=== PATIENT | female | born 1935 | race Caucasian/White ===

== ENCOUNTER 2017-08-28 19:31 | Emergency (ER) | payer OTHER ==
[2017-08-28 21:15] LABS: Absolute Lymphocytes (CBC) 1.1 K/uL (0.7-4.9); Absolute Monocytes 0.2 K/uL (0.1-1.3); Absolute Neutrophil 2.2 K/uL (1.8-8.0); Eosinophils % 2.8 % (0-4.4); Hematocrit 30.9 % (36.0-45.0); Lymphocytes % 29.3 % (15.3-44.8); MCH 28.3 pg (27.0-35.0); MCV 84.8 fL (80-100); MPV 7.6 fL (7.6-11.3); Monocytes % 6.7 % (3.3-12.3); RBC Red Blood Cell Count 3.65 M/uL (3.86-4.86)
[2017-08-28 21:15] LABS: Urine Appearance CLEAR; Urine Bilirubin NEGATIVE (NEG); Urine Blood NEGATIVE (NEG); Urine Color YELLOW; Urine Glucose NEGATIVE (NEG); Urine Protein NEGATIVE (NEG); Urine Specific Gravity 1.015 (1.005-1.030); Urine Urobilinogen 0.2 mg/dL (0.2-1.0)
[2017-08-28 21:19] LABS: Urine Blood NEGATIVE (NEG); Urine Glucose NEGATIVE (NEG); Urine Protein NEGATIVE (NEG); Urine pH 5.5 (5.0-7.0)
[2017-08-28 21:26] LABS: Urine Microscopic Reflex ORDER UMIC
[2017-08-28 21:27] LABS: Potassium 4.7 mEq/L (3.6-5.0)
[2017-08-28 21:28] LABS: Urine Bacteria <20 /HPF (<20); Urine Culture Reflex Order REFLEXED; Urine RBC <5 /HPF (NONE SEEN)
[2017-08-28 21:31] LABS: Albumin 3.4 g/dL (3.2-5.5); Bilirubin Total 0.9 mg/dL (0.3-1.2); Protein, Total 7.1 g/dL (6.0-8.3)
[2017-08-28] MEDS ORDERED: NA CHLORIDE 0.9% 500 ML ONE (22:06)
--- NOTE | 2017-08-28 22:46 | EDPHYS ---
Physician Documentation [facility] Name: Loni Cross Age: 82 yrs Sex: Female : 1935 Arrival Date: 08/28/2017 Time: 19:32 Bed 7 Private MD: Keith Weber F ED Physician Kadeem Meehan HPI: 08/28 21:52 This 82 yrs old Female presents to ER via Ambulatory with complaints of High tw4 Blood Sugar. 21:52 The patient or guardian reports hyperglycemia, that was potentially precipitated by no tw4 particular event. Onset: The symptoms/episode began/occurred today. Associated signs and symptoms: Pertinent positives: None. Pertinent negatives: None. Current symptoms: In the emergency department the patient's symptoms have improved, blood sugar lower. The patient has not experienced similar symptoms in the past. Historical: - Allergies: 19:38 blood thinners except ASA; aj 19:38 Rnisbst-Tci-Lth Reductase Inhibitors; aj - Home Meds: 19:38 aspirin 81 mg Oral TbEC 1 tab once daily [Active]; carvedilol 12.5 mg Oral tab 1 tab 2 aj times per day [Active]; Claritin-D 24 Hour 10-240 mg Oral Tb24 1 tab once daily [Active]; ezetimibe Oral once daily [Active]; Flonase 50 mcg/actuation Nasal spsn 1 spray 2 times per day [Active]; furosemide 40 mg Oral tab 1 tab once daily [Active]; glimepiride 4 mg Oral tab 1 tab twice a day [Active]; omeprazole 40 mg Oral cpDR 1 cap once daily [Active]; pravastatin 10 mg Oral tab 1 tab once daily [Active]; Spectravite Ultra Women's Sr 8 mg iron-400 mcg-300 mcg Oral tab [Active]; - PMHx: 19:38 CVA; Diabetes - NIDDM; Hyperlipidemia; Hypertension; aj - PSHx: 19:38 Hysterectomy; aj - Immunization history:: Adult Immunizations up to date. - Social history:: Smoking status: Patient/guardian denies using tobacco. ROS: 21:52 Constitutional: Negative for fever, chills, and weight loss, Cardiovascular: Negative tw4 for chest pain, palpitations, and edema, Respiratory: Negative for shortness of breath, cough, wheezing, and pleuritic chest pain, Back: Negative for injury and pain, : Negative for injury, bleeding, discharge, and swelling, MS/Extremity: Negative for injury and deformity. 21:52 Endocrine: Negative for goiter, cold intolerance, heat intolerance, polydipsia, polyphagia, polyuria, weight gain, weight loss. Exam: 21:52 Constitutional: This is a well developed, well nourished patient who is awake, alert, tw4 and in no acute distress. Head/Face: Normocephalic, atraumatic. Chest/axilla: Normal chest wall appearance and motion. Nontender with no deformity. No lesions are appreciated. Cardiovascular: Regular rate and rhythm with a normal S1 and S2. No gallops, murmurs, or rubs. Normal PMI, no JVD. No pulse deficits. Respiratory: Lungs have equal breath sounds bilaterally, clear to auscultation and percussion. No rales, rhonchi or wheezes noted. No increased work of breathing, no retractions or nasal flaring. Abdomen/GI: Soft, non-tender, with normal bowel sounds. No distension or tympany. No guarding or rebound. No evidence of tenderness throughout. MS/ Extremity: Pulses equal, no cyanosis. Neurovascular intact. Full, normal range of motion. Neuro: Awake and alert, GCS 15, oriented to person, place, time, and situation. Cranial nerves II-XII grossly intact. Motor strength 5/5 in all extremities. Sensory grossly intact. Cerebellar exam normal. Normal gait. Vital Signs: 19:38 BP 140 / 56; Pulse 66; Resp 16; Temp 98.5; Pulse Ox 100% on R/A; Weight 69.4 kg; Height aj 5 ft. 2 in. (157.48 cm); Pain 0/10; 20:30 BP 100 / 42; Pulse 60; Resp 16 S; Pulse Ox 99% on R/A; Pain 0/10; jd3 21:37 BP 112 / 49; Pulse 61; Resp 17; Pulse Ox 100% on R/A; Pain 0/10; jd3 22:37 BP 115 / 37; Pulse 63; Resp 15; Pulse Ox 100% on R/A; mw2 19:38 Body Mass Index 27.98 (69.40 kg, 157.48 cm) aj MDM: 19:47 Patient medically screened. tw4 21:52 Data reviewed: vital signs, nurses notes. Counseling: I had a detailed discussion with tw4 the patient and/or guardian regarding: the historical points, exam findings, and any diagnostic results supporting the discharge/admit diagnosis. 08/28 20:39 Order name: CBC with Diff; Complete Time: 21:47 tw4 08/28 20:39 Order name: CMP; Complete Time: 21:47 tw4 08/28 20:39 Order name: Urinalysis; Complete Time: 21:47 rust 08/28 21:14 Order name: Urine Dipstick--Ancillary (enter results); Complete Time: 21:47 eb 08/28 21:27 Order name: Urine Microscopic Only; Complete Time: 21:47 EDMS 08/28 21:30 Order name: Urine Culture EDPA Administered Medications: 22:14 Drug: NS 0.9% 500 ml Route: IV; Rate: bolus; Site: left forearm; bp 22:57 Follow up: Response: No adverse reaction; IV Status: Completed infusion; IV Intake: jd3 500ml Point of Care Testing: Blood Glucose: 19:53 Blood Glucose: 260 mg/dL; jd3 Ranges: Critical Glucose Levels:Adult <50 mg/dl or >400 mg/dl <40 mg/dl or >180 mg/dl Disposition: 08/28/17 22:45 Discharged to Home. Impression: Hyperglycemia, unspecified, Urinary tract infection, site not specified. - Condition is Stable. - Discharge Instructions: Hyperglycemia, Urinary Tract Infection, Urinary Tract Infection, Akun-ky-Wlda, Hyperglycemia, Pnuf-hu-Geje. - Prescriptions for Macrobid 100 mg Oral Capsule - take 1 capsule by ORAL route every 12 hours for 10 days; 20 capsule. - Medication Reconciliation Form, Thank You Letter, Antibiotic Education, Prescription Opioid Use form. - Follow up: Keith Weber MD; When: As needed; Reason: Recheck today's complaints, Continuance of care, Re-evaluation by your physician. - Problem is new. - Symptoms have improved. Signatures: Dispatcher [employer] EDSarah Higgins RN RN aj Davies, Jonathon, RN RN jd3 Peltier, Brian, RN RN bp Wadley, Terrence, MD MD 4 Corrections: (The following items were deleted from the chart) 22:57 22:45 08/28/2017 22:45 Discharged to Home. Impression: Hyperglycemia, unspecified; jd3 Urinary tract infection, site not specified. Condition is Stable. Forms are Medication Reconciliation Form, Thank You Letter, Antibiotic Education, Prescription Opioid Use. Follow up: Keith Weber; When: As needed; Reason: Recheck today's complaints, Continuance of care, Re-evaluation by your physician. Problem is new. Symptoms have improved. tw4
--- NOTE | 2017-08-28 22:46 | ER ---
Nurse's Notes [facility] Name: Loni Cross Age: 82 yrs Sex: Female : 1935 Arrival Date: 08/28/2017 Time: 19:32 Bed 7 Private MD: Keith Weber F Diagnosis: Hyperglycemia, unspecified;Urinary tract infection, site not specified Presentation: 08/28 19:37 Presenting complaint: Patient states: Sent by home health for blood sugar of 403 at home. Transition of care: patient was not received from another setting of care. Onset of symptoms was August 28, 2017. Care prior to arrival: None. 19:37 Method Of Arrival: Ambulatory 19:37 Acuity: TRINI 3 21:39 Initial Sepsis Screen: Does the patient meet any 2 criteria? No. Patient's initial jd3 sepsis screen is negative. Does the patient have a suspected source of infection? No. Patient's initial sepsis screen is negative. Triage Assessment: 19:38 General: Appears in no apparent distress. comfortable, Behavior is calm, cooperative, aj appropriate for age. Pain: Denies pain. Neuro: Level of Consciousness is awake, alert, obeys commands, Oriented to person, place, time, situation, Appropriate for age. Respiratory: Airway is patent Respiratory effort is even, unlabored, Respiratory pattern is regular, symmetrical. GI: No signs and/or symptoms were reported involving the gastrointestinal system. Derm: Skin is intact, is healthy with good turgor, Skin is pink, warm \T\ dry. normal. Historical: - Allergies: 19:38 blood thinners except ASA; aj 19:38 Yvfuies-Iia-Lhg Reductase Inhibitors; - Home Meds: 19:38 aspirin 81 mg Oral TbEC 1 tab once daily [Active]; carvedilol 12.5 mg Oral tab 1 tab 2 aj times per day [Active]; Claritin-D 24 Hour 10-240 mg Oral Tb24 1 tab once daily [Active]; ezetimibe Oral once daily [Active]; Flonase 50 mcg/actuation Nasal spsn 1 spray 2 times per day [Active]; furosemide 40 mg Oral tab 1 tab once daily [Active]; glimepiride 4 mg Oral tab 1 tab twice a day [Active]; omeprazole 40 mg Oral cpDR 1 cap once daily [Active]; pravastatin 10 mg Oral tab 1 tab once daily [Active]; Spectravite Ultra Women's Sr 8 mg iron-400 mcg-300 mcg Oral tab [Active]; - PMHx: 19:38 CVA; Diabetes - NIDDM; Hyperlipidemia; Hypertension; aj - PSHx: 19:38 Hysterectomy; aj - Immunization history:: Adult Immunizations up to date. - Social history:: Smoking status: Patient/guardian denies using tobacco. Screenin:39 Abuse screen: Denies threats or abuse. Nutritional screening: No deficits noted. jd3 Tuberculosis screening: No symptoms or risk factors identified. Fall Risk Ambulatory Aid- Crutches/Cane/Walker (15 pts). Gait- Weak (10 pts.). Mental Status- Oriented to own ability (0 pts). Total Jovel Fall Scale indicates Low Risk Score (25-44 pts). Fall prevention measures have been instituted. Side Rails Up X 2 Placed close to Nursing Station Frequent Obs/Assesments occuring Family Present and informed to notify staff if they need to leave bedside. Assessment: 19:55 General: Appears in no apparent distress. Behavior is calm, cooperative, appropriate jd3 for age, Reports high blood sugar. Pain: Denies pain. Neuro: Level of Consciousness is awake, alert, obeys commands, Oriented to person, place, time, situation. Cardiovascular: Heart tones S1 S2 present Capillary refill < 3 seconds Patient's skin is warm and dry. Respiratory: Airway is patent Respiratory effort is even, unlabored, Respiratory pattern is regular, symmetrical, Breath sounds are clear bilaterally. GI: Abdomen is round Bowel sounds present X 4 quads. Abd is soft and non tender X 4 quads. Reports nausea. : No signs and/or symptoms were reported regarding the genitourinary system. EENT: No signs and/or symptoms were reported regarding the EENT system. Derm: Skin is intact, Skin is dry, Skin is normal, Skin temperature is warm. Musculoskeletal: Circulation, motion, and sensation intact. Range of motion: intact in all extremities. 20:30 Reassessment: Patient appears in no apparent distress at this time. Patient and/or jd3 family updated on plan of care and expected duration. Pain level reassessed. Patient is alert, oriented x 3, equal unlabored respirations, skin warm/dry/pink. 21:30 Reassessment: Patient appears in no apparent distress at this time. Patient and/or jd3 family updated on plan of care and expected duration. Pain level reassessed. Patient is alert, oriented x 3, equal unlabored respirations, skin warm/dry/pink. Patient denies pain at this time. Patient states feeling better. 22:30 Reassessment: Patient appears in no apparent distress at this time. Patient and/or jd3 family updated on plan of care and expected duration. Pain level reassessed. Patient is alert, oriented x 3, equal unlabored respirations, skin warm/dry/pink. 22:55 Reassessment: Patient appears in no apparent distress at this time. Patient and/or jd3 family updated on plan of care and expected duration. Pain level reassessed. Patient is alert, oriented x 3, equal unlabored respirations, skin warm/dry/pink. pt reported understanding of discharge instructions, even and steady gait upon discharge. Patient denies pain at this time. Patient states feeling better. Vital Signs: 19:38 BP 140 / 56; Pulse 66; Resp 16; Temp 98.5; Pulse Ox 100% on R/A; Weight 69.4 kg; Height aj 5 ft. 2 in. (157.48 cm); Pain 0/10; 20:30 BP 100 / 42; Pulse 60; Resp 16 S; Pulse Ox 99% on R/A; Pain 0/10; jd3 21:37 BP 112 / 49; Pulse 61; Resp 17; Pulse Ox 100% on R/A; Pain 0/10; jd3 22:37 BP 115 / 37; Pulse 63; Resp 15; Pulse Ox 100% on R/A; mw2 19:38 Body Mass Index 27.98 (69.40 kg, 157.48 cm) ED Course: 19:32 Patient arrived in ED. am2 19:32 Keith Weber MD is Private Physician. am2 19:38 Triage completed. aj 19:38 Arm band placed on right wrist. Patient placed. aj 19:47 Kadeem Meehan MD is Attending Physician. tw4 19:53 Parveen Canas, ROBINSON is Primary Nurse. jd3 21:39 Patient has correct armband on for positive identification. Bed in low position. Call jd3 light in reach. Side rails up X2. Adult w/ patient. 22:13 No provider procedures requiring assistance completed. Inserted saline lock: 22 gauge bp in left forearm, using aseptic technique. Blood collected. 22:45 Keith Weber MD is Referral Physician. tw4 22:56 IV discontinued, intact, bleeding controlled, No redness/swelling at site. Pressure jd3 dressing applied. Administered Medications: 22:14 Drug: NS 0.9% 500 ml Route: IV; Rate: bolus; Site: left forearm; bp 22:57 Follow up: Response: No adverse reaction; IV Status: Completed infusion; IV Intake: jd3 500ml Point of Care Testing: Blood Glucose: 19:53 Blood Glucose: 260 mg/dL; jd3 Ranges: Intake: 22:57 IV: 500ml; Total: 500ml. jd3 Outcome: 22:45 Discharge ordered by . tw4 22:56 Discharged to home ambulatory, with family. jd3 22:56 Condition: stable 22:56 Discharge instructions given to patient, family, Instructed on discharge instructions, follow up and referral plans. medication usage, Demonstrated understanding of instructions, follow-up care, medications, Prescriptions given X 1. 22:57 Patient left the ED. jd3 Addendum: 09/02/2017 07:42 Addendum: Culture Results: Positive urine culture. No further action required. Bacteria i w sensitive to prescribed antibiotic. Signatures: Sarah Rosales, RN Yanet England RN RN iw Moreno, Amanda amParveen Tuttle RN RN jd3 Peltier, Brian, RN RN bp Wadley, Terrence, MD MD tw4 Elver Mckeon 2
[2017-08-28 23:11] VITALS: TEMP 98.5
[2017-08-28 23:21] VITALS: O2SAT 100
[2017-08-28 23:22] VITALS: BP 115/37
== END 2017-08-28 22:57 | disposition home or self-care (01) ==
LOC: ER 19:31
DX: N39.0 Urinary tract infection, site not specified (principal); I10 Essential (primary) hypertension; E78.5 Hyperlipidemia, unspecified; Z79.82 Long term (current) use of aspirin; Z86.73 Personal history of transient ischemic attack (TIA), and cerebral infarction without residual deficits; Z88.8 Allergy status to other drugs, medicaments and biological substances
CPT/HCPCS: 36415; 80048; 80053; 81003; 81015; 82040; 82043; 82570; 82962; 83970; 84100; 84550; 85025; 87077; 87086; 87088; 87186; 96360; 99284

== ENCOUNTER 2018-01-09 12:56 | Emergency (ER) | payer OTHER ==
[2018-01-09 14:21] LABS: Absolute Lymphocytes (CBC) 0.6 K/uL (0.7-4.9); Absolute Monocytes 0.2 K/uL (0.1-1.3); Absolute Neutrophil 1.2 K/uL (1.8-8.0); Basophils % 0.9 % (0-1.3); Eosinophils % 3.7 % (0-4.4); Hematocrit 28.4 % (36.0-45.0); Lymphocytes % 30.4 % (15.3-44.8); MCH 30.4 pg (27.0-35.0); MCV 90.4 fL (80-100); MPV 8.3 fL (7.6-11.3); Monocytes % 7.8 % (3.3-12.3); RBC Red Blood Cell Count 3.14 M/uL (3.86-4.86)
[2018-01-09 14:28] LABS: Protime INR 1.21
[2018-01-09 14:40] LABS: ALT/SGPT 55 U/L (12-78); AST/SGOT 62 U/L (15-37); Albumin 2.6 g/dL (3.4-5.0); Alkaline Phosphatase 101 U/L (45-117); BUN Blood Urea Nitrogen 43 mg/dL (7-18); Bicarbonate 26 mmol/L (21-32); Bilirubin Direct 0.2 mg/dL (0-0.2); Bilirubin Total 0.7 mg/dL (0.2-1.0); Glucose Level 228 mg/dL (74-106); Magnesium 2.1 mg/dL (1.8-2.4); NT PRO-BNP 220 pg/mL (<450); Potassium 4.8 mmol/L (3.5-5.1); Protein, Total 6.1 g/dL (6.4-8.2); Sodium Level 144 mmol/L (136-145); Troponin (Emerg Dept Use Only) < 0.02 ng/mL (0.0-0.045)
--- NOTE | 2018-01-09 16:55 | ER ---
Nurse's Notes [facility] Name: Loni Cross Age: 82 yrs Sex: Female : 1935 Arrival Date: 01/09/2018 Time: 12:57 Bed 19 Private MD: Keith Weber F Diagnosis: Dyspnea, unspecified Presentation: 01/09 12:59 Presenting complaint: Patient states: My kidney doctor took me off my lasix because my la1 kidney function was not good but I have gained about 14 pounds in the last 10 days. Pt states she gets SOB when she walks. Transition of care: patient was not received from another setting of care. Onset of symptoms was January 09, 2018. Risk Assessment: Do you want to hurt yourself or someone else? Patient reports no desire to harm self or others. Initial Sepsis Screen: Does the patient meet any 2 criteria? No. Patient's initial sepsis screen is negative. Does the patient have a suspected source of infection? No. Patient's initial sepsis screen is negative. Care prior to arrival: None. 12:59 Method Of Arrival: Ambulatory la1 12:59 Acuity: TRINI 3 la1 Historical: - Allergies: 12:59 blood thinners except ASA; la1 12:59 Ucupkda-Wkv-Aje Reductase Inhibitors; la1 - PMHx: 12:59 CVA; Diabetes - NIDDM; Hyperlipidemia; Hypertension; la1 - Immunization history:: Adult Immunizations up to date. - Social history:: Smoking status: Patient/guardian denies using tobacco. - Ebola Screening: : No symptoms or risks identified at this time. Screenin:12 Abuse screen: Denies threats or abuse. Denies injuries from another. Nutritional aj1 screening: No deficits noted. Tuberculosis screening: No symptoms or risk factors identified. 15:12 Fall Risk None identified. aj1 Assessment: 14:09 General: Appears in no apparent distress. comfortable, Behavior is calm, cooperative, aj1 appropriate for age. Pain: Denies pain. Neuro: Level of Consciousness is awake, alert, obeys commands. Cardiovascular: Patient's skin is warm and dry. Edema in bilateral lower legs. Respiratory: Airway is patent Respiratory effort is even, unlabored, Respiratory pattern is regular, symmetrical. GI: No signs and/or symptoms were reported involving the gastrointestinal system. : No signs and/or symptoms were reported regarding the genitourinary system. EENT: No signs and/or symptoms were reported regarding the EENT system. Derm: No signs and/or symptoms reported regarding the dermatologic system. Skin is pink, warm \T\ dry. normal. Musculoskeletal: No signs and/or symptoms reported regarding the musculoskeletal system. Circulation, motion, and sensation intact. 15:01 Reassessment: Patient appears in no apparent distress at this time. No changes from aj1 previously documented assessment. Patient and/or family updated on plan of care and expected duration. Pain level reassessed. Patient is alert, oriented x 3, equal unlabored respirations, skin warm/dry/pink. 15:06 Reassessment: Patient ambulated around unit with respiratory therapist. aj1 16:15 Reassessment: No changes from previously documented assessment. General: Appears in no aj1 apparent distress. comfortable, Behavior is calm, cooperative, appropriate for age. Pain: Denies pain. Neuro: Level of Consciousness is awake, alert, obeys commands. Cardiovascular: Patient's skin is warm and dry. Respiratory: Airway is patent Respiratory effort is even, unlabored, Respiratory pattern is regular, symmetrical. GI: No signs and/or symptoms were reported involving the gastrointestinal system. EENT: No signs and/or symptoms were reported regarding the EENT system. Derm: Skin is pink, warm \T\ dry. normal. Musculoskeletal: Circulation, motion, and sensation intact. 17:31 Reassessment: Patient appears in no apparent distress at this time. No changes from aj1 previously documented assessment. Patient and/or family updated on plan of care and expected duration. Pain level reassessed. Patient is alert, oriented x 3, equal unlabored respirations, skin warm/dry/pink. Vital Signs: 13:03 BP 141 / 50; Pulse 68; Resp 16; Temp 97.7(O); Pulse Ox 100% on R/A; Weight 83.46 kg; la1 14:09 BP 139 / 62; Pulse 68; Resp 20; Pulse Ox 97% on R/A; aj1 15:01 BP 126 / 61; Pulse 63; Resp 16; Pulse Ox 99% on R/A; aj1 16:15 BP 130 / 65; Pulse 64; Resp 18; Pulse Ox 97% ; aj1 17:31 BP 146 / 55; Pulse 62; Resp 18; Pulse Ox 99% ; aj1 ED Course: 12:57 Patient arrived in ED. sb2 12:58 Keith Weber MD is Private Physician. sb2 13:00 Triage completed. la1 13:00 Arm band placed on left wrist. la1 13:41 Mike Griffiths PA is PHCP. jmm 13:41 Bharathi Mcadams MD is Attending Physician. jmm 14:00 Julieta Lambert RN is Primary Nurse. aj1 14:12 Patient has correct armband on for positive identification. Placed in gown. Bed in low aj1 position. Call light in reach. surveillance system monitor on. Pulse ox on. NIBP on. 14:12 No provider procedures requiring assistance completed. aj1 14:17 Initial lab(s) drawn, by me, sent to lab. Inserted saline lock: 20 gauge in right dh3 antecubital area, using aseptic technique. Blood collected. 14:20 XRAY Chest (1 view) In Process Unspecified. EDMS 16:55 Marlin Ibrahim MD is Referral Physician. jmm 17:31 IV discontinued, intact, bleeding controlled, No redness/swelling at site. Pressure aj1 dressing applied. Administered Medications: No medications were administered Outcome: 16:55 Discharge ordered by MD. [facility] 17:33 Discharged to home ambulatory. aj1 17:33 Condition: good 17:33 Discharge instructions given to patient, Instructed on discharge instructions, follow up and referral plans. Demonstrated understanding of instructions, follow-up care. 17:33 Patient left the ED. aj1 Signatures: Dispatcher [employer] EDMS Julieta Lambert, RN RN taylor1 Mike Griffiths PA PA [facility] Mert Garcia RN RN la1 Jessika Philip [facility] Bianca Betancourt sb2 Corrections: (The following items were deleted from the chart) 17:32 15:11 Patient did not have IV access during this emergency room visit. aj1 aj1 17:33 15:12 Discharged to home via wheelchair, aj1 aj1 : 15:12 Condition: good aj1 aj1 17:33 15:12 Discharge instructions given to patient, Instructed on discharge instructions, aj1 follow up and referral plans. medication usage, Demonstrated understanding of instructions, follow-up care, medications, Prescriptions given X 3, aj1
--- NOTE | 2018-01-09 16:55 | EDPHYS ---
Physician Documentation [facility] Name: Loni Cross Age: 82 yrs Sex: Female : 1935 Arrival Date: 01/09/2018 Time: 12:57 Bed 19 Private MD: Keith Weber F ED Physician Bharathi Mcadams HPI: 01/09 13:48 This 82 yrs old Female presents to ER via Ambulatory with complaints of jmm Weight Gain. 13:48 The patient has shortness of breath with light activity. Onset: The symptoms/episode jmm began/occurred gradually, 3 day(s) ago. Duration: The symptoms are continuous. The patient's shortness of breath is aggravated by walking, is alleviated by rest. Associated signs and symptoms: Pertinent positives: weight gain, abdominal distension. The patient has experienced a previous episode, but today's symptoms are not as bad as this previous episode. This is an 82 year old female that presents to the ED with complaints of abdominal distension, weight gain beginning approx 10 days ago. Patient was advised to discontinue lasix due to decrease in GFR. Patient also complains of dyspnea on walking. Patient denies fever, denies chest pain. Patient states symptoms were much worse during a previous visit. . Historical: - Allergies: 12:59 blood thinners except ASA; la1 12:59 Tkltjdn-Hjn-Cvu Reductase Inhibitors; la1 - PMHx: 12:59 CVA; Diabetes - NIDDM; Hyperlipidemia; Hypertension; la1 - Immunization history:: Adult Immunizations up to date. - Social history:: Smoking status: Patient/guardian denies using tobacco. - Ebola Screening: : No symptoms or risks identified at this time. ROS: 13:48 Constitutional: Negative for fever, chills, and weight loss, Cardiovascular: Negative jmm for chest pain, palpitations, and edema. 13:48 Back: Negative for injury and pain, MS/Extremity: Negative for injury and deformity, Skin: Negative for injury, rash, and discoloration, Neuro: Negative for headache, weakness, numbness, tingling, and seizure. 13:48 Respiratory: Positive for shortness of breath. 13:48 Abdomen/GI: Positive for distension. 13:48 All other systems are negative. Exam: 13:48 Head/Face: atraumatic. Neck: Trachea midline, Supple Chest/axilla: Normal chest wall [facility] appearance and motion. 13:48 Constitutional: The patient appears in no acute distress, alert, awake. 13:48 Cardiovascular: Rate: normal, Rhythm: regular, Pulses: no pulse deficits are appreciated. 13:48 Respiratory: the patient does not display signs of respiratory distress, Respirations: normal, Breath sounds: are clear throughout. 13:48 Abdomen/GI: Inspection: obese Bowel sounds: normal, Palpation: abdomen is soft and non-tender, in all quadrants. 13:48 Back: ROM is normal. 13:48 Musculoskeletal/extremity: ROM: intact in all extremities. 13:48 Skin: Appearance: Color: normal in color. 13:48 Neuro: Orientation: is normal, Mentation: is normal, Memory: is normal, Gait: is steady. 13:48 Psych: Behavior/mood is pleasant, cooperative. Vital Signs: 13:03 BP 141 / 50; Pulse 68; Resp 16; Temp 97.7(O); Pulse Ox 100% on R/A; Weight 83.46 kg; la1 14:09 BP 139 / 62; Pulse 68; Resp 20; Pulse Ox 97% on R/A; aj1 15:01 BP 126 / 61; Pulse 63; Resp 16; Pulse Ox 99% on R/A; aj1 16:15 BP 130 / 65; Pulse 64; Resp 18; Pulse Ox 97% ; aj1 17:31 BP 146 / 55; Pulse 62; Resp 18; Pulse Ox 99% ; aj1 MDM: 13:48 Patient medically screened. [facility] 16:51 Data reviewed: vital signs, nurses notes. Counseling: I had a detailed discussion with herman the patient and/or guardian regarding: the historical points, exam findings, and any diagnostic results supporting the discharge/admit diagnosis, lab results, radiology results, the need for outpatient follow up, to return to the emergency department if symptoms worsen or persist or if there are any questions or concerns that arise at home. ED course: RT ambulated the patient with pulse oximetry monitoring. O2 was 98% on RA. BNP WNL, CXR did not show a volume overload pattern. Patient advised to follow up with nephrology for reevaluation on Thursday. patient is otherwise given strict return precautions. patient understood and agrees with the plan of care. . 01/09 13:42 Order name: Basic Metabolic Panel; Complete Time: 14:47 [facility] 01/09 13:42 Order name: CBC with Diff [facility] 01/09 13:42 Order name: LFT's; Complete Time: 14:47 [facility] 01/09 13:42 Order name: Magnesium; Complete Time: 14:47 [facility] 01/09 13:42 Order name: NT PRO-BNP; Complete Time: 14:47 [facility] 01/09 13:42 Order name: PT-INR; Complete Time: 14:47 [facility] 01/09 13:42 Order name: Troponin (emerg Dept Use Only); Complete Time: 14:47 [facility] 01/09 13:42 Order name: XRAY Chest (1 view) [facility] 01/09 13:42 Order name: EKG; Complete Time: 13:42 [facility] 01/09 13:42 Order name: Cardiac monitoring; Complete Time: 14:17 [facility] 01/09 13:42 Order name: EKG - Nurse/Tech; Complete Time: 14:32 [facility] 01/09 13:42 Order name: IV Saline Lock; Complete Time: 14:17 [facility] 01/09 13:42 Order name: Labs collected and sent; Complete Time: 14:17 [facility] 01/09 14:25 Order name: CBC Smear Scan [facility] 01/09 13:42 Order name: O2 Per Protocol; Complete Time: 14:17 [facility] 01/09 13:42 Order name: O2 Sat Monitoring; Complete Time: 14:17 [facility] Administered Medications: No medications were administered Disposition: 01/10 12:20 Co-signature as Attending Physician, Bharathi Mcadams MD I agree with the assessment and thor plan of care. Disposition: 01/09/18 16:55 Discharged to Home. Impression: Dyspnea, unspecified. - Condition is Stable. - Discharge Instructions: Heart Failure, Shortness of Breath. - Medication Reconciliation Form, Thank You Letter, Antibiotic Education, Prescription Opioid Use form. - Follow up: Marlin Ibrahim MD; When: 1 - 2 days; Reason: Recheck today's complaints, Continuance of care, Re-evaluation by your physician. Signatures: Dispatcher [employer] EDJulieta Sewell, RN RN aj1 Bharathi Mcadams MD MD cha Mickail, Joel, PA PA [facility] Mert Garcia RN RN la1 Corrections: (The following items were deleted from the chart) 01/09 17:33 16:55 01/09/2018 16:55 Discharged to Home. Impression: Dyspnea, unspecified. Condition aj1 is Stable. Forms are Medication Reconciliation Form, Thank You Letter, Antibiotic Education, Prescription Opioid Use. Follow up: Marlin Ibrahim; When: 1 - 2 days; Reason: Recheck today's complaints, Continuance of care, Re-evaluation by your physician. herman
[2018-01-09 17:59] VITALS: TEMP 97.7
[2018-01-09 18:04] VITALS: BP 146/55; O2SAT 99
[2018-01-09 19:29] LABS: Blood Morphology Comment NOT SEEN (NOT SEEN); Platelet Estimate DECR; Urine White Blood Cell Casts OK
--- NOTE | 2018-01-10 17:12 | RAD REPORT ---
EXAM DESCRIPTION: RAD - Chest Single View - 01/09/2018 11:29 pm CLINICAL HISTORY: Chest pain, shortness of breath The final report was delayed due to PACs and/or Fluency technical problems that existed at the time of the study or during expected/usual dictation time period. COMPARISON: June 18, 2017 TECHNIQUE: AP portable chest image was obtained 1414 hours . FINDINGS: No peripheral mass or consolidation. Interstitial markings are prominent. Pattern is sligh tly less than the June comparison. Left pleural effusion is present but diminished compared to the p rior study. Heart size and vasculature are mildly prominent. Heart size is slightly less than the com parison. No pneumothorax. No acute aortic findings suspected. IMPRESSION: Heart, vasculature and lung markings are all prominent but less pronounced than seen in June. And minimal failure/ volume overload is suspected. Small left pleural effusion much smaller than seen in June.
--- NOTE | 2018-01-11 08:16 | EKG ---
Test Date: 2018-01-09 Test Time: 14:27:44 Bus Driver/Monitor: MAXINE MEASUREMENT RESULTS: Intervals: Rate: 62 HI: 230 QRSD: 80 QT: 432 QTc: 438 [place]: P: 33 HI: 230 QRS: -8 T: 16 INTERPRETIVE STATEMENTS: Sinus rhythm with sinus arrhythmia with 1st degree AV block Low voltage QRS Cannot rule out Anterior infarct, age undetermined Abnormal ECG Compared to ECG 06/18/2017 15:08:05 First degree AV block now present Low QRS voltage now present Myocardial infarct finding still present Electronically Signed On 01-11-18 08:16:08 CDT by Jamal Hopkins
== END 2018-01-09 17:33 | disposition home or self-care (01) ==
LOC: ER 12:56
DX: R06.00 Dyspnea, unspecified (principal); Z88.8 Allergy status to other drugs, medicaments and biological substances
CPT/HCPCS: 36415; 71045; 80048; 80076; 83735; 83880; 84484; 85025; 85610; 93005; 99284

== ENCOUNTER 2018-03-16 16:52 | Emergency (ER) | payer OTHER ==
[2018-03-16 19:48] LABS: Absolute Lymphocytes (CBC) 0.3 K/uL (0.7-4.9); Absolute Monocytes 0.2 K/uL (0.1-1.3); Absolute Neutrophil 3.9 K/uL (1.8-8.0); Basophils % 0.4 % (0-1.3); Eosinophils % 0.9 % (0-4.4); Lymphocytes % 7.6 % (15.3-44.8); MCH 29.2 pg (27.0-35.0); MCV 87.3 fL (80-100); MPV 8.1 fL (7.6-11.3); RBC Red Blood Cell Count 3.89 M/uL (3.86-4.86)
[2018-03-16 20:16] LABS: Bilirubin Direct 0.3 mg/dL (0-0.2); Bilirubin Total 0.8 mg/dL (0.2-1.0); Potassium 4.1 mmol/L (3.5-5.1); Protein, Total 7.6 g/dL (6.4-8.2)
--- NOTE | 2018-03-16 21:55 | EDPHYS ---
Physician Documentation [facility] Name: Loni Cross Age: 83 yrs Sex: Female : 1935 Arrival Date: 03/16/2018 Time: 16:55 Bed 28 Private MD: Keith Weber F ED Physician Bharathi Mcadams HPI: 03/16 20:00 This 83 yrs old Female presents to ER via Wheelchair with complaints of pm1 Fever, Cough, Sinus Pain. 20:00 The patient reports fever, that was measured at 101 degrees Fahrenheit. Onset: The pm1 symptoms/episode began/occurred 2 week(s) ago. Associated signs and symptoms: Pertinent positives: cough, sinus congestion, sinus drainage, Pertinent negatives: chest pain, shortness of breath. Severity of symptoms: in the emergency department the symptoms are worse. The patient has been recently seen by a physician: the patient's primary care provider, instructed to take allergy medications for sinus congestion. 20:00 Sinus congestion for two weeks with post nasal drainage and cough. pm1 Historical: - Allergies: 17:46 Ycqwhbt-Iuf-Eja Reductase Inhibitors; aj1 17:46 blood thinners except ASA; aj1 17:46 Streptomycin; aj1 - PMHx: 17:46 CVA; Diabetes - NIDDM; Hyperlipidemia; Hypertension; aj1 - Immunization history:: Adult Immunizations up to date. - Social history:: Smoking status: Patient/guardian denies using tobacco. ROS: 20:00 Constitutional: Negative for fever, chills, and weight loss. pm1 20:00 Eyes: Negative for injury, pain, redness, and discharge, Neck: Negative for injury, pain, and swelling, Cardiovascular: Negative for chest pain, palpitations, and edema. 20:00 Abdomen/GI: Negative for abdominal pain, nausea, vomiting, diarrhea, and constipation, Back: Negative for injury and pain, : Negative for injury, bleeding, discharge, and swelling, MS/Extremity: Negative for injury and deformity, Skin: Negative for injury, rash, and discoloration, Neuro: Negative for headache, weakness, numbness, tingling, and seizure. 20:00 ENT: Positive for sinus congestion, sinus pain, Negative for ear pain, difficulty swallowing, difficulty handling secretions, hoarseness. 20:00 Respiratory: Positive for cough, Negative for shortness of breath, sputum production, wheezing. Exam: 20:00 Constitutional: This is a well developed, well nourished patient who is awake, alert, pm1 and in no acute distress. Eyes: Pupils equal round and reactive to light, extra-ocular motions intact. Lids and lashes normal. Conjunctiva and sclera are non-icteric and not injected. Cornea within normal limits. Periorbital areas with no swelling, redness, or edema. 20:00 ENT: Nares patent. No nasal discharge, no septal abnormalities noted. Tympanic membranes are normal and external auditory canals are clear. Oropharynx with no redness, swelling, or masses, exudates, or evidence of obstruction, uvula midline. Mucous membranes moist. Neck: Trachea midline, no thyromegaly or masses palpated, and no cervical lymphadenopathy. Supple, full range of motion without nuchal rigidity, or vertebral point tenderness. No Meningismus. Chest/axilla: Normal chest wall appearance and motion. Nontender with no deformity. No lesions are appreciated. Cardiovascular: Regular rate and rhythm with a normal S1 and S2. No gallops, murmurs, or rubs. No pulse deficits. Respiratory: Lungs have equal breath sounds bilaterally, clear to auscultation and percussion. No rales, rhonchi or wheezes noted. No increased work of breathing, no retractions or nasal flaring. Abdomen/GI: Soft, non-tender, with normal bowel sounds. No distension or tympany. No guarding or rebound. No evidence of tenderness throughout. Back: No spinal tenderness. No costovertebral tenderness. Full range of motion. Skin: Warm, dry with normal turgor. Normal color with no rashes, no lesions, and no evidence of cellulitis. MS/ Extremity: Pulses equal, no cyanosis. Neurovascular intact. Full, normal range of motion. 20:00 Head/face: Sinus tenderness, that is moderate, is located over the right frontal sinus and left frontal sinus. 20:00 Neuro: Orientation: is normal, Motor: is normal, moves all fours. Vital Signs: 17:46 BP 126 / 41; Pulse 81; Resp 18; Temp 98.9; Pulse Ox 95% on R/A; Weight 77.11 kg (R); aj1 Height 5 ft. 2 in. (157.48 cm) (R); Pain 0/10; 19:42 BP 145 / 50; Pulse 83; Resp 18; Pulse Ox 94% on R/A; Pain 0/10; aa1 20:34 BP 139 / 58; Pulse 80; Resp 18; Pulse Ox 97% on R/A; Pain 0/10; aa1 21:22 BP 123 / 82; Pulse 82; Resp 18; Pulse Ox 97% on R/A; Pain 0/10; aa1 22:30 BP 119 / 71; Pulse 83; Resp 18; Temp 99.0; Pulse Ox 97% on R/A; Pain 0/10; aa1 17:46 Body Mass Index 31.09 (77.11 kg, 157.48 cm) aj1 MDM: 19:00 Patient medically screened. pm1 21:53 Data reviewed: vital signs. Data interpreted: Pulse oximetry: on room air is 97 %. pm1 Interpretation: normal. Counseling: I had a detailed discussion with the patient and/or guardian regarding: the historical points, exam findings, and any diagnostic results supporting the discharge/admit diagnosis, lab results, radiology results, the need for outpatient follow up, to return to the emergency department if symptoms worsen or persist or if there are any questions or concerns that arise at home. 03/16 19:09 Order name: Basic Metabolic Panel; Complete Time: 20:20 pm1 03/16 19:09 Order name: CBC with Diff; Complete Time: 20:20 pm1 03/16 19:09 Order name: LFT's; Complete Time: 20:20 pm1 03/16 19:09 Order name: Blood Culture Adult (2) pm1 03/16 19:09 Order name: Flu; Complete Time: 20:20 pm1 03/16 19:09 Order name: Chest Pa And Lat (2 Views) XRAY pm1 03/16 19:09 Order name: IV Saline Lock; Complete Time: 19:59 pm1 03/16 19:09 Order name: Labs collected and sent; Complete Time: 20:00 pm1 03/16 19:09 Order name: O2 Per Protocol; Complete Time: 19:19 pm1 03/16 19:09 Order name: O2 Sat Monitoring; Complete Time: 19:19 pm1 Administered Medications: 22:15 Drug: Rocephin 1 grams Route: IV; Rate: calculated rate; Site: left antecubital; aa1 22:30 Follow up: IV Status: Completed infusion aa1 Disposition: 03/17 05:46 Co-signature as Attending Physician, Bharathi Mcadams MD I agree with the assessment and thor plan of care. Disposition: 03/16/18 21:55 Discharged to Home. Impression: Acute sinusitis, Cough. - Condition is Stable. - Discharge Instructions: Sinusitis, Adult, Cough, Adult. - Prescriptions for Zithromax Z- Tray 250 mg Oral Tablet - take 1 tablet by ORAL route as directed for 5 days Day 1 - take two (2) tablets one time. Day 2, 3, 4 , 5 take one (1) tablet once daily.; 6 tablet. Zyrtec- D 5-120 mg Oral Tablet Sustained Release 12 hr - take 1 tablet by ORAL route every 12 hours As needed; 20 tablet. - Medication Reconciliation Form, Thank You Letter, Antibiotic Education form. - Follow up: Emergency Department; When: As needed; Reason: Worsening of condition. Follow up: Keith Weber MD; When: 2 - 3 days; Reason: Recheck today's complaints, Continuance of care, Re-evaluation by your physician. - Problem is new. - Symptoms have improved. Signatures: Dispatcher [employer] EDMS Julieta Lambert RN RN aj1 Tesha Thakur RN RN aa1 Bharathi Mcadams MD MD cha Marinas, Patrick, [place] [employer]ACHINE STITCHER pm1 Corrections: (The following items were deleted from the chart) 03/16 22:32 21:55 03/16/2018 21:55 Discharged to Home. Impression: Acute sinusitis; Cough. aa1 Condition is Stable. Forms are Medication Reconciliation Form, Thank You Letter, Antibiotic Education, Prescription Opioid Use. Follow up: Emergency Department; When: As needed; Reason: Worsening of condition. Follow up: Keith Weber; When: 2 - 3 days; Reason: Recheck today's complaints, Continuance of care, Re-evaluation by your physician. Problem is new. Symptoms have improved. pm1
--- NOTE | 2018-03-16 21:55 | ER ---
Nurse's Notes [facility] Name: Loni Cross Age: 83 yrs Sex: Female : 1935 Arrival Date: 03/16/2018 Time: 16:55 Bed 28 Private MD: Keith Weber F Diagnosis: Acute sinusitis;Cough Presentation: 03/16 17:43 Presenting complaint: Patient states: "I've had a sinus infection for the past 2 weeks. aj1 It was getting better but now its getting worse" Reports sinus pressure, cough, nasal congestion. Reports fever up to 101 at home. Denies SOB. Transition of care: patient was not received from another setting of care. Onset of symptoms was February 2018. Risk Assessment: Do you want to hurt yourself or someone else? Patient reports no desire to harm self or others. Initial Sepsis Screen: Does the patient meet any 2 criteria? No. Patient's initial sepsis screen is negative. Does the patient have a suspected source of infection? Yes: Productive cough/pneumonia. Care prior to arrival: None. 17:43 Method Of Arrival: Wheelchair aj1 17:43 Acuity: TRINI 3 aj1 Triage Assessment: 17:46 Headache History: Other Denies headache. General: Appears in no apparent distress. aj1 comfortable, Behavior is calm, cooperative, appropriate for age. Pain: Denies pain. Neuro: Level of Consciousness is awake, alert, obeys commands. Cardiovascular: Patient's skin is warm and dry. Respiratory: Airway is patent Respiratory effort is even, unlabored, Respiratory pattern is regular, symmetrical. Historical: - Allergies: 17:46 Xchvjnv-Qfi-Onq Reductase Inhibitors; aj1 17:46 blood thinners except ASA; aj1 17:46 Streptomycin; aj1 - PMHx: 17:46 CVA; Diabetes - NIDDM; Hyperlipidemia; Hypertension; aj1 - Immunization history:: Adult Immunizations up to date. - Social history:: Smoking status: Patient/guardian denies using tobacco. Screenin:10 Abuse screen: Denies threats or abuse. Denies injuries from another. Nutritional aa1 screening: No deficits noted. Tuberculosis screening: No symptoms or risk factors identified. Fall Risk None identified. Assessment: 19:10 General: Appears in no apparent distress. comfortable, Behavior is calm, cooperative, aa1 appropriate for age. Pain: Denies pain. Neuro: Level of Consciousness is awake, alert, obeys commands, Oriented to person, place, time, situation, Moves all extremities. Speech is normal. Cardiovascular: Denies chest pain, Heart tones S1 S2 present Rhythm is regular. Respiratory: Reports cough that is productive, Airway is patent Respiratory effort is even, unlabored, Respiratory pattern is regular, symmetrical, Breath sounds are clear bilaterally. the patient has moderate shortness of breath. GI: No signs and/or symptoms were reported involving the gastrointestinal system. : No signs and/or symptoms were reported regarding the genitourinary system. EENT: Throat is clear Reports nasal congestion. Derm: Skin is intact, is healthy with good turgor, Skin is pink, warm \\T\\ dry. Musculoskeletal: Circulation, motion, and sensation intact. Capillary refill < 3 seconds. 19:43 Reassessment: Patient appears in no apparent distress at this time. Patient is alert, aa1 oriented x 3, equal unlabored respirations, skin warm/dry/pink. Pt taken to x-ray at this time. 20:00 Reassessment: Patient appears in no apparent distress at this time. Patient and/or aa1 family updated on plan of care and expected duration. Pain level reassessed. Patient is alert, oriented x 3, equal unlabored respirations, skin warm/dry/pink. Pt back from x-ray. Awaiting lab results. 20:34 Reassessment: Patient appears in no apparent distress at this time. Patient and/or aa1 family updated on plan of care and expected duration. Pain level reassessed. Patient is alert, oriented x 3, equal unlabored respirations, skin warm/dry/pink. Awaiting x-ray results. 21:35 Reassessment: Patient appears in no apparent distress at this time. Patient and/or aa1 family updated on plan of care and expected duration. Pain level reassessed. Patient is alert, oriented x 3, equal unlabored respirations, skin warm/dry/pink. Awaiting provider reassessment. 22:30 Reassessment: Patient appears in no apparent distress at this time. Patient is alert, aa1 oriented x 3, equal unlabored respirations, skin warm/dry/pink. Discussed d/c \\T\\ f/u instructions with pt \\T\\ family; denies questions or concerns at this time Patient denies pain at this time. Vital Signs: 17:46 BP 126 / 41; Pulse 81; Resp 18; Temp 98.9; Pulse Ox 95% on R/A; Weight 77.11 kg (R); aj1 Height 5 ft. 2 in. (157.48 cm) (R); Pain 0/10; 19:42 BP 145 / 50; Pulse 83; Resp 18; Pulse Ox 94% on R/A; Pain 0/10; aa1 20:34 BP 139 / 58; Pulse 80; Resp 18; Pulse Ox 97% on R/A; Pain 0/10; aa1 21:22 BP 123 / 82; Pulse 82; Resp 18; Pulse Ox 97% on R/A; Pain 0/10; aa1 22:30 BP 119 / 71; Pulse 83; Resp 18; Temp 99.0; Pulse Ox 97% on R/A; Pain 0/10; aa1 17:46 Body Mass Index 31.09 (77.11 kg, 157.48 cm) aj1 ED Course: 16:55 Patient arrived in ED. rg4 16:56 Keith Weber MD is Private Physician. rg4 17:45 Triage completed. aj1 17:46 Arm band placed on Patient placed in waiting room, Patient notified of wait time. aj1 19:00 Justen Gomez NP is PHCP. pm1 19:00 Bharatih Mcadams MD is Attending Physician. pm1 19:10 Patient has correct armband on for positive identification. Bed in low position. Call aa1 light in reach. Side rails up X2. Pulse ox on. NIBP on. Warm blanket given. 19:15 Initial lab(s) drawn, by la, sent to lab. First set of blood cultures drawn by me. aa1 Inserted saline lock: 20 gauge in left antecubital area, using aseptic technique. Blood collected. 19:17 Tesha Thakur, ROBINSON is Primary Nurse. aa1 19:33 Second set of blood cultures drawn by me. aa1 19:35 Flu and/or RSV swab sent to lab. aa1 19:52 Chest Pa And Lat (2 Views) XRAY In Process Unspecified. EDMS 20:00 Diet: Patient given ice chips. aa1 21:54 Keith Weber MD is Referral Physician. pm1 22:30 No provider procedures requiring assistance completed. IV discontinued, intact, aa1 bleeding controlled, No redness/swelling at site. Pressure dressing applied. Administered Medications: 22:15 Drug: Rocephin 1 grams Route: IV; Rate: calculated rate; Site: left antecubital; aa1 22:30 Follow up: IV Status: Completed infusion aa1 Outcome: 21:55 Discharge ordered by MD. pm1 22:30 Discharged to home via wheelchair, with family. aa1 22:30 Condition: good 22:30 Discharge instructions given to patient, family, Instructed on discharge instructions, follow up and referral plans. medication usage, Demonstrated understanding of instructions, follow-up care, medications, Prescriptions given X 2. 22:32 Patient left the ED. aa1 Signatures: Dispatcher [employer] EDJulieta Sewell RN RN taylor1 Tesha Thakur RN RN aa1 Justen Gomez NP AUTO DEALER pm1 Becky Thomason rg4
[2018-03-16] MEDS ORDERED: CEFTRIAXONE 1000 MG/VIAL ONE (22:27)
--- NOTE | 2018-03-17 08:02 | RAD REPORT ---
EXAM DESCRIPTION: RAD - Chest Pa And Lat (2 Views) - 03/16/2018 9:42 pm CLINICAL HISTORY: Cough, fever COMPARISON: December TECHNIQUE: PA and lateral views of the chest were obtained. FINDINGS: The lungs are normal volume. Patient has diffusely prominent interstitial markings not cl early different from comparison. Early interstitial edema or infiltrate could be masked in this setti ng. Heart size is normal and central vasculature is within normal limits. No pleural effusion or pne umothorax seen. No acute bony finding noted. No aortic abnormality. Final reporting was delayed due to technical malfunction. IMPRESSION: No focal consolidation or focal acute chest finding. Chronic interstitial lung disease is present. This is not clearly different from prior imaging and co uld potentially mask early interstitial edema or infiltrate.
[2018-03-17 09:53] VITALS: TEMP 98.9
[2018-03-17 09:57] VITALS: O2SAT 97
[2018-03-17 09:58] VITALS: BP 123/82
== END 2018-03-16 22:32 | disposition home or self-care (01) ==
LOC: ER 16:52
DX: J01.90 Acute sinusitis, unspecified (principal); I10 Essential (primary) hypertension; Z88.3 Allergy status to other anti-infective agents; Z88.8 Allergy status to other drugs, medicaments and biological substances
CPT/HCPCS: 36415; 71046; 80048; 80076; 85025; 87040; 87804; 96374; 99284

== ENCOUNTER 2019-06-16 17:48 | Inpatient (IN) | payer OTHER ==
[2019-06-16 18:39] LABS: Absolute Lymphocytes (CBC) 0.5 K/uL (0.7-4.9); Basophils % 0.3 % (0-1.3); Hematocrit 32.9 % (36.0-45.0); Lymphocytes % 10.7 % (15.3-44.8); MPV 9.1 fL (7.6-11.3); RBC Red Blood Cell Count 3.69 M/uL (3.86-4.86)
[2019-06-16] MEDS ORDERED: NA CHLORIDE 0.9% 1,000 ML ONE (18:45)
--- NOTE | 2019-06-16 18:45 | RAD REPORT ---
EXAM DESCRIPTION: RAD - Chest Single View - 06/16/2019 6:37 pm CLINICAL HISTORY: Dyspnea;Fever Chest pain. COMPARISON: Chest Pa And Lat (2 Views) dated 03/16/2018; Chest Single View dated 01/09/2018; Chest Si ngle View dated 06/18/2017; Chest Single View dated 04/10/2017 FINDINGS: Portable technique limits examination quality. Mild interstitial pulmonary edema is seen. The heart is mildly enlarged with a small left pleural eff usion. No displaced fractures. IMPRESSION: Mild CHF suspected.
[2019-06-16 18:47] LABS: Protime INR 1.3
[2019-06-16 19:02] LABS: ALT/SGPT 15 U/L (12-78); AST/SGOT 21 U/L (15-37); Albumin 2.7 g/dL (3.4-5.0); Alkaline Phosphatase 72 U/L (45-117); BUN Blood Urea Nitrogen 50 mg/dL (7-18); Bicarbonate 31 mmol/L (21-32); Bilirubin Direct 0.3 mg/dL (0-0.2); Bilirubin Total 1.1 mg/dL (0.2-1.0); Glucose Level 152 mg/dL (74-106); NT PRO-BNP 433 pg/mL (<450); Potassium 3.6 mmol/L (3.5-5.1); Protein, Total 7.1 g/dL (6.4-8.2); Sodium Level 141 mmol/L (136-145); Troponin (Emerg Dept Use Only) < 0.02 ng/mL (0.0-0.045)
[2019-06-16] MEDS ORDERED: FUROSEMIDE 20 MG/ 2ML VIAL ONE (19:20)
--- NOTE | 2019-06-16 19:32 | EDPHYS ---
Physician Documentation [facility] Name: Loni Cross Age: 84 yrs Sex: Female : 1935 Arrival Date: 06/16/2019 Time: 17:53 Bed 25 Private MD: ED Physician Andrei Leiva HPI: 06/16 18:30 This 84 yrs old Female presents to ER via EMS with complaints of Shortness Of jr8 Breath. 18:30 The patient has shortness of breath at rest. Onset: The symptoms/episode began/occurred jr8 gradually, 1 week(s) ago. Duration: The symptoms are continuous. The patient's shortness of breath is aggravated by talking, walking, is alleviated by nothing. Associated signs and symptoms: Pertinent positives: productive cough, fever. Severity of symptoms: At their worst the symptoms were mild in the emergency department the symptoms are unchanged. The patient has not experienced similar symptoms in the past. The patient has not recently seen a physician. Historical: - Allergies: 18:10 Kfstsvg-Yus-Zmw Reductase Inhibitors; vc 18:10 blood thinners except ASA; vc 18:10 Streptomycin; vc - Home Meds: 18:10 aspirin 81 mg Oral TbEC 1 tab once daily [Active]; pravastatin 10 mg Oral tab 1 tab vc once daily [Active]; omeprazole 40 mg Oral cpDR 1 cap once daily [Active]; glimepiride 4 mg Oral tab 1 tab twice a day [Active]; furosemide 40 mg Oral tab 1 tab once daily [Active]; Albuterol Inhl [Active]; Allopurinol Oral [Active]; Coreg Oral [Active]; Tradjenta [Active]; - PMHx: 18:10 CVA; Diabetes - NIDDM; Hypertension; Hyperlipidemia; vc - PSHx: 18:10 Hysterectomy; vc - Immunization history:: Adult Immunizations up to date. - Social history:: Smoking status: Patient denies any tobacco usage or history of. ROS: 18:30 Eyes: Negative for injury, pain, redness, and discharge, Neck: Negative for injury, jr8 pain, and swelling, Cardiovascular: Negative for chest pain, palpitations, and edema, Abdomen/GI: Negative for abdominal pain, nausea, vomiting, diarrhea, and constipation, Back: Negative for injury and pain, MS/Extremity: Negative for injury and deformity, Skin: Negative for injury, rash, and discoloration, Neuro: Negative for headache, weakness, numbness, tingling, and seizure. 18:30 Constitutional: Positive for fever. 18:30 ENT: Positive for rhinorrhea. 18:30 Respiratory: Positive for cough, shortness of breath. Exam: 18:30 Eyes: Pupils equal round and reactive to light, extra-ocular motions intact. Lids and jr8 lashes normal. Conjunctiva and sclera are non-icteric and not injected. Cornea within normal limits. Periorbital areas with no swelling, redness, or edema. ENT: Nares patent. No nasal discharge, no septal abnormalities noted. Tympanic membranes are normal and external auditory canals are clear. Oropharynx with no redness, swelling, or masses, exudates, or evidence of obstruction, uvula midline. Mucous membranes moist. Neck: Trachea midline, no thyromegaly or masses palpated, and no cervical lymphadenopathy. Supple, full range of motion without nuchal rigidity, or vertebral point tenderness. No Meningismus. Cardiovascular: Regular rate and rhythm with a normal S1 and S2. No gallops, murmurs, or rubs. Normal PMI, no JVD. No pulse deficits. Abdomen/GI: Soft, non-tender, with normal bowel sounds. No distension or tympany. No guarding or rebound. No evidence of tenderness throughout. Back: No spinal tenderness. No costovertebral tenderness. Full range of motion. Skin: Warm, dry with normal turgor. Normal color with no rashes, no lesions, and no evidence of cellulitis. MS/ Extremity: Pulses equal, no cyanosis. Neurovascular intact. Full, normal range of motion. Neuro: Awake and alert, GCS 15, oriented to person, place, time, and situation. Cranial nerves II-XII grossly intact. Motor strength 5/5 in all extremities. Sensory grossly intact. Cerebellar exam normal. Normal gait. 18:30 Respiratory: the patient does not display signs of respiratory distress, Respirations: normal, symetrical, no use of accessory muscles, no grunting, no evidence of nasal flaring, no prolonged exhalations, no pursed lip breathing, no retractions, no shallow respirations, no splinting, no tachypnea, Breath sounds: rhonchi, that are moderate, are heard diffusely. Vital Signs: 17:54 BP 134 / 49; Pulse 82; Resp 14; Temp 99.5(O); Pulse Ox 92% on R/A; Weight 83.01 kg; vc Height 5 ft. 2 in. (157.48 cm); 18:10 BP 134 / 49; Pulse 82; Resp 14; Temp 99.5(O); Pulse Ox 92% on R/A; Weight 83.01 kg (R); vc Height 5 ft. 2 in. (157.48 cm) (R); 18:10 Body Mass Index 33.47 (83.01 kg, 157.48 cm) vc MDM: 17:59 Patient medically screened. jr8 19:30 Data reviewed: vital signs, nurses notes, lab test result(s), EKG, radiologic studies, jr8 plain films. Data interpreted: Pulse oximetry: on room air is 91 %. Interpretation: hypoxia. Counseling: I had a detailed discussion with the patient and/or guardian regarding: the historical points, exam findings, and any diagnostic results supporting the discharge/admit diagnosis, lab results, radiology results, the need for further work-up and treatment in the hospital. Physician consultation: Romelia Smith MD was called at 19:31, was contacted at 19:31, regarding admission, to the telemetry unit. consult, patient's condition, and will see patient. 06/16 17:59 Order name: Basic Metabolic Panel; Complete Time: 19:10 06/16 17:59 Order name: Blood Culture Adult (2) 06/16 17:59 Order name: CBC with Diff; Complete Time: 18:48 06/16 17:59 Order name: Lactate; Complete Time: 19:02 06/16 17:59 Order name: LFT's; Complete Time: 19:10 06/16 17:59 Order name: Procalcitonin; Complete Time: 19:34 06/16 17:59 Order name: Protime (+inr); Complete Time: 19:02 06/16 17:59 Order name: Ptt, Activated; Complete Time: 19:02 06/16 17:59 Order name: Troponin (emerg Dept Use Only); Complete Time: 19:10 06/16 17:59 Order name: Urine Microscopic Only; Complete Time: 20:51 27 17:59 Order name: BNP; Complete Time: 19:10 [facility] 06/16 17:59 Order name: Influenza Screen (a \T\ B); Complete Time: 19:29 06/16 18:28 Order name: Glucose, Ancillary Testing; Complete Time: 18:32 [facility] 06/16 20:13 Order name: CBC with Automated Diff [facility] 06/16 17:59 Order name: Chest Single View XRAY; Complete Time: 18:48 [facility] 06/16 20:13 Order name: Echo with Doppler EDMS 06/16 20:13 Order name: Echo with Doppler EDMS 06/16 20:13 Order name: CBC with Automated Diff [facility] 06/16 20:13 Order name: Comprehensive Metabolic Panel EDMS 06/16 20:13 Order name: Comprehensive Metabolic Panel [facility] 06/16 20:13 Order name: Magnesium EDMS 06/16 20:13 Order name: Magnesium EDMS 06/16 20:13 Order name: Phosphorus EDMS 06/16 20:13 Order name: Phosphorus ED[facility] 06/16 20:13 Order name: NT PRO-BNP MS 06/16 20:13 Order name: NT PRO-BNP MS 06/16 20:13 Order name: Troponin I [facility] 06/16 20:13 Order name: Troponin I [facility] 06/16 20:13 Order name: Troponin I [facility] 06/16 20:23 Order name: Urine Dipstick--Ancillary (enter results); Complete Time: 20:27 [facility] 06/16 17:59 Order name: Accucheck; Complete Time: 18:26 06/16 17:59 Order name: Cardiac monitoring; Complete Time: 18:26 06/16 17:59 Order name: EKG - Nurse/Tech; Complete Time: 18:36 06/16 17:59 Order name: IV Saline Lock - Large Bore; Complete Time: 18:41 06/16 17:59 Order name: Labs collected and sent; Complete Time: 18:26 06/16 17:59 Order name: O2 Per Protocol; Complete Time: 18:26 06/16 17:59 Order name: O2 Sat Monitoring; Complete Time: 18:26 06/16 17:59 Order name: Urine Dipstick-Ancillary (obtain specimen); Complete Time: 21:02 jr 06/16 20:13 Order name: CONS Physician Consult [facility] 06/16 20:13 Order name: Heart Healthy [facility] Administered Medications: 18:49 CANCELLED (Physician Discretion): NS 0.9% (30 ml/kg) 30 ml/kg IV at bolus once; Sepsis 8 Protocol 19:23 Drug: Lasix 40 mg Route: IVP; Site: left antecubital; vc 20:00 Follow up: Response: No adverse reaction vc 21:00 Drug: LevaQUIN 500 mg Volume: 100 ml; Route: IVPB; Infused Over: 60 mins; Site: right vc forearm; 21:00 Follow up: IV Status: Infusion continued upon admission vc Disposition: 06/16/19 19:31 Hospitalization ordered by Rmoelia Smith for Observation. Preliminary diagnosis are Acute combined systolic (congestive) and diastolic (congestive) heart failure, Prerenal azotemia, Urinary tract infection, site not specified. - Bed requested for Telemetry/MedSurg (observation). - Status is Observation. mw2 - Condition is Stable. - Problem is new. - Symptoms have improved. Signatures: Dispatcher [employer] [facility] Nazario Gloria PA PA jr8 Elver Mckeon mw2 Qing Arizmendi RN RN vc Corrections: (The following items were deleted from the chart) 18:49 17:59 NS 0.9% (30 ml/kg) 30 ml/kg IV at bolus once; Sepsis Protocol ordered. 8 8 20:17 19:31 Hospitalization Ordered by Romelia Smith MD for Observation. Preliminary mw2 diagnosis is Acute combined systolic (congestive) and diastolic (congestive) heart failure; Prerenal azotemia. Bed requested for Telemetry/MedSurg (observation). Status is Observation. Condition is Stable. Problem is new. Symptoms have improved. jr8 20:51 20:17 06/16/2019 19:31 Hospitalization Ordered by Romelia Smith MD for Observation. jr8 Preliminary diagnosis is Acute combined systolic (congestive) and diastolic (congestive) heart failure; Prerenal azotemia. Bed requested for Telemetry/MedSurg (observation). Status is Observation. Condition is Stable. Problem is new. Symptoms have improved. mw2 21:11 20:51 06/16/2019 19:31 Hospitalization Ordered by Romelia Smith MD for Observation. mw2 Preliminary diagnosis is Acute combined systolic (congestive) and diastolic (congestive) heart failure; Prerenal azotemia; Urinary tract infection, site not specified. Bed requested for Telemetry/MedSurg (observation). Status is Observation. Condition is Stable. Problem is new. Symptoms have improved. jr8
--- NOTE | 2019-06-16 19:32 | ER ---
Nurse's Notes [facility] Name: Loni Cross Age: 84 yrs Sex: Female : 1935 Arrival Date: 06/16/2019 Time: 17:53 Bed 25 Private MD: Diagnosis: Acute combined systolic (congestive) and diastolic (congestive) heart failure;Prerenal azotemia;Urinary tract infection, site not specified Presentation: 06/16 17:54 Chief complaint: Patient states: "I feel short of breath and I feel like my breathing vc is labored." EMS states: "The patients home health nurse called stating she was severely hypertensive, on arrival blood pressure was 145/68. Patient was also running a temperature of 101 and took some Tylenol at 1530, patient was complaining she has been coughing up mucus and has some post nasal dripping.". Coronavirus screen: The patient has NOT traveled to [place] in the past 14 days. Coronavirus screen: The patient has NOT traveled to [place] in the past 14 days. Proceed with normal triage procedures. Ebola Screen: No symptoms or risks identified at this time. Initial Sepsis Screen: Does the patient meet any 2 criteria? No. Patient's initial sepsis screen is negative. Does the patient have a suspected source of infection? Yes: Productive cough/pneumonia. Risk Assessment: Do you want to hurt yourself or someone else? Patient reports no desire to harm self or others. 17:54 Method Of Arrival: EMS: [facility] vc 17:54 Acuity: TRINI 3 vc Historical: - Allergies: 18:10 Kfnlyxs-Fef-Gwy Reductase Inhibitors; vc 18:10 blood thinners except ASA; vc 18:10 Streptomycin; vc - Home Meds: 18:10 aspirin 81 mg Oral TbEC 1 tab once daily [Active]; pravastatin 10 mg Oral tab 1 tab vc once daily [Active]; omeprazole 40 mg Oral cpDR 1 cap once daily [Active]; glimepiride 4 mg Oral tab 1 tab twice a day [Active]; furosemide 40 mg Oral tab 1 tab once daily [Active]; Albuterol Inhl [Active]; Allopurinol Oral [Active]; Coreg Oral [Active]; Tradjenta [Active]; - PMHx: 18:10 CVA; Diabetes - NIDDM; Hypertension; Hyperlipidemia; vc - PSHx: 18:10 Hysterectomy; vc - Immunization history:: Adult Immunizations up to date. - Social history:: Smoking status: Patient denies any tobacco usage or history of. Screenin:00 Abuse screen: Denies threats or abuse. Nutritional screening: No deficits noted. vc Tuberculosis screening: No symptoms or risk factors identified. Fall Risk None identified. Vital Signs: 17:54 BP 134 / 49; Pulse 82; Resp 14; Temp 99.5(O); Pulse Ox 92% on R/A; Weight 83.01 kg; vc Height 5 ft. 2 in. (157.48 cm); 18:10 BP 134 / 49; Pulse 82; Resp 14; Temp 99.5(O); Pulse Ox 92% on R/A; Weight 83.01 kg (R); vc Height 5 ft. 2 in. (157.48 cm) (R); 18:10 Body Mass Index 33.47 (83.01 kg, 157.48 cm) vc ED Course: 17:53 Patient arrived in ED. vc 17:59 Nazario Gloria PA is PHCP. jr8 17:59 Andrei Leiva MD is Attending Physician. jr8 18:00 Triage completed. vc 18:21 Initial lab(s) drawn, by me, sent to lab. First set of blood cultures drawn by me, lt1 Second set of blood cultures drawn by me, Flu and/or RSV swab sent to lab. 18:25 Inserted saline lock: 22 gauge in left antecubital area, using aseptic technique. lt1 18:26 Influenza Screen (a \\T\\ B) Sent. lt1 18:37 Chest Single View XRAY In Process Unspecified. EDMS 18:41 Qing Arizmendi, ROBINSON is Primary Nurse. vc 19:31 Romelia Smith MD is Hospitalizing Provider. jr8 Administered Medications: 18:49 CANCELLED (Physician Discretion): NS 0.9% (30 ml/kg) 30 ml/kg IV at bolus once; Sepsis jr8 Protocol 19:23 Drug: Lasix 40 mg Route: IVP; Site: left antecubital; vc 20:00 Follow up: Response: No adverse reaction vc 21:00 Drug: LevaQUIN 500 mg Volume: 100 ml; Route: IVPB; Infused Over: 60 mins; Site: right vc forearm; 21:00 Follow up: IV Status: Infusion continued upon admission vc Outcome: 19:31 Decision to Hospitalize by Provider. jr8 21:11 Patient left the ED. mw2 Signatures: Dispatcher [employer] [facility] Nazario Gloria PA PA jr8 Elver Mckeon mw2 Miranda Quiroz lt1 Qing Arizmendi RN RN vc
[2019-06-16] MEDS ORDERED: ACETAMINOPHEN 500 MG TAB PO PRN (20:07)
[2019-06-16] MEDS ORDERED: ONDANSETRON 4 MG/2 ML VIAL IV PRN (20:07)
[2019-06-16 20:26] LABS: Urine Blood NEGATIVE (NEG); Urine Glucose NEGATIVE (NEG); Urine Protein NEGATIVE (NEG); Urine Specific Gravity 1.015 (1.005-1.030)
[2019-06-16 20:48] LABS: Urine Bacteria 20-50 /HPF (<20); Urine Culture Reflex Order REFLEXED; Urine RBC <5 /HPF (NONE SEEN)
[2019-06-16] MEDS ORDERED: Levofloxacin500mg IV 500 MG/100 ML BAG IV ONE (20:53)
[2019-06-16] MEDS ORDERED: METOPROLOL TAR 50 MG TAB PO SCH (21:00)
[2019-06-16 21:22] VITALS: BMI 33.4
[2019-06-16] MEDS: POTASSIUM 25 MEQ EFFERV TAB PO SCH (21:48)
[2019-06-17] MEDS ORDERED: FUROSEMIDE 40 MG/4 ML VIAL IV SCH (01:00)
[2019-06-17 05:58] LABS: Absolute Lymphocytes (CBC) 0.6 K/uL (0.7-4.9); Basophils % 0.8 % (0-1.3); Hematocrit 31.9 % (36.0-45.0); RBC Red Blood Cell Count 3.55 M/uL (3.86-4.86)
[2019-06-17 06:08] LABS: ALT/SGPT 16 U/L (12-78); AST/SGOT 23 U/L (15-37); Albumin 2.5 g/dL (3.4-5.0); Alkaline Phosphatase 72 U/L (45-117); BUN Blood Urea Nitrogen 43 mg/dL (7-18); Bicarbonate 31 mmol/L (21-32); Glucose Level 129 mg/dL (74-106); Magnesium 1.8 mg/dL (1.8-2.4); NT PRO-BNP 493 pg/mL (<450); Phosphorus 2.1 mg/dL (2.5-4.9); Potassium 3.7 mmol/L (3.5-5.1); Protein, Total 6.7 g/dL (6.4-8.2); Sodium Level 141 mmol/L (136-145); Troponin I < 0.02 ng/mL (0.0-0.045)
--- NOTE | 2019-06-17 07:42 | P.HP ---
Certification for Inpatient Patient admitted to: Inpatient With expected LOS: >2 Midnights Patient will require the following post-hospital care: None Practitioner: I am a practitioner with admitting privileges, knowledge of patient current condition, hospital course, and medical plan of care. Services: Services provided to patient in accordance with Admission requirements found in Title 42 Section 412.3 of the Code of Federal Regulations Patient History Date of Service: 06/16/19 Reason for admission: Shortness of breath History of Present Illness: Patient is an 84-year-old female came to the hospital with shortness of breath. Patient states she has been sick for the last couple of days and has been getting progressively worse. She came into the emergency room for further evaluation. In the ER she was found have congestive heart failure with bilateral pulmonary edema. However, she did also have an elevated procalcitonin level. She does state that she has been coughing up some purulent sputum which has been greenish in color. She has had some shakes and chills as well. Will cover her with some antibiotics and get an echocardiogram. She also has some renal dysfunction and will get her pediatrics hospitalist to evaluate her so we can monitor her renal function closely while we diurese her. Echocardiogram is pending at this time. Patient will be admitted for further evaluation. Allergies blood thinner Allergy (Mild, Uncoded 06/16/19 21:12) swelling blood thinners Allergy (Uncoded 06/16/19 21:12) Unknown Kbbyrvc-Xql-Hea Redu Allergy (Uncoded 06/16/19 21:12) Unknown Home Medications: Aspirin [Aspirin EC 81 MG] 81 mg PO DAILY 06/19/17 Furosemide [Lasix*] 1.5 mg PO DAILY 06/19/17 Glimepiride [Amaryl] 4 mg PO BID 06/19/17 Pravastatin Sodium 10 mg PO BEDTIME 06/19/17 carvediloL [Coreg*] 6.25 mg PO BEDTIME 06/19/17 Allopurinol 100 mg PO DAILY 06/16/19 Cetirizine HCl 10 mg PO DAILY 06/16/19 Linagliptin [Tradjenta] 1 tab PO DAILY 06/16/19 - Past Medical/Surgical History Has patient received pneumonia vaccine in the past: Yes Diabetic: Yes -: DM -: HTN -: Hyperlipidemia -: CVA 2014 -: Gastric Ulcer -: Full Hysterectomy - Family History Mother Medical History: Diabetes - Social History Smoking Status: Never smoker Alcohol use: No CD- Drugs: No Caffeine use: No Place of Residence: Home Review of Systems 10-point ROS is otherwise unremarkable Physical Examination - Vital Signs Temperature: 99.2 F Blood Pressure: 141/65 Pulse: 70 Respirations: 18 Pulse Ox (%): 93 - Physical Exam General: Alert, In no apparent distress, Oriented x3 HEENT: Atraumatic, PERRLA, Mucous membr. moist/pink, EOMI, Sclerae nonicteric Neck: Supple, 2+ carotid pulse no bruit, No LAD, Without JVD or thyroid abnormality Respiratory: Diminished, Crackles/rales Cardiovascular: Regular rate/rhythm, Normal S1 S2, No murmurs Gastrointestinal: Normal bowel sounds, Soft and benign, Non-distended, No tenderness Musculoskeletal: No clubbing, No swelling, No tenderness Integumentary: No rashes Neurological: Normal gait, Normal speech, Normal strength at 5/5 x4 extr, Normal tone, Sensation intact, Cranial nerves 3-12 intact, Normal affect Lymphatics: No axilla or inguinal lymphadenopathy - Studies Laboratory Data (last 24 hrs) 06/16/19 18:14: PT 15.2 H, INR 1.30, APTT 27.9 06/16/19 18:14: WBC 4.5, Hgb 10.7 L, Hct 32.9 L, Plt Count 62 L 06/16/19 18:14: Sodium 141, Potassium 3.6, BUN 50 H, Creatinine 2.03 H, Glucose 152 H, Total Bilirubin 1.1 H, AST 21, ALT 15, Alkaline Phosphatase 72 Microbiology Data (last 24 hrs): 06/16/19 18:43 Nasopharnyx Influenza Type A Antigen Screen - Final 06/16/19 18:43 Nasopharnyx Influenza Type B Antigen Screen - Final Assessment & Plan - Problems (Diagnosis) (1) Acute exacerbation of CHF (congestive heart failure) Current Visit: Yes Status: Acute (2) Pneumonia Current Visit: Yes Status: Acute (3) Elevated procalcitonin Current Visit: Yes Status: Acute (4) Acute on chronic renal insufficiency Current Visit: Yes Status: Acute - Plan 1. Echocardiogram 2. Continue with IV antibiotic therapy 3. Renal consultation 4. Cardiology consultation 5. Aggressive diuresis 6. Strict I's and O's 7. Repeat CXR 8. Daily weights 9. Education regarding diet and treatment of congestive heart failure Discharge Plan: Home Plan to discharge in: Greater than 2 days - Advance Directives Does patient have a Living Will: Yes Does patient have a Durable POA for Healthcare: Yes - Code Status/Comfort Care Code Status Assessed: Yes Code Status: Full Code Critical Care: No Time Spent Managing PTS Care (In Minutes): 45
--- NOTE | 2019-06-17 08:12 | RAD REPORT ---
EXAM DESCRIPTION: RAD - Chest Pa And Lat (2 Views) - 06/17/2019 7:16 am CLINICAL HISTORY: follow up CHF COMPARISON: Chest Single View dated 06/16/2019; Chest Pa And Lat (2 Views) dated 03/16/2018 TECHNIQUE: Frontal and lateral views of the chest were obtained. FINDINGS: The lungs are better aerated. Interstitial opacification is similar to the 2018 study. The re is minimal remnant medial left base opacification that is probably atelectasis and a small amount of pleural fluid. Heart size is normal range. Vasculature within normal limits. IMPRESSION: Mild CHF pattern has improved. Minimal remnant lung base pleural and parenchymal opacifi cation.
--- NOTE | 2019-06-17 08:25 | P.PN ---
Subjective Date of Service: 06/17/19 Primary Care Provider: Dr. Bravo; Nephrology-Dr. Ibrahim Chief Complaint: Shortness of breath Subjective: Improving, Doing well Physical Examination - Vital Signs Temperature: 99.2 F Blood Pressure: 141/65 Pulse: 70 Respirations: 18 Pulse Ox (%): 93 - Physical Exam General: Alert, In no apparent distress, Oriented x3, Cooperative HEENT: Atraumatic Neck: Supple Respiratory: Crackles/rales (Minimal crackles to the bases) Cardiovascular: Normal pulses, Regular rate/rhythm Gastrointestinal: Normal bowel sounds, Soft and benign, Non-distended, No masses , No rebound, No guarding Musculoskeletal: No erythema, No tenderness, No warmth Integumentary: No tenderness/swelling, No erythema, No warmth, No cyanosis Neurological: Normal speech, Normal strength at 5/5 x4 extr, Normal tone, Normal affect - Studies Laboratory Data (last 24 hrs) 06/16/19 18:14: PT 15.2 H, INR 1.30, APTT 27.9 06/16/19 18:14: WBC 4.5, Hgb 10.7 L, Hct 32.9 L, Plt Count 62 L 06/16/19 18:14: Sodium 141, Potassium 3.6, BUN 50 H, Creatinine 2.03 H, Glucose 152 H, Total Bilirubin 1.1 H, AST 21, ALT 15, Alkaline Phosphatase 72 Microbiology Data (last 24 hrs): 06/16/19 18:43 Nasopharnyx Influenza Type A Antigen Screen - Final 06/16/19 18:43 Nasopharnyx Influenza Type B Antigen Screen - Final Medications List Reviewed: Yes Assessment & Plan Discharge Plan: Home Plan to discharge in: 24 Hours Physician Review Additional Text: Impression: Shortness of breath secondary to acute on chronic diastolic CHF Fatigue with elevated pro calcitonin suspect related to left base pneumonia with possible UTI Chronic renal disease stage II Hypertension Hyperlipidemia Chronic thrombocytopenia Plan: Shortness of breath secondary to acute on chronic diastolic CHF: Repeat x-ray shows improvement. Patient on room air. Continue diuresis. Will teach on 1500 cc per day fluid restriction and low-salt diet. Patient not on a fluid restriction at home. Patient takes Lasix at home. Will ambulate. Patient also receiving antibiotic therapy for possible pneumonia/UTI. Pulmonology consulted. Echocardiogram ordered. Possible discharge as early as today with significant improvement. Will discuss with pulmonology and nephrology. Fatigue with elevated pro calcitonin suspect related to left base pneumonia with possible UTI: Urine culture obtained. Patient on Levaquin. Continue antibiotic therapy. Chronic renal disease stage II: Overall stable. Nephrology consulted. Continue diuresis. Will discuss further with nephrology. Hypertension: Restart home medication. Hyperlipidemia: Restart home medication. Thrombocytopenia, chronic: This appears chronic. Will send for peripheral smear. Time Spent Managing Pts Care (In Minutes): 55
[2019-06-17] MEDS: POTASSIUM 25 MEQ EFFERV TAB PO SCH ×2 (08:44→20:36)
[2019-06-17] MEDS: POTASS/SODIUM PHOSPHATE 1 PKT POWD.PACK PO SCH ×3 (08:44→10:47)
[2019-06-17] MEDS: allopurinoL 100 MG TAB PO SCH (08:44)
[2019-06-17] MEDS: ASPIRIN EC 81 MG TAB PO SCH (08:44)
[2019-06-17] MEDS: FUROSEMIDE 20 MG/ 2ML VIAL IV SCH ×2 (08:50→20:35)
[2019-06-17 08:55] LABS: Blood Morphology Comment NOT SEEN (NOT SEEN); Platelet Estimate DECR; Urine White Blood Cell Casts OK
[2019-06-17] MEDS ORDERED: ENOXAPARIN 30 MG/0.3 ML SQ SCH (09:00)
--- NOTE | 2019-06-17 13:14 | ECHO ---
HEIGHT: 5 ft 2 in WEIGHT: 182 lb 14.4 oz DATE OF STUDY: 06/17/[address]: Romelia Smith MD 2-DIMENSIONAL: YES M.MODE: YES DOPPLER: YES COLOR FLOW: YES TDS: YES PORTABLE: DEFINITY: BUBBLE STUDY: DIAGNOSIS: ACUTE CONGESTIVE HEART FAILURE CARDIAC HISTORY: CATHERIZATION: NO SURGERY: NO PROSTHETIC VALVE: NO PACEMAKER: NO MEASUREMENTS (cm) DIASTOLIC (NORMALS) SYSTOLIC (NORMALS) IVSd 1.0 (0.6-1.2) LA Diam 2.9 (1.9-4.0) LVEF 64% LVIDd 3.9 (3.5-5.7) LVIDs 2.5 (2.0-3.5) %FS 35% LVPWd 1.0 (0.6-1.2) Ao Diam 3.3 (2.0-3.7) 2 DIMENSIONAL ASSESSMENT: RIGHT ATRIUM: NORMAL LEFT ATRIUM: NORMAL RIGHT VENTRICLE: NORMAL LEFT VENTRICLE: NORMAL TRICUSPID VALVE: NORMAL MITRAL VALVE: MITRAL ANNULAR CALCIFICATION PULMONIC VALVE: NORMAL AORTIC VALVE: NORMAL PERICARDIAL EFFUSION: NONE AORTIC ROOT: NORMAL LEFT VENTRICULAR WALL MOTION: NORMAL DOPPLER/COLOR FLOW: NORMAL COMMENTS: NORMAL LEFT VENTRICULAR SIZE AND FUNCTION. MITRAL ANNULAR CALCIFICATION. NO WALL MOTION ABNORMALITY. NO EFFUSION. TECHNOLOGIST: NASRIN ERICKSON
[2019-06-17] MEDS ORDERED: carvediloL 6.25 MG TAB PO SCH (21:00)
[2019-06-17] MEDS ORDERED: ATORVASTATIN 10 MG TAB PO SCH (21:00)
--- NOTE | 2019-06-17 21:35 | CON ---
Date of Consultation: 06/17/2019 Admitted on 06/16/[address] Villarreal. I saw the patient on 06/17/2019. Reason For Consultation: Congestive heart failure. History Of Present Illness: Ms. Cross is an 84-year-old woman. She is known to me from previous off ice visits and admission. She has a history of diabetes, hypertension, congestive heart failure, dys lipidemia, and CVA, came in with dyspnea on exertion. Chest x-ray showed mild congestive heart failu re. EKG shows sinus rhythm with low voltage. Denied chest pain, nausea, vomiting, diaphoresis. Den ied any orthopnea. She had pedal edema. She had no palpitation. She had no syncope. She has alrea dy ruled out for an OR. She is improving on IV Lasix. Allergies: SHE IS ALLERGIC TO STATIN AND BLOOD THINNERS. Past Medical History: Diabetes, hypertension, diastolic congestive heart failure, history of CVA, an d dyslipidemia. Medications: Allopurinol, Coreg, Pravachol, Tradjenta, Amaryl, Lasix, and aspirin. Review of Systems: Negative. Social History: Negative. Family History: Negative. Physical Examination: General: She was very pleasant. Vital Signs: Stable, afebrile. HEENT: Negative. Neck: Supple. No bruit. Chest: Actually was clear to me to auscultation and percussion. Cardiac: Revealed a regular rhythm and rate with S4 gallops. Abdomen: Benign. Extremities: Revealed no clubbing or cyanosis. She had trace edema. Diagnostic Data: As stated earlier, but also she had a creatinine of 2.01. Hemoglobin of 10.5. Glu cose was 207. Her BNP was 493. Echocardiogram that was done was normal without any wall motion abnormalities. No effusions. Impression: 1.Acute on chronic diastolic congestive heart failure. 2.Renal insufficiency. 3.Diabetes. 4.Hypertension, well controlled. 5.Dyslipidemia. 6.History of cerebrovascular accident. 7.Anemia. Plan: I would continue her present regimen. Consider renal consultation. Patient is not on any nep hrotoxic drugs except for her Lasix. I am comfortable with her going home whenever it is okay with Jenn Villarreal. I will see her in the office in the next week or 2. NB/MODL Voice ID: [id number] Report ID: [id number]
--- NOTE | 2019-06-18 03:33 | CON ---
Date of Consultation: 06/17/2019 Chief Complaint: Flhed-ej-xqihbex kidney injury. History Of Present Illness: Patient is an 84-year-old woman, who came to the hospital because of diego rtness of breath. She was not doing well over last couple days and she developed progressively worse fatigue, malaise, chest discomfort, shortness of breath. She came to the hospital for further evalu ation. ER workup showed congestive heart failure with bilateral pulmonary edema. Patient although w as found to have elevated calcitonin level and was initiated on antibiotic and workup was started for pneumonia and respiratory failure as well as possible sepsis. Patient had productive cough with yel lowish sputum. She also was complaining of chill and rigors. Patient has nonoliguric urine output. Patient has history of chronic kidney disease stage 3 due to d iabetes mellitus and hypertension. Review of Systems: General: Denies syncope. Had some fever and chills. Eyes: Denies vision changes. Ears, Nose, Mouth and Throat: Denies sore throat, earache. Respiratory: Denies wheezing, shortness of breath. GI: Denies nausea, vomiting. : Denies dysuria, hematuria. Musculoskeletal: Denies muscle aches or joint swelling. All other systems reviewed and all are negative. Past Medical History: Diabetes mellitus, hypertension, hyperlipidemia, gastric ulcer, hysterectomy. Social History: Denies tobacco, alcohol, or illicit drugs. Family History: No kidney disease in the family. Physical Examination: Vital Signs: Blood pressure 141/65, heart rate 70, respiratory rate 18, SpO2 of 93%. Eyes: Anicteric sclerae. EOMI. Ears, Nose, Mouth and Throat: Oral mucosa moist. No pallor. Neck: Supple. No bruits. Lungs: Diminished breath sounds in bases. Crackles and rales present bilaterally. No wheezing. Gastrointestinal: Abdomen is soft, benign, nontender. Normal bowel sounds present. Extremities: Edema present in both legs. Neurological: Moving extremities. Cranial nerves intact. Psychiatric: Alert, oriented x3. Normal affect. Laboratory Data: Sodium 141, potassium 3.6, BUN , creatinine 2.03, glucose 152. Hemoglobin 10.7, WBC 4.5. Assessment: 1.Acute on chronic congestive heart failure exacerbation, pneumonia, elevated procalcitonin, acute-o n-chronic kidney injury. Patient will continue diuretics for cardiorenal syndrome. Monitor electrol ytes. Adjust replacement as needed. 2.Chronic kidney disease, stage 3. Monitor fluid balance and then check renal ultrasound to rule ou t an evidence of obstructive uropathy. 3.Patient has congestive heart failure exacerbation. Patient will require diuretics. Monitor magne sium and adjust replacement. 4.Patient has history of chronic kidney disease. Plan is to monitor albumin level and urine protein to creatinine ratio level. 5.Possible sepsis. Continue antibiotics. Awaiting cultures. Plan: 1. BUN is 31, creatinine is 2.01, sodium 141, potassium 3.7, chloride 105, CO2 of 43, magn esium 1.8, calcium 6.2. 2.Patient has chronic kidney disease, stage 3. Baseline creatinine level is ranging from 1.8 to 2.2 . On arrival to the hospital, patient was found to have creatinine of 2.03 and 2.01. There is some BUN creatinine ratio elevation due to prerenal azotemia. Patient will continue diuretic and treatment will be adjusted with adequate diuretic dose as needed. JASMINE/MODL Voice ID: [id number] Report ID: [id number]
[2019-06-18 05:31] LABS: Absolute Lymphocytes (CBC) 0.7 K/uL (0.7-4.9); Basophils % 0.6 % (0-1.3); Hematocrit 29.3 % (36.0-45.0); Lymphocytes % 22.7 % (15.3-44.8); MPV 9.4 fL (7.6-11.3); RBC Red Blood Cell Count 3.31 M/uL (3.86-4.86)
[2019-06-18 05:45] LABS: Magnesium 1.8 mg/dL (1.8-2.4); Phosphorus 2.1 mg/dL (2.5-4.9); Potassium 3.8 mmol/L (3.5-5.1)
[2019-06-18 07:51] VITALS: BP 110/53; TEMP 98.2
[2019-06-18] MEDS ORDERED: GLIMEPIRIDE 2 MG TABLET PO SCH (08:00)
[2019-06-18] MEDS ORDERED: MAGNESIUM OXIDE 400 MG TAB PO ONE (08:00)
[2019-06-18] MEDS: POTASS/SODIUM PHOSPHATE 1 PKT POWD.PACK PO SCH ×3 (08:12→09:58)
[2019-06-18] MEDS: allopurinoL 100 MG TAB PO SCH (08:13)
[2019-06-18] MEDS: ASPIRIN EC 81 MG TAB PO SCH (08:13)
[2019-06-18] MEDS: POTASSIUM 25 MEQ EFFERV TAB PO SCH (08:13)
[2019-06-18] MEDS: FUROSEMIDE 20 MG/ 2ML VIAL IV SCH (08:14)
--- NOTE | 2019-06-18 08:40 | P.DS ---
Admission Date: 06/16/19 Discharge Date: 06/18/19 Primary Care Provider: Dr. Bravo; Nephrology-Dr. Ibrahim Disposition: ROUTINE DISCHARGE Discharge Condition: GOOD Reason for Admission: Shortness of breath Consultations: Cardiology-Dr. Bravo Nephrology-Dr. Aguero Procedures: CXR: FINDINGS: The lungs are better aerated. Interstitial opacification is similar to the 2018 study. There is minimal remnant medial left base opacification that is probably atelectasis and a small amount of pleural fluid. Heart size is normal range. Vasculature within normal limits. IMPRESSION: Mild CHF pattern has improved. Minimal remnant lung base pleural and parenchymal opacification. ECHO: EF 64% LEFT VENTRICULAR WALL MOTION: NORMAL DOPPLER/COLOR FLOW: NORMAL COMMENTS: NORMAL LEFT VENTRICULAR SIZE AND FUNCTION. MITRAL ANNULAR CALCIFICATION. NO WALL MOTION ABNORMALITY. NO EFFUSION. Medical Problem List: Shortness of breath secondary to acute on chronic diastolic CHF Fatigue with elevated pro calcitonin likely related to UTI Chronic renal disease stage II Hypertension Hyperlipidemia Chronic thrombocytopenia Brief History of Present Illness: 84-year-old female presented to the emergency room with increasing shortness of breath and edema to the lower extremity. Patient found to have acute CHF. Patient admitted for further evaluation. Pro calcitonin elevated. UTI was suspected. Hospital Course: Patient presented with shortness of breath secondary to acute on chronic diastolic CHF. Patient previously on Lasix. Patient was admitted for treatment. Patient continue with IV diuretic therapy. Patient was placed on a fluid restriction. Echocardiogram shows normal ejection fraction. Cardiology was consulted. No further intervention was required. Patient has responded well to therapy. At discharge she will continue with a 1500 cc per day fluid restriction and low-salt diet. She is to monitor her weight daily. If her weight increases by more than 5 lb she is to contact cardiology or her PCP to further address. At discharge will increase Lasix to 40 mg 1 pill twice daily. Recommend to recheck lab-BMP in 1-2 weeks to monitor progress. Recommend follow up with cardiology in 2-4 weeks to monitor progress. Recommend follow up with PCP in 1 week to follow up this hospitalization. If patient also reported some fatigue. Patient with elevated pro calcitonin. There was some suspicion of pneumonia but repeat x-ray showed no pneumonia. Patient found to have UTI. Patient has responded well. Pro calcitonin improved. White count within normal range. At discharge patient will continue with Levaquin 250 mg 1 pill every 48 hr up to 3 doses. UTI prevention provided. Urine culture pending at discharge. This can be followed up by her PCP. Recommend recheck urinalysis in 1-2 week to monitor resolution. Patient with chronic renal disease stage II. This has remained stable. Nephrology was consulted. No intervention was required. Patient may continue with her current medication. Future medications will need to be renally dosed. Recommend no further use of nonsteroidal anti-inflammatories. Patient may continue with allopurinol 100 mg daily. Patient may follow up with nephrology in 1-2 weeks. Patient with hypertension. This has remained stable. At discharge she will continue with carvedilol 6.25 mg 1 pill twice daily. Recommend to maintain blood pressures less 150/80. Further adjustment can be done by her PCP. Patient with hyperlipidemia. At discharge she may continue with pravastatin 10 mg daily. Patient with diabetes mellitus type 2 non-insulin dependent. This has remained stable. At discharge she will continue with Amaryl 4 mg twice daily and Tradjenta 5 mg daily. Recommend to maintain blood sugars less 140 fasting and less than 200 meals. Further adjustment can be done by her PCP. Hypoglycemia education will be provided. May need to hold Amaryl if blood sugar remains less than 100. Recommend follow up with her PCP to further address. Patient with chronic thrombocytopenia. This appears stable. Some improvement noted. Peripheral smear sent for pathology. This can be followed up with her PCP. Will recommend evaluation by Hematology as an outpatient to further address. Information on hematology will be provided. Vital Signs/Physical Exam: Temp Pulse Resp BP Pulse Ox 98.2 F 75 20 110/53 L 92 06/18/19 07:49 06/18/19 08:14 06/18/19 07:49 06/18/19 08:14 06/18/19 07:49 General: Alert, In no apparent distress, Oriented x3, Cooperative HEENT: Atraumatic Neck: Supple Respiratory: Clear to auscultation bilaterally, Normal air movement Cardiovascular: Normal pulses, Regular rate/rhythm Gastrointestinal: Normal bowel sounds, Soft and benign, Non-distended, No tenderness, No masses, No rebound, No guarding Musculoskeletal: No erythema, No tenderness, No warmth Integumentary: No tenderness/swelling, No erythema, No warmth, No cyanosis Neurological: Normal speech, Normal strength at 5/5 x4 extr, Normal tone, Normal affect Laboratory Data at Discharge: WBC 3.2 K/uL (4.3-10.9) L D 06/18/19 05:13 Hgb 9.7 g/dL (12.0-15.0) L 06/18/19 05:13 Hct 29.3 % (36.0-45.0) L 06/18/19 05:13 Plt Count 66 K/uL (152-406) L 06/18/19 05:13 PT 15.2 SECONDS (9.5-12.5) H 06/16/19 18:14 INR 1.30 06/16/19 18:14 APTT 27.9 SECONDS (24.3-36.9) 06/16/19 18:14 Sodium 141 mmol/L (136-145) 06/18/19 05:13 Potassium 3.8 mmol/L (3.5-5.1) 06/18/19 05:13 BUN 50 mg/dL (7-18) H 06/18/19 05:13 Creatinine 2.21 mg/dL (0.55-1.3) H 06/18/19 05:13 Glucose 140 mg/dL (74-106) H 06/18/19 05:13 Phosphorus 2.1 mg/dL (2.5-4.9) L 06/18/19 05:13 Magnesium 1.8 mg/dL (1.8-2.4) 06/18/19 05:13 Total Bilirubin 1.0 mg/dL (0.2-1.0) 06/17/19 05:27 AST 23 U/L (15-37) 06/17/19 05:27 ALT 16 U/L (12-78) 06/17/19 05:27 Alkaline Phosphatase 72 U/L (45-117) 06/17/19 05:27 Troponin I < 0.02 ng/mL (0.0-0.045) 06/17/19 05:27 Home Medications: Aspirin [Aspirin EC 81 MG] 81 mg PO DAILY 06/19/17 Glimepiride [Amaryl] 4 mg PO BID 06/19/17 Pravastatin Sodium 10 mg PO BEDTIME 06/19/17 carvediloL [Coreg*] 6.25 mg PO BEDTIME 06/19/17 Allopurinol 100 mg PO DAILY 06/16/19 Cetirizine HCl 10 mg PO DAILY 06/16/19 Linagliptin [Tradjenta] 1 tab PO DAILY 06/16/19 Furosemide [Lasix*] 40 mg PO BID #60 tab 06/18/19 Multivit with Calcium,Iron,Min [Multiple Vitamins For Women] 1 each PO DAILY # 90 tablet 06/18/19 levoFLOXacin [Levaquin] 250 mg PO SEECOM #3 tab 06/18/19 New Medications: Furosemide [Lasix*] 40 mg PO BID #60 tab levoFLOXacin [Levaquin] 250 mg PO SEECOM #3 tab Multivit with Calcium,Iron,Min [Multiple Vitamins For Women] 1 each PO DAILY # 90 tablet Patient Discharge Instructions: 1. Recommend follow up with her PCP in 1 week to follow up this hospitalization. 2. Patient presented with shortness of breath secondary to acute on chronic diastolic CHF. Patient previously on Lasix. Patient was admitted for treatment. Patient continue with IV diuretic therapy. Patient was placed on a fluid restriction. Echocardiogram shows normal ejection fraction. Cardiology was consulted. No further intervention was required. Patient has responded well to therapy. At discharge she will continue with a 1500 cc per day fluid restriction and low-salt diet. She is to monitor her weight daily. If her weight increases by more than 5 lb she is to contact cardiology or her PCP to further address. At discharge will increase Lasix to 40 mg 1 pill twice daily. Recommend to recheck lab-BMP in 1-2 weeks to monitor progress. Recommend follow up with cardiology in 2-4 weeks to monitor progress. Recommend follow up with PCP in 1 week to follow up this hospitalization. 3. If patient also reported some fatigue. Patient with elevated pro calcitonin. There was some suspicion of pneumonia but repeat x- ray showed no pneumonia. Patient found to have UTI. Patient has responded well. Pro calcitonin improved. White count within normal range. At discharge patient will continue with Levaquin 250 mg 1 pill every 48 hr up to 3 doses. UTI prevention provided. Urine culture pending at discharge. This can be followed up by her PCP. Recommend recheck urinalysis in 1-2 week to monitor resolution. 4. Patient with chronic renal disease stage II. This has remained stable. Nephrology was consulted. No intervention was required. Patient may continue with her current medication. Future medications will need to be renally dosed. Recommend no further use of nonsteroidal anti- inflammatories. Patient may continue with allopurinol 100 mg daily. Patient may follow up with nephrology in 1-2 weeks. 5. Patient with hypertension. This has remained stable. At discharge she will continue with carvedilol 6.25 mg 1 pill twice daily. Recommend to maintain blood pressures less 150/80. Further adjustment can be done by her PCP. 6. Patient with hyperlipidemia. At discharge she may continue with pravastatin 10 mg daily. 7. Patient with diabetes mellitus type 2 non-insulin dependent. This has remained stable. At discharge she will continue with Amaryl 4 mg twice daily and Tradjenta 5 mg daily. Recommend to maintain blood sugars less 140 fasting and less than 200 meals. Further adjustment can be done by her PCP. Hypoglycemia education will be provided. May need to hold Amaryl if blood sugar remains less than 100. Recommend follow up with her PCP to further address. 8. Patient with chronic thrombocytopenia. This appears stable. Some improvement noted. Peripheral smear sent for pathology. This can be followed up with her PCP. Will recommend evaluation by Hematology as an outpatient to further address. Information on hematology will be provided. Diet: AHA Activity: Fall precautions Time spent managing pt's care (in minutes): 55
[2019-06-18] MEDS ORDERED: GLIMEPIRIDE 2 MG PO SCH (09:00)
[2019-06-18] MEDS ORDERED: HOME MED 1 EA UNK (Glimepiride [Amaryl] 4 MG) PO SCH (09:00)
[2019-06-18] MEDS ORDERED: MAGNESIUM SULFATE 1 gm IVPB 1 GM/100 ML BAG IV ONE (09:00)
[2019-06-18] MEDS ORDERED: levoFLOXacin 250 MG TAB PO SCH (09:00)
[2019-06-18] MEDS ORDERED: HOME MED 1 EA UNK (Linagliptin [Tradjenta] 1 TAB) PO SCH (09:00)
[2019-06-18 09:21] VITALS: O2SAT 93
[2019-06-18] MEDS ORDERED: Levofloxacin500mg IV 500 MG/100 ML BAG IV SCH (17:00)
--- NOTE | 2019-06-20 15:41 | EKG ---
Test Date: 2019-06-16 Test Time: 18:34:20 Weight Control Lecturer: ROSHNIT MEASUREMENT RESULTS: Intervals: Rate: 76 [place]: 210 QRSD: 90 QT: 402 QTc: 452 [place]: P: 55 [place]: 210 QRS: -2 T: 13 INTERPRETIVE STATEMENTS: Sinus rhythm with 1st degree AV block Cannot rule out Anterior infarct, age undetermined Abnormal ECG Compared to ECG 01/09/2018 14:27:44 Sinus arrhythmia no longer present Myocardial infarct finding still present Electronically Signed On 06-20-19 15:40:44 MEMS PROCESS ENGINEER by Jamal Hopkins
== END 2019-06-18 11:37 | disposition home or self-care (01) | DRG 291 ==
LOC: ER 17:48 → ERHOLD 20:48 → 2ND 20:58
PROVIDERS: ADMIT Hospitalist; ATTEND Family Medicine
DX: I13.0 Hypertensive heart and chronic kidney disease with heart failure and stage 1 through stage 4 chronic kidney disease, or unspecified chronic kidney disease (principal); J18.9 Pneumonia, unspecified organism; I50.33 Acute on chronic diastolic (congestive) heart failure; N39.0 Urinary tract infection, site not specified; E11.9 Type 2 diabetes mellitus without complications; I10 Essential (primary) hypertension; E78.5 Hyperlipidemia, unspecified; I11.0 Hypertensive heart disease with heart failure; I50.9 Heart failure, unspecified; D69.6 Thrombocytopenia, unspecified; Z86.73 Personal history of transient ischemic attack (TIA), and cerebral infarction without residual deficits; E11.22 Type 2 diabetes mellitus with diabetic chronic kidney disease; D64.9 Anemia, unspecified; N18.3 Chronic kidney disease, stage 3 (moderate)
CPT/HCPCS: 36415; 71045; 71046; 80048; 80053; 80076; 81003; 81015; 82947; 83605; 83735; 83880; 84100; 84145; 84484; 85025; 85610; 85730; 87040; 87086; 87088; 87804; 93005; 93306; 96374; 96375; 99284; J1940; J7030

== ENCOUNTER 2020-06-23 12:37 | Emergency (ER) | payer OTHER ==
[2020-06-23 14:59] LABS: Basophils % 0.3 % (0-1.3); Lymphocytes % 48.7 % (15.3-44.8)
[2020-06-23 15:03] LABS: Hematocrit 32.9 % (36.0-45.0); RBC Red Blood Cell Count 3.66 M/uL (3.86-4.86)
[2020-06-23 15:06] LABS: MPV 9.7 fL (7.6-11.3)
[2020-06-23 16:26] LABS: SARS-COV-2 RT PCR POSITIVE (NEGATIVE)
--- NOTE | 2020-06-23 16:39 | EDPHYS ---
Physician Documentation [facility] Name: Loni Cross Age: 85 yrs Sex: Female : 1935 Arrival Date: 06/23/2020 Time: 12:44 Bed 30 Private MD: ED Physician Bharathi Mcadams HPI: 06/23 13:39 This 85 yrs old Female presents to ER via Wheelchair with complaints of kb Fever, Weakness, Leg Pain, Diarrhea. 13:39 The patient or guardian reports flu symptoms, low-grade fever, myalgias, no appetite. kb Onset: The symptoms/episode began/occurred 1 week(s) ago. Severity of symptoms: At their worst the symptoms were mild, moderate, in the emergency department the symptoms are unchanged. Modifying factors: The symptoms are alleviated by nothing, the symptoms are aggravated by nothing. Associated signs and symptoms: Pertinent positives: diarrhea, fever, nausea, rhinorrhea. The patient has not experienced similar symptoms in the past. The patient has not recently seen a physician. Pt reports malaise, bodyaches, low grade fever and no appetite for a week. Reports runny nose and congestion for a few days. Has had nausea and diarrhea today. Grandson has covid. . Historical: - Allergies: 13:11 blood thinners except ASA; iw 13:11 Wbtjqio-Blp-Gbk Reductase Inhibitors; iw 13:11 Streptomycin; iw - Home Meds: 13:11 Albuterol Inhl [Active]; Allopurinol Oral [Active]; aspirin 81 mg Oral TbEC 1 tab once iw daily [Active]; carvedilol 12.5 mg Oral tab 1 tab 2 times per day [Active]; Claritin-D 24 Hour 10-240 mg Oral Tb24 1 tab once daily [Active]; Flonase 50 mcg/actuation Nasal spsn 1 spray 2 times per day [Active]; furosemide 40 mg Oral tab 1 tab once daily [Active]; glimepiride 4 mg Oral tab 1 tab twice a day [Active]; omeprazole 40 mg Oral cpDR 1 cap once daily [Active]; pravastatin 10 mg Oral tab 1 tab once daily [Active]; Spectravite Ultra Women's Sr 8 mg iron-400 mcg-300 mcg Oral tab [Active]; Tradjenta [Active]; ezetimibe Oral once daily [Active]; - PMHx: 13:11 CVA; Diabetes - NIDDM; Hyperlipidemia; Hypertension; iw - PSHx: 13:11 Hysterectomy; iw - Immunization history:: Pneumococcal vaccine is up to date, Flu vaccine is up to date. - Social history:: Smoking status: . ROS: 13:41 Cardiovascular: Negative for chest pain, palpitations, and edema, Respiratory: Negative kb for shortness of breath, cough, wheezing, and pleuritic chest pain, MS/Extremity: Negative for injury and deformity, Skin: Negative for injury, rash, and discoloration, Neuro: Negative for headache, weakness, numbness, tingling, and seizure. 13:41 Constitutional: Positive for body aches, fatigue, fever, malaise, poor PO intake. 13:41 ENT: Positive for rhinorrhea, sinus congestion. 13:41 Abdomen/GI: Positive for nausea, diarrhea. Exam: 13:41 Constitutional: This is a well developed, well nourished patient who is awake, alert, kb and in no acute distress. Head/Face: Normocephalic, atraumatic. Chest/axilla: Normal chest wall appearance and motion. Cardiovascular: Regular rate and rhythm with a normal S1 and S2. No gallops, murmurs, or rubs. No pulse deficits. Respiratory: Lungs have equal breath sounds bilaterally, clear to auscultation. No rales, rhonchi or wheezes noted. No increased work of breathing, no retractions or nasal flaring. Abdomen/GI: Soft, non-tender, with normal bowel sounds. No distension. No guarding or rebound. No evidence of tenderness throughout. Skin: Warm, dry with normal turgor. Normal color with no rashes, no lesions, and no evidence of cellulitis. MS/ Extremity: Pulses equal, no cyanosis. Neurovascular intact. Full, normal range of motion. Neuro: Awake and alert, GCS 15, oriented to person, place, time, and situation. Cranial nerves II-XII grossly intact. Moves all extremities. Sensory grossly intact. Cerebellar exam normal. Normal gait. Vital Signs: 13:07 BP 126 / 58; Pulse 65; Resp 16; Temp 99.1; Pulse Ox 96% on R/A; Weight 82.1 kg; Height iw 5 ft. 2 in. (157.48 cm); 14:30 BP 145 / 51; Pulse 67; Resp 16; Pulse Ox 98% ; bp 15:30 BP 122 / 56; Pulse 65; Resp 17; Pulse Ox 96% ; bp 16:30 BP 115 / 63; Pulse 66; Resp 19; Temp 98.9; Pulse Ox 96% ; bp 13:07 Body Mass Index 33.10 (82.10 kg, 157.48 cm) iw MDM: 13:29 Patient medically screened. kb 13:41 Data reviewed: vital signs, nurses notes. Data interpreted: Pulse oximetry: on room air kb is 98 %. Interpretation: normal. 16:37 Counseling: I had a detailed discussion with the patient and/or guardian regarding: the kb historical points, exam findings, and any diagnostic results supporting the discharge/admit diagnosis, lab results, the need for outpatient follow up, a family practitioner, to return to the emergency department if symptoms worsen or persist or if there are any questions or concerns that arise at home. 06/23 13:38 Order name: CBC with Diff; Complete Time: 17:47 kb 06/23 13:38 Order name: Basic Metabolic Panel; Complete Time: 14:57 kb 06/23 16:26 Order name: COVID-19/FLU A+B; Complete Time: 16:27 EDMS 06/23 16:58 Order name: Manual Differential; Complete Time: 17:47 EDMS 06/23 13:38 Order name: IV Start; Complete Time: 14:26 kb Administered Medications: No medications were administered Disposition: 06/24 09:05 Co-signature as Attending Physician, Bharathi Mcadams MD I agree with the assessment and thor plan of care. Disposition: 06/23/20 16:38 Discharged to Home. Impression: Coronavirus infection, unspecified. - Condition is Stable. - Discharge Instructions: Viral Respiratory Infection, [id number], COVID-19. - Prescriptions for Zofran 4 mg Oral Tablet - take 1 tablet by ORAL route every 6 hours As needed; 20 tablet. - Medication Reconciliation Form, Thank You Letter, Antibiotic Education, Prescription Opioid Use form. - Follow up: Emergency Department; When: As needed; Reason: Worsening of condition. Follow up: Private Physician; When: 2 - 3 days; Reason: Recheck today's complaints, Continuance of care, Re-evaluation by your physician. Signatures: Dispatcher [employer] EDMS Mandy Baez, NUCLEAR PHYSICS TEACHER-C NUCLEAR PHYSICS TEACHER-Bharathi Combs MD MD cha Williams, Irene, RN RN iw Corrections: (The following items were deleted from the chart) 03 15:23 13:31 CORONAVIRUS+MR.LAB.BRZ ordered. EDMS EDMS 15:23 13:31 Influenza Screen (A \T\ B)+BA.LAB.BRZ ordered. EDAK EDAK 18:04 16:38 06/23/2020 16:38 Discharged to Home. Impression: Coronavirus infection, iw unspecified. Condition is Stable. Forms are Medication Reconciliation Form, Thank You Letter, Antibiotic Education, Prescription Opioid Use. Follow up: Emergency Department; When: As needed; Reason: Worsening of condition. Follow up: Private Physician; When: 2 - 3 days; Reason: Recheck today's complaints, Continuance of care, Re-evaluation by your physician. kb
--- NOTE | 2020-06-23 16:39 | ER ---
Nurse's Notes [facility] Name: Loni Cross Age: 85 yrs Sex: Female : 1935 Arrival Date: 06/23/2020 Time: 12:44 Bed 30 Private MD: Diagnosis: Coronavirus infection, unspecified Presentation: 06/23 13:07 Chief complaint: Patient's son or daughter states: pt has had diarrhea and feeling iw nauseous and no appetite since the beginning of the week, her grandson tested positive for COVID today and he lives in the household , had a temp of 99 today. Coronavirus screen: Client presents with at least one sign or symptom that may indicate coronavirus-19. Standard/surgical mask placed on the client. Provider contacted for isolation considerations. Ebola Screen: Patient negative for fever greater than or equal to 101.5 degrees Fahrenheit, and additional compatible Ebola Virus Disease symptoms Patient denies exposure to infectious person. Patient denies travel to an Ebola-affected area in the 21 days before illness onset. No symptoms or risks identified at this time. Initial Sepsis Screen: Does the patient meet any 2 criteria? No. Patient's initial sepsis screen is negative. Does the patient have a suspected source of infection? No. Patient's initial sepsis screen is negative. Risk Assessment: Do you want to hurt yourself or someone else? Patient reports no desire to harm self or others. Onset of symptoms was June 18, 2020. 13:07 Method Of Arrival: Wheelchair iw 13:07 Acuity: TRINI 3 iw Triage Assessment: 13:15 General: Appears distressed, uncomfortable, Behavior is cooperative, appropriate for bp age, anxious. Pain: Complains of pain in right leg and left leg. EENT: No deficits noted. Neuro: Level of Consciousness is awake, alert, obeys commands, Oriented to Appropriate for age Reports weakness. Cardiovascular: Rhythm is sinus rhythm. Respiratory: No deficits noted. GI: Reports diarrhea. : No signs and/or symptoms were reported regarding the genitourinary system. Derm: No deficits noted. Musculoskeletal: No deficits noted. Historical: - Allergies: 13:11 blood thinners except ASA; iw 13:11 Qorlbnt-Ndk-Qch Reductase Inhibitors; iw 13:11 Streptomycin; iw - Home Meds: 13:11 Albuterol Inhl [Active]; Allopurinol Oral [Active]; aspirin 81 mg Oral TbEC 1 tab once iw daily [Active]; carvedilol 12.5 mg Oral tab 1 tab 2 times per day [Active]; Claritin-D 24 Hour 10-240 mg Oral Tb24 1 tab once daily [Active]; Flonase 50 mcg/actuation Nasal spsn 1 spray 2 times per day [Active]; furosemide 40 mg Oral tab 1 tab once daily [Active]; glimepiride 4 mg Oral tab 1 tab twice a day [Active]; omeprazole 40 mg Oral cpDR 1 cap once daily [Active]; pravastatin 10 mg Oral tab 1 tab once daily [Active]; Spectravite Ultra Women's Sr 8 mg iron-400 mcg-300 mcg Oral tab [Active]; Tradjenta [Active]; ezetimibe Oral once daily [Active]; - PMHx: 13:11 CVA; Diabetes - NIDDM; Hyperlipidemia; Hypertension; iw - PSHx: 13:11 Hysterectomy; iw - Immunization history:: Pneumococcal vaccine is up to date, Flu vaccine is up to date. - Social history:: Smoking status: . Screenin:15 Abuse screen: Denies threats or abuse. Denies injuries from another. Nutritional bp screening: No deficits noted. Tuberculosis screening: No symptoms or risk factors identified. Fall Risk None identified. Assessment: 13:15 General: SEE TRIAGE NOTE. bp 14:57 Reassessment: Patient appears in no apparent distress at this time. No changes from bp previously documented assessment. Patient and/or family updated on plan of care and expected duration. Pain level reassessed. ALL CURRENT ORDERS COMPLETED. Vital Signs: 13:07 BP 126 / 58; Pulse 65; Resp 16; Temp 99.1; Pulse Ox 96% on R/A; Weight 82.1 kg; Height iw 5 ft. 2 in. (157.48 cm); 14:30 BP 145 / 51; Pulse 67; Resp 16; Pulse Ox 98% ; bp 15:30 BP 122 / 56; Pulse 65; Resp 17; Pulse Ox 96% ; bp 16:30 BP 115 / 63; Pulse 66; Resp 19; Temp 98.9; Pulse Ox 96% ; bp 13:07 Body Mass Index 33.10 (82.10 kg, 157.48 cm) iw ED Course: 12:44 Patient arrived in ED. as 13:09 Triage completed. iw 13:11 Arm band placed on. iw 13:15 Patient has correct armband on for positive identification. Bed in low position. Call bp light in reach. Side rails up X2. 13:16 Osvaldo Sykes, RN is Primary Nurse. bp 13:29 Mandy Baez FNP-C is PHCP. kb 13:29 Bharathi Mcadams MD is Attending Physician. kb 14:25 Inserted saline lock: 22 gauge in left forearm, using aseptic technique. Blood bp collected. Administered Medications: No medications were administered Outcome: 16:38 Discharge ordered by . kb 18:04 Patient left the ED. iw Signatures: Mandy Baez FNP-C FNP-Peace Turner as Yanet Orlando, RN RN iw Osvaldo Sykes, RN RN bp
[2020-06-23 17:46] LABS: Blood Morphology Comment NOT SEEN (NOT SEEN); Platelet Estimate DECR
[2020-06-23 18:24] VITALS: O2SAT 96
[2020-06-23 18:25] VITALS: BP 115/63; TEMP 98.9
== END 2020-06-23 18:04 | disposition home or self-care (01) ==
LOC: ER 12:37
DX: U07.1 COVID-19 (principal); I10 Essential (primary) hypertension; E11.9 Type 2 diabetes mellitus without complications; E78.5 Hyperlipidemia, unspecified; Z86.73 Personal history of transient ischemic attack (TIA), and cerebral infarction without residual deficits; Z79.82 Long term (current) use of aspirin; Z88.1 Allergy status to other antibiotic agents; Z88.8 Allergy status to other drugs, medicaments and biological substances
CPT/HCPCS: 85025; 80048; 36415; 0240U; 99284

== ENCOUNTER 2020-10-19 14:24 | Inpatient (IN) | payer OTHER ==
[2020-10-19 16:32] LABS: Protime INR 1.28
[2020-10-19 16:38] LABS: Absolute Lymphocytes (CBC) 0.8 K/uL (0.7-4.9); Basophils % 0.8 % (0-1.3); Hematocrit 31.9 % (36.0-45.0); Lymphocytes % 31.5 % (15.3-44.8); MPV 8.5 fL (7.6-11.3); RBC Red Blood Cell Count 3.48 M/uL (3.86-4.86)
[2020-10-19 16:42] LABS: Albumin 2.7 g/dL (3.4-5.0); Bilirubin Direct 0.3 mg/dL (0-0.2); Bilirubin Total 0.7 mg/dL (0.2-1.0); Protein, Total 6.6 g/dL (6.4-8.2); Troponin (Emerg Dept Use Only) 0.13 ng/mL (0.0-0.045)
[2020-10-19 16:54] LABS: Blood Morphology Comment NOT SEEN (NOT SEEN); Platelet Estimate DECR; White Blood Cell Scan OK (OK)
[2020-10-19] MEDS ORDERED: IPRATROPIUM BROM 0.5MG/2.5ML ONE (17:00)
[2020-10-19] MEDS ORDERED: ALBUTEROL 2.5 MG/3 ML NEB SOL ONE (17:00)
[2020-10-19] MEDS ORDERED: Levofloxacin500mg IV 500 MG/100 ML BAG IV ONE (17:01)
--- NOTE | 2020-10-19 17:07 | RAD REPORT ---
EXAM DESCRIPTION: Anabel Single View10/19/2020 4:27 pm CLINICAL HISTORY: Shortness breath COMPARISON: 2019 FINDINGS: Mild bilateral pulmonary opacities. Small to moderate left pleural effusion may be present. Heart is enlarged IMPRESSION: These findings likely represent CHF
--- NOTE | 2020-10-19 17:16 | EDPHYS ---
Physician Documentation [facility] Name: Loni Cross Age: 85 yrs Sex: Female : 1935 Arrival Date: 10/19/2020 Time: 14:28 Bed 16 Private MD: KWAKU AMARAL ED Physician Jayme Stein HPI: 10/19 16:49 This 85 yrs old Female presents to ER via Wheelchair with complaints of jr8 Fever, Cough. 16:49 The patient reports fever, with an emergency department temperature of 99.5 degrees jr8 Fahrenheit. Onset: The symptoms/episode began/occurred gradually, 2 day(s) ago, and became worse and became persistent. Modifying factors: there are no obvious modifying factors. Associated signs and symptoms: Pertinent positives: cough. Severity of symptoms: At their worst the symptoms were moderate in the emergency department the symptoms are unchanged. It is unknown whether or not the patient has had similar symptoms in the past. The patient has not recently seen a physician. Historical: - Allergies: 14:59 Streptomycin; ll1 14:59 blood thinners except ASA; ll1 14:59 Hbbunke-Qzn-Zhz Reductase Inhibitors; ll1 - Home Meds: 17:15 carvedilol 6.25 mg oral tab 2 times per day [Active]; allopurinol 100 mg oral tab once iw daily [Active]; ferrous sulfate 325 mg (65 mg iron) Oral cpER daily [Active]; furosemide 40 mg Oral tab 1 tab once daily [Active]; pravastatin 10 mg Oral tab 1 tab once daily [Active]; Tradjenta 5 mg oral tab 1 tab once daily [Active]; montelukast 10 mg oral tab 1 tab once daily [Active]; glimepiride 4 mg Oral tab twice a day [Active]; aspirin 81 mg Oral TbEC 1 tab once daily [Active]; cetirizine 10 mg oral tab 1 tab once daily [Active]; Vitamin C Oral daily [Active]; Vitamin D Oral daily [Active]; Vitamin B-12 Oral daily [Active]; - PMHx: 14:59 CVA; Diabetes - NIDDM; Hyperlipidemia; Hypertension; ll1 - PSHx: 14:59 hysterectomy; ll1 - Immunization history:: Flu vaccine is up to date. - Social history:: Smoking status: Patient denies any tobacco usage or history of. ROS: 16:49 Eyes: Negative for injury, pain, redness, and discharge, ENT: Negative for injury, jr8 pain, and discharge, Neck: Negative for injury, pain, and swelling, Cardiovascular: Negative for chest pain, palpitations, and edema, Abdomen/GI: Negative for abdominal pain, nausea, vomiting, diarrhea, and constipation, Back: Negative for injury and pain, MS/Extremity: Negative for injury and deformity, Skin: Negative for injury, rash, and discoloration, Neuro: Negative for headache, weakness, numbness, tingling, and seizure. 16:49 Constitutional: Positive for fever. 16:49 Respiratory: Positive for cough, shortness of breath, wheezing. Exam: 16:49 Constitutional: This is a well developed, well nourished patient who is awake, alert, jr8 and in no acute distress. ENT: Nares patent. No nasal discharge, no septal abnormalities noted. Tympanic membranes are normal and external auditory canals are clear. Oropharynx with no redness, swelling, or masses, exudates, or evidence of obstruction, uvula midline. Mucous membranes moist. Neck: Trachea midline, no thyromegaly or masses palpated, and no cervical lymphadenopathy. Supple, full range of motion without nuchal rigidity, or vertebral point tenderness. No Meningismus. Cardiovascular: Regular rate and rhythm with a normal S1 and S2. No gallops, murmurs, or rubs. Normal PMI, no JVD. No pulse deficits. Abdomen/GI: Soft, non-tender, with normal bowel sounds. No distension or tympany. No guarding or rebound. No evidence of tenderness throughout. Back: No spinal tenderness. No costovertebral tenderness. Full range of motion. Skin: Warm, dry with normal turgor. Normal color with no rashes, no lesions, and no evidence of cellulitis. MS/ Extremity: Pulses equal, no cyanosis. Neurovascular intact. Full, normal range of motion. Neuro: Awake and alert, GCS 15, oriented to person, place, time, and situation. Cranial nerves II-XII grossly intact. Motor strength 5/5 in all extremities. Sensory grossly intact. 16:49 Respiratory: the patient does not display signs of respiratory distress, Respirations: normal, Breath sounds: wheezing: expiratory that is mild, is heard diffusely. Vital Signs: 15:00 BP 112 / 34; Pulse 63; Resp 18; Temp 99.5; Pulse Ox 92% on R/A; Weight 81.19 kg; Height ll1 5 ft. 2 in. (157.48 cm); Pain 3/10; 16:32 BP 100 / 55; Pulse 64; Resp 17 S; Pulse Ox 100% on 2 lpm NC; ca1 17:30 BP 104 / 41; Pulse 67; Resp 23 S; Pulse Ox 100% on R/A; ca1 18:30 BP 99 / 71; Pulse 79; Resp 25 S; Pulse Ox 100% on R/A; ca1 19:27 BP 112 / 51; Pulse 65; Resp 18 S; Pulse Ox 100% on 2 lpm NC; ca1 15:00 Body Mass Index 32.74 (81.19 kg, 157.48 cm) ll1 MDM: 16:12 Patient medically screened. jr8 17:14 Data reviewed: vital signs, nurses notes, lab test result(s), EKG, radiologic studies, jr8 plain films. Data interpreted: Pulse oximetry: on room air is 100 %. Interpretation: normal. Counseling: I had a detailed discussion with the patient and/or guardian regarding: the historical points, exam findings, and any diagnostic results supporting the discharge/admit diagnosis, lab results, radiology results, the need for further work-up and treatment in the hospital. ED course: Dr. ellison called and will admit . 10/19 15:48 Order name: Basic Metabolic Panel; Complete Time: 16:52 [facility] 10/19 15:48 Order name: CBC with Diff; Complete Time: 17:06 [facility] 10/19 15:48 Order name: LFT's; Complete Time: 16:52 10/19 15:48 Order name: Magnesium; Complete Time: 16:52 [facility] 10/19 15:48 Order name: NT PRO-BNP; Complete Time: 16:52 10/19 15:48 Order name: PT-INR; Complete Time: 16:52 10/19 15:48 Order name: Troponin (emerg Dept Use Only); Complete Time: 16:52 [facility] 10/19 15:48 Order name: XRAY Chest (1 view); Complete Time: 17:11 [facility] 10/19 15:48 Order name: Procalcitonin; Complete Time: 17:31 8 10/19 15:48 Order name: Blood Culture Adult (2) 8 10/19 16:54 Order name: CBC Smear Scan; Complete Time: 17:06 EDMS 10/19 17:54 Order name: SARS-COV-2 RT PCR; Complete Time: 17:54 EDMS 10/19 15:48 Order name: EKG; Complete Time: 15:49 10/19 15:48 Order name: Cardiac monitoring; Complete Time: 16:35 8 10/19 15:48 Order name: EKG - Nurse/Tech; Complete Time: 16:35 10/19 15:48 Order name: IV Saline Lock; Complete Time: 16:18 10/19 15:48 Order name: Labs collected and sent; Complete Time: 16:18 10/19 15:48 Order name: O2 Per Protocol; Complete Time: 16:18 10/19 15:48 Order name: O2 Sat Monitoring; Complete Time: 16:18 Administered Medications: 16:40 Drug: LevaQUIN (levofloxacin) 500 mg Volume: 100 ml; Route: IVPB; Infused Over: 60 ca1 mins; Site: left antecubital; 17:40 Follow up: Response: No adverse reaction; IV Status: Completed infusion; IV Intake: ca1 100ml 16:40 Drug: Albuterol - atroVENT (ipratropium) (3:1) (2.5 mg - 0.5 mg) 3 ml Route: Nebulizer; ca1 18:00 Follow up: Response: No adverse reaction; Marked relief of symptoms ca1 17:12 Drug: Lasix (furosemide) 40 mg Route: IVP; Site: left antecubital; ca1 18:00 Follow up: Response: No adverse reaction ca1 Disposition Summary: 10/19/20 17:15 Hospitalization Ordered Hospitalization Status: Inpatient Admission jr8 Provider: Rufus Ellison Condition: Fair jr8 Problem: new jr8 Symptoms: have improved jr8 Bed/Room Type: Standard [facility] Location: Intensive Care Unit(10/19/20 18:33) iw Room Assignment: 7-(10/19/20 18:33) iw Diagnosis - 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 Signatures: Dispatcher [employer] EDOR Jayme Steni MD MD [facility] Yanet Orlando RN RN Nazario Gloria PA PA jr8 Negrita Graves RN RN [facility] Nicki Rivera RN RN ll1 Corrections: (The following items were deleted from the chart) 10/19 16:56 15:49 CORONAVIRUS+MR.LAB.BRZ ordered. [facility] 17:18 17:15 Home Meds: Tradjenta; iw iw 18:33 17:15 Telemetry/MedSurg (Inpatient) [facility] iw 18:33 17:15 jr8 iw
--- NOTE | 2020-10-19 17:16 | ER ---
Nurse's Notes [facility] Name: Loni Cross Age: 85 yrs Sex: Female : 1935 Arrival Date: 10/19/2020 Time: 14:28 Bed 16 Private MD: KWAKU AMARAL Diagnosis: Acute on chronic combined systolic (congestive) and diastolic (congestive) heart failure;Chronic kidney disease, stage 4 (severe);Other pancytopenia Presentation: 10/19 15:00 Chief complaint: Patient states: Started with allergies Thursday. Now has cough, ll1 congestion, weakness, fatigue, low grade fever. Coronavirus screen: Client denies travel out of the [place] in the last 14 days. chills, cough unrelated to allergies, fatigue, fever, headache, nausea, Client presents with at least one sign or symptom that may indicate coronavirus-19. Standard/surgical mask placed on the client. Ebola Screen: Patient denies travel to an Ebola-affected area in the 21 days before illness onset. Initial Sepsis Screen: Does the patient meet any 2 criteria? No. Patient's initial sepsis screen is negative. Does the patient have a suspected source of infection? Yes: Productive cough/pneumonia. Risk Assessment: Do you want to hurt yourself or someone else? Patient reports no desire to harm self or others. Onset of symptoms was October 15, 2020. 15:00 Method Of Arrival: Wheelchair ll1 15:00 Acuity: TRINI 3 ll1 Historical: - Allergies: 14:59 Streptomycin; ll1 14:59 blood thinners except ASA; ll1 14:59 Kmgfumk-Xhv-Dmo Reductase Inhibitors; ll1 - Home Meds: 17:15 carvedilol 6.25 mg oral tab 2 times per day [Active]; allopurinol 100 mg oral tab once iw daily [Active]; ferrous sulfate 325 mg (65 mg iron) Oral cpER daily [Active]; furosemide 40 mg Oral tab 1 tab once daily [Active]; pravastatin 10 mg Oral tab 1 tab once daily [Active]; Tradjenta 5 mg oral tab 1 tab once daily [Active]; montelukast 10 mg oral tab 1 tab once daily [Active]; glimepiride 4 mg Oral tab twice a day [Active]; aspirin 81 mg Oral TbEC 1 tab once daily [Active]; cetirizine 10 mg oral tab 1 tab once daily [Active]; Vitamin C Oral daily [Active]; Vitamin D Oral daily [Active]; Vitamin B-12 Oral daily [Active]; - PMHx: 14:59 CVA; Diabetes - NIDDM; Hyperlipidemia; Hypertension; ll1 - PSHx: 14:59 hysterectomy; ll1 - Immunization history:: Flu vaccine is up to date. - Social history:: Smoking status: Patient denies any tobacco usage or history of. Screenin:40 Abuse screen: Denies threats or abuse. Denies injuries from another. Nutritional ca1 screening: No deficits noted. Tuberculosis screening: No symptoms or risk factors identified. Fall Risk IV access (20 points). Ambulatory Aid- Crutches/Cane/Walker (15 pts). Total Jovel Fall Scale indicates Low Risk Score (25-44 pts). Fall prevention measures have been instituted. Side Rails Up X 2 Frequent Obs/Assesments occuring As available Patient and Family Educated on Fall Prevention Program and strategies. Assessment: 15:40 General: Appears in no apparent distress. comfortable, Behavior is calm, cooperative, ca1 appropriate for age, Reports fever for > 3 days, feeling ill for > 3 days. Pain: Denies pain. Neuro: Level of Consciousness is awake, alert, obeys commands, Oriented to person, place, time, situation. Cardiovascular: Heart tones S1 S2 present Capillary refill < 3 seconds Patient's skin is warm and dry. Rhythm is sinus rhythm. Respiratory: Reports shortness of breath cough that is productive, since 5 days COMPLEX MANAGER Airway is patent Respiratory effort is even, unlabored, Respiratory pattern is regular, symmetrical, Breath sounds with wheezes bilaterally. GI: Abdomen is round non-distended, Bowel sounds present X 4 quads. Abd is soft and non tender X 4 quads. : No signs and/or symptoms were reported regarding the genitourinary system. EENT: Reports nasal congestion nasal discharge since 5 days COMPLEX MANAGER. Derm: Skin is intact, is healthy with good turgor, Skin is pink, warm \T\ dry. Musculoskeletal: Circulation, motion, and sensation intact. Capillary refill < 3 seconds. 16:32 Reassessment: Patient appears in no apparent distress at this time. Patient and/or ca1 family updated on plan of care and expected duration. Pain level reassessed. Patient is alert, oriented x 3, equal unlabored respirations, skin warm/dry/pink. 17:30 Reassessment: Patient appears in no apparent distress at this time. Patient and/or ca1 family updated on plan of care and expected duration. Pain level reassessed. Patient is alert, oriented x 3, equal unlabored respirations, skin warm/dry/pink. 18:32 Reassessment: Patient appears in no apparent distress at this time. Patient and/or ca1 family updated on plan of care and expected duration. Pain level reassessed. Patient is alert, oriented x 3, equal unlabored respirations, skin warm/dry/pink. 18:46 Reassessment: Attempted to call report. Nurses on shift change at this time. ca1 19:27 Reassessment: Patient appears in no apparent distress at this time. Patient is alert, ca1 oriented x 3, equal unlabored respirations, skin warm/dry/pink. Vital Signs: 15:00 BP 112 / 34; Pulse 63; Resp 18; Temp 99.5; Pulse Ox 92% on R/A; Weight 81.19 kg; Height ll1 5 ft. 2 in. (157.48 cm); Pain 3/10; 16:32 BP 100 / 55; Pulse 64; Resp 17 S; Pulse Ox 100% on 2 lpm NC; ca1 17:30 BP 104 / 41; Pulse 67; Resp 23 S; Pulse Ox 100% on R/A; ca1 18:30 BP 99 / 71; Pulse 79; Resp 25 S; Pulse Ox 100% on R/A; ca1 19:27 BP 112 / 51; Pulse 65; Resp 18 S; Pulse Ox 100% on 2 lpm NC; ca1 15:00 Body Mass Index 32.74 (81.19 kg, 157.48 cm) ll1 ED Course: 14:28 Patient arrived in ED. ds1 14:28 KWAKU AMARAL is Private Physician. ds1 15:02 Triage completed. ll1 15:02 Arm band placed on. ll1 15:24 Patient placed in an exam room, on a stretcher. ca1 15:26 Negrita Graves, ROBINSON is Primary Nurse. ca1 15:40 Patient has correct armband on for positive identification. Bed in low position. Call ca1 light in reach. Side rails up X2. Pulse ox on. NIBP on. Warm blanket given. 15:47 Roszak, Nazario, PA is PHCP. 8 15:47 Jayme Stein MD is Attending Physician. jr8 16:05 First set of blood cultures drawn by me. Inserted saline lock: 20 gauge in left [facility] antecubital area, using aseptic technique. Blood collected. 16:09 Initial lab(s) drawn, by nh, sent to lab. Second set of blood cultures drawn by me. [facility] 16:27 XRAY Chest (1 view) In Process Unspecified. EDMS 16:38 EKG done, by ED staff, reviewed by Nazario MENG. [facility] 17:14 Rufus Ellison is Hospitalizing Provider. jr8 19:27 No provider procedures requiring assistance completed. Patient admitted, IV remains in ca1 place. Administered Medications: 16:40 Drug: LevaQUIN (levofloxacin) 500 mg Volume: 100 ml; Route: IVPB; Infused Over: 60 ca1 mins; Site: left antecubital; 17:40 Follow up: Response: No adverse reaction; IV Status: Completed infusion; IV Intake: ca1 100ml 16:40 Drug: Albuterol - atroVENT (ipratropium) (3:1) (2.5 mg - 0.5 mg) 3 ml Route: Nebulizer; ca1 18:00 Follow up: Response: No adverse reaction; Marked relief of symptoms ca1 17:12 Drug: Lasix (furosemide) 40 mg Route: IVP; Site: left antecubital; ca1 18:00 Follow up: Response: No adverse reaction ca1 Intake: 17:40 IV: 100ml; Total: 100ml. ca1 Outcome: 17:15 Decision to Hospitalize by Provider. jr8 19:28 Admitted to ICU accompanied by tech, via wheelchair, room 7, with oxygen, with chart, ca1 Report called to ROBINSON Parsons 19:28 Condition: stable 19:28 Instructed on the need for admit. 19:41 Patient left the ED. ca1 Signatures: Dispatcher [employer] EDIA Rosie Traore ds1 Yanet Orlando RN RN iw Nazario Gloria PA PA jr8 Jessika Philip 3 Negrita Graves RN RN ca1 Nicki Rivera RN RN ll1 Corrections: (The following items were deleted from the chart) 16:50 15:40 General: Appears in no apparent distress. comfortable, Behavior is calm, ca1 cooperative, appropriate for age, ca1 16:51 15:40 Respiratory: Reports shortness of breath cough that is productive, since 5 days ca1 COMPLEX MANAGER Airway is patent Respiratory effort is even, unlabored, Respiratory pattern is regular, symmetrical, tachypnea Breath sounds with wheezes bilaterally. ca1 17:18 17:15 Home Meds: Tradjenta; iw iw
[2020-10-19] MEDS ORDERED: FUROSEMIDE 40 MG/4 ML VIAL ONE (17:23)
--- NOTE | 2020-10-19 18:41 | P.HP ---
Certification for Inpatient Patient admitted to: Observation With expected LOS: <2 Midnights Practitioner: I am a practitioner with admitting privileges, knowledge of patient current condition, hospital course, and medical plan of care. Services: Services provided to patient in accordance with Admission requirements found in Title 42 Section 412.3 of the Code of Federal Regulations Patient History Date of Service: 10/19/20 Reason for admission: Shortness of breath History of Present Illness: 85-year-old woman with a history of hypertension, diabetes mellitus, and gastric ulcer presented to the emergency department with a complaint of shortness of breath of 3 days duration, preceded by upper respiratory symptom including nasal congestion, sneezing, sore throat. Patient also reports fever and night sweats. CBC shows leukopenia and anemia. Blood chemistry unremarkable. Troponin mildly elevated to 0.13. Chest x-ray demonstrates mild CHF pattern, bilateral opacities and cardiomegaly. Patient tested positive for COVID 19. She has received 2 doses for Pfizer vaccine. She also report getting COVID infection in June 2020. Patient is admitted for further management. Allergies blood thinner Allergy (Mild, Uncoded 06/16/19 21:12) swelling blood thinners Allergy (Uncoded 06/16/19 21:12) Unknown Mprlmxz-[id number]-Mgp Redu Allergy (Uncoded 06/16/19 21:12) Unknown Home Medications: Aspirin [Aspirin EC 81 MG] 81 mg PO DAILY 06/19/17 Glimepiride [Amaryl] 4 mg PO BID 06/19/17 Pravastatin Sodium 10 mg PO BEDTIME 06/19/17 carvediloL [Coreg*] 6.25 mg PO BEDTIME 06/19/17 Allopurinol 100 mg PO DAILY 06/16/19 Cetirizine HCl 10 mg PO DAILY 06/16/19 Linagliptin [Tradjenta] 1 tab PO DAILY 06/16/19 Furosemide [Lasix*] 40 mg PO BID #60 tab 06/18/19 Multivit with Calcium,Iron,Min [Multiple Vitamins For Women] 1 each PO DAILY #90 tablet 06/18/19 levoFLOXacin [Levaquin] 250 mg PO SEECOM #3 tab 06/18/19 - Past Medical/Surgical History Diabetic: Yes -: DM -: HTN -: Hyperlipidemia -: CVA 2014 -: Gastric Ulcer -: Full Hysterectomy - Family History Mother -: Diabetes - Social History Alcohol use: No CD- Drugs: No Caffeine use: No Review of Systems Other: Except as documented, all other systems reviewed and negative. Physical Examination - Physical Exam General: Alert, In no apparent distress, Oriented x3 HEENT: Atraumatic, PERRLA, Mucous membr. moist/pink, Sclerae nonicteric Neck: Supple, No Thyromegaly Respiratory: Normal air movement, Other (Nonlabored breathing) Cardiovascular: No edema, Regular rate/rhythm, Normal S1 S2 Gastrointestinal: Normal bowel sounds, Soft and benign, Non-distended, No tenderness Musculoskeletal: No swelling, No erythema Integumentary: No rashes, No erythema Neurological: Normal speech, Normal strength at 5/5 x4 extr, Cranial nerves 3-12 intact Lymphatics: No axilla or inguinal lymphadenopathy - Studies Laboratory Data (last 24 hrs) 10/19/20 16:09: PT 14.8 H, INR 1.28 10/19/20 16:09: WBC 2.70 L, Hgb 10.3 L, Hct 31.9 L, Plt Count 51 L 10/19/20 16:09: Sodium 140, Potassium 4.0, BUN 45 H, Creatinine 1.98 H, Glucose 104, Magnesium 2.0, Total Bilirubin 0.7, AST 36, ALT 22, Alkaline Phosphatase 71 Assessment and Plan - Problems (Diagnosis) (1) Pneumonia due to COVID-19 virus Current Visit: Yes Status: Acute (2) DM type 2 (diabetes mellitus, type 2) Current Visit: Yes Status: Acute (3) Acute exacerbation of CHF (congestive heart failure) Current Visit: No Status: Acute (4) Chronic kidney disease, stage 3 Current Visit: Yes Status: Acute - Plan Admit to the medical floor. Start IV steroid, vitamin-C, vitamin-D, zinc supplementation. Supplemental oxygen as needed Consult to pulmonary. Will treat for CHF exacerbation with IV Lasix. I suspect Elevated troponin is secondary to demand ischemia. Trend troponin. Monitor renal function on IV Lasix. Blood thinner listed as allergy for patient, she also has thrombocytopenia I will avoid anticoagulation for now. - Advance Directives Does patient have a Living Will: Yes Does patient have a Durable POA for Healthcare: Yes
[2020-10-19] MEDS ORDERED: ONDANSETRON 4 MG/2 ML VIAL IV PRN (19:37)
[2020-10-19] MEDS: METHYLPREDNISOLONE 40 MG INJ IV SCH (20:30)
[2020-10-19] MEDS: FAMOTIDINE 20 MG/2 ML VIAL IV SCH (20:30)
[2020-10-19 22:08] VITALS: BMI 26.4
[2020-10-20 05:38] LABS: Absolute Lymphocytes (CBC) 0.3 K/uL (0.7-4.9); Basophils % 0.4 % (0-1.3); Hematocrit 31.4 % (36.0-45.0); Lymphocytes % 25.7 % (15.3-44.8); MPV 9.4 fL (7.6-11.3); RBC Red Blood Cell Count 3.42 M/uL (3.86-4.86)
[2020-10-20 06:03] LABS: C-Reactive Protein 14.5 mg/L (<3.00); Ferritin 89.5 ng/mL (8-388); Magnesium 1.9 mg/dL (1.8-2.4); Potassium 4.3 mmol/L (3.5-5.1)
[2020-10-20] MEDS: METHYLPREDNISOLONE 40 MG INJ IV SCH ×2 (08:12→20:23)
[2020-10-20] MEDS ORDERED: FUROSEMIDE 40 MG/4 ML VIAL IV SCH (09:00)
[2020-10-20 09:08] LABS: Platelet Estimate DECR
[2020-10-20 09:10] LABS: Anisocytosis 1+; Blood Morphology Comment NOTED (NOT SEEN)
--- NOTE | 2020-10-20 10:27 | EKG ---
Test Date: 2020-10-19 Test Time: 16:31:55 Marine Rigger: GENE MEASUREMENT RESULTS: Intervals: Rate: 65 IA: 234 QRSD: 84 QT: 438 QTc: 455 [place]: P: 59 IA: 234 QRS: 35 T: 41 INTERPRETIVE STATEMENTS: Sinus rhythm with 1st degree AV block Cannot rule out Anterior infarct, age undetermined Abnormal ECG Compared to ECG 06/16/2019 18:34:20 No significant changes Electronically Signed On 10-20-20 10:25:36 CDT by Benjamin Bravo
--- NOTE | 2020-10-20 10:49 | P.CNS ---
Date of Consult: 10/20/20 Reason for Consult: Hoffman virus infection Chief Complaint: Shortness of breath History of Present Illness: Patient is 85 years of age multiple medical problems diabetes hypertension gastric ulcer presented with shortness of breath nasal congestion reporting some fever she has pancytopenia which appears to be chronic mild interstitial changes on the x-ray patient has received 2 doses of the Pfizer vaccine also was tested positive for hoffman virus in June showed Allergies blood thinner Allergy (Mild, Uncoded 06/16/19 21:12) swelling blood thinners Allergy (Uncoded 06/16/19 21:12) Unknown Ozgewcp-Pni-Tnq Redu Allergy (Uncoded 06/16/19 21:12) Unknown Home Medications: Aspirin [Aspirin EC 81 MG] 81 mg PO DAILY 06/19/17 Glimepiride [Amaryl] 4 mg PO BID 06/19/17 Pravastatin Sodium 10 mg PO BEDTIME 06/19/17 carvediloL [Coreg*] 6.25 mg PO BEDTIME 06/19/17 Allopurinol 100 mg PO DAILY 06/16/19 Cetirizine HCl 10 mg PO DAILY 06/16/19 Linagliptin [Tradjenta] 1 tab PO DAILY 06/16/19 Furosemide [Lasix*] 40 mg PO BID #60 tab 06/18/19 Multivit with Calcium,Iron,Min [Multiple Vitamins For Women] 1 each PO DAILY #90 tablet 06/18/19 levoFLOXacin [Levaquin] 250 mg PO SEECOM #3 tab 06/18/19 - Past Medical/Surgical History Diabetic: Yes -: DM -: HTN -: Hyperlipidemia -: CVA 2014 -: Gastric Ulcer -: Chronic renal failure -: Diastolic heart failure -: Full Hysterectomy - Family History Mother Medical History: Diabetes - Social History Alcohol use: No CD- Drugs: No Caffeine use: No Review of Systems 10-point ROS is otherwise unremarkable General: Weakness Respiratory: Shortness of Breath Physical Examination Temp Pulse Resp BP Pulse Ox 97.4 F 77 16 114/82 100 10/20/20 08:00 10/20/20 08:12 10/20/20 08:00 10/20/20 08:12 10/20/20 08:00 Laboratory Data (last 24 hrs) 10/19/20 16:09: PT 14.8 H, INR 1.28 10/19/20 16:09: WBC 2.70 L, Hgb 10.3 L, Hct 31.9 L, Plt Count 51 L 10/19/20 16:09: Sodium 140, Potassium 4.0, BUN 45 H, Creatinine 1.98 H, Glucose 104, Magnesium 2.0, Total Bilirubin 0.7, AST 36, ALT 22, Alkaline Phosphatase 71 - Problems (1) Pneumonia due to COVID-19 virus Current Visit: Yes Status: Acute Plan: Patient is 85 years of age admitted with dyspnea mildly hypoxic she has received 2 doses of the [employer] vaccine and was tested positive for hoffman virus in June patient has pancytopenia appears that she has had thrombocytopenia before chronic renal failure vital signs stable oxygenation appears to be satisfactory I think she is chronic pancytopenia the niece to be evaluated by Hematology I doubt to this is related to hoffman virus infection change attendant to walk oral prednisone hematology Consul to
[2020-10-20] MEDS ORDERED: GLUCAGON 1 MG/VIAL IM PRN ×2 (12:12→12:13)
[2020-10-20] MEDS ORDERED: D50W 25 GM/50 ML SYRINGE IV PRN ×2 (12:12→12:13)
[2020-10-20] MEDS: INSULIN -REGULAR HUMAN 50 UNIT/0.5 ML ML SQ SCH ×2 (16:29→20:22)
--- NOTE | 2020-10-20 17:44 | P.PN ---
Subjective Date of Service: 10/20/20 Chief Complaint: Shortness of breath Patient complaining of nonproductive cough. She is tolerating 1 L of oxygen with 100% SaO2. She is needing some assistance with transfer. Physical Examination - Vital Signs Temperature: 98.8 F Blood Pressure: 128/41 Pulse: 74 Respirations: 19 Pulse Ox (%): 97 - Physical Exam General: Alert, In no apparent distress, Oriented x3 HEENT: Mucous membr. moist/pink Neck: JVD not distended Respiratory: Other (Nonlabored breathing) Cardiovascular: No edema, Regular rate/rhythm, Normal S1 S2 Gastrointestinal: Normal bowel sounds, Soft and benign, No tenderness Musculoskeletal: No swelling Integumentary: No rashes Neurological: Normal strength at 5/5 x4 extr, Cranial nerves 3-12 intact Assessment And Plan - Current Problems (Diagnosis) (1) Pneumonia due to COVID-19 virus Current Visit: Yes Status: Acute (2) DM type 2 (diabetes mellitus, type 2) Current Visit: Yes Status: Acute (3) Acute exacerbation of CHF (congestive heart failure) Current Visit: No Status: Acute (4) Chronic kidney disease, stage 3 Current Visit: Yes Status: Acute (5) Pancytopenia Current Visit: Yes Status: Acute (6) Elevated troponin Current Visit: Yes Status: Acute - Plan Continue steroid, vitamin-C, vitamin-D, zinc supplementation. Supplemental oxygen as needed Pulmonary input appreciated. Patient with pancytopenia. Review of past medical records shows intermittent leukopenia and thrombocytopenia. Avoid anticoagulation. Status post IV Lasix for CHF exacerbation. Patient appeared compensated for CHF. Troponin trended down. Elevated troponin likely secondary to demand ischemia. Trend troponin. Monitor renal function.
[2020-10-20] MEDS: FAMOTIDINE 20 MG/2 ML VIAL IV SCH (20:23)
[2020-10-21 05:25] LABS: Absolute Lymphocytes (CBC) 0.4 K/uL (0.7-4.9); Basophils % 0.2 % (0-1.3); Hematocrit 30.8 % (36.0-45.0); Lymphocytes % 12.8 % (15.3-44.8); MPV 8.8 fL (7.6-11.3); RBC Red Blood Cell Count 3.38 M/uL (3.86-4.86)
[2020-10-21 06:37] LABS: Albumin 2.5 g/dL (3.4-5.0); Potassium 4.2 mmol/L (3.5-5.1)
[2020-10-21] MEDS: METHYLPREDNISOLONE 40 MG INJ IV SCH (08:18)
[2020-10-21] MEDS: INSULIN -REGULAR HUMAN 50 UNIT/0.5 ML ML SQ SCH ×2 (08:19→12:36)
--- NOTE | 2020-10-21 10:23 | P.PN ---
Subjective Date of Service: 10/21/20 Chief Complaint: Shortness of breath Subjective: Improving (No new complaints feeling better) Review of Systems General: Weakness Respiratory: Shortness of Breath Physical Examination - Vital Signs Temperature: 97.3 F Blood Pressure: 135/50 Pulse: 70 Respirations: 21 Pulse Ox (%): 97 - Physical Exam General: Alert, In no apparent distress, Oriented x3 Respiratory: Clear to auscultation bilaterally, Diminished Cardiovascular: No edema, Regular rate/rhythm Assessment & Plan - Problems (Diagnosis) (1) Pneumonia due to COVID-19 virus Current Visit: Yes Status: Acute Plan: Patient is improving plan to discharge minimal elevation of the creatinine I suspect is due to diuretics patient has chronic renal failure was not require home O2 discharged on 10 b.i.d. of prednisone to follow-up with hematology is on outpatient labs reviewed
[2020-10-21] MEDS ORDERED: INSULIN GLARGINE 100 UNITS/ML SQ SCH (12:14)
[2020-10-21 12:37] VITALS: O2SAT 99
--- NOTE | 2020-10-21 13:08 | P.DS ---
Admission Date: 10/19/20 Discharge Date: 10/21/20 Disposition: ROUTINE DISCHARGE Discharge Condition: FAIR Reason for Admission: Shortness of breath - Problems (1) Pneumonia due to COVID-19 virus Current Visit: Yes Status: Acute (2) DM type 2 (diabetes mellitus, type 2) Current Visit: Yes Status: Acute (3) Acute exacerbation of CHF (congestive heart failure) Current Visit: No Status: Acute (4) Chronic kidney disease, stage 3 Current Visit: Yes Status: Acute (5) Pancytopenia Current Visit: Yes Status: Acute (6) Elevated troponin Current Visit: Yes Status: Acute Brief History of Present Illness: 85-year-old woman with a history of hypertension, diabetes mellitus, and gastric ulcer presented to the emergency department with a complaint of shortness of breath of 3 days duration, preceded by upper respiratory symptom including nasal congestion, sneezing, sore throat. Patient also reports fever and night sweats. CBC shows leukopenia and anemia. Blood chemistry unremarkable. Troponin mildly elevated to 0.13. Chest x-ray demonstrates mild CHF pattern, bilateral opacities and cardiomegaly. Patient tested positive for COVID 19. She has received 2 doses for Pfizer vaccine. She also report getting COVID infection in June 2020. Patient is admitted for further management. Hospital Course: Patient admitted and started on IV steroid, vitamin supplementation for COVID p neumonia. Patient respiratory condition remained stable during the hospital stay. Her oxygen saturation was 99% on 1 L of oxygen by nasal cannula. Patient has thrombocytopenia and leukopenia. Her D-dimer more elevated, CRP also elevated. Patient not a candidate for anticoagulation given her thrombocytopenia and history of bleeding from blood thinners. Patient seen and evaluated by pulmonary. She has been stable throughout the hospital stay. She is discharged with oral prednisone. She has also been referred to see hematology to further evaluate her pancytopenia. All her other medications are resumed on discharge. Vital Signs/Physical Exam: Temp Pulse Resp BP Pulse Ox 97.3 F 70 21 H 135/50 L 97 10/21/20 10:23 10/21/20 10:23 10/21/20 10:23 10/21/20 10:23 10/21/20 10:23 General: Alert, In no apparent distress, Oriented x3 HEENT: Mucous membr. moist/pink Neck: JVD not distended Respiratory: Other (Nonlabored breathing.) Cardiovascular: Regular rate/rhythm, Normal S1 S2, No murmurs Gastrointestinal: Normal bowel sounds, Soft and benign, Non-distended, No tenderness Musculoskeletal: No swelling, No tenderness Integumentary: No rashes Neurological: Normal strength at 5/5 x4 extr, Cranial nerves 3-12 intact Laboratory Data at Discharge: WBC 3.30 K/uL (4.3-10.9) L D 10/21/20 05:01 Hgb 10.1 g/dL (12.0-15.0) L 10/21/20 05:01 Hct 30.8 % (36.0-45.0) L 10/21/20 05:01 Plt Count 49 K/uL (152-406) L* 10/21/20 05:01 PT 14.8 SECONDS (9.5-12.5) H 10/19/20 16:09 INR 1.28 10/19/20 16:09 Sodium 139 mmol/L (136-145) 10/21/20 05:01 Potassium 4.2 mmol/L (3.5-5.1) 10/21/20 05:01 BUN 69 mg/dL (7-18) H D 10/21/20 05:01 Creatinine 2.11 mg/dL (0.55-1.3) H 10/21/20 05:01 Glucose 236 mg/dL (74-106) H 10/21/20 05:01 Phosphorus 3.0 mg/dL (2.5-4.9) 10/21/20 05:01 Magnesium 1.9 mg/dL (1.8-2.4) 10/20/20 04:51 Total Bilirubin 0.7 mg/dL (0.2-1.0) 10/19/20 16:09 AST 36 U/L (15-37) 10/19/20 16:09 ALT 22 U/L (12-78) 10/19/20 16:09 Alkaline Phosphatase 71 U/L (45-117) 10/19/20 16:09 Troponin I 0.08 ng/mL (0.0-0.045) H 10/20/20 00:11 Triglycerides 91 mg/dL (<150) 10/20/20 04:51 Cholesterol 119 mg/dL (<200) 10/20/20 04:51 HDL Cholesterol 28 mg/dL (40-60) L 10/20/20 04:51 Cholesterol/HDL Ratio 4.25 10/20/20 04:51 Home Medications: Glimepiride [Amaryl] 4 mg PO BID 06/19/17 Pravastatin Sodium 10 mg PO BEDTIME 06/19/17 carvediloL [Coreg*] 6.25 mg PO BID 06/19/17 Allopurinol 100 mg PO DAILY 06/16/19 Cetirizine HCl 10 mg PO DAILY 06/16/19 Linagliptin [Tradjenta] 1 tab PO DAILY 06/16/19 Ferrous Sulfate [Ferrous Sulfate*] 325 mg PO DAILY 10/20/20 Montelukast Sodium 10 mg PO DAILY 10/20/20 Ubidecarenone [Co Q-10] 200 mg PO DAILY 10/20/20 Vit C/[place] AC/Lut/Copper/Znox [Preservision Lutein Softgel] 2 each PO BID 10/20/20 Cholecalciferol (Vitamin D3) [Vitamin D3] 5,000 unit PO DAILY #30 10/21/20 Cyanocobalamin (Vitamin B-12) [Vitamin B12] 2,500 mcg PO DAILY #30 10/21/20 Furosemide [Lasix*] 40 mg PO DAILY 10/21/20 predniSONE [Deltasone*] 10 mg PO BID #14 tab 10/21/20 New Medications: predniSONE [Deltasone*] 10 mg PO BID #14 tab Cyanocobalamin (Vitamin B-12) [Vitamin B12] 2,500 mcg PO DAILY #30 Cholecalciferol (Vitamin D3) [Vitamin D3] 5,000 unit PO DAILY #30 Diet: ADA Activity: Fall precautions Followup: Kim Knox [facility] [Primary Care Provider] - 1-2 Weeks Nick Roberts MD [ACTIVE - CAN ADMIT] - Rody Lynne MD [ACTIVE - CAN ADMIT] - 1-2 Weeks Time spent managing pt's care (in minutes): 32
[2020-10-21 13:11] VITALS: BP 150/45; TEMP 98.4
[2020-10-21] MEDS ORDERED: predniSONE 20 MG TAB PO SCH (21:00)
== END 2020-10-21 14:17 | disposition home or self-care (01) | DRG 177 ==
LOC: ER 14:24 → ERHOLD 18:24 → OBSVTOIN 18:24 → 3RD-ICU 19:33
PROVIDERS: ADMIT Internal Medicine; ATTEND Internal Medicine
DX: U07.1 COVID-19 (principal); J12.82 Pneumonia due to coronavirus disease 2019; I50.43 Acute on chronic combined systolic (congestive) and diastolic (congestive) heart failure; D61.818 Other pancytopenia; I13.0 Hypertensive heart and chronic kidney disease with heart failure and stage 1 through stage 4 chronic kidney disease, or unspecified chronic kidney disease; I10 Essential (primary) hypertension; E11.9 Type 2 diabetes mellitus without complications; K25.9 Gastric ulcer, unspecified as acute or chronic, without hemorrhage or perforation; E11.22 Type 2 diabetes mellitus with diabetic chronic kidney disease; N18.30 Chronic kidney disease, stage 3 unspecified; E78.5 Hyperlipidemia, unspecified; Z86.73 Personal history of transient ischemic attack (TIA), and cerebral infarction without residual deficits
CPT/HCPCS: 36415; 71045; 80048; 80061; 80069; 80076; 82728; 82947; 83735; 83880; 84100; 84145; 84484; 85025; 85379; 85610; 86140; 87040; 93005; 96365; 96375; 99285; J1815; J1940; J2920; U0003

== ENCOUNTER 2020-10-23 22:50 | Emergency (ER) | payer OTHER ==
[2020-10-24] MEDS ORDERED: NA CHLORIDE 0.9% 500 ML ONE (04:18)
[2020-10-24 05:34] LABS: Hematocrit 32.7 % (36.0-45.0); RBC Red Blood Cell Count 3.58 M/uL (3.86-4.86)
[2020-10-24 05:35] LABS: Absolute Lymphocytes (CBC) 0.3 K/uL (0.7-4.9); Basophils % 0.4 % (0-1.3); Lymphocytes % 14.4 % (15.3-44.8)
[2020-10-24 05:54] LABS: ALT/SGPT 47 U/L (12-78); AST/SGOT 46 U/L (15-37); Albumin 2.8 g/dL (3.4-5.0); Alkaline Phosphatase 107 U/L (45-117); BUN Blood Urea Nitrogen 74 mg/dL (7-18); Bicarbonate 30 mmol/L (21-32); Bilirubin Direct 0.2 mg/dL (0-0.2); Bilirubin Total 0.6 mg/dL (0.2-1.0); Glucose Level 337 mg/dL (74-106); Potassium 4.1 mmol/L (3.5-5.1); Protein, Total 6.2 g/dL (6.4-8.2); Sodium Level 141 mmol/L (136-145); Troponin (Emerg Dept Use Only) < 0.02 ng/mL (0.0-0.045)
[2020-10-24] MEDS ORDERED: INSULIN -REGULAR HUMAN 50 UNIT/0.5 ML ML ONE (07:37)
[2020-10-24 08:13] LABS: Urine Blood Negative (Negative); Urine Glucose 1+ (Negative); Urine Protein Trace (Negative)
[2020-10-24 09:10] LABS: Blood Morphology Comment NOT SEEN (NOT SEEN); Platelet Estimate DECR
--- NOTE | 2020-10-24 09:17 | EDPHYS ---
Physician Documentation [facility] Name: Loni Cross Age: 85 yrs Sex: Female : 1935 Arrival Date: 10/23/2020 Time: 22:57 Bed 15 Private MD: ED Physician Prasanna Wolfe HPI: 10/24 03:28 This 85 yrs old Female presents to ER via Wheelchair with complaints of High mh7 Blood Sugar. 03:28 The patient or guardian reports hyperglycemia, that was potentially precipitated by mh7 Steroids, with the patient's symptoms witnessed by no one, Treatment prior to arrival includes:. Onset: The symptoms/episode began/occurred last night. Associated signs and symptoms: Pertinent negatives: anorexia, constipation, decreased urine output, diaphoresis, diarrhea, dry skin, hair loss, ketones in urine, nausea, polydipsia, polyphagia, polyuria, seizure activity, skin flushing, urinary incontinence, vomiting. Current symptoms: In the emergency department the patient's symptoms are unchanged from the initial presentation. Historical: - Allergies: 10/23 23:10 blood thinners except ASA; bb 23:10 Yuhwfbr-Yof-Wdu Reductase Inhibitors; bb 23:10 Streptomycin; bb 23:10 caffeine; bb - Home Meds: 23:10 Albuterol Inhl [Active]; allopurinol 100 mg Oral tab once daily [Active]; aspirin 81 mg bb Oral TbEC 1 tab once daily [Active]; carvedilol 6.25 mg Oral tab 2 times per day [Active]; cetirizine 10 mg Oral tab 1 tab once daily [Active]; Claritin-D 24 Hour 10-240 mg Oral Tb24 1 tab once daily [Active]; Coreg Oral [Active]; ezetimibe Oral once daily [Active]; ferrous sulfate 325 mg (65 mg iron) Oral cpER daily [Active]; Flonase 50 mcg/actuation Nasal spsn 1 spray 2 times per day [Active]; furosemide 40 mg Oral tab 1 tab once daily [Active]; glimepiride 4 mg Oral tab twice a day [Active]; montelukast 10 mg Oral tab 1 tab once daily [Active]; omeprazole 40 mg Oral cpDR 1 cap once daily [Active]; pravastatin 10 mg Oral tab 1 tab once daily [Active]; Spectravite Ultra Women's Sr 8 mg iron-400 mcg-300 mcg Oral tab [Active]; Tradjenta 5 mg Oral tab 1 tab once daily [Active]; Tradjenta [Active]; Vitamin B-12 Oral daily [Active]; Vitamin C Oral daily [Active]; Vitamin D Oral daily [Active]; - PMHx: 23:10 CVA; Diabetes - NIDDM; Hyperlipidemia; Hypertension; bb - PSHx: 23:10 hysterectomy; bb - Immunization history:: Adult Immunizations up to date. - Social history:: Smoking status: Patient denies any tobacco usage or history of. ROS: 10/24 03:28 Constitutional: Negative for fever, chills, and weight loss, Eyes: Negative for injury, mh7 pain, redness, and discharge, ENT: Negative for injury, pain, and discharge, Neck: Negative for injury, pain, and swelling, Cardiovascular: Negative for chest pain, palpitations, and edema, Respiratory: Negative for shortness of breath, cough, wheezing, and pleuritic chest pain, Abdomen/GI: Negative for abdominal pain, nausea, vomiting, diarrhea, and constipation, Back: Negative for injury and pain, : Negative for injury, bleeding, discharge, and swelling, MS/Extremity: Negative for injury and deformity, Skin: Negative for injury, rash, and discoloration, Neuro: Negative for headache, weakness, numbness, tingling, and seizure, Psych: Negative for depression, anxiety, suicide ideation, homicidal ideation, and hallucinations, Allergy/Immunology: Negative for hives, rash, and allergies, Hematologic/Lymphatic: Negative for swollen nodes, abnormal bleeding, and unusual bruising. Exam: 03:28 Constitutional: This is a well developed, well nourished patient who is awake, alert, mh7 and in no acute distress. Head/Face: Normocephalic, atraumatic. Eyes: Pupils equal round and reactive to light, extra-ocular motions intact. Lids and lashes normal. Conjunctiva and sclera are non-icteric and not injected. Cornea within normal limits. Periorbital areas with no swelling, redness, or edema. Neck: Trachea midline, no thyromegaly or masses palpated, and no cervical lymphadenopathy. Supple, full range of motion without nuchal rigidity, or vertebral point tenderness. No Meningismus. Chest/axilla: Normal chest wall appearance and motion. Nontender with no deformity. No lesions are appreciated. Cardiovascular: Regular rate and rhythm with a normal S1 and S2. No gallops, murmurs, or rubs. Normal PMI, no JVD. No pulse deficits. Respiratory: Lungs have equal breath sounds bilaterally, clear to auscultation and percussion. No rales, rhonchi or wheezes noted. No increased work of breathing, no retractions or nasal flaring. Abdomen/GI: Soft, non-tender, with normal bowel sounds. No distension or tympany. No guarding or rebound. No evidence of tenderness throughout. Back: No spinal tenderness. No costovertebral tenderness. Full range of motion. Skin: Warm, dry with normal turgor. Normal color with no rashes, no lesions, and no evidence of cellulitis. MS/ Extremity: Pulses equal, no cyanosis. Neurovascular intact. Full, normal range of motion. Neuro: Awake and alert, GCS 15, oriented to person, place, time, and situation. Cranial nerves II-XII grossly intact. Motor strength 5/5 in all extremities. Sensory grossly intact. Cerebellar exam normal. Normal gait. Psych: Awake, alert, with orientation to person, place and time. Behavior, mood, and affect are within normal limits. Vital Signs: 10/23 23:05 BP 154 / 86; Pulse 76; Resp 16 S; Temp 98.5(O); Pulse Ox 98% on R/A; Weight 80.29 kg bb (R); Height 5 ft. 2 in. (157.48 cm) (R); Pain 5/10; 10/24 07:20 BP 143 / 61; Pulse 67; Resp 17; Pulse Ox 97% on R/A; tw2 08:34 Pulse 66; Resp 17; Pulse Ox 100% on R/A; tw2 08:54 BP 150 / 50; Pulse 58; Resp 17; Pulse Ox 98% on R/A; tw2 09:35 BP 143 / 61; Pulse 67; Resp 17; Pulse Ox 98% on R/A; tw2 10/23 23:05 Body Mass Index 32.37 (80.29 kg, 157.48 cm) MDM: 07:50 Patient medically screened. herman 08:49 Data reviewed: vital signs, nurses notes. [facility] 09:14 Counseling: I had a detailed discussion with the patient and/or guardian regarding: the [facility] historical points, exam findings, and any diagnostic results supporting the discharge/admit diagnosis, the need for outpatient follow up, to return to the emergency department if symptoms worsen or persist or if there are any questions or concerns that arise at home. ED course: Advised to discontinue steroids until she is able to follow up with pcp. Patient is otherwise given strict return precautions. patient understood and agrees with the plan of care. . 10/23 23:27 Order name: Glucose, Ancillary Testing; Complete Time: 02:18 EDMS 10/24 02:43 Order name: CBC with Diff [facility] 10/24 02:43 Order name: Basic Metabolic Panel [facility] 10/24 02:43 Order name: LFT's [facility] 10/24 02:43 Order name: CBC with Automated Diff; Complete Time: 09:17 EDMS 10/24 02:43 Order name: Basic Metabolic Panel; Complete Time: 06:00 [facility] 10/24 02:43 Order name: Liver (Hepatic) Function; Complete Time: 06:00 [facility] 10/24 03:35 Order name: Troponin (emerg Dept Use Only) [facility] 10/24 04:22 Order name: Troponin (Emerg Dept Use Only); Complete Time: 06:00 [facility] 10/24 05:49 Order name: Manual Differential; Complete Time: 09:17 [facility] 10/24 08:13 Order name: Urine Dipstick-Ancillary; Complete Time: 08:19 [facility] 10/24 02:43 Order name: Urine Dipstick-Ancillary (obtain specimen); Complete Time: 08:30 [facility] 10/24 02:43 Order name: EKG - Nurse/Tech; Complete Time: 05:25 [facility] 10/24 08:48 Order name: EKG Electrocardiogram EDMS Administered Medications: 04:02 Drug: NS 0.9% 500 ml Route: IV; Rate: bolus; Site: left antecubital; bs2 07:06 Follow up: Response: No adverse reaction; IV Status: Completed infusion; IV Intake: tw2 500ml 07:18 Drug: Insulin Regular Human 6 units {Co-Signature: tr6 (Chrissy Escalera RN).} Route: tw2 Sub-Q; Site: left upper arm; 09:36 Follow up: Response: No adverse reaction tw2 Point of Care Testing: Blood Glucose: 10/23 23:16 Blood Glucose: 361 mg/dL; bb Ranges: Critical Glucose Levels:Adult <50 mg/dl or >400 mg/dl <40 mg/dl or >180 mg/dl Disposition Summary: 10/24/20 09:16 Discharge Ordered Location: Home [facility] Condition: Stable jm Diagnosis - Hyperglycemia, unspecified jm Followup: [facility] - With: Private Physician - When: 2 - 3 days - Reason: Recheck today's complaints, Continuance of care, Re-evaluation by your physician Discharge Instructions: - Discharge Summary Sheet jm - Hyperglycemia [facility] Forms: - Medication Reconciliation Form [facility] - Thank You Letter [facility] - Antibiotic Education [facility] - Prescription Opioid Use [facility] Signatures: Dispatcher [employer] EDMS Mike Griffiths PA PA jmm Ballard, Brenda RN RN bb Milly Rodriguez RN RN tw2 Prasanna Wolfe MD MD [facility] Staci Vu 2 Chrissy Escalera RN tr6 Corrections: (The following items were deleted from the chart) 10/24 04:22 03:36 Troponin (Emerg Dept Use Only) ordered. EDMS EDMS
--- NOTE | 2020-10-24 09:17 | ER ---
Nurse's Notes [facility] Name: Loni Cross Age: 85 yrs Sex: Female : 1935 Arrival Date: 10/23/2020 Time: 22:57 Bed 15 Private MD: Diagnosis: Hyperglycemia, unspecified Presentation: 10/23 23:05 Chief complaint: Patient states: pt recently discharged for COVID pneumonia and was bb sent home on steroids she was told to follow-up with her physician but has not been able to make an appointment. She was told to go to the ED if her BGL was over 400. Tonight it was 420. Coronavirus screen: pt recently discharged Thursday after stay for COVID pneumonia. Ebola Screen: No symptoms or risks identified at this time. Initial Sepsis Screen: Does the patient meet any 2 criteria? No. Patient's initial sepsis screen is negative. Does the patient have a suspected source of infection? No. Patient's initial sepsis screen is negative. Risk Assessment: Do you want to hurt yourself or someone else? Patient reports no desire to harm self or others. Onset of symptoms was October 23, 2020. 23:05 Method Of Arrival: Wheelchair bb 23:05 Acuity: TRINI 3 bb Triage Assessment: 23:10 General: Appears in no apparent distress. Behavior is calm, cooperative. Pain: bb Complains of pain in back. Neuro: Level of Consciousness is awake, alert, obeys commands, Oriented to person, place, time, situation. Cardiovascular: Capillary refill < 3 seconds Patient's skin is warm and dry. Respiratory: Respiratory effort is even, unlabored, Respiratory pattern is regular. GI: No signs and/or symptoms were reported involving the gastrointestinal system. Derm: Skin is dry, Skin is pale, Skin temperature is warm. Musculoskeletal: Capillary refill < 3 seconds. Historical: - Allergies: 23:10 blood thinners except ASA; bb 23:10 Hfjcmvr-Kqn-Vzi Reductase Inhibitors; bb 23:10 Streptomycin; bb 23:10 caffeine; bb - Home Meds: 23:10 Albuterol Inhl [Active]; allopurinol 100 mg Oral tab once daily [Active]; aspirin 81 mg bb Oral TbEC 1 tab once daily [Active]; carvedilol 6.25 mg Oral tab 2 times per day [Active]; cetirizine 10 mg Oral tab 1 tab once daily [Active]; Claritin-D 24 Hour 10-240 mg Oral Tb24 1 tab once daily [Active]; Coreg Oral [Active]; ezetimibe Oral once daily [Active]; ferrous sulfate 325 mg (65 mg iron) Oral cpER daily [Active]; Flonase 50 mcg/actuation Nasal spsn 1 spray 2 times per day [Active]; furosemide 40 mg Oral tab 1 tab once daily [Active]; glimepiride 4 mg Oral tab twice a day [Active]; montelukast 10 mg Oral tab 1 tab once daily [Active]; omeprazole 40 mg Oral cpDR 1 cap once daily [Active]; pravastatin 10 mg Oral tab 1 tab once daily [Active]; Spectravite Ultra Women's Sr 8 mg iron-400 mcg-300 mcg Oral tab [Active]; Tradjenta 5 mg Oral tab 1 tab once daily [Active]; Tradjenta [Active]; Vitamin B-12 Oral daily [Active]; Vitamin C Oral daily [Active]; Vitamin D Oral daily [Active]; - PMHx: 23:10 CVA; Diabetes - NIDDM; Hyperlipidemia; Hypertension; bb - PSHx: 23:10 hysterectomy; bb - Immunization history:: Adult Immunizations up to date. - Social history:: Smoking status: Patient denies any tobacco usage or history of. Screenin/07 04:02 Abuse screen: Denies threats or abuse. Denies injuries from another. Nutritional bs2 screening: No deficits noted. Tuberculosis screening: No symptoms or risk factors identified. Fall Risk None identified. Assessment: 02:15 General: Appears in no apparent distress. comfortable, obese, well groomed, well bs2 developed, well nourished, Behavior is calm, cooperative, appropriate for age. General: pt state she was just released from hospital on Thursday and was told to follow up with PCP on Thursday, but Dr office was closed on Thursday. pt was instructed to come to ER if Blood sugar went over 400, pt states blood sugar at home was 420, she has no other S/S, just had checked her sugar before bed. Pt knows blood sugars may be off d/t her illness and being on steroids for illness.. Pain: Denies pain. Neuro: No deficits noted. Cardiovascular: No deficits noted. GI: No deficits noted. No signs and/or symptoms were reported involving the gastrointestinal system. : No deficits noted. No signs and/or symptoms were reported regarding the genitourinary system. 07:10 Reassessment: Patient appears in no apparent distress at this time. No changes from tw2 previously documented assessment. Patient and/or family updated on plan of care and expected duration. Pain level reassessed. Patient is alert, oriented x 3, equal unlabored respirations, skin warm/dry/pink. 08:10 Reassessment: Patient appears in no apparent distress at this time. No changes from tw2 previously documented assessment. Patient and/or family updated on plan of care and expected duration. Pain level reassessed. Patient is alert, oriented x 3, equal unlabored respirations, skin warm/dry/pink. 08:54 Reassessment: provider at bedside at this time. tw2 09:35 Reassessment: Patient appears in no apparent distress at this time. No changes from tw2 previously documented assessment. Patient and/or family updated on plan of care and expected duration. Pain level reassessed. Patient is alert, oriented x 3, equal unlabored respirations, skin warm/dry/pink. Vital Signs: 10/23 23:05 BP 154 / 86; Pulse 76; Resp 16 S; Temp 98.5(O); Pulse Ox 98% on R/A; Weight 80.29 kg bb (R); Height 5 ft. 2 in. (157.48 cm) (R); Pain 5/; 10/24 07:20 BP 143 / 61; Pulse 67; Resp 17; Pulse Ox 97% on R/A; tw2 08:34 Pulse 66; Resp 17; Pulse Ox 100% on R/A; tw2 08:54 BP 150 / 50; Pulse 58; Resp 17; Pulse Ox 98% on R/A; tw2 09:35 BP 143 / 61; Pulse 67; Resp 17; Pulse Ox 98% on R/A; tw2 10/23 23:05 Body Mass Index 32.37 (80.29 kg, 157.48 cm) ED Course: 10/23 22:57 Patient arrived in ED. bp1 23:10 Triage completed. bb 23:10 Arm band placed on Patient placed in waiting room, Patient notified of wait time. bb 10/24 02:11 Prasanna Wolfe MD is Attending Physician. [facility] 02:15 Inserted saline lock: 20 gauge in left antecubital area, using aseptic technique. Blood bs2 collected. 04:02 Patient has correct armband on for positive identification. Bed in low position. Call bs2 light in reach. Side rails up X2. Pulse ox on. NIBP on. Door closed. Warm blanket given. 05:25 Troponin (emerg Dept Use Only) Sent. bs2 05:25 Liver (Hepatic) Function Sent. bs2 05:25 Basic Metabolic Panel Sent. bs2 05:25 CBC with Automated Diff Sent. bs2 05:25 LFT's Sent. bs2 05:25 Basic Metabolic Panel Sent. bs2 05:25 CBC with Diff Sent. bs2 05:48 Notified ED physician of a critical lab result(s). WBCs of 1.9 Dr Wolfe notified. bb 07:04 Milly Rodriguez RN is Primary Nurse. tw2 07:06 Report received from ROBINSON Small, noted 500 ml NS hanging in room and completed at this tw2 time, pt nad. 07:47 Mike Griffiths PA is PHCP. jmm 09:35 No provider procedures requiring assistance completed. IV discontinued, intact, tw2 bleeding controlled, No redness/swelling at site. Pressure dressing applied. Administered Medications: 04:02 Drug: NS 0.9% 500 ml Route: IV; Rate: bolus; Site: left antecubital; bs2 07:06 Follow up: Response: No adverse reaction; IV Status: Completed infusion; IV Intake: tw2 500ml 07:18 Drug: Insulin Regular Human 6 units {Co-Signature: tr6 (Chrissy Escalera RN).} Route: tw2 Sub-Q; Site: left upper arm; 09:36 Follow up: Response: No adverse reaction tw2 Point of Care Testing: Blood Glucose: 10/23 23:16 Blood Glucose: 361 mg/dL; bb Ranges: Intake: 10/24 07:06 IV: 500ml; Total: 500ml. tw2 Outcome: 09:16 Discharge ordered by . jmm 09:35 Discharged to home via wheelchair. tw2 09:35 Condition: stable 09:35 Discharge instructions given to patient, Instructed on discharge instructions, follow up and referral plans. Demonstrated understanding of instructions, follow-up care. 09:36 Patient left the ED. tw2 Signatures: Mike Griffiths PA PA jmm Ballard, Brenda, RN RN bb Milly Rodriguez RN RN tw2 Shannon Yoder Maurice, MD MD 7 Staci Vu 2 Chrissy Escalera RN tr6
[2020-10-24 09:41] VITALS: TEMP 98.5
[2020-10-24 09:46] VITALS: O2SAT 98
[2020-10-24 09:48] VITALS: BP 143/61
--- NOTE | 2020-10-24 12:59 | EKG ---
Test Date: 2020-10-24 Test Time: 03:27:09 Communications Department Head: PRIYA MEASUREMENT RESULTS: Intervals: Rate: 67 AR: 160 QRSD: 82 QT: 430 QTc: 454 [place]: P: 28 AR: 160 QRS: 7 T: 16 INTERPRETIVE STATEMENTS: Normal sinus rhythm Cannot rule out Anterior infarct, age undetermined Abnormal ECG Compared to ECG 10/19/2020 16:31:55 First degree AV block no longer present Myocardial infarct finding still present Electronically Signed On 10-24-20 12:58:51 CDT by Benjamin Bravo
== END 2020-10-24 09:36 | disposition home or self-care (01) ==
LOC: ER 22:50
DX: E11.65 Type 2 diabetes mellitus with hyperglycemia (principal); I10 Essential (primary) hypertension; Z79.82 Long term (current) use of aspirin; Z88.8 Allergy status to other drugs, medicaments and biological substances; Z91.018 Allergy to other foods
CPT/HCPCS: 93005; 85025; 80048; 36415; 82947; 80076; 81003; 84484; J7040

== ENCOUNTER 2021-08-13 22:13 | Inpatient (IN) | payer OTHER ==
[2021-08-13] MEDS ORDERED: AZITHROMYCIN 500 MG INJ IVPB ONE (23:21)
[2021-08-13] MEDS ORDERED: CEFTRIAXONE 1000 MG/VIAL ONE ×2 (23:21→23:32)
[2021-08-13] MEDS ORDERED: LEVALBUTEROL 1.25 MG/3 ML NEB ONE (23:21)
[2021-08-13] MEDS ORDERED: NA CHLORIDE 0.9% 50 ML ONE (23:22)
[2021-08-13] MEDS ORDERED: NA CHLORIDE 0.9% 250 ML ONE (23:22)
[2021-08-13] MEDS ORDERED: IPRATROPIUM BROM 0.5MG/2.5ML ONE (23:22)
[2021-08-13 23:28] LABS: Protime INR 1.22
[2021-08-13 23:30] LABS: Absolute Lymphocytes (CBC) 0.4 K/uL (0.7-4.9); Hematocrit 32.7 % (36.0-45.0); Lymphocytes % 9.2 % (15.3-44.8); MPV 8.2 fL (7.6-11.3); RBC Red Blood Cell Count 3.78 M/uL (3.86-4.86)
[2021-08-13 23:51] LABS: Albumin 2.8 g/dL (3.4-5.0); Bilirubin Direct 0.3 mg/dL (0-0.2); Bilirubin Total 0.9 mg/dL (0.2-1.0); Potassium 3.8 mmol/L (3.5-5.1); Troponin High Sensitivity 6.1 pg/mL (<58.9)
--- NOTE | 2021-08-13 23:51 | ER ---
Nurse's Notes [facility] Name: Loni Cross Age: 86 yrs Sex: Female : 1935 Arrival Date: 08/13/2021 Time: 22:16 Bed 6 Private MD: Paolo Montgomery V Diagnosis: Dyspnea;Pneumonia, unspecified organism;Pleural effusion in other conditions classified elsewhere;Unspecified kidney failure-chronic Presentation: 08/13 22:28 Chief complaint: Patient states: My family has been sick lately and I think I jb4 contracted whatever they had. I started having cough and congestion around 0300 this morning. M sputum at the time was clear, now it is yellow. Coronavirus screen: Client presents with at least one sign or symptom that may indicate coronavirus-19. Provider contacted for isolation considerations. Ebola Screen: No symptoms or risks identified at this time. Initial Sepsis Screen: Does the patient meet any 2 criteria?. Risk Assessment: Do you want to hurt yourself or someone else? Patient reports no desire to harm self or others. Onset of symptoms was August 13, 2021. Transition of care: patient was not received from another setting of care. 22:28 Method Of Arrival: Wheelchair jb4 22:28 Acuity: TRINI 3 jb4 22:33 Initial Sepsis Screen: Does the patient meet any 2 criteria? RR > 20 per min. HR > 90 jb4 bpm. Yes Does the patient have a suspected source of infection? Yes: Productive cough/pneumonia If YES to both, name of provider notified: Bharathi Mcadams MD Historical: - Allergies: 22:30 blood thinners except ASA; jb4 22:30 caffeine; jb4 22:30 Vwfzyrx-Bxq-Kwd Reductase Inhibitors; jb4 22:30 Streptomycin; jb4 - PMHx: 22:30 CVA; Hyperlipidemia; Diabetes - NIDDM; Hypertension; CHF; Kidney problems; jb4 - PSHx: 22:30 hysterectomy; jb4 - Immunization history:: Adult Immunizations up to date. - Social history:: Smoking status: Patient denies any tobacco usage or history of. Screenin:37 Abuse screen: Denies threats or abuse. Denies injuries from another. Nutritional as6 screening: No deficits noted. On. Tuberculosis screening: No symptoms or risk factors identified. Fall Risk None identified. Assessment: 23:25 General: Appears uncomfortable, Behavior is calm, cooperative, patient states she feels al4 "cruddy" . Pain: Denies pain. Neuro: Level of Consciousness is awake, alert, obeys commands, Oriented to person, place, time. Cardiovascular: Capillary refill < 3 seconds Patient's skin is warm and dry. Respiratory: Airway is patent Respiratory effort is mild labored Respiratory pattern is regular, Sputum is thick, green yellow Breath sounds with rhonchi bilaterally. Breath sounds with wheezes bilaterally. 08/14 00:38 Reassessment: Patient appears in no apparent distress at this time. Patient states al4 symptoms have improved. 01:03 Reassessment: Patient appears in no apparent distress at this time. Patient denies pain al4 at this time. 01:23 Reassessment: Report called to ROBINSON Hennessy. al4 Vital Signs: 08/13 22:33 BP 156 / 67; Pulse 92; Resp 29; Temp 98.8(O); Pulse Ox 93% on R/A; Weight 75.3 kg (R); jb4 Height 5 ft. 2 in. (157.48 cm); 23:30 BP 139 / 52; Pulse 92; Resp 21; Pulse Ox 100% on 15% Nebulizer Mask; al4 23:45 BP 121 / 51; Pulse 87; Resp 19 S; Pulse Ox 100% on R/A; al4 08/14 00:15 BP 120 / 50; Pulse 85; Resp 16; Pulse Ox 100% ; Pain 0/10; al4 00:30 BP 113 / 41; Pulse 87; Resp 17; Pulse Ox 99% on R/A; Pain 0/10; al4 01:00 BP 107 / 92; Pulse 89; Resp 20 S; Pulse Ox 90% on R/A; Pain 0/10; al4 01:30 BP 134 / 54; Pulse 90; Resp 24; Pulse Ox 98% on 2 lpm NC; Pain 0/10; al4 08/13 22:33 Body Mass Index 30.36 (75.30 kg, 157.48 cm) jb4 08/13 23:30 patient getting breathing treatment at this time al4 ED Course: 22:16 Patient arrived in ED. mr 22:16 Paolo Montgomery MD is Private Physician. mr 22:19 Han Gutiérrez RN is Primary Nurse. as6 22:30 Triage completed. jb4 22:30 Arm band placed on right wrist. jb4 22:36 Placed in gown. Bed in low position. Call light in reach. Side rails up X2. Adult w/ as6 patient. electronic device monitor on. Pulse ox on. NIBP on. Warm blanket given. 22:41 Bharathi Mcadams MD is Attending Physician. thor 22:45 Inserted saline lock: 18 gauge in right antecubital area, using aseptic technique. jb4 Blood collected. 22:45 Initial lab(s) drawn, by me, sent to lab. First set of blood cultures drawn by me. jb4 23:10 Inserted saline lock: 20 gauge in left antecubital area, using aseptic technique. Blood al4 collected. 23:31 XRAY Chest (1 view) In Process Unspecified. EDMS 23:50 Paolo Montgomery MD is Hospitalizing Provider. [facility] 08/14 00:55 Straight cath inserted, using sterile technique, Specimen obtained. by ut, with Lurdes Alicea RN Returned clear yellow urine. Patient tolerated well. 01:01 Urine Culture Sent. al4 01:06 No provider procedures requiring assistance completed. Patient admitted, IV remains in al4 place. Administered Medications: 08/13 23:25 Drug: Zithromax (azithromycin) 500 mg Route: IVPB; Infused Over: 1 hrs; Site: left al4 antecubital; 08/14 00:30 Follow up: Response: No adverse reaction; IV Status: Completed infusion; IV Intake: al4 250ml 08/13 23:30 Drug: Xopenex (levalbuterol) 1.25 mg Route: Inhalation; ri4 08/14 00:00 Follow up: Response: No adverse reaction [facility] 08/13 23:30 Drug: AtroVENT (ipratropium) Aerosol 0.5 mg Route: Inhalation; ri4 08/14 00:00 Follow up: Response: No adverse reaction [facility] 08/13 23:32 Drug: Rocephin (cefTRIAXone) 1 grams Route: IV; Rate: per protocol; Site: right al4 antecubital; 08/14 00:00 Follow up: Response: No adverse reaction; IV Status: Completed infusion; IV Intake: [id number] 00:02 CANCELLED (Duplicate Order): SOLU-Medrol (methylPrednisoLONE) 125 mg IVP once thor 00:10 Drug: Xopenex (levalbuterol) 1.25 mg Route: Inhalation; al4 00:43 Follow up: Response: No adverse reaction al4 00:10 Drug: Pepcid (famotidine) 20 mg Route: IVP; Site: right antecubital; al4 00:43 Follow up: Response: No adverse reaction al4 00:13 Drug: Zofran (Ondansetron) 4 mg Route: IVP; Site: right antecubital; al4 00:43 Follow up: Response: No adverse reaction; Marked relief of symptoms al4 00:32 Not Given (Patient Refused): SOLU-Medrol (methylPrednisoLONE) 60 mg IVP once al4 Intake: 00:00 IV: 10ml; Total: 10ml. al4 00:30 IV: 250ml; Total: 260ml. al4 Outcome: 08/13 23:50 Decision to Hospitalize by Provider. [facility] 08/14 01:06 Admitted to Med/surg room 202. al4 Condition: stable Discharge instructions given to patient, family, Instructed on the need for admit, Demonstrated understanding of instructions. 01:54 Patient left the ED. al4 Signatures: Dispatcher [employer] EDMS Bharathi Mcadams MD MD cha Rivera, [facility] mr Kenan Rojas RN RN jb4 Han Gutiérrez RN RN as6 Eduardo Guo al4 Corrections: (The following items were deleted from the chart) 08/13 22:38 22:33 BP 156 / 67; Pulse 92bpm; Resp 29bpm; Pulse Ox 93% RA; Temp 97.6F Oral; 75.3 kg jb4 Reported; Height 5 ft. 2 in.; BMI: 30.3; jb4 08/14 00:15 00:10 SOLU-Medrol (methylPrednisoLONE) 60 mg IVP in right antecubital al4 al4 00:38 08/13 23:25 Respiratory: Airway is patent Respiratory effort is unlabored, Respiratory al4 pattern is regular, Breath sounds with wheezes bilaterally. al4 08/14 01:19 01:06 Admitted to Med/surg al4 al4 01:19 01:06 Discharge instructions given to patient, family, Instructed on the need for al4 admit, Demonstrated understanding of instructions, al4 02:02 08/13 23:25 General: Appears uncomfortable, Behavior is calm, cooperative, al4 al4 08/14 02:08/13 23:25 Respiratory: Airway is patent Respiratory effort is mild labored al4 Respiratory pattern is regular, Breath sounds with rhonchi bilaterally. Breath sounds with wheezes bilaterally. al4
--- NOTE | 2021-08-13 23:51 | EDPHYS ---
Physician Documentation [facility] Name: Loni Cross Age: 86 yrs Sex: Female : 1935 Arrival Date: 08/13/2021 Time: 22:16 Bed 6 Private MD: Paolo Montgomery V ED Physician Bharathi Mcadams HPI: 08/13 23:43 This 86 yrs old Female presents to ER via Wheelchair with complaints of thor Cough, Congestion. 23:43 The patient or guardian reports cough, difficulty breathing. thor Historical: - Allergies: 22:30 blood thinners except ASA; jb4 22:30 caffeine; jb4 22:30 Wiytdvr-Bcu-Hft Reductase Inhibitors; jb4 22:30 Streptomycin; jb4 - PMHx: 22:30 CVA; Hyperlipidemia; Diabetes - NIDDM; Hypertension; CHF; Kidney problems; jb4 - PSHx: 22:30 hysterectomy; jb4 - Immunization history:: Adult Immunizations up to date. - Social history:: Smoking status: Patient denies any tobacco usage or history of. ROS: 23:45 Constitutional: Negative for fever, chills, and weight loss, Eyes: Negative for injury, thor pain, redness, and discharge, ENT: Negative for injury, pain, and discharge, Neck: Negative for injury, pain, and swelling, Cardiovascular: Negative for chest pain, palpitations, and edema, Abdomen/GI: Negative for abdominal pain, nausea, vomiting, diarrhea, and constipation, Back: Negative for injury and pain, : Negative for injury, bleeding, discharge, and swelling, MS/Extremity: Negative for injury and deformity, Skin: Negative for injury, rash, and discoloration, Neuro: Negative for headache, weakness, numbness, tingling, and seizure, Psych: Negative for depression, anxiety, suicide ideation, homicidal ideation, and hallucinations, Allergy/Immunology: Negative for hives, rash, and allergies, Endocrine: Negative for neck swelling, polydipsia, polyuria, polyphagia, and marked weight changes, Hematologic/Lymphatic: Negative for swollen nodes, abnormal bleeding, and unusual bruising. 23:45 Respiratory: Positive for cough, shortness of breath, at rest. Exam: 23:45 Constitutional: This is a well developed, well nourished patient who is awake, alert, thor and in no acute distress. Head/Face: Normocephalic, atraumatic. Eyes: Pupils equal round and reactive to light, extra-ocular motions intact. Lids and lashes normal. Conjunctiva and sclera are non-icteric and not injected. Cornea within normal limits. Periorbital areas with no swelling, redness, or edema. ENT: Nares patent. No nasal discharge, no septal abnormalities noted. Tympanic membranes are normal and external auditory canals are clear. Oropharynx with no redness, swelling, or masses, exudates, or evidence of obstruction, uvula midline. Mucous membranes moist. Neck: Trachea midline, no thyromegaly or masses palpated, and no cervical lymphadenopathy. Supple, full range of motion without nuchal rigidity, or vertebral point tenderness. No Meningismus. Chest/axilla: Normal chest wall appearance and motion. Nontender with no deformity. No lesions are appreciated. Cardiovascular: Regular rate and rhythm with a normal S1 and S2. No gallops, murmurs, or rubs. Normal PMI, no JVD. No pulse deficits. Abdomen/GI: Soft, non-tender, with normal bowel sounds. No distension or tympany. No guarding or rebound. No evidence of tenderness throughout. Back: No spinal tenderness. No costovertebral tenderness. Full range of motion. Female : Normal external genitalia. Skin: Warm, dry with normal turgor. Normal color with no rashes, no lesions, and no evidence of cellulitis. MS/ Extremity: Pulses equal, no cyanosis. Neurovascular intact. Full, normal range of motion. Neuro: Awake and alert, GCS 15, oriented to person, place, time, and situation. Cranial nerves II-XII grossly intact. Motor strength 5/5 in all extremities. Sensory grossly intact. Cerebellar exam normal. Normal gait. Psych: Awake, alert, with orientation to person, place and time. Behavior, mood, and affect are within normal limits. 23:45 ECG was reviewed by the Attending Physician. 23:45 Respiratory: mild respiratory distress is noted, Respirations: tachypnea, Breath sounds: bronchial sounds, that are moderate, decreased breath sounds, that are mild, rhonchi, that are mild, are scattered, stridor, is not appreciated, + upper airway congestion. wheezing: expiratory is scattered. Vital Signs: 22:33 BP 156 / 67; Pulse 92; Resp 29; Temp 98.8(O); Pulse Ox 93% on R/A; Weight 75.3 kg (R); jb4 Height 5 ft. 2 in. (157.48 cm); 23:30 BP 139 / 52; Pulse 92; Resp 21; Pulse Ox 100% on 15% Nebulizer Mask; al4 23:45 BP 121 / 51; Pulse 87; Resp 19 S; Pulse Ox 100% on R/A; al4 08/14 00:15 BP 120 / 50; Pulse 85; Resp 16; Pulse Ox 100% ; Pain 0/10; al4 00:30 BP 113 / 41; Pulse 87; Resp 17; Pulse Ox 99% on R/A; Pain 0/10; al4 01:00 BP 107 / 92; Pulse 89; Resp 20 S; Pulse Ox 90% on R/A; Pain 0/10; al4 01:30 BP 134 / 54; Pulse 90; Resp 24; Pulse Ox 98% on 2 lpm NC; Pain 0/10; ne4 08/13 22:33 Body Mass Index 30.36 (75.30 kg, 157.48 cm) [facility] 08/13 23:30 patient getting breathing treatment at this time al4 MDM: 22:41 Patient medically screened. [facility] 23:48 Differential Diagnosis: Bronchitis Influenza Upper Respiratory Infection Sinusitis htor Pharyngitis Viral Syndrome Pneumonia. Data reviewed: vital signs, nurses notes, lab test result(s), EKG, radiologic studies, CT scan, plain films. Data interpreted: cardiac monitor technician: rate is 93 beats/min, rhythm is regular, Pulse oximetry: on room air is 94 %. Test interpretation: by ED physician or midlevel provider: ECG, plain radiologic studies. Counseling: I had a detailed discussion with the patient and/or guardian regarding: the historical points, exam findings, and any diagnostic results supporting the discharge/admit diagnosis, lab results, radiology results, the need for further work-up and treatment in the hospital. 08/13 22:47 Order name: Basic Metabolic Panel; Complete Time: 23:53 [facility] 08/13 22:47 Order name: CBC with Diff [facility] 08/13 22:47 Order name: LFT's; Complete Time: 23:53 [facility] 08/13 22:47 Order name: Magnesium; Complete Time: 23:53 [facility] 08/13 22:47 Order name: NT PRO-BNP; Complete Time: 23:53 [facility] 08/13 22:47 Order name: PT-INR; Complete Time: 23:41 [facility] 08/13 22:47 Order name: Troponin HS; Complete Time: 23:53 [facility] 08/13 22:47 Order name: Blood Culture Adult (2) [facility] 08/13 22:47 Order name: Lactate; Complete Time: 23:41 [facility] 08/13 22:47 Order name: Procalcitonin [facility] 08/13 22:47 Order name: Urine Culture [facility] 08/13 22:47 Order name: COVID-19/FLU A+B (Document "Date of Onset" if Symptomatic) [facility] 08/13 23:36 Order name: CBC Smear Scan [facility] 08/14 01:02 Order name: Urine Dipstick-Ancillary [facility] 08/13 22:47 Order name: XRAY Chest (1 view) [facility] 08/13 22:47 Order name: EKG; Complete Time: 22:47 [facility] 08/13 22:47 Order name: Cardiac monitoring; Complete Time: 22:50 [facility] 08/13 22:47 Order name: EKG - Nurse/Tech; Complete Time: 22:56 [facility] 08/13 22:47 Order name: IV Saline Lock; Complete Time: 23:00 [facility] 08/13 23:57 Order name: CONS Physician Consult [facility] 08/13 22:47 Order name: Labs collected and sent; Complete Time: 23:00 [facility] 08/13 22:47 Order name: O2 Per Protocol; Complete Time: 22:50 [facility] 08/13 22:47 Order name: O2 Sat Monitoring; Complete Time: 22:50 [facility] 08/13 22:47 Order name: Urine Dipstick-Ancillary (obtain specimen); Complete Time: 01:00 [facility] EC:45 Rate is 93 beats/min. Rhythm is regular. QRS Thicket is Normal. MS interval is normal. QRS thor interval is normal. QT interval is normal. No Q waves. T waves are Normal. No ST changes noted. Clinical impression: NSR w/ Non-specific ST/T Changes and No evidence of ischemia. Interpreted by me. Reviewed by me. Administered Medications: 23:25 Drug: Zithromax (azithromycin) 500 mg Route: IVPB; Infused Over: 1 hrs; Site: left al4 antecubital; 08/14 00:30 Follow up: Response: No adverse reaction; IV Status: Completed infusion; IV Intake: al4 250ml 08/13 23:30 Drug: Xopenex (levalbuterol) 1.25 mg Route: Inhalation; al4 08/14 00:00 Follow up: Response: No adverse reaction al4 08/13 23:30 Drug: AtroVENT (ipratropium) Aerosol 0.5 mg Route: Inhalation; al4 08/14 00:00 Follow up: Response: No adverse reaction al4 08/13 23:32 Drug: Rocephin (cefTRIAXone) 1 grams Route: IV; Rate: per protocol; Site: right al4 antecubital; 08/14 00:00 Follow up: Response: No adverse reaction; IV Status: Completed infusion; IV Intake: [id number] 00:02 CANCELLED (Duplicate Order): SOLU-Medrol (methylPrednisoLONE) 125 mg IVP once thor 00:10 Drug: Xopenex (levalbuterol) 1.25 mg Route: Inhalation; al4 00:43 Follow up: Response: No adverse reaction al4 00:10 Drug: Pepcid (famotidine) 20 mg Route: IVP; Site: right antecubital; al4 00:43 Follow up: Response: No adverse reaction al4 00:13 Drug: Zofran (Ondansetron) 4 mg Route: IVP; Site: right antecubital; al4 00:43 Follow up: Response: No adverse reaction; Marked relief of symptoms al4 00:32 Not Given (Patient Refused): SOLU-Medrol (methylPrednisoLONE) 60 mg IVP once al4 Disposition Summary: 08/13/21 23:50 Hospitalization Ordered Hospitalization Status: Inpatient Admission thor Provider: Paolo Montgomery cha Location: Telemetry/MedSurg (Inpatient) thor Condition: Fair thor Problem: new thor Symptoms: have improved thor Bed/Room Type: Standard thor Room Assignment: 202(08/14/21 00:54) Diagnosis - Dyspnea thor - Pneumonia, unspecified organism thor - Pleural effusion in other conditions classified elsewhere thor - Unspecified kidney failure - chronic thor Forms: - Medication Reconciliation Form thor - SBAR form thor Signatures: Dispatcher [employer] EDMS Bekah Judd RN RN mw Anderson, Corey, MD MD cha Attema, Lee, WAREHOUSE SHIPPER-C WAREHOUSE SHIPPER-Cla1 Kenan Rojas, RN RN jb4 Eduardo Guo4 Corrections: (The following items were deleted from the chart) 00:02 08/13 23:45 SOLU-Medrol (methylPrednisoLONE) 125 mg IVP once ordered. thor mcrae 08/14 00:54 08/13 23:50 thor hassan
[2021-08-14] MEDS ORDERED: METHYLPREDNISOLONE 125 MG INJ ONE (00:02)
[2021-08-14] MEDS ORDERED: LEVALBUTEROL 1.25 MG/3 ML NEB ONE (00:02)
[2021-08-14] MEDS ORDERED: FAMOTIDINE 20 MG/2 ML VIAL IV ONE ×2 (00:03→09:00)
[2021-08-14] MEDS ORDERED: ONDANSETRON 4 MG/2 ML VIAL ONE (00:06)
[2021-08-14] MEDS ORDERED: METHYLPREDNISOLONE 40 MG INJ ONE (00:08)
[2021-08-14 00:30] LABS: Blood Morphology Comment NOT SEEN (NOT SEEN); Platelet Estimate DECR; White Blood Cell Scan OK (OK)
[2021-08-14 00:43] LABS: SARS-COV-2 RT PCR NEGATIVE (NEGATIVE)
[2021-08-14 01:01] LABS: Urine Blood Trace-intact (Negative); Urine Glucose Negative (Negative); Urine Protein Negative (Negative); Urine Specific Gravity 1.015 (1.005-1.030); Urine pH 5.5 (5.0-7.0)
[2021-08-14] MEDS ORDERED: ACETAMINOPHEN 500 MG TAB PO PRN (02:00)
[2021-08-14] MEDS ORDERED: ALBUTEROL 2.5 MG/3 ML NEB SOL NEB PRN (02:00)
[2021-08-14] MEDS ORDERED: METHYLPREDNISOLONE 40 MG INJ IV SCH (02:00)
[2021-08-14] MEDS ORDERED: ONDANSETRON 4 MG/2 ML VIAL IV PRN (02:00)
[2021-08-14] MEDS ORDERED: IPRATROPIUM BROM 0.5MG/2.5ML NEB PRN (02:00)
[2021-08-14 02:20] VITALS: BMI 30.3
[2021-08-14 06:23] LABS: Absolute Lymphocytes (CBC) 0.3 K/uL (0.7-4.9); Hematocrit 30.4 % (36.0-45.0); Lymphocytes % 7.9 % (15.3-44.8); MPV 8.5 fL (7.6-11.3); RBC Red Blood Cell Count 3.48 M/uL (3.86-4.86)
[2021-08-14] MEDS ORDERED: PNEUMOCOCCAL VACCINE 0.5 ML IMVAC ONE (08:00)
[2021-08-14] MEDS ORDERED: NACHLORIDE 0.45% 1,000 ML IV SCH (08:00)
[2021-08-14] MEDS: CEFTRIAXONE 1,000 MG in NA CHLORIDE 0.9% 50 ML IVPB SCH ×2 (08:59→20:28)
[2021-08-14] MEDS ORDERED: FAMOTIDINE 20 MG/2 ML VIAL IV SCH (09:00)
[2021-08-14] MEDS ORDERED: POTASSIUM 25 MEQ EFFERV TAB PO ONE (09:00)
[2021-08-14] MEDS: APIXABAN 2.5 MG TABLET PO SCH ×2 (09:00→20:28)
[2021-08-14] MEDS ORDERED: APIXABAN 5 MG TABLET PO SCH (09:00)
[2021-08-14] MEDS: allopurinoL 100 MG TAB PO SCH (09:07)
[2021-08-14] MEDS: MONTELUKAST 10 MG TAB PO SCH (09:07)
[2021-08-14] MEDS: VITAMIN D 5,000 UNIT CAP PO SCH (09:07)
[2021-08-14] MEDS: GLIMEPIRIDE 2 MG TABLET PO SCH ×2 (09:07→17:30)
[2021-08-14] MEDS: carvediloL 6.25 MG TAB PO SCH ×2 (09:11→20:25)
--- NOTE | 2021-08-14 12:48 | P.CNS ---
Date of Consult: 08/14/21 Reason for Consult: Shortness of breath Chief Complaint: Shortness of breath History of Present Illness: Patient is 86 years of age admitted with acute dyspnea she is having some shortness of breath since her COVID infection since October last year not smoke pro ductive cough lower extremity edema Allergies blood thinner Allergy (Mild, Uncoded 06/16/19 21:12) swelling blood thinners Allergy (Uncoded 06/16/19 21:12) Unknown Rzxewoy-Kau-Xcm Redu Allergy (Uncoded 06/16/19 21:12) Unknown Home Medications: Glimepiride [Amaryl] 4 mg PO BID 06/19/17 Pravastatin Sodium 10 mg PO BEDTIME 06/19/17 carvediloL [Coreg*] 6.25 mg PO BID 06/19/17 Allopurinol 100 mg PO DAILY 06/16/19 Linagliptin [Tradjenta] 1 tab PO DAILY 06/16/19 Montelukast Sodium 10 mg PO DAILY 10/20/20 Ubidecarenone [Co Q-10] 200 mg PO DAILY 10/20/20 Vit C/Petrona AC/Lut/Copper/Znox [Preservision Lutein Softgel] 2 each PO BID 10/20/20 Cholecalciferol (Vitamin D3) [Vitamin D3] 5,000 unit PO DAILY #30 10/21/20 Furosemide [Lasix*] 40 mg PO DAILY 10/21/20 Aspirin [Vazalore] 81 mg PO ONCE 08/14/21 Cyanocobalamin (Vitamin B-12) [Vitamin B12] 1,000 mcg PO DAILY 08/14/21 Linagliptin [Tradjenta] 5 mg PO ONCE 08/14/21 - Past Medical/Surgical History Diabetic: Yes -: DM -: HTN -: Hyperlipidemia -: CVA 2014 -: Gastric Ulcer -: Chronic renal failure -: Diastolic heart failure -: COVID infection October 2020 -: Full Hysterectomy - Family History Mother Medical History: Diabetes - Social History Alcohol use: No CD- Drugs: No Caffeine use: No Place of Residence: Home Review of Systems General: Weakness Respiratory: Cough, Shortness of Breath Cardiovascular: Edema Physical Examination Temp Pulse Resp BP Pulse Ox 98.2 F 94 H 16 124/59 L 97 08/14/21 12:00 08/14/21 12:00 08/14/21 12:00 08/14/21 12:00 08/14/21 12:00 General: Alert, In no apparent distress, Oriented x3 Respiratory: Clear to auscultation bilaterally, Diminished (On the left side predominantly) Cardiovascular: Regular rate/rhythm, Normal S1 S2, Edema Gastrointestinal: Normal bowel sounds, Soft and benign Musculoskeletal: No clubbing, Swelling Laboratory Data (last 24 hrs) 08/13/21 22:45: PT 13.5 H, INR 1.22 08/13/21 22:45: WBC 4.1 L, Hgb 10.5 L, Hct 32.7 L, Plt Count 61 L 08/13/21 22:45: Sodium 140, Potassium 3.8, BUN 51 H, Creatinine 1.77 H, Glucose 171 H, Magnesium 2.0, Total Bilirubin 0.9, AST 29, ALT 18, Alkaline Phosphatase 103 - Problems (1) Pleural effusion Current Visit: Yes Status: Acute Plan: Patient is 86 years of age admitted with shortness of breath and has a new left- sided moderate pleural effusion chronic thrombocytopenia mild anemia chronic renal failure blood pressure oxygenation satisfactory patient is on diuretics at home patient is on Eliquis antibiotics no clinical evidence of sepsis have ordered bilateral decubitus of the chest in addition to a CT scan doubt sepsis high risk for thromboembolism Daily labs
[2021-08-14] MEDS ORDERED: FUROSEMIDE 40 MG/4 ML VIAL IV SCH (12:49)
[2021-08-14 13:03] LABS: Blood Morphology Comment NOT SEEN (NOT SEEN); Platelet Estimate DECR; White Blood Cell Scan OK (OK)
--- NOTE | 2021-08-14 15:27 | RAD REPORT ---
EXAM DESCRIPTION: RAD - Chest Single View - 08/13/2021 11:30 pm CLINICAL HISTORY: 86 years, Female, Cough COMPARISON: None. FINDINGS: Single view of the chest was obtained portable. No prior films are available for compariso n. There is a moderate-sized left pleural effusion with compressive atelectatic changes/or infiltra te. The heart is nonenlarged. The thoracic aorta is unremarkable. Right lung is clear. External EKG l carlota within the [id number] limits diagnosis.. The rest of the soft tissue and bony structures de monstrate to be unremarkable. IMPRESSION: Moderate-sized left pleural effusion with compressive atelectatic changes/or infiltrate. Electronically signed by: Jorge A Villegas MD 08/14/2021 12:55 AM CDT Due to temporary technical issues with the PACS/Fluency reporting system, reports are being signed by the in house radiologists without review as a courtesy to insure prompt reporting. The interpreting radiologist is fully responsible for the content of the report.
--- NOTE | 2021-08-14 15:29 | RAD REPORT ---
EXAM DESCRIPTION: USExtrem Venous W Compress Bil08/14/2021 3:14 pm CLINICAL HISTORY: Leg pain COMPARISON: 2017 FINDINGS: The common femoral, superficial femoral, popliteal and posterior tibial veins bilaterally are compressible and demonstrate augmentation. Doppler demonstrates good flow. Grayscale, color and spectral analysis performed on all vessels IMPRESSION: No evidence of deep venous thrombosis involving either lower extremity.
[2021-08-14] MEDS ORDERED: D50W 25 GM/50 ML SYRINGE IV PRN (17:03)
[2021-08-14] MEDS ORDERED: GLUCAGON 1 MG/VIAL IM PRN (17:03)
--- NOTE | 2021-08-14 17:03 | RAD REPORT ---
EXAM DESCRIPTION: RAD - Chest Lateral Decubitus - 08/14/2021 3:54 pm CLINICAL HISTORY: Bilateral decubitus COMPARISON: Chest Single View dated 08/13/2021 FINDINGS: Lines: None. Lungs: Presumably underlying atelectasis as a result of the effusion. Pleural: Layering left pleural effusion in decubitus position. Cardiac: The heart size is within normal limits. Bones: No acute fractures. Other: IMPRESSION: Moderate free-flowing left pleural effusion.
[2021-08-14] MEDS ORDERED: D10W 125 ML IV PRN (17:12)
[2021-08-14] MEDS: INSULIN -REGULAR HUMAN 50 UNIT/0.5 ML ML SQ SCH ×2 (17:30→20:24)
--- NOTE | 2021-08-14 17:30 | P.HP ---
Certification for Inpatient Patient admitted to: Inpatient With expected LOS: >2 Midnights Practitioner: I am a practitioner with admitting privileges, knowledge of patient current condition, hospital course, and medical plan of care. Services: Services provided to patient in accordance with Admission requirements found in Title 42 Section 412.3 of the Code of Federal Regulations Patient History Date of Service: 08/14/21 Reason for admission: Shortness of breath History of Present Illness: KAYLAN IS A DIABETIC WHO SINCE COVID HAS SHORTNESS OF BREATH. SHE HAS NO COUGH AND CHEST PAIN. NO FEVER. Allergies blood thinner Allergy (Mild, Uncoded 06/16/19 21:12) swelling blood thinners Allergy (Uncoded 06/16/19 21:12) Unknown Aceeudk-Lix-Liu Redu Allergy (Uncoded 06/16/19 21:12) Unknown Home Medications: Glimepiride [Amaryl] 4 mg PO BID 06/19/17 Pravastatin Sodium 10 mg PO BEDTIME 06/19/17 carvediloL [Coreg*] 6.25 mg PO BID 06/19/17 Allopurinol 100 mg PO DAILY 06/16/19 Linagliptin [Tradjenta] 1 tab PO DAILY 06/16/19 Montelukast Sodium 10 mg PO DAILY 10/20/20 Ubidecarenone [Co Q-10] 200 mg PO DAILY 10/20/20 Vit C/Petrona AC/Lut/Copper/Znox [Preservision Lutein Softgel] 2 each PO BID 10/20/20 Cholecalciferol (Vitamin D3) [Vitamin D3] 5,000 unit PO DAILY #30 10/21/20 Furosemide [Lasix*] 40 mg PO DAILY 10/21/20 Aspirin [Vazalore] 81 mg PO ONCE 08/14/21 Cyanocobalamin (Vitamin B-12) [Vitamin B12] 1,000 mcg PO DAILY 08/14/21 Linagliptin [Tradjenta] 5 mg PO ONCE 08/14/21 - Past Medical/Surgical History Diabetic: Yes -: DM -: HTN -: Hyperlipidemia -: CVA 2014 -: Gastric Ulcer -: Chronic renal failure -: Diastolic heart failure -: COVID infection October 2020 -: Full Hysterectomy - Family History Mother -: Diabetes - Social History Smoking Status: Never smoker Alcohol use: No CD- Drugs: No Caffeine use: No Place of Residence: Home Review of Systems 10-point ROS is otherwise unremarkable General: Weakness Respiratory: SOB with Excertion, As per HPI Physical Examination - Vital Signs Temperature: 97.5 F Blood Pressure: 132/60 Pulse: 82 Respirations: 18 Pulse Ox (%): 96 - Physical Exam General: Oriented x3, Cachectic, Mild distress HEENT: Atraumatic, PERRLA, Mucous membr. moist/pink, EOMI, Sclerae nonicteric Neck: Supple, 2+ carotid pulse no bruit, No LAD, Without JVD or thyroid abnormality Respiratory: Clear to auscultation bilaterally, Normal air movement Cardiovascular: Regular rate/rhythm, Normal S1 S2 Gastrointestinal: Normal bowel sounds, No tenderness Musculoskeletal: No tenderness Integumentary: No rashes Neurological: Normal gait, Normal speech, Normal strength at 5/5 x4 extr, Normal tone, Normal affect Lymphatics: No axilla or inguinal lymphadenopathy - Studies Laboratory Data (last 24 hrs) 08/13/21 22:45: PT 13.5 H, INR 1.22 08/13/21 22:45: WBC 4.1 L, Hgb 10.5 L, Hct 32.7 L, Plt Count 61 L 08/13/21 22:45: Sodium 140, Potassium 3.8, BUN 51 H, Creatinine 1.77 H, Glucose 171 H, Magnesium 2.0, Total Bilirubin 0.9, AST 29, ALT 18, Alkaline Phosphatase 103 Assessment and Plan - Problems (Diagnosis) (1) Dyspnea Current Visit: Yes Status: Chronic Plan: WORSE LATELY. SHE HAS L SIDE PLEURAL EFFUSION. WILL DO CT SCAN WHEN CREATNINE IS DOWN FROM 1.7 I STOPPED LASIX AND GAVE GENTLE HYDRATION. (2) Pleural effusion Current Visit: Yes Status: Chronic Plan: ABOVE. (3) Chronic kidney disease, stage 3 Current Visit: No Status: Acute Plan: CREAT COMING DOWN WILL DO CT WHEN LESS THAN 1.5 (4) DM type 2 (diabetes mellitus, type 2) Current Visit: No Status: Chronic Qualifiers: Diabetes mellitus complication status: without complication (5) Bicytopenia Current Visit: Yes Status: Chronic Plan: ANEMIA IS ABOUT 9-10 GM CHRONIC. PLATELETS ABOUT 90K AND NOW IT IS DOWN TO 47K. WILL WATCH DAILY. MAY BE FROM SEPSIS OR HEME DISORDER. 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 - Advance Directives Does patient have a Living Will: No Does patient have a Durable POA for Healthcare: No
[2021-08-14 19:27] LABS: RBC Red Blood Cell Count 3.09 M/uL (3.86-4.86)
[2021-08-14 21:09] LABS: Ferritin 58.6 ng/mL (8-388); Transferrin 168 mg/dL (200-360)
[2021-08-15] MEDS ORDERED: AZITHROMYCIN IV 250 MG in NA CHLORIDE 0.9% 250 ML IVPB SCH ×2
[2021-08-15 06:16] LABS: Hematocrit 28.7 % (36.0-45.0); RBC Red Blood Cell Count 3.26 M/uL (3.86-4.86)
[2021-08-15 06:27] LABS: Potassium 4.1 mmol/L (3.5-5.1)
[2021-08-15] MEDS: INSULIN -REGULAR HUMAN 50 UNIT/0.5 ML ML SQ SCH ×4 (07:30→22:13)
[2021-08-15] MEDS: GLIMEPIRIDE 2 MG TABLET PO SCH ×2 (08:23→16:24)
[2021-08-15] MEDS: allopurinoL 100 MG TAB PO SCH (08:24)
[2021-08-15] MEDS: carvediloL 6.25 MG TAB PO SCH ×2 (08:24→22:13)
[2021-08-15] MEDS: MONTELUKAST 10 MG TAB PO SCH (08:24)
[2021-08-15] MEDS: VITAMIN D 5,000 UNIT CAP PO SCH (08:24)
[2021-08-15] MEDS: NACHLORIDE 0.45% 1,000 ML IV SCH (08:25)
[2021-08-15] MEDS: CEFTRIAXONE 1,000 MG in NA CHLORIDE 0.9% 50 ML IVPB SCH (08:25)
--- NOTE | 2021-08-15 10:41 | RAD REPORT ---
EXAM DESCRIPTION: US - Renal Ultrasound-Complete - 08/15/2021 10:17 am CLINICAL HISTORY: Acute renal failure COMPARISON: 2018 FINDINGS: The right kidney measures 9 cm with an increased echotexture. The left kidney measures 9 cm with an increased echotexture. A 3 millimeter echogenic structure equiv ocal for a nonobstructing calculus Bilateral renal cortical thinning. Hydronephrosis is not seen. Bladder poorly visualized as it probably is decompressed. Small amount of ascites seen IMPRESSION: Increased renal echotexture consistent with parenchymal disease
--- NOTE | 2021-08-15 21:04 | P.PN ---
Subjective Date of Service: 08/15/21 Chief Complaint: Shortness of breath Subjective: No C/O voiced SHE HAS NO NEW COMPLAINTS. I ASKED HER IF SHE WANTS ME TO TALK TO HER FAMILY AND SHE SAID NOW. I EXPLAINED TO HER THAT WITH IV FLUIDS HER KIDNEYS WILL IMPROVE AND WE MAY BE ABLE TO DO CT SCAN WITH CONTRAST WE NEED. DR. BAKER WANTS TO DO THORACENTASIS ALSO. Review of Systems 10-point ROS is otherwise unremarkable General: Weakness Physical Examination - Vital Signs Temperature: 97.8 F Blood Pressure: 126/41 Pulse: 70 Respirations: 19 Pulse Ox (%): 100 - Physical Exam General: Oriented x3, Mild distress HEENT: Atraumatic, PERRLA, EOMI Neck: Supple, JVD not distended Respiratory: Clear to auscultation bilaterally, Normal air movement, Inspiratory wheezes (L ANT CHEST.) Cardiovascular: Regular rate/rhythm, Normal S1 S2 Gastrointestinal: Normal bowel sounds, No tenderness Musculoskeletal: No tenderness Integumentary: No rashes Neurological: Normal speech, Normal tone, Normal affect Lymphatics: No axilla or inguinal lymphadenopathy - Studies Medications List Reviewed: Yes Assessment And Plan - Current Problems (Diagnosis) (1) Dyspnea Current Visit: Yes Status: Chronic Plan: WORSE LATELY. SHE HAS L SIDE PLEURAL EFFUSION. WILL DO CT SCAN WHEN CREATNINE IS DOWN FROM 1.7 I STOPPED LASIX AND GAVE GENTLE HYDRATION. (2) Pleural effusion Current Visit: Yes Status: Chronic Plan: ABOVE. THORACENTASIS SOON. (3) Chronic kidney disease, stage 3 Current Visit: No Status: Acute Plan: CREAT COMING DOWN WILL DO CT WHEN LESS THAN 1.5 RESTART IV. WITH LASIX HER BP DROPPED AND CREAT RAISED. STOP LASIX. (4) DM type 2 (diabetes mellitus, type 2) Current Visit: No Status: Chronic Qualifiers: Diabetes mellitus complication status: without complication (5) Bicytopenia Current Visit: Yes Status: Chronic Plan: ANEMIA IS ABOUT 9-10 GM CHRONIC. PLATELETS ABOUT 90K AND NOW IT IS DOWN TO 47K. WILL WATCH DAILY. MAY BE FROM SEPSIS OR HEME DISORDER. 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
[2021-08-16 06:03] LABS: Hematocrit 27.2 % (36.0-45.0); MPV 9.1 fL (7.6-11.3); RBC Red Blood Cell Count 3.07 M/uL (3.86-4.86)
[2021-08-16 06:25] LABS: Potassium 4.1 mmol/L (3.5-5.1)
[2021-08-16] MEDS: INSULIN -REGULAR HUMAN 50 UNIT/0.5 ML ML SQ SCH ×4 (07:30→20:33)
[2021-08-16] MEDS: GLIMEPIRIDE 2 MG TABLET PO SCH ×2 (07:30→17:30)
[2021-08-16] MEDS: VITAMIN D 5,000 UNIT CAP PO SCH (09:00)
[2021-08-16] MEDS: allopurinoL 100 MG TAB PO SCH (10:00)
[2021-08-16] MEDS: MONTELUKAST 10 MG TAB PO SCH (10:00)
[2021-08-16] MEDS: carvediloL 6.25 MG TAB PO SCH ×2 (10:00→20:32)
[2021-08-16] MEDS: CEFTRIAXONE 1,000 MG in NA CHLORIDE 0.9% 50 ML IVPB SCH (10:00)
[2021-08-16] MEDS: NACHLORIDE 0.45% 1,000 ML IV SCH (11:40)
--- NOTE | 2021-08-16 13:05 | P.PN ---
Subjective Date of Service: 08/16/21 Chief Complaint: Shortness of breath Subjective: Improving SHE HAS NO NEW COMPLAINTS. I ASKED HER IF SHE WANTS ME TO TALK TO HER FAMILY AND SHE SAID NOW. I EXPLAINED TO HER THAT WITH IV FLUIDS HER KIDNEYS WILL IMPROVE AND WE MAY BE ABLE TO DO CT SCAN WITH CONTRAST WE NEED. DR. BAKER WANTS TO DO THORACENTASIS ALSO. SHE HAS NO NEW ISSUES . WE ARE WAITING FOR THORACENTASIS AND CT CHEST THAT WILL BE DONE ON THURSDAY. Physical Examination - Vital Signs Temperature: 98.1 F Blood Pressure: 135/54 Pulse: 75 Respirations: 18 Pulse Ox (%): 100 - Physical Exam General: Oriented x3, Mild distress HEENT: Atraumatic, PERRLA, EOMI Neck: Supple, JVD not distended Respiratory: Clear to auscultation bilaterally, Normal air movement Cardiovascular: Regular rate/rhythm, Normal S1 S2 Gastrointestinal: Normal bowel sounds, No tenderness Musculoskeletal: No tenderness Integumentary: No rashes Neurological: Normal speech, Normal tone, Normal affect Lymphatics: No axilla or inguinal lymphadenopathy - Studies Medications List Reviewed: Yes Assessment And Plan - Current Problems (Diagnosis) (1) Dyspnea Current Visit: Yes Status: Chronic Plan: WORSE LATELY. SHE HAS L SIDE PLEURAL EFFUSION. WILL DO CT SCAN WHEN CREATNINE IS DOWN FROM 1.7 I STOPPED LASIX AND GAVE GENTLE HYDRATION. CONT ABX CONT NEBS. TAP AND CT ON THURSDAY. (2) Pleural effusion Current Visit: Yes Status: Chronic Plan: ABOVE. THORACENTASIS SOON. (3) Chronic kidney disease, stage 3 Current Visit: No Status: Acute Plan: CREAT COMING DOWN WILL DO CT WHEN LESS THAN 1.5 RESTART IV. WITH LASIX HER BP DROPPED AND CREAT RAISED. STOP LASIX. MAY COME DOWN TO LESS THAN 1.5 WITH GENTLE HYDRATION (4) DM type 2 (diabetes mellitus, type 2) Current Visit: No Status: Chronic Qualifiers: Diabetes mellitus complication status: without complication (5) Bicytopenia Current Visit: Yes Status: Chronic Plan: ANEMIA IS ABOUT 9-10 GM CHRONIC. PLATELETS ABOUT 90K AND NOW IT IS DOWN TO 47K. WILL WATCH DAILY. MAY BE FROM SEPSIS OR HEME DISORDER. 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
[2021-08-16] MEDS ORDERED: PNEUMOCOCCAL VACCINE 0.5 ML IMVAC ONE (20:00)
[2021-08-17] MEDS: ALBUTEROL 2.5 MG/3 ML NEB SOL NEB PRN ×2 (00:40→08:00)
[2021-08-17] MEDS: IPRATROPIUM BROM 0.5MG/2.5ML NEB PRN ×2 (00:40→08:00)
[2021-08-17] MEDS: NACHLORIDE 0.45% 1,000 ML IV SCH ×4 (00:43→21:16)
[2021-08-17 05:37] LABS: Hematocrit 28.2 % (36.0-45.0); MPV 8.2 fL (7.6-11.3); RBC Red Blood Cell Count 3.22 M/uL (3.86-4.86)
[2021-08-17 05:54] LABS: Potassium 3.9 mmol/L (3.5-5.1)
[2021-08-17] MEDS: INSULIN -REGULAR HUMAN 50 UNIT/0.5 ML ML SQ SCH ×4 (07:30→21:16)
--- NOTE | 2021-08-17 08:34 | P.PN ---
Subjective Date of Service: 08/17/21 Chief Complaint: Shortness of breath Subjective: No new changes SHE HAS NO NEW COMPLAINTS. I ASKED HER IF SHE WANTS ME TO TALK TO HER FAMILY AND SHE SAID NOW. I EXPLAINED TO HER THAT WITH IV FLUIDS HER KIDNEYS WILL IMPROVE AND WE MAY BE ABLE TO DO CT SCAN WITH CONTRAST WE NEED. DR. BAKER WANTS TO DO THORACENTASIS ALSO. SHE HAS NO NEW ISSUES . WE ARE WAITING FOR THORACENTASIS AND CT CHEST THAT WILL BE DONE ON THURSDAY. NOSE CONGESTION, SOME BLEEDING FROM OXYGEN CANULA. WE WILL CANCEL IT FOR NOW OXYGEN IS GOOD. SHE HAS NO OTHER COMPLAINTS. Review of Systems 10-point ROS is otherwise unremarkable General: Weakness, As per HPI Physical Examination - Vital Signs Temperature: 97.3 F Blood Pressure: 132/60 Pulse: 71 Respirations: 19 Pulse Ox (%): 100 - Physical Exam General: Oriented x3, Mild distress, Obese HEENT: Atraumatic, PERRLA, EOMI Neck: Supple, JVD not distended Respiratory: Clear to auscultation bilaterally, Normal air movement, Other (REDUCED BREATH SOUNDS L SIDE. ) Cardiovascular: Regular rate/rhythm, Normal S1 S2 Gastrointestinal: Normal bowel sounds, No tenderness Musculoskeletal: No tenderness Integumentary: No rashes Neurological: Normal speech, Normal tone, Normal affect Lymphatics: No axilla or inguinal lymphadenopathy - Studies Medications List Reviewed: Yes Assessment And Plan - Current Problems (Diagnosis) (1) Dyspnea Current Visit: Yes Status: Chronic Plan: WORSE LATELY. SHE HAS L SIDE PLEURAL EFFUSION. WILL DO CT SCAN WHEN CREATNINE IS DOWN FROM 1.7 I STOPPED LASIX AND GAVE GENTLE HYDRATION. CONT ABX CONT NEBS. TAP AND CT ON THURSDAY. ABOVE. NO CHANGES IN PLAN CREAT COMING DOWN. (2) Pleural effusion Current Visit: Yes Status: Chronic Plan: ABOVE. THORACENTASIS SOON. (3) Chronic kidney disease, stage 3 Current Visit: No Status: Acute Plan: CREAT COMING DOWN WILL DO CT WHEN LESS THAN 1.5 RESTART IV. WITH LASIX HER BP DROPPED AND CREAT RAISED. STOP LASIX. MAY COME DOWN TO LESS THAN 1.5 WITH GENTLE HYDRATION PRERENAL AZOTEMIA. CREAT BETTER TODAY DOWN TO 1.7 (4) DM type 2 (diabetes mellitus, type 2) Current Visit: No Status: Chronic Qualifiers: Diabetes mellitus complication status: without complication (5) Bicytopenia Current Visit: Yes Status: Chronic Plan: ANEMIA IS ABOUT 9-10 GM CHRONIC. PLATELETS ABOUT 90K AND NOW IT IS DOWN TO 47K. WILL WATCH DAILY. MAY BE FROM SEPSIS OR HEME DISORDER. WILL NEED TUMBLER TENDER.
[2021-08-17] MEDS: FLUTICASONE 50MCG NASAL SPRAY NAS SCH ×2 (08:39→21:16)
[2021-08-17] MEDS: allopurinoL 100 MG TAB PO SCH (08:41)
[2021-08-17] MEDS: carvediloL 6.25 MG TAB PO SCH ×2 (08:41→21:15)
[2021-08-17] MEDS: MONTELUKAST 10 MG TAB PO SCH (08:41)
[2021-08-17] MEDS: VITAMIN D 5,000 UNIT CAP PO SCH (08:41)
[2021-08-17] MEDS: GLIMEPIRIDE 2 MG TABLET PO SCH ×2 (08:41→16:34)
[2021-08-17] MEDS: CEFTRIAXONE 1,000 MG in NA CHLORIDE 0.9% 50 ML IVPB SCH (08:42)
[2021-08-17] MEDS: ALBUTEROL 2.5 MG/3 ML NEB SOL NEB SCH ×3 (10:31→19:30)
--- NOTE | 2021-08-17 10:35 | P.PN ---
Subjective Date of Service: 08/17/21 Chief Complaint: Left-sided pleural effusion wheezing Subjective: Improving (Patient feels subjectively better although she complains of wheezing appetite better has lower extremity edema complaining of cough and congestion) Review of Systems General: Weakness Respiratory: Cough, Shortness of Breath Physical Examination - Vital Signs Temperature: 97.3 F Blood Pressure: 131/60 Pulse: 71 Respirations: 19 Pulse Ox (%): 100 - Physical Exam General: Alert, Oriented x3, Mild distress Respiratory: Expiratory wheezes Cardiovascular: Normal S1 S2, Edema Gastrointestinal: Normal bowel sounds, Soft and benign - Studies Medications List Reviewed: Yes Assessment And Plan - Current Problems (Diagnosis) (1) Pleural effusion Current Visit: Yes Status: Chronic Plan: Patient has left-sided pleural effusion awaiting thoracentesis anticoagulants have been stopped renal function platelet count improving (2) Wheezing Current Visit: Yes Status: Acute Plan: Patient is wheezing have chest congestion some antibiotics and nebulizers
[2021-08-17] MEDS: IPRATROPIUM BROM 0.5MG/2.5ML NEB SCH ×3 (10:37→19:30)
[2021-08-17] MEDS: levoFLOXacin 500 MG TAB PO SCH (11:53)
[2021-08-17] MEDS: TRAZODONE 50 MG TABLET PO SCH (21:15)
[2021-08-18] MEDS: ALBUTEROL 2.5 MG/3 ML NEB SOL NEB SCH ×4 (01:24→20:00)
[2021-08-18] MEDS: IPRATROPIUM BROM 0.5MG/2.5ML NEB SCH ×4 (01:24→20:00)
[2021-08-18] MEDS: NACHLORIDE 0.45% 1,000 ML IV SCH ×2 (01:56→17:05)
[2021-08-18] MEDS: INSULIN -REGULAR HUMAN 50 UNIT/0.5 ML ML SQ SCH ×4 (07:30→20:58)
[2021-08-18 07:45] LABS: Potassium 3.7 mmol/L (3.5-5.1)
[2021-08-18 08:06] LABS: Absolute Lymphocytes (CBC) 0.6 K/uL (0.7-4.9); Hematocrit 26.3 % (36.0-45.0); Lymphocytes % 27.2 % (15.3-44.8); MPV 7.9 fL (7.6-11.3); RBC Red Blood Cell Count 3.01 M/uL (3.86-4.86)
[2021-08-18] MEDS: levoFLOXacin 500 MG TAB PO SCH (08:59)
[2021-08-18] MEDS: MONTELUKAST 10 MG TAB PO SCH (08:59)
[2021-08-18] MEDS: GLIMEPIRIDE 2 MG TABLET PO SCH ×2 (09:00→17:04)
[2021-08-18] MEDS: VITAMIN D 5,000 UNIT CAP PO SCH (09:00)
[2021-08-18] MEDS: carvediloL 6.25 MG TAB PO SCH ×2 (09:00→20:58)
[2021-08-18] MEDS: allopurinoL 100 MG TAB PO SCH (09:00)
[2021-08-18] MEDS: FLUTICASONE 50MCG NASAL SPRAY NAS SCH ×2 (09:01→20:58)
--- NOTE | 2021-08-18 09:03 | P.PN ---
Subjective Date of Service: 08/18/21 Chief Complaint: COUGH, WHEEZES Subjective: Improving SHE HAS NO NEW COMPLAINTS. I ASKED HER IF SHE WANTS ME TO TALK TO HER FAMILY AND SHE SAID NOW. I EXPLAINED TO HER THAT WITH IV FLUIDS HER KIDNEYS WILL IMPROVE AND WE MAY BE ABLE TO DO CT SCAN WITH CONTRAST WE NEED. DR. BAKER WANTS TO DO THORACENTASIS ALSO. SHE HAS NO NEW ISSUES . WE ARE WAITING FOR THORACENTASIS AND CT CHEST THAT WILL BE DONE ON THURSDAY. NOSE CONGESTION, SOME BLEEDING FROM OXYGEN CANULA. WE WILL CANCEL IT FOR NOW OXYGEN IS GOOD. SHE HAS NO OTHER COMPLAINTS. SHE FEELS A LITTLE BETTER TODAY AFTER FLONASE AND LEVAQUIN. SHE IS WALKING TO BATHROOM. Review of Systems 10-point ROS is otherwise unremarkable General: Weakness Respiratory: Cough Physical Examination - Vital Signs Temperature: 97.1 F Blood Pressure: 112/53 Pulse: 76 Respirations: 14 Pulse Ox (%): 97 - Physical Exam General: Oriented x3, Mild distress, Obese HEENT: Atraumatic, PERRLA, EOMI Neck: Supple, JVD not distended Respiratory: Diminished Cardiovascular: Regular rate/rhythm, Normal S1 S2 Gastrointestinal: Normal bowel sounds, No tenderness Musculoskeletal: No tenderness Integumentary: No rashes Neurological: Normal speech, Normal tone, Normal affect Lymphatics: No axilla or inguinal lymphadenopathy - Studies Medications List Reviewed: Yes Assessment And Plan - Current Problems (Diagnosis) (1) Dyspnea Current Visit: Yes Status: Chronic Plan: WORSE LATELY. SHE HAS L SIDE PLEURAL EFFUSION. WILL DO CT SCAN WHEN CREATNINE IS DOWN FROM 1.7 I STOPPED LASIX AND GAVE GENTLE HYDRATION. CONT ABX CONT NEBS. TAP AND CT ON THURSDAY. ABOVE. NO CHANGES IN PLAN CREAT COMING DOWN. ORDER FOR THORACENTASIS GIVEN. WILL DO CT SCAN AFTER CREAT IS DOWN. (2) Pleural effusion Current Visit: Yes Status: Chronic Plan: ABOVE. THORACENTASIS SOON. (3) Chronic kidney disease, stage 3 Current Visit: No Status: Acute Plan: CREAT COMING DOWN WILL DO CT WHEN LESS THAN 1.5 RESTART IV. WITH LASIX HER BP DROPPED AND CREAT RAISED. STOP LASIX. MAY COME DOWN TO LESS THAN 1.5 WITH GENTLE HYDRATION PRERENAL AZOTEMIA. CREAT BETTER TODAY DOWN TO 1.7 CREAT IS DOWN TO 1.5 NOW. CONT HYDRATION. (4) DM type 2 (diabetes mellitus, type 2) Current Visit: No Status: Chronic Qualifiers: Diabetes mellitus complication status: without complication (5) Bicytopenia Current Visit: Yes Status: Chronic Plan: ANEMIA IS ABOUT 9-10 GM CHRONIC. PLATELETS ABOUT 90K AND NOW IT IS DOWN TO 47K. WILL WATCH DAILY. MAY BE FROM SEPSIS OR HEME DISORDER. WILL NEED SKEIN BLEACHER.
[2021-08-18] MEDS: TRAZODONE 50 MG TABLET PO SCH (20:58)
[2021-08-19] MEDS: IPRATROPIUM BROM 0.5MG/2.5ML NEB SCH ×3 (01:55→14:07)
[2021-08-19] MEDS: ALBUTEROL 2.5 MG/3 ML NEB SOL NEB SCH ×3 (01:55→14:07)
[2021-08-19 04:37] LABS: Protime INR 1.28
[2021-08-19 04:38] LABS: Hematocrit 27.2 % (36.0-45.0); MPV 8.4 fL (7.6-11.3); RBC Red Blood Cell Count 3.13 M/uL (3.86-4.86)
[2021-08-19] MEDS: NACHLORIDE 0.45% 1,000 ML IV SCH ×2 (05:20→09:02)
[2021-08-19] MEDS: INSULIN -REGULAR HUMAN 50 UNIT/0.5 ML ML SQ SCH ×3 (07:30→16:55)
[2021-08-19] MEDS: GLIMEPIRIDE 2 MG TABLET PO SCH ×2 (07:30→16:55)
--- NOTE | 2021-08-19 08:20 | RAD REPORT ---
EXAM DESCRIPTION: Anabel Single View08/19/2021 5:55 am CLINICAL HISTORY: Chest pain COMPARISON: August 14, 2021 FINDINGS: The clinical history states status post thoracentesis. However, there does not appear to h ave been any significant reduction in the size of the moderate left pleural effusion. No pneumothorax. Atelectasis left lung base Right lung appears clear. Heart remains enlarged
[2021-08-19] MEDS ORDERED: levoFLOXacin 750 MG TAB PO SCH (09:00)
[2021-08-19] MEDS: MONTELUKAST 10 MG TAB PO SCH (09:00)
[2021-08-19] MEDS: allopurinoL 100 MG TAB PO SCH (09:00)
[2021-08-19] MEDS: VITAMIN D 5,000 UNIT CAP PO SCH (09:00)
[2021-08-19] MEDS: carvediloL 6.25 MG TAB PO SCH (09:02)
[2021-08-19] MEDS: FLUTICASONE 50MCG NASAL SPRAY NAS SCH (09:03)
--- NOTE | 2021-08-19 10:43 | RAD REPORT ---
EXAM DESCRIPTION: Anabel Single View08/19/2021 10:20 am CLINICAL HISTORY: thoracentesis IMPRESSION: A left pneumothorax is not present status post thoracentesis.
[2021-08-19] MEDS ORDERED: LORATADINE 10 MG TAB PO PRN (11:11)
[2021-08-19 12:38] LABS: Potassium 4.2 mmol/L (3.5-5.1)
--- NOTE | 2021-08-19 13:16 | RAD REPORT ---
EXAM DESCRIPTION: US - Thoracentesis w/ US Guide - 08/19/2021 10:19 am CLINICAL HISTORY: Left pleural effusion COMPARISON: X-ray August 14, 2021 TECHNIQUE: The risks, benefits alternatives to the procedure were explained to the patient and infor med consent obtained. Skiin ,subcutaneous tissues and pleura anesthetized with lidocaine. Under sonographic guidance, an 8 [place]ian catheter was placed into the posterior lower left pleural spa ce. 1.2 liters of yellow fluid removed and given to pathology Patient experienced no immediate complication IMPRESSION: Thoracentesis
[2021-08-19 13:23] LABS: Appearance CLEAR (CLEAR); Body Fluid Source PERITONEAL; Color of fluid Yellow (COLORLESS)
[2021-08-19 13:26] LABS: Body Fluid WBC 34 /mm^3
--- NOTE | 2021-08-19 14:12 | RAD REPORT ---
EXAM DESCRIPTION: CT - Thorax Wo Con - 08/19/2021 1:53 pm CLINICAL HISTORY: Pleural effusion s/p thoracentesis COMPARISON: Chest Single View dated 08/19/2021; Thoracentesis w/ US Guide dated 08/19/2021 TECHNIQUE: Axial 5 mm thick images of the chest were obtained without IV contrast. All CT scans are performed using dose optimization technique as appropriate and may include automated exposure control or mA/KV adjustment according to patient size. FINDINGS: A minimal amount of air is present in the pleural cavity in the medial left apex and in th e anterior left base. This is a less than 5% pneumothorax. A small to moderate amount of left-sided p leural fluid remains. There is partial atelectasis in the left lower lobe. Airspace opacification is present in the lateral aspect of the lingula left upper lobe and in the inferior aspect of the left l ower lobe. This is probably unresolved atelectasis. Post thoracentesis alveolar edema not. Soft tissue opacification in the posterior gutter could be part of the atelectasis process. A trace a mount of pneumothorax is possible. Right hemithorax shows small focus of scarring in the posteromedial right upper lung field with no saldana spicious lung parenchymal finding seen. No right-sided pneumothorax or pleural fluid collection. No abnormal mediastinal or hilar masses or lymphadenopathy seen. No gross aortic or pulmonary artery finding suspected. Assessment is limited in the absence of IV contrast. No chest wall mass or abnormal axillary lymphadenopathy. Prominent thyroid gland is present. IMPRESSION: A 5% or less pneumothorax is present with minimal amounts of air in the pleural cavity a t the medial left apex and anterior left lung base. Ill-defined opacification in the left posterior gutter could be part of the atelectasis process. Pleu ral cavity mass is not suspected. A small amount of hemothorax is possible. A small amount of hemothorax (questionable but not definitive) and a very minimal pneumothorax are no t outside of commonly encountered post thoracentesis findings. Small to moderate residual left-side pleural effusion.
[2021-08-19 14:28] VITALS: O2SAT 98
[2021-08-19 16:34] VITALS: BP 109/52; TEMP 97.3
[2021-08-19] MEDS ORDERED: TRAMADOL HCL 50 MG TAB PO ONE (17:00)
--- NOTE | 2021-08-19 17:02 | P.DS ---
Admission Date: 08/13/21 Discharge Date: 08/19/21 Disposition: ROUTINE DISCHARGE Discharge Condition: FAIR Reason for Admission: COUGH, WHEEZES - Problems (1) Dyspnea Current Visit: Yes Status: Chronic (2) Pleural effusion Current Visit: Yes Status: Chronic (3) Chronic kidney disease, stage 3 Current Visit: No Status: Acute (4) DM type 2 (diabetes mellitus, type 2) Current Visit: No Status: Chronic Qualifiers: Diabetes mellitus complication status: without complication (5) Bicytopenia Current Visit: Yes Status: Chronic Brief History of Present Illness: KAYLAN IS A DIABETIC WHO SINCE COVID HAS SHORTNESS OF BREATH. SHE HAS NO COUGH AND CHEST PAIN. NO FEVER. Hospital Course: KAYLAN COMES WITH DYSPNEA, HAS L SIDE LOWER PLEURAL EFFUSION. TAP WAS PERFORMED TO DAY DIAGNOSTIC AND THERAPEUTIC TAP. FLUID LOOKS TRANSUDATIVE. SHE NOW HAS BACK PAIN. SHE WILL WALK BEFORE SHE GOES HOME. SHE HAS BEEN WALKING DAILY WITH HELP. SHE IS 86, HAS ARTHRITIS AND COPD WITH OBESITY. SHE IS STABLE TO GO HOME IF SHE IS ABLE TO AMBULATE. Vital Signs/Physical Exam: Temp Pulse Resp BP Pulse Ox 97.3 F 82 18 109/52 L 98 08/19/21 16:00 08/19/21 16:00 08/19/21 16:00 08/19/21 16:00 08/19/21 16:00 Laboratory Data at Discharge: WBC Cancelled 08/19/21 07:00 Hgb Cancelled 08/19/21 07:00 Hct Cancelled 08/19/21 07:00 Plt Count Cancelled 08/19/21 07:00 PT 14.1 SECONDS (9.5-12.5) H 08/19/21 04:15 INR 1.28 08/19/21 04:15 Sodium 138 mmol/L (136-145) 08/19/21 12:15 Potassium 4.2 mmol/L (3.5-5.1) 08/19/21 12:15 BUN 49 mg/dL (7-18) H 08/19/21 12:15 Creatinine 1.56 mg/dL (0.55-1.3) H 08/19/21 12:15 Glucose 158 mg/dL (74-106) H 08/19/21 12:15 Magnesium 2.0 mg/dL (1.8-2.4) 08/18/21 07:24 Total Bilirubin 0.9 mg/dL (0.2-1.0) 08/13/21 22:45 AST 29 U/L (15-37) 08/13/21 22:45 ALT 18 U/L (12-78) 08/13/21 22:45 Alkaline Phosphatase 103 U/L (45-117) 08/13/21 22:45 Cholesterol Cancelled 08/18/21 10:19 Home Medications: Glimepiride [Amaryl] 4 mg PO BID 06/19/17 Pravastatin Sodium 10 mg PO BEDTIME 06/19/17 carvediloL [Coreg*] 6.25 mg PO BID 06/19/17 Allopurinol 100 mg PO DAILY 06/16/19 Linagliptin [Tradjenta] 1 tab PO DAILY 06/16/19 Montelukast Sodium 10 mg PO DAILY 10/20/20 Ubidecarenone [Co Q-10] 200 mg PO DAILY 10/20/20 Vit C/[place] AC/Lut/Copper/Znox [Preservision Lutein Softgel] 2 each PO BID 10/20/20 Cholecalciferol (Vitamin D3) [Vitamin D3] 5,000 unit PO DAILY #30 10/21/20 Aspirin [[place]az[place]] 81 mg PO ONCE 08/14/21 Cyanocobalamin (Vitamin B-12) [Vitamin B12] 1,000 mcg PO DAILY 08/14/21 Linagliptin [Tradjenta] 5 mg PO ONCE 08/14/21 levoFLOXacin [Levaquin*] 750 mg PO Q48H #3 tab 08/19/21 New Medications: levoFLOXacin [Levaquin*] 750 mg PO Q48H #3 tab Followup: Paolo Montgomery MD [Primary Care Provider] -
[2021-08-20 06:48] LABS: Immunoglobulin A 271 mg/dL (70-320); Tissue Transglutaminase IgA Ab <1.0 U/mL (<15.0)
[2021-08-21 15:54] LABS: Albumin, (SPE) 2.9 g/dL (3.8-4.8); Alpha-1-Globulins 0.4 g/dL (0.2-0.3); Alpha-2-Globulins 0.6 g/dL (0.5-0.9); Gamma Globulins 1.4 g/dL (0.8-1.7); INTERPRETATION REPORT
[2021-08-21 20:59] LABS: LD, PLEURAL FLUID 33 U/L; TOTAL PROTEIN, PLEURAL FLUID <3.0 g/dL
== END 2021-08-19 19:00 | disposition home health service (06) | DRG 292 ==
LOC: ER 22:13 → ERHOLD 23:53 → 2ND 08-14 01:24
PROVIDERS: ADMIT Internal Medicine; ATTEND Internal Medicine
PROC: 0W9B3ZX Drainage of Left Pleural Cavity, Percutaneous Approach, Diagnostic (ICD-10-PCS; principal; 2021-08-19)
DX: I13.0 Hypertensive heart and chronic kidney disease with heart failure and stage 1 through stage 4 chronic kidney disease, or unspecified chronic kidney disease (principal); J90 Pleural effusion, not elsewhere classified; I50.32 Chronic diastolic (congestive) heart failure; D61.818 Other pancytopenia; E11.22 Type 2 diabetes mellitus with diabetic chronic kidney disease; N18.30 Chronic kidney disease, stage 3 unspecified; J44.9 Chronic obstructive pulmonary disease, unspecified; E66.9 Obesity, unspecified; Z68.30 Body mass index [BMI] 30.0-30.9, adult; D63.8 Anemia in other chronic diseases classified elsewhere; Z86.16 Personal history of COVID-19; R79.89 Other specified abnormal findings of blood chemistry; Z86.73 Personal history of transient ischemic attack (TIA), and cerebral infarction without residual deficits; Z20.822 Contact with and (suspected) exposure to COVID-19
CPT/HCPCS: 0240U; 32555; 36415; 51702; 71045; 71046; 71250; 76770; 80048; 80076; 81003; 82274; 82607; 82668; 82728; 82784; 82945; 82947; 83010; 83036; 83516; 83540; 83605; 83615; 83735; 83880; 83970; 84145; 84157; 84165; 84311; 84466; 84484; 85025; 85027; 85044; 85610; 87015; 87040; 87070; 87086; 87088; 87102; 87116; 87206; 88108; 88305; 89050; 93005; 93970; 94640; 94760; 97116; 97161; 97530; 99285; J0456; J1815; J1940; J2405; J2920; J3490; J7050

== ENCOUNTER 2021-12-16 17:23 | Inpatient (IN) | payer OTHER ==
--- OUTSIDE RECORDS SUMMARY | 2021-12-16 17:28 | XMS REPORT | Continuity of Care Document ---
:1935 Author Organization [facility] t Address [address] [place] [address] Care Team Providers Name Role Phone Antoinette Romero Anavella Attending Clinician Unava ilable Carisa Alejandra V Attending Clinician Unavailable GC_BAHC_Rajesh_Monster Attending Clinician Unavailable FELY SARMIENTO Attending Clinician Unavailable Eleuterio Romero Anav Admitting Clinician Unavailable Paolo Montgomery V Admitting Clinician Unavailable Carisa Alejandra V Admitting Clinician Unavailable IFEOMA_BAHC_Todd_Monster Admitting Clinician Unavailable PETROS HARRIS Admitting Clinician Unavailable Payers Payer Name Policy Type Policy Number Effective Date Expiration Date S nate [facility] [id number] AET AET [id number] [place]ICARE [place]: [id number] 1998 Jeeran 00:00:00 Problems Condition Condition Condition Status Onset Resolution Last Treating Co mments Source Name Details Category Date Date Treatment Clinician Date Acute on Acute on Finding Active 2017-2017-06-22 Memoria chronic chronic 3- 19:36:50 l congestive congestive 00:00: He rmann heart heart 00 failure failure Active 06/19/2017 Finding 06/22/[address] [facility] [place] Acute on Acute on Problem 2020-10-21 Memoria chronic chronic 19:18:00 l congestive congestive He rmann heart heart failure failure Problem 10/21/[address] [facility] [place] Elevated Elevated Problem 2020-10-21 Memoria procalcito procalcito 19:18:00 l sally sally [place] Problem 10/21/[address] [facility] Acute on Acute on Problem 2020-10-21 Memoria chronic chronic 19:18:00 l renal renal [place] insufficie insufficie ncy ncy Problem 10/21/[address] [facility] Pneumonia Pneumonia Problem 2020-10-21 Memoria Problem 19:18:00 l 10/21/[address] [facility] Acute on Acute on Condition 2019-06-18 Memoria chronic chronic 17:37:00 l heart heart [place] failure failure Condition 06/18/[address] [facility] Mild renal Mild Condition 2019-06-18 Memoria insufficie renal 17:37:00 l ncy insufficie Yuniel n ncy Condition 06/18/[address] [facility] Elevated Elevated Condition 2019-06-18 Memoria brain brain 17:37:00 l natriureti natriureti He rmann c peptide c peptide (BNP) (BNP) level level Condition 06/18/[address] [facility] Postobstru Postobstr Condition 2019-06-18 Memoria ctive uctive 17:37:00 l pneumonia pneumonia Herm tao Condition 06/18/[address] [facility] Pneumonia Pneumonia Problem 2020-10-21 Memoria due to due to 19:18:00 l COVID-19 COVID-19 Yuniel n virus virus Problem 10/21/[address] [facility] Stage 3 Stage 3 Problem 2020-10-21 Me moria chronic chronic 19:18:00 l kidney kidney [place] disease disease Problem 10/21/[address] [facility] Pancytopen Pancytope Problem 2020-10-21 Memoria ia landry 19:18:00 l Problem [place] 10/21/[address] [facility] Elevated Elevated Problem 2020-10-21 Memoria troponin troponin 19:18:00 l level level [place] Problem 10/21/[address] 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 [place] Type 2 Type 2 Condition 2020-10-21 Me moria diabetes diabetes 19:18:00 l mellitus mellitus Yuniel n Condition 10/21/[address] [facility] [place] Elevated Elevated Condition 2020-10-21 Memoria troponin I troponin I 19:18:00 l level level [place] Condition 10/21/[address] [facility] [place] Acquired Acquired Condition 2020-10-21 Memoria pancytopen pancytopen 19:18:00 l ia ia [place] Condition 10/21/[address] [facility] 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 History of Past Illness Condition Condition Condition Status Onset Resolution Last Treating Co mments Source Name Details Category Date Date Treatment Clinician Date Abnormal Abnormal Problem 2020-10-21 2020-10-21 Memoria kidney kidney 3-02 19:18:00 19:18:00 l function function 00:00: Yuniel n 06/19/2017 00 Problem 10/21/[address] [facility] Allergies, Adverse Reactions, Alerts Allergy Allergy Status Severity Reaction(s) Onset Inactive Treating Comm ents Source Name Type Date Date Clinician Statins- Statins- Active 2020-0 Memori a Hmg-Coa Hmg-Coa 2-28 l Redu Redu 03:12: [place] 33 blood blood Active Mild 2020-0 Memoria thinner thinner 2-28 l 03:12: [place] 33 blood blood Active 2020-0 Memoria thinners thinners 2-28 l 03:12: [place] 33 Social History Social Habit Start Date Stop Date Quantity Comments Source Social History 2020-10-21 2020-10-21 [facility] 19:20:00 19:20:00 Medications Ordered Filled Start Stop Current Ordering Indication Dosage Frequency Signature Comments Components Source Medication Medication Date Date Medication? Clinician (SIG) Name Name Cholecalcif Yes Memori a shayla 7-04 l (Vitamin 18:00: [place] D3) 12 (Vitamin D3) 125 MCG Capsule Cyanocobala Yes Memori a min 7-04 l (Vitamin 18:00: [place] B-12) 12 (Vitamin B12) 2,500 MCG Tablet Prednisone Yes Memoria (Deltasone* 7-04 l ) 10 MG Tab 17:59: Yuniel burgess 25 Furosemide Yes Memoria (Lasix*) 40 7-04 l MG Tab 05:00: [place] 45 Ascorbic Yes Memoria Acid 7-04 l (Vitamin C) 04:47: Yuniel n 1,000 MG 30 Tablet Cholecalcif Yes Memori a shayla 7-04 l (Vitamin 04:47: [place] D3) 30 (Vitamin D3) 125 MCG Capsule Cyanocobala Yes Memori a min 7-04 l (Vitamin 04:47: [place] Lara-12) 30 (Vitamin B12) 2,500 MCG Tablet Ferrous Yes Memoria Sulfate 7-04 l (Ferrous 04:47: [place] Sulfate*) 30 325 MG Tab Montelukast Yes Memori a Sodium 7-04 l 04:47: [place] 30 Ubidecareno Yes Memori a ne (Co 7-04 l Q-10) 200 04:47: [place] MG Capsule 30 Vit C/Petrona Yes Memoria Ac/Lut/Ajit 7-04 l er/Znox 04:47: [place] (Preservisi 30 on Lutein Softgel) 1 EACH Capsule Furosemide Yes Memoria (Lasix*) 40 2-29 l MG Tab 14:39: [place] 48 Cetirizine 2019-0 Yes Memoria Hcl 2-28 l 03:32: [place] 57 Cetirizine 2019-0 Yes Memoria Hcl 2-28 l 03:32: [place] 00 Allopurinol 2019-0 Yes Memori a 2-28 l 03:25: [place] 13 Linagliptin 2019-0 Yes Memori a (Tradjenta) 2-28 l 5 MG Tablet 03:25: Yuniel burgess 13 Linagliptin 2019-0 Yes Memori a 2-28 l 03:25: [place] 00 Spironolact Yes Memori a one 3-04 l (Aldactone* 19:31: Yuniel n ) 25 MG Tab 53 Spironolact 2018-0 Yes Mouin F TWICE Me moria one 3-04 Tia DAILY l 00:00: Carvedilol 2018-0 Yes Memoria (Coreg*) 3-02 l 6.25 MG Tab 06:00: Yuniel burgess 08 Glimepiride 2018-0 Yes Memori a (Amaryl) 4 3-02 l MG Tablet 06:00: [place] 08 Furosemide 2018-0 Yes Memoria (Lasix*) 40 3-02 l MG Tab 06:00: [place] Multivitami 2018-0 Yes Memori a n (Multiple 3-02 l Vitamins) 06:00: [place] Tablet 08 Omeprazole 2018-0 Yes Memoria (Prilosec) 3-02 l 40 MG 06:00: [place] Capsule. 08 Pravastatin 2018-0 Yes Memori a Sodium 3-02 l 06:00: [place] 08 Ezetimibe 2018-0 Yes Memoria (Zetia*) 10 3-02 l MG Tab 06:00: [place] 08 Aspirin 2018-0 Yes Memoria 3-02 l 06:00: Carvedilol 2018-0 Yes Memoria 3-02 l 06:00: Glimepiride 2018-0 Yes Memori a 3-02 l 06:00: Furosemide 2018-0 Yes Memoria 3-02 l 06:00: Multivitami 2018-0 Yes Memori a n 3-02 l 06:00: Omeprazole 2018-0 Yes Memoria 3-02 l 06:00: Pravastatin 2018-0 Yes Memori a Sodium 3-02 l 06:00: Ezetimibe 2018-0 Yes Memoria 3-02 l 06:00: Aspirin 2018-0 Yes DAILY Memoria 3-02 l 00:00: Carvedilol 2018-0 Yes AT BEDTIME M emoria 3-02 l 00:00: Glimepiride 2018-0 Yes TWICE Memor ia 3-02 DAILY l 00:00: Furosemide 2018-0 Yes DAILY Memori a 3-02 l 00:00: Multivitami 2018-0 Yes DAILY Memor ia n 3-02 l 00:00: [place] 00 Omeprazole 2018-0 Yes DAILY Memori a 3-02 l 00:00: [place] 00 Pravastatin 2018-0 Yes AT BEDTIME Memoria Sodium 3-02 l 00:00: [place] 00 Ezetimibe 2018-0 Yes DAILY Memoria 3-02 l 00:00: [place] 00 Vital Signs Vital Name Observation Time Observation Value Comments Source Temperature Oral (F) 2020-10-21 17:00:00 98.4 F [facility] [place] Heart Rate 2020-10-21 17:00:00 [facility] [place] Respitory Rate 2020-10-21 17:00:00 Memori al [place] Systolic (mm Hg) 2020-10-21 17:00:00 Thompson rial [place] Diastolic (mm Hg) 2020-10-21 17:00:00 Mem orial [place] Height 2020-10-21 10:00:00 [facility] [place] Weight 2020-10-21 10:00:00 [facility] [place] Heart Rate 2019-06-18 14:14:00 [facility] [place] Systolic (mm Hg) 2019-06-18 14:14:00 Thompson rial [place] Diastolic (mm Hg) 2019-06-18 14:14:00 Mem orial [place] Temperature Oral (F) 2019-06-18 13:49:00 98.2 F [facility] [place] Respitory Rate 2019-06-18 13:49:00 Memori al [place] Height 2019-06-17 14:51:00 [facility] [place] Weight 2019-06-17 14:51:00 [facility] [place] Heart Rate 2017-06-22 08:41:00 [facility] [place] Systolic (mm Hg) 2017-06-22 08:41:00 Thompson rial [place] Diastolic (mm Hg) 2017-06-22 08:41:00 Mem orial [place] Temperature Oral (F) 2017-06-22 07:45:00 97.6 F [facility] [place] Respitory Rate 2017-06-22 07:45:00 Memori al [place] Weight 2017-06-22 05:00:00 [facility] [place] Height 2017-06-19 12:23:00 [facility] [place] Procedures Procedure Date / Time Performed Performing Clinician Guanako nik [id number] 2021-10-21 00:00:00 ENCPL Chest Single View 2020-10-19 20:48:00 [facility] Anaerobic Blood Culture 2020-10-19 00:00:00 Thompsondaniel crespo [place] Aerobic Blood Culture 2020-10-19 00:00:00 Marta Soto Coronavirus COVID-19 PCR 2020-10-19 00:00:00 Mem orifabrizio [place] Count 2020-10-01 00:00:00 [facility] burciaga Chest Pa And Lat (2 2019-06-17 [facility] Influenza Type B Antigen 2019-06-16 00:00:00 [facility] orial [place] Screen Influenza Type A Antigen 2019-06-16 00:00:00 [facility] orifabrizio Guadalupeann Screen [place] Count 2019-06-16 00:00:00 [facility] Her burciaga [id number] 2017-06-18 00:00:00 [facility] Her burciaga [place] Count 2017-06-18 00:00:00 [facility] Her burciaga Plan of Care Planned Activity Planned Date Details Comments Source Future Scheduled Test Instructions [facility] [code = Instructions Creatinine Congestive Heart Failure] Future Scheduled Test Instructions [facility] [code = Instructions Creatinine Congestive Heart Failure] Encounters Start End Encounter Admission Attending Care Care Encounter Source Date/Time Date/Time Type Type Clinicians Facility Department ID 2021-10-17 2021-10-29 Inpatient 3 [facility] ENCPL CVA [id number] ENCPL 17:30:00 18:40:00 marck TomasElsa Curry 2021-10-29 2021-10-29 Outpatient Latricia [facility] [id number] [facility] 12:05:00 12:05:00 Aarti Nichols [facility] 2021-09-19 2021-09-19 Outpatient GC_[facility]_Tod PRIV PRIV [id number] [facility] 09:56:00 09:56:00 dEvaJ [id number] Medica l 2021-09-16 2021-09-16 Outpatient GC_[facility]_Tod PRIV PRIV [id number] [facility] 04:43:00 04:43:00 Irma [id number] Medica l 2021-09-13 2021-09-13 Outpatient GC_[facility]_Tod PRIV PRIV [id number] [facility] 11:14:00 11:14:00 dTasha [id number] Medica l 2021-09-11 2021-09-11 Outpatient GC_[facility]_Tod PRIV PRIV [id number] [facility] 05:23:00 05:23:00 d_Monster [id number] Medica l 2021-09-02 2021-09-10 Inpatient Nik SARMIENTO ALBERTBL MED [id number] BL 14:52:00 19:20:00 FELY 2021-08-21 2021-09-02 Inpatient 3 [facility] ENCPL CVA [id number] ENCPL 18:20:00 10:58:00 hez, 0504 Anavella 2020-10-19 2020-10-[address] [id number] Memoria 23:24:00 19:17:00 [facility] [place] 2020-10-01 2020-10-[address] [id number] [facility] 18:23:00 18:23:00 [facility] [place] LABORATORY NON-PATIENT 2019-06-17 2019-06-[address] [id number] [facility] 02:48:00 17:37:00 [facility] [place] MED/SURG FLOOR 2019-03-22 2019-03-[address] [id number] Memoria 18:59:00 18:59:00 [facility] [place] LABORATORY NON-PATIENT 2017-06-20 2017-06-[address] [id number] Mem[facility] 16:10:00 13:36:00 [facility] [place] Ila nn 2017-04-10 2017-04-[address] [id number] Mem[facility] 10:18:00 16:46:00 [facility] [place] Ila nn Results Test Description Test Time Test Comments Results Result Comments Source CBC W/AUTO DIFF 2021-10-29 15:06:00 Test Item Value Reference Range Interpretation Comme nts WHITE BLOOD CELL (test code = 2.3 K/mm3 3.5-11.0 LL WBC) RED BLOOD CELL (test code = 2.82 M/mm3 4.70-6.10 L RBC) HEMOGLOBIN (test code = HGB) 7.3 G/DL 10.4-14.9 L HEMATOCRIT (test code = HCT) 24.6 % 31.5-44.1 L MEAN CELL VOLUME (test code = 87.2 Fl 84.5-98.6 N MCV) MEAN CELL HGB (test code = 25.9 pg 27.0-34.2 L MCH) MEAN CELL HGB CONCETRATION 29.7 G/DL 31.5-34.0 L (test code = MCHC) RED CELL DISTRIBUTION WIDTH 15.7 SD 11.5-14.5 H (test code = RDW) PLATELET COUNT (test code = 78 K/mm3 150-450 L PLT) MEAN PLATELET VOLUME (test 11.00 fL 7.0-10.5 H code = MPV) NEUTROPHIL % (test code = NT%) 68.6 % 40-76 N IMMATURE GRANULOCYTE % (test 0.0 % 0.0-5.0 N code = IG%) LYMPHOCYTE % (test code = LY%) 18.1 % 20.5-51.1 L MONOCYTE % (test code = MO%) 9.5 % 1.7-9.3 H EOSINOPHIL % (test code = EO%) 3.4 % 0.0-6.0 N BASOPHIL % (test code = BA%) 0.4 % 0.0-2.0 N NUCLEATED RBC % (test code = 0.0 /100WBC% 0.0-1.0 N NRBC%) NEUTROPHIL # (test code = NT#) 1.6 K/mm3 1.8-7.6 L IMMATURE GRANULOCYTE # (test 0.00 x10 3/uL 0.00-0.03 N code = IG#) LYMPHOCYTE # (test code = LY#) 0.4 K/mm3 0.6-3.2 L MONOCYTE # (test code = MO#) 0.2 K/mm3 0.3-1.1 L EOSINOPHIL # (test code = EO#) 0.1 K/mm3 0.0-0.4 N BASOPHIL # (test code = BA#) 0.0 K/mm3 0.0-0.1 N NUCLEATED RBC # (test code = 0.0 K/mm3 0.0-0.1 N NRBC#) MANUAL DIFF REQUIRED (test NO DIFF/SCN CRITERIA S LIDE REVIEW CONSISTANT WITH code = MDIFF) AUTO DIFFERENT IAL. RBC [id number] 15:06:00 Test Item Value Reference Range Interpretation Comments PLATELET ESTIMATE DECREASED THOUSAND ADEQUATE PLAT ELET COUNT (test code = REVIEWED AND PLTEST) VERIFIED.PLT ES T [84-105] PLATELET MORPHOLOGY NORMAL (test code = PLTMORPH) CBC W/AUTO [id number] 15:04:00 Test Item Value Reference Range Interpretation Comments WHITE BLOOD CELL (test code = 3.0 K/mm3 3.5-11.0 L WBC) RED BLOOD CELL (test code = 2.82 M/mm3 4.70-6.10 L RBC) HEMOGLOBIN (test code = HGB) 7.4 G/DL 10.4-14.9 L HEMATOCRIT (test code = HCT) 24.8 % 31.5-44.1 L MEAN CELL VOLUME (test code = 87.9 Fl 84.5-98.6 N MCV) MEAN CELL HGB (test code = MCH) 26.2 pg 27.0-34.2 L MEAN CELL HGB CONCETRATION 29.8 G/DL 31.5-34.0 L (test code = MCHC) RED CELL DISTRIBUTION WIDTH 15.9 SD 11.5-14.5 H (test code = RDW) PLATELET COUNT (test code = 73 K/mm3 150-450 L PLT) MEAN PLATELET VOLUME (test code 11.10 fL 7.0-10.5 H = MPV) NEUTROPHIL % (test code = NT%) 62.0 % 40-76 N IMMATURE GRANULOCYTE % (test 1.3 % 0.0-5.0 N code = IG%) LYMPHOCYTE % (test code = LY%) 22.7 % 20.5-51.1 N MONOCYTE % (test code = MO%) 10.0 % 1.7-9.3 H EOSINOPHIL % (test code = EO%) 3.0 % 0.0-6.0 N BASOPHIL % (test code = BA%) 1.0 % 0.0-2.0 N NUCLEATED RBC % (test code = 0.0 /100WBC% 0.0-1.0 N NRBC%) NEUTROPHIL # (test code = NT#) 1.9 K/mm3 1.8-7.6 N IMMATURE GRANULOCYTE # (test 0.04 x10 3/uL 0.00-0.03 H code = IG#) LYMPHOCYTE # (test code = LY#) 0.7 K/mm3 0.6-3.2 N MONOCYTE # (test code = MO#) 0.3 K/mm3 0.3-1.1 N EOSINOPHIL # (test code = EO#) 0.1 K/mm3 0.0-0.4 N BASOPHIL # (test code = BA#) 0.0 K/mm3 0.0-0.1 N NUCLEATED RBC # (test code = 0.0 K/mm3 0.0-0.1 N NRBC#) MANUAL DIFF REQUIRED (test code NO DIFF/SCN CRITERIA = MDIFF) RBC [id number] 15:04:00 Test Item Value Reference Range Interpretation Comments ANISOCYTOSIS (test NORMAL NONE code = ANISO) PLATELET ESTIMATE DECREASED ADEQUATE PLT EST CO UNT (test code = PLTEST) THOUSAND 36,000- 45,000 PLATELET MORPHOLOGY NORMAL (test code = PLTMORPH) BASIC METABOLIC [id number] 13:19:00 Test Item Value Reference Range Interpretation Comments SODIUM (test code = NA) 140 mmol/L 134-147 N POTASSIUM (test code = K) 4.1 mmol/L 3.4-5.0 N CHLORIDE (test code = CL) 104 mmol/L 100-108 N CARBON DIOXIDE (test code = CO2) 28 mmol/L 21-32 N ANION GAP (test code = GAP) 8.0 GAP calc 4.0-15.0 N GLUCOSE (test code = GLU) 314 MG/DL 70-110 H BLOOD UREA NITROGEN (test code = 57 MG/DL 7-18 H BUN) GLOMERULAR FILTRATION RATE (test 15 estGFR >60 L code = GFR) CREATININE (test code = CREAT) 3.1 MG/DL 0.6-1.0 H CALCIUM (test code = CA) 8.6 MG/DL 8.5-10.1 N Absolute lymphocyte [id number] 10:01:00 Test Item Value Reference Range Interpretation Comments Absolute lymphocyte count (test code = 0.4 0.7-4.9 Absolute lymphocyte count) [facility] [Mass/volume] in Serum or Plasma by Bromocresol purple (BCP) dye binding [id number] 10:01:00 Test Item Value Reference Range Interpretation Comments Albumin [Mass/volume] in Serum or 2.5 3.4-5.0 Plasma by Bromocresol purple (BCP) dye binding meth (test code = Albumin [Mass/volume] in Serum or Plasma by Bromocresol purple (BCP) dye binding meth) [facility]annBasophil %2020-10-21 10:01:00 Test Item Value Reference Range Interpretation Comments Basophil % (test code = 0.2 See_Comment [Au tomated message] The Basophil %) system which ge nerated this result tra nsmitted reference range : <=1.3. The reference r lynda was not used to int erpret this result as normal/abnormal . [facility] CollinsannBlood erythrocytes count (number/volume)2020-10-21 10:01:00 Test Item Value Reference Range Interpretation Comments Blood erythrocytes count 3.38 3.86-4.86 (number/volume) (test code = Blood erythrocytes count (number/volume)) [facility] CollinsannBlood hematocrit (volume fraction)2020-10-21 10:01:00 Test Item Value Reference Range Interpretation Comments Blood hematocrit (volume fraction) 30.8 36.0-45.0 (test code = Blood hematocrit (volume fraction)) [facility] CollinsannBlood platelet mean [id number] 10:01:00 Test Item Value Reference Range Interpretation Comments Blood platelet mean volume (test code = 8.8 7.6-11.3 Blood platelet mean volume) [facility] HermannC reactive protein [Mass/volume] in Serum or [id number] 10:01:00 Test Item Value Reference Range Interpretation Comments C reactive protein [Mass/volume] in 16.00 Serum or Plasma (test code = C reactive protein [Mass/volume] in Serum or Plasma) [facility] HermannCalcium [Mass/volume] in Serum or [id number] 10:01:00 Test Item Value Reference Range Interpretation Comments Calcium [Mass/volume] in Serum or 7.7 8.5-10.1 Plasma (test code = Calcium [Mass/volume] in Serum or Plasma) [facility] HermannCarbon dioxide, total [Moles/volume] in Serum or Plasma 2020-10-21 10:01:00 Test Item Value Reference Range Interpretation Comments Carbon dioxide, total [Moles/volume] in 30 21-32 Serum or Plasma (test code = Carbon dioxide, total [Moles/volume] in Serum or Plasma) [facility]annChemistry [id number] 10:01:00 Test Item Value Reference Range Interpretation Comments Chemistry procedure (test code = 91.1 80-100 Chemistry procedure) [facility]annChloride [Moles/volume] in Serum or [id number] 10:01:00 Test Item Value Reference Range Interpretation Comments Chloride [Moles/volume] in Serum or 104 98-107 Plasma (test code = Chloride [Moles/volume] in Serum or Plasma) [facility]annCreatinine [Mass/volume] in Serum or [id number] 10:01:00 Test Item Value Reference Range Interpretation Comments Creatinine [Mass/volume] in Serum or 2.11 0.55-1.3 Plasma (test code = Creatinine [Mass/volume] in Serum or Plasma) [facility]annFerritin [Mass/volume] in Serum or [id number] 10:01:00 Test Item Value Reference Range Interpretation Comments Ferritin [Mass/volume] in Serum or 82.0 8-388 Plasma (test code = Ferritin [Mass/volume] in Serum or Plasma) [facility]annGlucose [Mass/volume] in Serum or [id number] 10:01:00 Test Item Value Reference Range Interpretation Comments Glucose [Mass/volume] in Serum or 236 74-106 Plasma (test code = Glucose [Mass/volume] in Serum or Plasma) [facility] HermannLymphocyte [id number] 10:01:00 Test Item Value Reference Range Interpretation Comments Lymphocyte percent (test code = 3.30 4.3-10.9 Lymphocyte percent) [facility]annPhosphate [Mass/volume] in Serum or [id number] 10:01:00 Test Item Value Reference Range Interpretation Comments Phosphate [Mass/volume] in Serum or 3.0 2.5-4.9 Plasma (test code = Phosphate [Mass/volume] in Serum or Plasma) [facility]annPotassium [Moles/volume] in Serum or [id number] 10:01:00 Test Item Value Reference Range Interpretation Comments Potassium [Moles/volume] in Serum or 4.2 3.5-5.1 Plasma (test code = Potassium [Moles/volume] in Serum or Plasma) [facility]annSerum or plasma sodium measurement (moles/volume)2020-10-21 10:01:00 Test Item Value Reference Range Interpretation Comments Serum or plasma sodium measurement 139 136-145 (moles/volume) (test code = Serum or plasma sodium measurement (moles/volume)) [facility]annUrea nitrogen [Mass/volume] in Serum or [id number] 10:01:00 Test Item Value Reference Range Interpretation Comments Urea nitrogen [Mass/volume] in Serum or 69 7-18 Plasma (test code = Urea nitrogen [Mass/volume] in Serum or Plasma) [facility]annTotal cholesterol/cholesterol in HDL (percentile)2020-10-20 09:51:00 Test Item Value Reference Range Interpretation Comments Total cholesterol/cholesterol in HDL 4.25 1 (percentile) (test code = Total cholesterol/cholesterol in HDL (percentile)) [facility]annTriglyceride [Mass/volume] in Serum or [id number] 09:51:00 Test Item Value Reference Range Interpretation Comments Triglyceride [Mass/volume] in Serum or 91 Plasma (test code = Triglyceride [Mass/volume] in Serum or Plasma) [facility]annBlood anisocytosis [id number] 09:51:00 Test Item Value Reference Range Interpretation Comments Blood anisocytosis detection (test code 1+ = Blood anisocytosis detection) [facility]annBlood morphology interpretation [id number] 09:51:00 Test Item Value Reference Range Interpretation Comments Blood morphology interpretation Noted narrative (test code = Blood morphology interpretation narrative) [facility]annCholesterol in HDL [Mass/volume] in Serum or [id number] 09:51:00 Test Item Value Reference Range Interpretation Comments Cholesterol in HDL [Mass/volume] in 28 40-60 Serum or Plasma (test code = Cholesterol in HDL [Mass/volume] in Serum or Plasma) [facility]annCholesterol [Mass/volume] in Serum or [id number] 09:51:00 Test Item Value Reference Range Interpretation Comments Cholesterol [Mass/volume] in Serum or 119 Plasma (test code = Cholesterol [Mass/volume] in Serum or Plasma) [facility]Lymph[facility] [id number] 09:51:00 Test Item Value Reference Range Interpretation Comments Lymphocyte percent (test code = 21 15-42 Lymphocyte percent) [facility]annMagnesium [Mass/volume] in Serum or [id number] 09:51:00 Test Item Value Reference Range Interpretation Comments Magnesium [Mass/volume] in Serum or 1.9 1.8-2.4 Plasma (test code = Magnesium [Mass/volume] in Serum or Plasma) [facility] HermannPlatelet [id number] 09:51:00 Test Item Value Reference Range Interpretation Comments Platelet estimate (test code = Platelet Decr estimate) [facility]annSerum or plasma cholesterol in LDL measurement by calculation (mass/volume)2020-10-20 09:51:00 Test Item Value Reference Range Interpretation Comments Serum or plasma cholesterol in LDL 73 1 measurement by calculation (mass/volume) (test code = Serum or plasma cholesterol in LDL measurement by calculation (mass/volume)) [facility]annTroponin I.cardiac [Mass/volume] in Serum or [id number] 05:11:00 Test Item Value Reference Range Interpretation Comments Troponin I.cardiac 0.08 See_Comment [Automat ed message] The [Mass/volume] in Serum syste m which generated or Plasma (test code = this result transmitted Troponin I.cardiac reference range: <=0.045. [Mass/volume] in Serum The r eference range was or Plasma) not used to int erpret this result as normal/abnormal . [facility] VufpvksTNOA-CgQ-4 (COVID-19) RNA [Presence] in Respiratory specimen by OSIEL with probe [id number] 21:20:00 Test Item Value Reference Range Interpretation Comments SARS-CoV-2 (COVID-19) RNA [Presence] Positive in Respiratory specimen by OSIEL with probe detect (test code = SARS-CoV-2 (COVID-19) RNA [Presence] in Respiratory specimen by OSIEL with probe detect) [facility]annAlanine aminotransferase [Enzymatic activity/volume] in Serum or Plasma by With P-5'-2020-10-19 21:09:00 Test Item Value Reference Range Interpretation Comments Alanine aminotransferase [Enzymatic 22 12-78 activity/volume] in Serum or Plasma by With P-5'- (test code = Alanine aminotransferase [Enzymatic activity/volume] in Serum or Plasma by With P-5'-) [facility] CollinsannAlkaline phosphatase [Enzymatic activity/volume] in Serum or [id number] 21:09:00 Test Item Value Reference Range Interpretation Comments Alkaline phosphatase [Enzymatic 71 45-117 activity/volume] in Serum or Plasma (test code = Alkaline phosphatase [Enzymatic activity/volume] in Serum or Plasma) [facility]annAspartate aminotransferase [Enzymatic activity/volume] in Serum or Plasma by With [id number] 21:09:00 Test Item Value Reference Range Interpretation Comments Aspartate aminotransferase [Enzymatic 36 15-37 activity/volume] in Serum or Plasma by With P-5 (test code = Aspartate aminotransferase [Enzymatic activity/volume] in Serum or Plasma by With P-5) [facility]annBilirubin.direct [Mass/volume] in Serum or [id number] 21:09:00 Test Item Value Reference Range Interpretation Comments Bilirubin.direct 0.3 See_Comment [Automated message] The [Mass/volume] in Serum syste m which generated or Plasma (test code = this result transmitted Bilirubin.direct reference r lynda: <=0.2. [Mass/volume] in Serum The r eference range was or Plasma) not used to int erpret this result as aubree l/abnormal. [facility]annBilirubin.total [Mass/volume] in Serum or [id number] 21:09:00 Test Item Value Reference Range Interpretation Comments Bilirubin.total [Mass/volume] in Serum 0.7 0.2-1.0 or Plasma (test code = Bilirubin.total [Mass/volume] in Serum or Plasma) [facility]annINR in Blood by Coagulation [id number] 21:09:00 Test Item Value Reference Range Interpretation Comments INR in Blood by Coagulation assay 1.28 1 (test code = INR in Blood by Coagulation assay) [facility] HermannNatriuretic peptide.B prohormone N-Terminal [Mass/volume] in Serum or [id number] 21:09:00 Test Item Value Reference Range Interpretation Comments Natriuretic peptide.B prohormone 2354 N-Terminal [Mass/volume] in Serum or Plasma (test code = Natriuretic peptide.B prohormone N-Terminal [Mass/volume] in Serum or Plasma) [facility] HermannPeripheral blood smear examination by light [id number] 21:09:00 Test Item Value Reference Range Interpretation Comments Peripheral blood smear examination by Ok light microscopy (test code = Peripheral blood smear examination by light microscopy) [facility]annProtein [Mass/volume] in Serum or [id number] 21:09:00 Test Item Value Reference Range Interpretation Comments Protein [Mass/volume] in Serum or 6.6 6.4-8.2 Plasma (test code = Protein [Mass/volume] in Serum or Plasma) [facility]annTroponin I.cardiac [Mass/volume] in Serum or [id number] 21:09:00 Test Item Value Reference Range Interpretation Comments Troponin I.cardiac 0.13 See_Comment [Automat ed message] The [Mass/volume] in Serum syste m which generated or Plasma (test code = this result transmitted Troponin I.cardiac reference range: <=0.045. [Mass/volume] in Serum The r eference range was or Plasma) not used to int erpret this result as normal/abnormal . [facility]annAlbumin [Mass/volume] in Serum or Plasma by Bromocresol purple (BCP) dye binding [id number] 17:30:00 Test Item Value Reference Range Interpretation Comments Albumin [Mass/volume] in Serum or 2.8 3.4-5.0 Plasma by Bromocresol purple (BCP) dye binding meth (test code = Albumin [Mass/volume] in Serum or Plasma by Bromocresol purple (BCP) dye binding meth) [facility]annBacteria detection in urine sediment by light microscopy 2020-10-01 17:30:00 Test Item Value Reference Range Interpretation Comments Bacteria detection in urine sediment <20 /HPF by light microscopy (test code = Bacteria detection in urine sediment by light microscopy) [facility]annCalcium [Mass/volume] in Serum or [id number] 17:30:00 Test Item Value Reference Range Interpretation Comments Calcium [Mass/volume] in Serum or 8.2 8.5-10.1 Plasma (test code = Calcium [Mass/volume] in Serum or Plasma) [facility]annCarbon dioxide, total [Moles/volume] in Serum or Plasma 2020-10-01 17:30:00 Test Item Value Reference Range Interpretation Comments Carbon dioxide, total [Moles/volume] in 32 21-32 Serum or Plasma (test code = Carbon dioxide, total [Moles/volume] in Serum or Plasma) [facility]annChloride [Moles/volume] in Serum or [id number] 17:30:00 Test Item Value Reference Range Interpretation Comments Chloride [Moles/volume] in Serum or 107 98-107 Plasma (test code = Chloride [Moles/volume] in Serum or Plasma) [facility]annCreatinine [Mass/volume] in Serum or [id number] 17:30:00 Test Item Value Reference Range Interpretation Comments Creatinine [Mass/volume] in Serum or 1.51 0.55-1.3 Plasma (test code = Creatinine [Mass/volume] in Serum or Plasma) [facility]annGlucose [Mass/volume] in Serum or [id number] 17:30:00 Test Item Value Reference Range Interpretation Comments Glucose [Mass/volume] in Serum or 133 74-106 Plasma (test code = Glucose [Mass/volume] in Serum or Plasma) [facility]annLymphocyte [id number] 17:30:00 Test Item Value Reference Range Interpretation Comments Lymphocyte percent (test BETWEEN 10,000 and code = Lymphocyte 100,000 CFU/ML percent) [facility]annPhosphate [Mass/volume] in Serum or [id number] 17:30:00 Test Item Value Reference Range Interpretation Comments Phosphate [Mass/volume] in Serum or 3.0 2.5-4.9 Plasma (test code = Phosphate [Mass/volume] in Serum or Plasma) [facility]annPotassium [Moles/volume] in Serum or [id number] 17:30:00 Test Item Value Reference Range Interpretation Comments Potassium [Moles/volume] in Serum or 3.6 3.5-5.1 Plasma (test code = Potassium [Moles/volume] in Serum or Plasma) [facility]annProtein [Mass/volume] in [id number] 17:30:00 Test Item Value Reference Range Interpretation Comments Protein [Mass/volume] in Urine (test 20 code = Protein [Mass/volume] in Urine) [facility]annSerum or plasma sodium measurement (moles/volume)2020-10-01 17:30:00 Test Item Value Reference Range Interpretation Comments Serum or plasma sodium measurement 144 136-145 (moles/volume) (test code = Serum or plasma sodium measurement (moles/volume)) [facility]annUrate [Mass/volume] in Serum or [id number] 17:30:00 Test Item Value Reference Range Interpretation Comments Urate [Mass/volume] in Serum or Plasma 5.8 2.6-6.0 (test code = Urate [Mass/volume] in Serum or Plasma) [facility] HermannUrea nitrogen [Mass/volume] in Serum or [id number] 17:30:00 Test Item Value Reference Range Interpretation Comments Urea nitrogen [Mass/volume] in Serum or 36 7-18 Plasma (test code = Urea nitrogen [Mass/volume] in Serum or Plasma) [facility] HermannUrinalysis with [id number] 17:30:00 Test Item Value Reference Range Interpretation Comments Urinalysis with microscopy (test Negative code = Urinalysis with microscopy) [facility] appearance [id number] 17:30:00 Test Item Value Reference Range Interpretation Comments Urine appearance determination (test Clear code = Urine appearance determination) [facility]annU[facility] bilirubin [id number] 17:30:00 Test Item Value Reference Range Interpretation Comments Urine bilirubin detection (test code Negative = Urine bilirubin detection) [facility]annU[facility] blood [id number] 17:30:00 Test Item Value Reference Range Interpretation Comments Urine blood detection (test code = Negative Urine blood detection) [facility]annU[facility] [id number] 17:30:00 Test Item Value Reference Range Interpretation Comments Urine color (test code = Urine color) Yellow [facility]annU[facility] glucose [id number] 17:30:00 Test Item Value Reference Range Interpretation Comments Urine glucose detection (test code = Negative Urine glucose detection) [facility]annU[facility] [id number] 17:30:00 Test Item Value Reference Range Interpretation Comments Urine pH (test code = Urine pH) 5.5 1 [facility]annUrine sediment erythrocyte count by microscopy (number/high power field)2020-10-01 17:30:00 Test Item Value Reference Range Interpretation Comments Urine sediment erythrocyte None seen /HPF count by microscopy (number/high power field) (test code = Urine sediment erythrocyte count by microscopy (number/high power field)) [facility]annUrine specific gravity [id number] 17:30:00 Test Item Value Reference Range Interpretation Comments Urine specific gravity measurement 1.015 1 (test code = Urine specific gravity measurement) [facility]annUrine urobilinogen [id number] 17:30:00 Test Item Value Reference Range Interpretation Comments Urine urobilinogen detection (test code 0.2 = Urine urobilinogen detection) [facility]annUrine [id number] 17:30:00 Test Item Value Reference Range Interpretation Comments Urine culture (test code = Urine MIXED ZURDO. culture) [facility] HermannAbsolute lymphocyte [id number] 11:13:00 Test Item Value Reference Range Interpretation Comments Absolute lymphocyte count (test code = 0.7 0.7-4.9 Absolute lymphocyte count) [facility] HermannBasophil %2019-06-18 11:13:00 Test Item Value Reference Range Interpretation Comments Basophil % (test code = 0.6 See_Comment [Au tomated message] The Basophil %) system which ge nerated this result tra nsmitted reference range : <=1.3. The reference r lynda was not used to int erpret this result as normal/abnormal . [facility] CollinsannBlood erythrocytes count (number/volume)2019-06-18 11:13:00 Test Item Value Reference Range Interpretation Comments Blood erythrocytes count 3.31 3.86-4.86 (number/volume) (test code = Blood erythrocytes count (number/volume)) [facility] CollinsannBlood hematocrit (volume fraction)2019-06-18 11:13:00 Test Item Value Reference Range Interpretation Comments Blood hematocrit (volume fraction) 29.3 36.0-45.0 (test code = Blood hematocrit (volume fraction)) [facility] CollinsannBlood platelet mean [id number] 11:13:00 Test Item Value Reference Range Interpretation Comments Blood platelet mean volume (test code = 9.4 7.6-11.3 Blood platelet mean volume) [facility] HermannCalcium [Mass/volume] in Serum or [id number] 11:13:00 Test Item Value Reference Range Interpretation Comments Calcium [Mass/volume] in Serum or 7.8 8.5-10.1 Plasma (test code = Calcium [Mass/volume] in Serum or Plasma) [facility]annCarbon dioxide, total [Moles/volume] in Serum or Plasma 2019-06-18 11:13:00 Test Item Value Reference Range Interpretation Comments Carbon dioxide, total [Moles/volume] in 33 21-32 Serum or Plasma (test code = Carbon dioxide, total [Moles/volume] in Serum or Plasma) [facility] CenterannChemistry [id number] 11:13:00 Test Item Value Reference Range Interpretation Comments Chemistry procedure (test code = 88.6 80-100 Chemistry procedure) [facility]annChloride [Moles/volume] in Serum or [id number] 11:13:00 Test Item Value Reference Range Interpretation Comments Chloride [Moles/volume] in Serum or 103 98-107 Plasma (test code = Chloride [Moles/volume] in Serum or Plasma) [facility]annCreatinine [Mass/volume] in Serum or [id number] 11:13:00 Test Item Value Reference Range Interpretation Comments Creatinine [Mass/volume] in Serum or 2.21 0.55-1.3 Plasma (test code = Creatinine [Mass/volume] in Serum or Plasma) [facility]annGlucose [Mass/volume] in Serum or [id number] 11:13:00 Test Item Value Reference Range Interpretation Comments Glucose [Mass/volume] in Serum or 140 74-106 Plasma (test code = Glucose [Mass/volume] in Serum or Plasma) [facility]annMagnesium [Mass/volume] in Serum or [id number] 11:13:00 Test Item Value Reference Range Interpretation Comments Magnesium [Mass/volume] in Serum or 1.8 1.8-2.4 Plasma (test code = Magnesium [Mass/volume] in Serum or Plasma) [facility]annPhosphate [Mass/volume] in Serum or [id number] 11:13:00 Test Item Value Reference Range Interpretation Comments Phosphate [Mass/volume] in Serum or 2.1 2.5-4.9 Plasma (test code = Phosphate [Mass/volume] in Serum or Plasma) [facility]annPotassium [Moles/volume] in Serum or [id number] 11:13:00 Test Item Value Reference Range Interpretation Comments Potassium [Moles/volume] in Serum or 3.8 3.5-5.1 Plasma (test code = Potassium [Moles/volume] in Serum or Plasma) [facility]annSerum or plasma sodium measurement (moles/volume)2019-06-18 11:13:00 Test Item Value Reference Range Interpretation Comments Serum or plasma sodium measurement 141 136-145 (moles/volume) (test code = Serum or plasma sodium measurement (moles/volume)) [facility] HermannUrea nitrogen [Mass/volume] in Serum or [id number] 11:13:00 Test Item Value Reference Range Interpretation Comments Urea nitrogen [Mass/volume] in Serum or 50 7-18 Plasma (test code = Urea nitrogen [Mass/volume] in Serum or Plasma) [facility]annUrine dipstick testing at [id number]-sn-[id number] 11:13:00 Test Item Value Reference Range Interpretation Comments Urine dipstick testing at umoga-sq-tmaf 3.2 4.3-10.9 (test code = Urine dipstick testing at fwjkl-fb-wipj) [facility]annAlanine aminotransferase [Enzymatic activity/volume] in Serum or Plasma by With P-5'-2019-06-17 11:27:00 Test Item Value Reference Range Interpretation Comments Alanine aminotransferase [Enzymatic 16 12-78 activity/volume] in Serum or Plasma by With P-5'- (test code = Alanine aminotransferase [Enzymatic activity/volume] in Serum or Plasma by With P-5'-) [facility]annAlbumin [Mass/volume] in Serum or Plasma by Bromocresol purple (BCP) dye binding [id number] 11:27:00 Test Item Value Reference Range Interpretation Comments Albumin [Mass/volume] in Serum or 2.5 3.4-5.0 Plasma by Bromocresol purple (BCP) dye binding meth (test code = Albumin [Mass/volume] in Serum or Plasma by Bromocresol purple (BCP) dye binding meth) [facility]annAlkaline phosphatase [Enzymatic activity/volume] in Serum or [id number] 11:27:00 Test Item Value Reference Range Interpretation Comments Alkaline phosphatase [Enzymatic 72 45-117 activity/volume] in Serum or Plasma (test code = Alkaline phosphatase [Enzymatic activity/volume] in Serum or Plasma) [facility]annAspartate aminotransferase [Enzymatic activity/volume] in Serum or Plasma by With [id number] 11:27:00 Test Item Value Reference Range Interpretation Comments Aspartate aminotransferase [Enzymatic 23 15-37 activity/volume] in Serum or Plasma by With P-5 (test code = Aspartate aminotransferase [Enzymatic activity/volume] in Serum or Plasma by With P-5) [facility]annBilirubin.total [Mass/volume] in Serum or [id number] 11:27:00 Test Item Value Reference Range Interpretation Comments Bilirubin.total [Mass/volume] in Serum 1.0 0.2-1.0 or Plasma (test code = Bilirubin.total [Mass/volume] in Serum or Plasma) [facility] HermannBlood morphology interpretation [id number] 11:27:00 Test Item Value Reference Range Interpretation Comments Blood morphology interpretation Not seen narrative (test code = Blood morphology interpretation narrative) [facility] HermannNatriuretic peptide.B prohormone N-Terminal [Mass/volume] in Serum or [id number] 11:27:00 Test Item Value Reference Range Interpretation Comments Natriuretic peptide.B prohormone 493 N-Terminal [Mass/volume] in Serum or Plasma (test code = Natriuretic peptide.B prohormone N-Terminal [Mass/volume] in Serum or Plasma) [facility]annProtein [Mass/volume] in Serum or [id number] 11:27:00 Test Item Value Reference Range Interpretation Comments Protein [Mass/volume] in Serum or 6.7 6.4-8.2 Plasma (test code = Protein [Mass/volume] in Serum or Plasma) [facility] HermannTroponin I.cardiac [Mass/volume] in Serum or [id number] 11:27:00 Test Item Value Reference Range Interpretation Comments Troponin I.cardiac < 0.02 See_Comment [Automat ed message] The [Mass/volume] in Serum syste m which generated or Plasma (test code = this result transmitted Troponin I.cardiac reference range: <=0.045. [Mass/volume] in Serum The r eference range was or Plasma) not used to int erpret this result as normal/abnormal . [facility] HermannUrinalysis with [id number] 02:23:00 Test Item Value Reference Range Interpretation Comments Urinalysis with microscopy (test Negative code = Urinalysis with microscopy) [facility]Urine blood [id number] 02:23:00 Test Item Value Reference Range Interpretation Comments Urine blood detection (test code = Negative Urine blood detection) [facility] [id number] 02:23:00 Test Item Value Reference Range Interpretation Comments Urine glucose detection (test code = Negative Urine glucose detection) [facility] [id number] 02:23:00 Test Item Value Reference Range Interpretation Comments Urine pH (test code = Urine pH) 5.0 1 [facility]annUrine specific gravity wetynxfcqyu1253-20-29 02:23:00 Test Item Value Reference Range Interpretation Comments Urine specific gravity measurement 1.015 1 (test code = Urine specific gravity measurement) [facility]annUrinalysis with reflex to [id number] 02:14:00 Test Item Value Reference Range Interpretation Comments Urinalysis with reflex to culture Reflexed (test code = Urinalysis with reflex to culture) [facility]annUrine sediment erythrocyte count by microscopy (number/high power field)2019-06-17 02:14:00 Test Item Value Reference Range Interpretation Comments Urine sediment erythrocyte count by <5 microscopy (number/high power field) (test code = Urine sediment erythrocyte count by microscopy (number/high power field)) [facility]annBilirubin.direct [Mass/volume] in Serum or [id number] 00:14:00 Test Item Value Reference Range Interpretation Comments Bilirubin.direct 0.3 See_Comment [Automated message] The [Mass/volume] in Serum syste m which generated or Plasma (test code = this result transmitted Bilirubin.direct reference r lynda: <=0.2. [Mass/volume] in Serum The r eference range was or Plasma) not used to int erpret this result as aubree l/abnormal. [facility]annINR in Blood by Coagulation [id number] 00:14:00 Test Item Value Reference Range Interpretation Comments INR in Blood by Coagulation assay 1.30 1 (test code = INR in Blood by Coagulation assay) [facility]annLactate [Moles/volume] in Serum or [id number] 00:14:00 Test Item Value Reference Range Interpretation Comments Lactate [Moles/volume] in Serum or 1.1 0.4-2.0 Plasma (test code = Lactate [Moles/volume] in Serum or Plasma) [facility] HermannTroponin I.cardiac [Mass/volume] in Serum or [id number] 00:14:00 Test Item Value Reference Range Interpretation Comments Troponin I.cardiac < 0.02 See_Comment [Automat ed message] The [Mass/volume] in Serum syste m which generated or Plasma (test code = this result transmitted Troponin I.cardiac reference range: <=0.045. [Mass/volume] in Serum The r eference range was or Plasma) not used to int erpret this result as normal/abnormal . [facility]annAlbumin [Mass/volume] in Serum or Plasma by Bromocresol purple (BCP) dye binding [id number] 17:00:00 Test Item Value Reference Range Interpretation Comments Albumin [Mass/volume] in Serum or 2.9 3.4-5.0 Plasma by Bromocresol purple (BCP) dye binding meth (test code = Albumin [Mass/volume] in Serum or Plasma by Bromocresol purple (BCP) dye binding meth) [facility]annBlood hematocrit (volume fraction)2019-03-22 17:00:00 Test Item Value Reference Range Interpretation Comments Blood hematocrit (volume fraction) 31.2 36.0-45.0 (test code = Blood hematocrit (volume fraction)) [facility]annCalcium [Mass/volume] in Serum or [id number] 17:00:00 Test Item Value Reference Range Interpretation Comments Calcium [Mass/volume] in Serum or 8.6 8.5-10.1 Plasma (test code = Calcium [Mass/volume] in Serum or Plasma) [facility]annCarbon dioxide, total [Moles/volume] in Serum or Plasma 2019-03-22 17:00:00 Test Item Value Reference Range Interpretation Comments Carbon dioxide, total [Moles/volume] in 31 21-32 Serum or Plasma (test code = Carbon dioxide, total [Moles/volume] in Serum or Plasma) [facility]annChloride [Moles/volume] in Serum or [id number] 17:00:00 Test Item Value Reference Range Interpretation Comments Chloride [Moles/volume] in Serum or 108 98-107 Plasma (test code = Chloride [Moles/volume] in Serum or Plasma) [facility]annCreatinine [Mass/volume] in Serum or [id number] 17:00:00 Test Item Value Reference Range Interpretation Comments Creatinine [Mass/volume] in Serum or 1.83 0.55-1.3 Plasma (test code = Creatinine [Mass/volume] in Serum or Plasma) [facility]annCreatinine [Mass/volume] in [id number] 17:00:00 Test Item Value Reference Range Interpretation Comments Creatinine [Mass/volume] in Urine (test 50.0 20-320 code = Creatinine [Mass/volume] in Urine) [facility]annGlucose [Mass/volume] in Serum or [id number] 17:00:00 Test Item Value Reference Range Interpretation Comments Glucose [Mass/volume] in Serum or 132 74-106 Plasma (test code = Glucose [Mass/volume] in Serum or Plasma) [facility]annParathyrin.intact [Mass/volume] in Serum or [id number] 17:00:00 Test Item Value Reference Range Interpretation Comments Parathyrin.intact [Mass/volume] in 59.2 18.4-80.1 Serum or Plasma (test code = Parathyrin.intact [Mass/volume] in Serum or Plasma) [facility]annPhosphate [Mass/volume] in Serum or [id number] 17:00:00 Test Item Value Reference Range Interpretation Comments Phosphate [Mass/volume] in Serum or 3.3 2.5-4.9 Plasma (test code = Phosphate [Mass/volume] in Serum or Plasma) [facility]annPotassium [Moles/volume] in Serum or [id number] 17:00:00 Test Item Value Reference Range Interpretation Comments Potassium [Moles/volume] in Serum or 3.5 3.5-5.1 Plasma (test code = Potassium [Moles/volume] in Serum or Plasma) [facility]annProtein [Mass/volume] in [id number] 17:00:00 Test Item Value Reference Range Interpretation Comments Protein [Mass/volume] in Urine (test 6 code = Protein [Mass/volume] in Urine) [facility]annSerum or plasma sodium measurement (moles/volume)2019-03-22 17:00:00 Test Item Value Reference Range Interpretation Comments Serum or plasma sodium measurement 145 136-145 (moles/volume) (test code = Serum or plasma sodium measurement (moles/volume)) [facility]annUrate [Mass/volume] in Serum or [id number] 17:00:00 Test Item Value Reference Range Interpretation Comments Urate [Mass/volume] in Serum or Plasma 10.4 2.6-6.0 (test code = Urate [Mass/volume] in Serum or Plasma) [facility]/volume[facility] in Serum or [id number] 17:00:00 Test Item Value Reference Range Interpretation Comments Urea nitrogen [Mass/volume] in Serum or 54 7-18 Plasma (test code = Urea nitrogen [Mass/volume] in Serum or Plasma) [facility] [id number] 17:00:00 Test Item Value Reference Range Interpretation Comments Urine dipstick testing at ijini-rm-aorn 10.5 12.0-15.0 (test code = Urine dipstick testing at [id number]) [facility]2018-03-05 11:19:00 Test Item Value Reference Range Interpretation Comments Bedside Glucose (test code = Bedside 271 65-120 Glucose) [facility]2018-03-04 05:00:00 Test Item Value Reference Range Interpretation Comments Thyroid Stimulating Hormone (TSH) (test 1.28 0.34-5.60 code = Thyroid Stimulating Hormone (TSH)) [facility]2018-03-04 05:00:00 Test Item Value Reference Range Interpretation Comments Sodium Level (test code = Sodium Level) 139 135-145 [facility]2018-03-04 05:00:00 Test Item Value Reference Range Interpretation Comments Potassium Level (test code = Potassium 3.8 3.6-5.0 Level) [facility]2018-03-04 05:00:00 Test Item Value Reference Range Interpretation Comments Glucose Level (test code = Glucose 116 65-120 Level) [facility]2018-03-04 05:00:00 Test Item Value Reference Range Interpretation Comments Estimat Glomerular 29 See_Comment [Automat ed message] The Filtration Rate (test system which generated code = Estimat this result t ransmitted Glomerular Filtration refere nce range: >=90. Rate) The reference r lynda was not used to int erpret this result as normal/abnormal . [facility]2018-03-04 05:00:00 Test Item Value Reference Range Interpretation Comments Creatinine (test code = Creatinine) 1.69 0.44-1.00 [facility]2018-03-04 05:00:00 Test Item Value Reference Range Interpretation Comments Chloride Level (test code = Chloride 102 101-111 Level) [facility]2018-03-04 05:00:00 Test Item Value Reference Range Interpretation Comments Carbon Dioxide Level (test code = 32 21-31 Carbon Dioxide Level) [facility]2018-03-04 05:00:00 Test Item Value Reference Range Interpretation Comments Calcium Level (test code = Calcium 8.4 8.5-10.5 Level) [facility]2018-03-04 05:00:00 Test Item Value Reference Range Interpretation Comments Blood Urea Nitrogen (test code = Blood 33 6-20 Urea Nitrogen) [facility]2018-03-04 05:00:00 Test Item Value Reference Range Interpretation Comments White Blood Count (test code = White 2.2 4.3-10.9 Blood Count) [facility]2018-03-04 05:00:00 Test Item Value Reference Range Interpretation Comments Red Cell Distribution Width (test code 14.5 12.1-15.2 = Red Cell Distribution Width) [facility]2018-03-04 05:00:00 Test Item Value Reference Range Interpretation Comments Red Blood Count (test code = Red Blood 3.18 3.86-4.86 Count) [facility]2018-03-04 05:00:00 Test Item Value Reference Range Interpretation Comments Platelet Count (test code = Platelet 95 152-406 Count) [facility]2018-03-04 05:00:00 Test Item Value Reference Range Interpretation Comments Neutrophils % (test code = Neutrophils 48.8 41.7-73.7 %) [facility]2018-03-04 05:00:00 Test Item Value Reference Range Interpretation Comments Monocytes % (test code = Monocytes %) 10.2 3.3-12.3 [facility]2018-03-04 05:00:00 Test Item Value Reference Range Interpretation Comments Mean Platelet Volume (test code = Mean 8.3 7.6-11.3 Platelet Volume) [facility]2018-03-04 05:00:00 Test Item Value Reference Range Interpretation Comments Mean Corpuscular Volume (test code = 82.8 80-100 Mean Corpuscular Volume) [facility]2018-03-04 05:00:00 Test Item Value Reference Range Interpretation Comments Mean Corpuscular Hemoglobin Concent 32.8 32.0-36.0 (test code = Mean Corpuscular Hemoglobin Concent) [facility]2018-03-04 05:00:00 Test Item Value Reference Range Interpretation Comments Mean Corpuscular Hemoglobin (test 27.1 pg 27.0-35.0 code = Mean Corpuscular Hemoglobin) [facility]2018-03-04 05:00:00 Test Item Value Reference Range Interpretation Comments Lymphocytes % (test code = Lymphocytes 35.1 15.3-44.8 %) [facility]2018-03-04 05:00:00 Test Item Value Reference Range Interpretation Comments Hemoglobin (test code = Hemoglobin) 8.6 12.0-15.0 [facility]2018-03-04 05:00:00 Test Item Value Reference Range Interpretation Comments Hematocrit (test code = Hematocrit) 26.3 36.0-45.0 [facility]2018-03-04 05:00:00 Test Item Value Reference Range Interpretation Comments Eosinophils % (test code 5.0 See_Comment [A utomated message] The = Eosinophils %) system [facility] generated this result tra nsmitted reference range : <=4.4. The reference r lynda was not used to int erpret this result as normal/abnormal . [facility]2018-03-04 05:00:00 Test Item Value Reference Range Interpretation Comments Basophils % (test code 0.9 See_Comment [Aut omated message] The = Basophils %) system which generated this result tra nsmitted reference range : <=1.3. The reference r lynda was not used to int erpret this result as normal/abnormal . [facility]2018-03-04 05:00:00 Test Item Value Reference Range Interpretation Comments Absolute Neutrophil (test code = 1.1 1.8-8.0 Absolute Neutrophil) [facility]2018-03-04 05:00:00 Test Item Value Reference Range Interpretation Comments Absolute Monocytes (CBC) (test code = 0.2 0.1-1.3 Absolute Monocytes (CBC)) [facility]2018-03-04 05:00:00 Test Item Value Reference Range Interpretation Comments Absolute Lymphocytes (CBC) (test code = 0.8 0.7-4.9 Absolute Lymphocytes (CBC)) [facility] [id number] 05:00:00 Test Item Value Reference Range Interpretation Comments Absolute Eosinophils 0.1 See_Comment [Autom ated message] The (CBC) (test code = system wh ich generated Absolute Eosinophils this re sult transmitted (CBC)) reference range : <=0.5. The reference r lynda was not used to int erpret this result as normal/abnormal . [facility]2018-03-04 05:00:00 Test Item Value Reference Range Interpretation Comments Absolute Basophils 0.0 See_Comment [Automat ed message] The (CBC) (test code = system wh ich generated Absolute Basophils this resu lt transmitted (CBC)) reference range : <=0.5. The reference r lynda was not used to int erpret this result as normal/abnormal . [facility]2018-03-04 03:35:00 Test Item Value Reference Range Interpretation Comments Urine Random Total Protein (test code = 13 Urine Random Total Protein) [facility]2018-03-04 03:35:00 Test Item Value Reference Range Interpretation Comments Urine Protein/Creatinine Ratio (test 0.09 1 code = Urine Protein/Creatinine Ratio) [facility]2018-03-04 03:35:00 Test Item Value Reference Range Interpretation Comments Urine Creatinine (test code = Urine 143.6 Creatinine) [facility]2018-03-02 04:23:00 Test Item Value Reference Range Interpretation Comments Blood Morphology Blood Morphology Comment (test code = Comment Blood Morphology Comment) [facility]2018-03-02 04:23:00 Test Item Value Reference Range Interpretation Comments B-Type Natriuretic Peptide (test code = 35 B-Type Natriuretic Peptide) [facility]2018-03-01 22:25:00 Test Item Value Reference Range Interpretation Comments Urine pH (test code = Urine pH) 7.0 1 [facility] [id number] 22:25:00 Test Item Value Reference Range Interpretation Comments Urine WBC (test code = Urine WBC) no gt [facility] [id number] 22:25:00 Test Item Value Reference Range Interpretation Comments Urine Urobilinogen (test code = Urine 1.0 Urobilinogen) [facility] [id number] 22:25:00 Test Item Value Reference Range Interpretation Comments Urine Total Protein (test Urine Total Protein code = Urine Total Protein) [facility] [id number] 22:25:00 Test Item Value Reference Range Interpretation Comments Urine Squamous Epithelial Cells (test no gt code = Urine Squamous Epithelial Cells) [facility]2018-03-01 22:25:00 Test Item Value Reference Range Interpretation Comments Urine Specific [place] (test code = 1.010 1 Urine Specific [place]) [facility]2018-03-01 22:25:00 Test Item Value Reference Range Interpretation Comments Urine RBC (test code = Urine RBC) Urine RBC [facility] [id number] 22:25:00 Test Item Value Reference Range Interpretation Comments Urine Nitrite (test code = Urine Nitrite Urine Nitrite) [facility]2018-03-01 22:25:00 Test Item Value Reference Range Interpretation Comments Urine Leukocyte Urine Leukocyte Esterase (test code = Esterase Urine Leukocyte Esterase) [facility]2018-03-01 22:25:00 Test Item Value Reference Range Interpretation Comments Urine Ketones (test code = Urine Ketones Urine Ketones) [facility]2018-03-01 22:25:00 Test Item Value Reference Range Interpretation Comments Urine Glucose (test code = Urine Glucose Urine Glucose) [facility]2018-03-01 22:25:00 Test Item Value Reference Range Interpretation Comments Urine Culture Reflexed Urine Culture Reflexed (test code = Urine Culture Reflexed) [facility]2018-03-01 22:25:00 Test Item Value Reference Range Interpretation Comments Urine Color (test code = Urine Urine Color Color) [facility]2018-03-01 22:25:00 Test Item Value Reference Range Interpretation Comments Urine Blood (test code = Urine Urine Blood Blood) [facility] [id number] 22:25:00 Test Item Value Reference Range Interpretation Comments Urine Bilirubin (test code = Urine Bilirubin Urine Bilirubin) [facility]2018-03-01 22:25:00 Test Item Value Reference Range Interpretation Comments Urine Bacteria (test code = Urine no gt Bacteria) [facility]2018-03-01 22:25:00 Test Item Value Reference Range Interpretation Comments Urine Appearance (test code Urine Appearance = Urine Appearance) [facility]2018-03-01 15:27:00 Test Item Value Reference Range Interpretation Comments Prothrombin Time (test code = 14.6 9.5-12.5 Prothrombin Time) [facility]2018-03-01 15:27:00 Test Item Value Reference Range Interpretation Comments INR International Normalized Ratio 1.23 1 (test code = INR International Normalized Ratio) [facility]2018-03-01 15:27:00 Test Item Value Reference Range Interpretation Comments Activated Partial Thromboplast Time 27.0 24.3-36.9 (test code = Activated Partial Thromboplast Time) [facility]2018-03-01 15:27:00 Test Item Value Reference Range Interpretation Comments Magnesium Level (test code = Magnesium 1.6 1.8-2.5 Level) [facility]2018-03-01 15:27:00 Test Item Value Reference Range Interpretation Comments Creatine Kinase (test code = Creatine 31 22-269 Kinase) [facility]2018-03-01 15:27:00 Test Item Value Reference Range Interpretation Comments Rapid Troponin I (test code = Rapid no gt Troponin I) [facility]2018-03-01 15:27:00 Test Item Value Reference Range Interpretation Comments Creatine Kinase MB (test code = 0.3 0.3-4.0 Creatine Kinase MB) [facility]2017-12-22 12:40:00 Test Item Value Reference Range Interpretation Comments Urine Amorphous Urine Amorphous Sediment (test code = Sediment Urine Amorphous Sediment) [facility]2017-12-22 12:08:00 Test Item Value Reference Range Interpretation Comments Lactic Acid Level (test code = Lactic 10.2 4.5-19.8 Acid Level) [facility]2017-12-22 12:08:00 Test Item Value Reference Range Interpretation Comments Procalcitonin (test code = 0.13 Procalcitonin) [facility]2017-12-22 12:08:00 Test Item Value Reference Range Interpretation Comments Sedimentation Rate, 78 See_Comment [Automa tonny message] Westergren (test code = The system which Sedimentation Rate, generate d this result Westergren) transmitted ref erence range: <=30. Th e reference range was not used to interpr et this result as normal/abnormal . [facility]2017-12-22 12:08:00 Test Item Value Reference Range Interpretation Comments Total Bilirubin (test code = Total 1.2 0.3-1.2 Bilirubin) [facility]2017-12-22 12:08:00 Test Item Value Reference Range Interpretation Comments Serum Total Protein (test code = Serum 6.2 6.0-8.3 Total Protein) [facility]2017-12-22 12:08:00 Test Item Value Reference Range Interpretation Comments Globulin (test code = Globulin) 3.3 2.3-3.5 [facility]2017-12-22 12:08:00 Test Item Value Reference Range Interpretation Comments Direct Bilirubin (test 0.2 See_Comment [Aut omated message] The code = Direct system which g enerated Bilirubin) this result tra nsmitted reference range : <=0.2. The reference r lynda was not used to int erpret this result as normal/abnormal . [facility]2017-12-22 12:08:00 Test Item Value Reference Range Interpretation Comments Aspartate Amino Transf (AST/SGOT) (test 53 10-42 code = Aspartate Amino Transf (AST/SGOT)) [facility]2017-12-22 12:08:00 Test Item Value Reference Range Interpretation Comments Alkaline Phosphatase (test code = 85 42-121 Alkaline Phosphatase) [facility]2017-12-22 12:08:00 Test Item Value Reference Range Interpretation Comments Albumin/Globulin Ratio (test code = 0.9 1 1.1-1.8 Albumin/Globulin Ratio) [facility]2017-12-22 12:08:00 Test Item Value Reference Range Interpretation Comments Albumin (test code = Albumin) 2.9 3.2-5.5 [facility]2017-12-22 12:08:00 Test Item Value Reference Range Interpretation Comments Alanine Aminotransferase (ALT/SGPT) 29 10-60 (test code = Alanine Aminotransferase (ALT/SGPT)) [facility] [id number] 12:08:00 Test Item Value Reference Range Interpretation Comments Lipase (test code = Lipase) 17 - [facility]
[2021-12-16 18:07] LABS: Absolute Lymphocytes (CBC) 0.2 K/uL (0.7-4.9); Hematocrit 31.2 % (36.0-45.0); Lymphocytes % 5.2 % (15.3-44.8); MPV 7.2 fL (7.6-11.3); RBC Red Blood Cell Count 3.43 M/uL (3.86-4.86)
[2021-12-16 18:53] LABS: Potassium 3.8 mmol/L (3.5-5.1); Troponin High Sensitivity 12.6 pg/mL (<58.9)
--- NOTE | 2021-12-16 19:04 | ER ---
Nurse's Notes [facility] Name: Loni Cross Age: 86 yrs Sex: Female : 1935 Arrival Date: 12/16/2021 Time: 17:25 Bed 4 Private MD: Paolo Montgomery V Diagnosis: Fever, unspecified;Dyspnea, unspecified Presentation: 12/16 17:35 Chief complaint: Patient states: "I just had dialysis today and got sick while being aa5 there, I got really sick and had vomiting". Pt reports she was able to finish dialysis. Pt also reports fever up to 101.0 today. Reports nasal congestion x 2 weeks ago. Coronavirus screen: congestion, cough unrelated to allergies. Ebola Screen: Patient denies travel to an Ebola-affected area in the 21 days before illness onset. Initial Sepsis Screen: Does the patient meet any 2 criteria? HR > 90 bpm. Does the patient have a suspected source of infection? Yes:. Risk Assessment: Do you want to hurt yourself or someone else? Patient reports no desire to harm self or others. Onset of symptoms was December 16, 2021. 17:35 Acuity: TRINI 3 aa5 17:35 Method Of Arrival: Wheelchair aa5 Historical: - Allergies: 17:38 blood thinners except ASA; aa5 17:38 caffeine; aa5 17:38 Xsfzsga-Puh-Rhf Reductase Inhibitors; aa5 17:38 Streptomycin; aa5 - Home Meds: 21:03 allopurinol 100 mg Oral tab once daily [Active]; aspirin 81 mg Oral chew 1 tab once kl daily [Active]; carvedilol 6.25 mg Oral tab 2 times per day [Active]; cetirizine 10 mg Oral tab 1 tab once daily [Active]; Coreg Oral [Active]; furosemide 40 mg Oral tab 1 tab once daily [Active]; glimepiride 4 mg Oral tab twice a day [Active]; Claritin-D 24 Hour 10-240 mg Oral Tb24 1 tab once daily [Active]; - PMHx: 17:38 CHF; CVA; Diabetes - NIDDM; Hyperlipidemia; Hypertension; kidney problems; Dialysis; aa5 - PSHx: 17:38 hysterectomy; Dialysis catheter to right upper chest; aa5 - Immunization history:: Adult Immunizations unknown. - Social history:: Smoking status: Patient denies any tobacco usage or history of. Screenin:17 Abuse screen: Denies threats or abuse. Denies injuries from another. Nutritional tp1 screening: No deficits noted. Tuberculosis screening: No symptoms or risk factors identified. Fall Risk No fall in past 12 months (0 pts). No secondary diagnosis (0 pts). IV access (20 points). Ambulatory Aid- None/Bed Rest/Nurse Assist (0 pts). Gait- Normal/Bed Rest/Wheelchair (0 pts) Mental Status- Oriented to own ability (0 pts). Assessment: 18:12 General: Appears in no apparent distress. ill, Behavior is calm, cooperative. Pain: tp1 Denies pain. Neuro: Level of Consciousness is awake, alert, obeys commands, Oriented to person, place, time, situation. Neuro: Reports. Cardiovascular: Patient's skin is warm and dry. Cardiovascular: Denies chest pain. Cardiovascular: Reports lightheadedness. Cardiovascular: Reports fatigue. Respiratory: Airway is patent Respiratory effort is even, unlabored, Denies shortness of breath. GI: Abdomen is round non-distended, Abd is soft and non tender X 4 quads. GI: Reports nausea, vomiting. : No signs and/or symptoms were reported regarding the genitourinary system. EENT: No signs and/or symptoms were reported regarding the EENT system. Derm: Skin is pink, warm \\T\\ dry. Musculoskeletal: Circulation, motion, and sensation intact. 20:26 Reassessment: Patient appears in no apparent distress at this time. Patient is alert, kl oriented x 3, equal unlabored respirations, skin warm/dry/pink. Patient states symptoms have improved. Vital Signs: 17:35 BP 110 / 51; Pulse 105; Resp 18 S; Temp 99.2(O); Pulse Ox 97% on R/A; aa5 18:10 BP 117 / 46; Pulse 100; Resp 18; Pulse Ox 98% on R/A; tp1 20:25 BP 120 / 55; Pulse 99; Resp 20; Temp 99(O); Pulse Ox 97% on R/A; Pain 0/10; kl ED Course: 17:25 Patient arrived in ED. as 17:25 Paolo Montgomery MD is Private Physician. as 17:27 [facility]herelle Reich [facility]NP-C [facility] snw 17:27 Reggie Canales MD is Attending Physician. snw 17:35 Arm band placed on. aa5 17:37 Triage completed. aa5 17:58 Placed in gown. Bed in low position. Call light in reach. Side rails up X 1. Door mb7 closed. Noise minimized. Warm blanket given. 17:58 Inserted saline lock: 20 gauge in right antecubital area, using aseptic technique. mb7 Blood collected. 17:59 Flu Sent. mb7 17:59 SARS-COV-2 RT PCR (Document "Date of Onset" if Symptomatic) Sent. mb7 17:59 Troponin HS Sent. mb7 17:59 Basic Metabolic Panel Sent. mb7 17:59 CBC with Diff Sent. mb7 17:59 D-Dimer Sent. mb7 17:59 Magnesium Sent. mb7 18:08 EKG done, by ED staff, reviewed by Cherelle WICK. mb7 18:10 Pulse ox on. NIBP on. tp1 18:12 Chrissy Gomez, ROBINSON is Primary Nurse. tp1 18:28 XRAY Chest (1 view) In Process Unspecified. EDMS 19:03 Paolo Montgomery MD is Hospitalizing Provider. snw 19:11 role handed off by Bruna Thomason RN mw2 21:02 No provider procedures requiring assistance completed. Patient admitted, IV remains in kl place. Administered Medications: No medications were administered Medication: 21:04 VIS not applicable for this client. Outcome: 19:04 Decision to Hospitalize by Provider. snw 21:03 Admitted to Med/surg via wheelchair, room 201, Report called to Gunnar jimenez 21:03 Condition: stable 21:03 Instructed on the need for admit, Demonstrated understanding of instructions. 21:46 Patient left the ED. Signatures: Dispatcher [employer] EDMS Radha Rivera RN RN kl Waters, Shelly, FNP-C FNP-Peace Metzger Audri, RN RN aa5 Elver Mckeon mw2 Chrissy Gomez, ROBINSON RN tp1 Nirmala Bae mb7
--- NOTE | 2021-12-16 19:05 | EDPHYS ---
Physician Documentation [facility] Name: Loni Cross Age: 86 yrs Sex: Female : 1935 Arrival Date: 12/16/2021 Time: 17:25 Bed 4 Private MD: Paolo Montgomery V ED Physician Reggie Canales HPI: 12/16 18:10 This 86 yrs old Female presents to ER via Wheelchair with complaints of Fever, Cough, snw Nausea/Vomiting. 18:10 The patient reports fever, that was measured at 101 degrees Fahrenheit. Onset: The snw symptoms/episode began/occurred suddenly, today. Modifying factors: congestion 2 weeks ago, pt gets dialysis Mon/Thu/Thu - finished dialysis today but became very nauseated and vomited upon getting home. Associated signs and symptoms: Pertinent positives: cough, with clear sputum, sinus congestion. Severity of symptoms: At their worst the symptoms were moderate in the emergency department the symptoms are unchanged. It is unknown whether or not the patient has had similar symptoms in the past. It is unknown whether or not the patient has recently seen a physician. Historical: - Allergies: 17:38 blood thinners except ASA; aa5 17:38 caffeine; aa5 17:38 Peeyhcj-Bya-Qbm Reductase Inhibitors; aa5 17:38 Streptomycin; aa5 - Home Meds: 21:03 allopurinol 100 mg Oral tab once daily [Active]; aspirin 81 mg Oral chew 1 tab once kl daily [Active]; carvedilol 6.25 mg Oral tab 2 times per day [Active]; cetirizine 10 mg Oral tab 1 tab once daily [Active]; Coreg Oral [Active]; furosemide 40 mg Oral tab 1 tab once daily [Active]; glimepiride 4 mg Oral tab twice a day [Active]; Claritin-D 24 Hour 10-240 mg Oral Tb24 1 tab once daily [Active]; - PMHx: 17:38 CHF; CVA; Diabetes - NIDDM; Hyperlipidemia; Hypertension; kidney problems; Dialysis; aa5 - PSHx: 17:38 hysterectomy; Dialysis catheter to right upper chest; aa5 - Immunization history:: Adult Immunizations unknown. - Social history:: Smoking status: Patient denies any tobacco usage or history of. ROS: 18:05 Eyes: Negative for injury, pain, redness, and discharge, ENT: Negative for injury, snw pain, and discharge, Neck: Negative for injury, pain, and swelling, Cardiovascular: Negative for chest pain, palpitations, and edema, Respiratory: Negative for shortness of breath, cough, wheezing, and pleuritic chest pain. 18:05 Back: Negative for injury and pain, : Negative for injury, bleeding, discharge, and swelling, MS/Extremity: Negative for injury and deformity, Skin: Negative for injury, rash, and discoloration, Neuro: Negative for headache, weakness, numbness, tingling, and seizure, Psych: Negative for depression, anxiety, suicide ideation, homicidal ideation, and hallucinations. 18:05 Constitutional: Positive for fever, poor PO intake, Nausea. 18:05 Abdomen/GI: Positive for nausea and vomiting. Exam: 18:02 Constitutional: This is a well developed, well nourished patient who is awake, alert, snw and in no acute distress. Head/Face: Normocephalic, atraumatic. Eyes: Pupils equal round and reactive to light, extra-ocular motions intact. Lids and lashes normal. Conjunctiva and sclera are non-icteric and not injected. Cornea within normal limits. Periorbital areas with no swelling, redness, or edema. ENT: Nares patent. No nasal discharge, no septal abnormalities noted. Tympanic membranes are normal and external auditory canals are clear. Oropharynx with no redness, swelling, or masses, exudates, or evidence of obstruction, uvula midline. Mucous membranes moist. Neck: Trachea midline, no thyromegaly or masses palpated, and no cervical lymphadenopathy. Supple, full range of motion without nuchal rigidity, or vertebral point tenderness. No Meningismus. Chest/axilla: Normal chest wall appearance and motion. Nontender with no deformity. No lesions are appreciated. 18:02 Abdomen/GI: Soft, non-tender, with normal bowel sounds. No distension or tympany. No guarding or rebound. No evidence of tenderness throughout. Back: No spinal tenderness. No costovertebral tenderness. Full range of motion. Skin: Warm, dry with normal turgor. Normal color with no rashes, no lesions, and no evidence of cellulitis. MS/ Extremity: Pulses equal, no cyanosis. Neurovascular intact. Full, normal range of motion. Neuro: Awake and alert, GCS 15, oriented to person, place, time, and situation. Cranial nerves II-XII grossly intact. Motor strength 5/5 in all extremities. Sensory grossly intact. Cerebellar exam normal. Normal gait. Psych: Awake, alert, with orientation to person, place and time. Behavior, mood, and affect are within normal limits. 18:02 Cardiovascular: Rate: tachycardic, Rhythm: regular, Pulses: no pulse deficits are appreciated, Heart sounds: murmur, systolic, Edema: is not appreciated, JVD: is not appreciated, Dialysis shunt: right sided dialysis cath. 18:02 Respiratory: the patient does not display signs of respiratory distress, Respirations: tachypnea, that is mild, Breath sounds: bronchial sounds, that are mild. Vital Signs: 17:35 BP 110 / 51; Pulse 105; Resp 18 S; Temp 99.2(O); Pulse Ox 97% on R/A; aa5 18:10 BP 117 / 46; Pulse 100; Resp 18; Pulse Ox 98% on R/A; tp1 20:25 BP 120 / 55; Pulse 99; Resp 20; Temp 99(O); Pulse Ox 97% on R/A; Pain 0/10; kl MDM: 17:43 Patient medically screened. snw 19:02 Data reviewed: vital signs, nurses notes. Data interpreted: Pulse oximetry: on room air snw is 98 %. Interpretation: normal. Counseling: I had a detailed discussion with the patient and/or guardian regarding: the historical points, exam findings, and any diagnostic results supporting the discharge/admit diagnosis, lab results, radiology results, the need for further work-up and treatment in the hospital. Physician consultation: Paolo Montgomery MD was called at 19:03, was contacted at 19:03, regarding admission, to the telemetry unit. 19:08 ED course: chest x-ray relatively unchanged from 09/08. No further thoracentesis. No snw markers for sepsis noted. Dr. Montgomery contacted for admission. Request CT of chest without contrast. Will start rocephin post blood cultures x 2 and sputum culture.. 12/16 17: Order name: Basic Metabolic Panel; Complete Time: 18:58 snw 12/16 17: Order name: CBC with Diff; Complete Time: 20:47 snw 12/16 17:29 Order name: D-Dimer; Complete Time: 18:49 snw 12/16 17:29 Order name: Magnesium; Complete Time: 18:58 snw 12/16 17:29 Order name: Troponin HS; Complete Time: 18:58 snw 12/16 17:29 Order name: Flu; Complete Time: 18:49 snw 12/16 17:29 Order name: XRAY Chest (1 view); Complete Time: 19:41 snw 12/16 17:29 Order name: SARS-COV-2 RT PCR (Document "Date of Onset" if Symptomatic); Complete Time: snw 18:49 12/16 18:02 Order name: Urine Culture snw 12/16 18:02 Order name: Urine Microscopic Only snw 12/16 19:02 Order name: Blood Culture Adult (2) w 12/16 19:02 Order name: Sputum Culture snw 12/16 20:43 Order name: CBC Smear Scan; Complete Time: 20:47 EDMS 12/16 17:29 Order name: EKG; Complete Time: 17:30 snw 12/16 17:29 Order name: Cardiac monitoring; Complete Time: 17:59 snw 12/16 17:29 Order name: EKG - Nurse/Tech; Complete Time: 18:08 snw 12/16 17:29 Order name: IV Saline Lock; Complete Time: 17:59 snw 12/16 17:29 Order name: Labs collected and sent; Complete Time: 17:59 snw 12/16 17:29 Order name: O2 Per Protocol; Complete Time: 17:59 snw 12/16 17:29 Order name: O2 Sat Monitoring; Complete Time: 17:59 snw 12/16 19:06 Order name: Thorax Wo Con; Complete Time: 20:33 EDMS EC:09 Rate is 101 beats/min. Rhythm is regular. SC interval is prolonged. QRS interval is snw normal. QT interval is normal. No Q waves. Clinical impression: NSR w/ Non-specific ST/T Changes. Administered Medications: No medications were administered Disposition Summary: 12/16/21 19:04 Hospitalization Ordered Hospitalization Status: Inpatient Admission snw Provider: Paolo Montgomery snw Condition: Fair snw Problem: an acute exacerbation snw Symptoms: have worsened snw Bed/Room Type: Standard snw Location: Telemetry/MedSurg (Inpatient)(12/16/21 20:15) mw Room Assignment: 201(12/16/21 20:15) mw Diagnosis - Fever, unspecified snw - Dyspnea, unspecified snw Forms: - Medication Reconciliation Form snw - SBAR form snw Addendum: 12/19/2021 00:00 Co-signature as Attending Physician, Reggie Canales MD I was immediately available on-site r n in the Emergency Department for consultation in the care of the patient.. Signatures: Dispatcher [employer] EDRadha Madrigal RN Bekah Alex RN Cherelle Escalante, PRESSURE VESSEL INSPECTOR-C PRESSURE VESSEL INSPECTOR-Csnw Reggie Canales MD MD rn Calderon, Audri RN RN aa5 Corrections: (The following items were deleted from the chart) 12/16 19:08 19:04 Telemetry/MedSurg (Inpatient) snw mw 19:08 19:04 snw mw 20:15 19:08 [facility] ER HOLD mw mw 20:15 19:08 ERHOLD- mw mw
--- NOTE | 2021-12-16 19:20 | RAD REPORT ---
EXAM DESCRIPTION: RAD - Chest Single View - 12/16/2021 6:27 pm CLINICAL HISTORY: CONGESTION COMPARISON: Single-view chest 08/19/2021, CT chest 08/19/2021 TECHNIQUE: AP portable chest image was obtained 12/16/2021 6:27 pm . FINDINGS: Large left pleural effusion is present substantially increased from the August 19 imaging. C hronic interstitial opacification is present. Left side of the heart is obscured by the pleural effus ion. Vasculature is mildly prominent. Right-sided dialysis catheter is in place. No consolidation of the right lung field. No right-sided pleural effusion and no pneumothorax is present. No acute bony a bnormality seen. No acute aortic findings suspected. IMPRESSION: Large left pleural effusion substantially increased from August 19 imaging.
[2021-12-16] MEDS ORDERED: ACETAMINOPHEN 500 MG TAB PO PRN (19:29)
[2021-12-16] MEDS ORDERED: IPRATROPIUM BROM 0.5MG/2.5ML NEB PRN (19:29)
[2021-12-16] MEDS ORDERED: ALBUTEROL 2.5 MG/3 ML NEB SOL NEB PRN (19:29)
--- NOTE | 2021-12-16 20:30 | RAD REPORT ---
EXAM DESCRIPTION: CT - Thorax Con - 12/16/2021 7:45 pm CLINICAL HISTORY: Cough, persistent COMPARISON: Thorax Wo Con dated 08/19/2021 TECHNIQUE: Axial 5 mm thick images of the chest were obtained without IV contrast. All CT scans are performed using dose optimization technique as appropriate and may include automated exposure control or mA/KV adjustment according to patient size. FINDINGS: Right lung field is clear. Left upper lobe is clear. There is a large left pleural effusio n occupying approximately 50% of the left hemithorax. There is complete atelectasis of the left lower lobe. An obstructive mass is not suspected. Endobronchial lesion is not confirmed. No right-sided pl eural effusion or pleural thickening. No pneumothorax. No abnormal mediastinal or hilar masses or lymphadenopathy seen. No gross aortic or pulmonary artery finding suspected. Assessment is limited in the absence of IV contrast. No chest wall mass or abnormal axillary lymphadenopathy. Limited upper abdomen imaging shows nodular liver capsule contour suspicious for cirrhosis or other d iffuse hepatic parenchymal disease process. Splenomegaly is present. Ascites is present but not fully evaluated. IMPRESSION: Large left pleural effusion occupying 50% level left hemithorax. There is complete left lower lobe atelectasis. No obstructing hilar mass suspected. Right lung field is clear. Partially imaged abdomen shows cirrhosis or diffuse hepatic parenchymal changes with ascites.
[2021-12-16 20:42] LABS: White Blood Cell Scan OK (OK)
[2021-12-16 20:43] LABS: Blood Morphology Comment NOT SEEN (NOT SEEN); Platelet Estimate DECR
[2021-12-16] MEDS: CEFTRIAXONE 1,000 MG in NA CHLORIDE 0.9% 50 ML IVPB SCH (21:53)
[2021-12-17 03:10] VITALS: BMI 26.9
[2021-12-17 05:58] LABS: Absolute Lymphocytes (CBC) 0.5 K/uL (0.7-4.9); Hematocrit 27.2 % (36.0-45.0); Lymphocytes % 15.4 % (15.3-44.8); MCV 91.6 fL (80-100); MPV 7.3 fL (7.6-11.3); RBC Red Blood Cell Count 2.97 M/uL (3.86-4.86)
[2021-12-17 06:14] LABS: Potassium 3.7 mmol/L (3.5-5.1)
[2021-12-17] MEDS: CEFTRIAXONE 1,000 MG in NA CHLORIDE 0.9% 50 ML IVPB SCH ×2 (07:54→21:51)
--- NOTE | 2021-12-17 08:14 | EKG ---
Test Date: 2021-12-16 Test Time: 18:08:36 Modeler: MB MEASUREMENT RESULTS: Intervals: Rate: 101 ND: 198 QRSD: 82 QT: 366 QTc: 474 [place]: P: 56 ND: 198 QRS: 20 T: 48 INTERPRETIVE STATEMENTS: Sinus tachycardia Right atrial enlargement Cannot rule out Anterior infarct, age undetermined Abnormal ECG Compared to ECG 08/13/2021 22:56:55 Myocardial infarct finding now present Sinus rhythm no longer present Ventricular premature complex(es) no longer present First degree AV block no longer present Electronically Signed On 12-17-21 08:12:03 CDT by Benjamin Bravo
[2021-12-17 10:54] LABS: Protime INR 1.2
--- NOTE | 2021-12-17 10:56 | RAD REPORT ---
EXAM DESCRIPTION: NM - Vent Perfusion VQ Scan - 12/17/2021 10:11 am CLINICAL HISTORY: Shortness of breath COMPARISON: Chest x-ray December 16, 2021 TECHNIQUE: 21.7 Mci Xe133 was administered by inhalation. First breath, equilibrium, and washout images of the lungs obtained 6.6 millicuries Technetium-99 MAA was administered intravenously. Anterior, posterior, lateral and ob lique views of the lungs were taken. FINDINGS: Marked diminished radiotracer activity within the left lung secondary to the patient's kno wn pleural effusion. Right lung demonstrates relatively homogeneous radiotracer activity. No mismatched segmental or lobar perfusion defects are seen. IMPRESSION: No evidence of a pulmonary embolus
--- NOTE | 2021-12-17 12:00 | P.CNS ---
Date of Consult: 12/17/21 Reason for Consult: Pleural effusion Chief Complaint: Nausea History of Present Illness: Patient is 86 years of age on hemodialysis became sick after hemodialysis started vomiting was able to finish her dialysis is started complaining some fever nasal congestion for the past 2-week. To the hospital denies any shortness of breath or chest pain was found to have a moderate left-sided pleural effusion Allergies blood thinner Allergy (Mild, Uncoded 06/16/19 21:12) swelling blood thinners Allergy (Uncoded 06/16/19 21:12) Unknown Avvsxaw-Iol-Iqu Redu Allergy (Uncoded 06/16/19 21:12) Unknown Home Medications: Glimepiride [Amaryl] 4 mg PO BID 06/19/17 Pravastatin Sodium 10 mg PO BEDTIME 06/19/17 carvediloL [Coreg*] 6.25 mg PO BID 06/19/17 Allopurinol 100 mg PO DAILY 06/16/19 Linagliptin [Tradjenta] 1 tab PO DAILY 06/16/19 Montelukast Sodium 10 mg PO DAILY 10/20/20 Ubidecarenone [Co Q-10] 200 mg PO DAILY 10/20/20 Vit C/[place] AC/Lut/Copper/Znox [Preservision Lutein Softgel] 2 each PO BID 0 10/20/20 Cholecalciferol (Vitamin D3) [Vitamin D3] 5,000 unit PO DAILY #30 10/21/20 Aspirin [Vazalore] 81 mg PO ONCE 08/14/21 Cyanocobalamin (Vitamin B-12) [Vitamin B12] 1,000 mcg PO DAILY 08/14/21 Linagliptin [Tradjenta] 5 mg PO ONCE 08/14/21 levoFLOXacin [Levaquin*] 750 mg PO Q48H #3 tab 08/19/21 - Past Medical/Surgical History Diabetic: Yes -: DM -: HTN -: Hyperlipidemia -: CVA 2014 -: Gastric Ulcer -: Chronic renal failure -: Diastolic heart failure -: COVID infection October 2020 -: dilaysis MWF -: Full Hysterectomy -: R upper chest dialysis cath - Family History Mother Medical History: Diabetes - Social History Alcohol use: No CD- Drugs: No Caffeine use: No Place of Residence: Home Review of Systems General: Weakness Gastrointestinal: Nausea Physical Examination Temp Pulse Resp BP Pulse Ox 98.4 F 92 H 20 126/59 L 99 12/17/21 08:00 12/17/21 08:00 12/17/21 08:00 12/17/21 08:00 12/17/21 08:00 General: Alert, In no apparent distress, Oriented x3 Neck: Supple Respiratory: Clear to auscultation bilaterally, Diminished (The left base) Cardiovascular: No edema, Regular rate/rhythm Gastrointestinal: Normal bowel sounds, Soft and benign Laboratory Data (last 24 hrs) 12/16/21 17:52: WBC 4.20 L, Hgb 10.1 L, Hct 31.2 L, Plt Count 89 L 12/16/21 17:52: Sodium 135 L, Potassium 3.8, BUN 33 H, Creatinine 2.50 H, Glucose 186 H, Magnesium 2.0 - Problems (1) Pleural effusion Current Visit: Yes Status: Acute Plan: Patient is 86 years of age with a history of renal failure hemodialysis admitted with nausea she has a moderate left-sided pleural effusion pleural effusion is new was not present in August 2021 patient has pancytopenia agree with thoracentesis John's have been ordered oxygenation blood pressure stable mild fever since admission possible discharge tomorrow
[2021-12-17] MEDS ORDERED: IPRATROPIUM BROM 0.5MG/2.5ML NEB PRN (15:00)
[2021-12-17] MEDS ORDERED: ALBUTEROL 2.5 MG/3 ML NEB SOL NEB PRN (15:00)
[2021-12-17] MEDS ORDERED: SIMETHICONE 125 MG TAB PO PRN (20:16)
--- NOTE | 2021-12-17 20:34 | P.HP ---
Certification for Inpatient Patient admitted to: Inpatient With expected LOS: >2 Midnights Practitioner: I am a practitioner with admitting privileges, knowledge of patient current condition, hospital course, and medical plan of care. Services: Services provided to patient in accordance with Admission requirements found in Title 42 Section 412.3 of the Code of Federal Regulations Patient History Date of Service: 12/17/21 Reason for admission: NAUSEA, FEVER History of Present Illness: KAYLAN IS A DM PATIENT WITH CKD5 ON HD. AFTER HD SHE GOT NASUEAOUS ANDHAD LOW GRADE FEVER. I ASKED SPECIFICATIONS WRITER TO DO CT SCAN THAT REVEALED LARGE EFFUSION ON L SIDE AGAIN. Allergies blood thinner Allergy (Mild, Uncoded 06/16/19 21:12) swelling blood thinners Allergy (Uncoded 06/16/19 21:12) Unknown Hyxofqh-Kue-Hov Redu Allergy (Uncoded 06/16/19 21:12) Unknown Home medications list reviewed: Yes Home Medications: Pravastatin Sodium 10 mg PO BEDTIME 06/19/17 carvediloL [Coreg*] 6.25 mg PO BID 06/19/17 Cholecalciferol (Vitamin D3) [Vitamin D3] 5,000 unit PO DAILY #30 10/21/20 Aspirin [Vazalore] 81 mg PO ONCE 08/14/21 Cetirizine HCl 1 tab PO DAILY 12/17/21 Cyanocobalamin (Vitamin B-12) [Vitamin B12] 1 tab PO DAILY 12/17/21 Ezetimibe 1 tab PO DAILY 12/17/21 Fluticasone Propionate [Flonase Allergy Relief] 1 appl SHANNON BID 12/17/21 Insulin Aspart [Novolog Flexpen] 7 units SQ SEECOM 12/17/21 Insulin Detemir [Levemir Flextouch] 15 units SQ DAILY AT SUPPER 12/17/21 Melatonin 1 tab PO BEDTIME 12/17/21 Pantoprazole [Protonix Tab*] 1 tab PO SEECOM 12/17/21 Simethicone [Gas-X] 1 tab PO DAILY PRN 12/17/21 Vit A/Vit C/Vit E/Zinc/Copper [Preservision Areds Softgel] 2 cap PO DAILY 12/17/21 - Past Medical/Surgical History Has patient received pneumonia vaccine in the past: Yes Diabetic: Yes -: DM -: HTN -: Hyperlipidemia -: CVA 2014 -: Gastric Ulcer -: Chronic renal failure -: Diastolic heart failure -: COVID infection October 2020 -: dilaysis MWF -: Full Hysterectomy -: R upper chest dialysis cath - Family History Mother -: Diabetes - Social History Smoking Status: Never smoker Alcohol use: No CD- Drugs: No Caffeine use: No Place of Residence: Home Review of Systems 10-point ROS is otherwise unremarkable General: Weakness Physical Examination - Vital Signs Temperature: 97.8 F Blood Pressure: 105/61 Pulse: 77 Respirations: 16 Pulse Ox (%): 99 - Physical Exam General: Oriented x3, Mild distress HEENT: Atraumatic, PERRLA, Mucous membr. moist/pink, EOMI, Sclerae nonicteric Neck: Supple, 2+ carotid pulse no bruit, No LAD, Without JVD or thyroid abnormality Respiratory: Diminished (L SIDE LOWER HALF.) Cardiovascular: Regular rate/rhythm, Normal S1 S2 Gastrointestinal: Normal bowel sounds, No tenderness Musculoskeletal: No tenderness Integumentary: No rashes Neurological: Normal gait, Normal speech, Normal strength at 5/5 x4 extr, Normal tone, Normal affect Lymphatics: No axilla or inguinal lymphadenopathy - Studies Laboratory Data (last 24 hrs) 12/16/21 17:52: WBC 4.20 L, Hgb 10.1 L, Hct 31.2 L, Plt Count 89 L Microbiology Data (last 24 hrs): 12/16/21 17:37 Nasopharnyx Influenza Type A Antigen Screen - Final 12/16/21 17:37 Nasopharnyx Influenza Type B Antigen Screen - Final Assessment and Plan - Problems (Diagnosis) (1) 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 PLEURAL TAP IN AM. (3) Pleural effusion Current Visit: Yes Status: Acute (4) Secondary thrombocytopenia Current Visit: Yes Status: Chronic Plan: UNCLEAR ETIOLOGY IT MAY BE FROM MDS. BASELINE IS ABOUT 90K. WILL REDO LAB AFTER SEPSIS IMPROVES. - Advance Directives Does patient have a Living Will: Yes Does patient have a Durable POA for Healthcare: Yes
[2021-12-17] MEDS ORDERED: MELATONIN 3 MG TABLET PO SCH (21:00)
[2021-12-17] MEDS: carvediloL 6.25 MG TAB PO SCH (21:00)
[2021-12-17] MEDS ORDERED: HOME MED 1 EA UNK (Fluticasone Propionate [Flonase Allergy Relief] 9.9 ML Spray.Susp) NAS SCH (21:00)
[2021-12-18 06:06] LABS: Potassium 3.8 mmol/L (3.5-5.1)
[2021-12-18 06:19] LABS: Absolute Lymphocytes (CBC) 0.5 K/uL (0.7-4.9); Hematocrit 24.3 % (36.0-45.0); MCV 91.4 fL (80-100); RBC Red Blood Cell Count 2.66 M/uL (3.86-4.86)
[2021-12-18] MEDS ORDERED: PANTOPRAZOLE 40MG TABLET PO SCH (07:30)
[2021-12-18] MEDS ORDERED: NA CHLORIDE 0.9% 250 ML ONE (08:17)
[2021-12-18] MEDS ORDERED: EZETIMIBE 10 MG TAB PO SCH (09:00)
[2021-12-18] MEDS ORDERED: VITAMIN D 5,000 UNIT CAP PO SCH (09:00)
[2021-12-18] MEDS: CEFTRIAXONE 1,000 MG in NA CHLORIDE 0.9% 50 ML IVPB SCH (09:00)
[2021-12-18] MEDS: carvediloL 6.25 MG TAB PO SCH (09:00)
[2021-12-18] MEDS ORDERED: EPOETIN ALFA 10,000 UNIT/ML VIAL IV SCH (11:30)
[2021-12-18] MEDS: INSULIN LISPRO 100 UNIT/1 ML SQ SCH ×2 (11:43→17:00)
--- NOTE | 2021-12-18 12:21 | CON ---
Date of Consultation: 12/18/2021 Reason For Consultation: Over volume, end-stage renal disease, elevation in BUN and creatinine. History Of Present Illness: This is a pleasant 86-year-old female, well known to me from dialysis with significant past medical history of hypertension, cirrhosis, hyperlipidemia, chronic kidney disease, end-stage renal disease, on hemodialysis, the patient came to the hospital because of shortness of breath, found to have pleural effusion. The patient is scheduled for thoracocentesis. The patient's last dialysis was Thursday. The patient found to have elevation in BUN and creatinine. For that reason, we have been consulted with hyponatremia. Past Medical History: Includes; 1. Hypertension. 2. Cirrhosis. 3. Hyperlipidemia. 4. End-stage renal disease. 5. Edema. Allergies: NO KNOWN DRUG ALLERGIES. Social History: Denied smoking. Denied drinking. Denied drugs abuse. Family History: Positive for hypertension. Home Medications: Include pravastatin, carvedilol, cholecalciferol, cetirizine, breathing treatment, insulin, pantoprazole, multivitamin. Review of Systems: Head and Neck: No red eye. No ear pain. GI: No nausea. No vomiting. : No polyuria. No dysuria. No hematuria. Supervisor Shuttle Preparation: No vaginal discharge. Respiratory: Has shortness breath. Cardiovascular: Has leg swelling. Endocrine: No polydipsia. Skin: No rash. Neuro: Generalized weakness. Musculoskeletal: Low back pain. Medications: Current medications in the hospital include ceftriaxone, atorvastatin, carvedilol 6.25 b.i.d., Zetia, ipratropium, pantoprazole, simethicone. Physical Examination: Vital Signs: When I saw the patient; blood pressure 129/58, pulse of 79, afebrile. Chest: Decreased entry on the left base. Heart: S1, S2. Systolic murmur. Abdomen: Soft, nontender. Ascites. Extremity: Plus edema. Neuro: Alert, oriented x3. No focal. Laboratory Data: Sodium 135, potassium 3.8, bicarb 27, BUN 60, creatinine 3.6, calcium 8.2. WBC 2.7, H and H 8.1/24.3. Current Medications: The patient on include; 1. Ceftriaxone. 2. Atorvastatin. 3. Carvedilol. 4. Zetia. 5. Breathing treatment. 6. Pantoprazole. 7. Simethicone. 8. Melatonin. 9. Cholecalciferol. Assessment And Plan: 1. End-stage renal disease, over volume. We will arrange for the dialysis today. The patient is Thursday, Thursday, Thursday. We will challenge the patient. 2. Respiratory failure, multifactorial, secondary to over volume/pleural effusion. We will follow up after the pleural effusion. We will challenge the patient on the dialysis. 3. Hyponatremia, dilutional, secondary to renal failure and cirrhosis. We will continue to monitor the patient. The patient is going to be corrected with dialysis. 4. Anemia of chronic kidney disease. Resume ELROY. 5. Secondary hyperparathyroidism, stable. 6. Hypokalemia. The patient is going to be dialyzed on high potassium bath. Time spent examining the patient [id number], reviewing the data lab and radiology, placing orders, discussing with the patient, explaining risks, benefits, alternatives, discussing with the staff member including nursing discussing with the hospitalist more than 65 minutes. MARCIO Voice ID: [id number] Report ID: [id number] MTDD
--- NOTE | 2021-12-18 12:26 | RAD REPORT ---
EXAM DESCRIPTION: US - Thoracentesis w/ US Guide - 12/18/2021 11:09 am CLINICAL HISTORY: Pleural effusion. pleural effusion COMPARISON: Vent Perfusion VQ Scan dated 12/17/2021 FINDINGS: Preoperative diagnosis: Left pleural effusion Post operative diagnosis: Same Conscious Sedation: None. Estimated blood loss: Minimal Specimens:A small volume of fluid was sent for requested lab studies. The patient was placed in the upright recumbent position and the left posterior chest was prepped and draped in the usual sterile fashion. 1% Lidocaine was infiltrated into the soft tissues for local a nesthesia. Under sonographic guidance, a thoracentesis needle and 6 Welsh catheter was advanced int o the left pleural space. Approximately 1.5 liters of yellow slightly cloudy fluid was aspirated. Jorden ples were sent to pathology for requested analysis. The patient tolerated the procedure without immed iate complication and transferred to the floor in stable condition. IMPRESSION: Successful ultrasound-guided thoracentesis as detailed.
--- NOTE | 2021-12-18 12:28 | RAD REPORT ---
EXAM DESCRIPTION: RAD - Chest Single View - 12/18/2021 12:04 pm CLINICAL HISTORY: Status Post Thorocentesis 12/18 Chest pain. COMPARISON: Chest Single View dated 12/16/2021; Chest Single View dated 08/19/2021; Chest Single View d ated 08/19/2021; Chest Single View dated 08/13/2021 FINDINGS: Portable technique limits examination quality. Significant reduction is seen in the left pleural effusion. No pneumothorax. The heart is normal in s ize. Right-sided venous catheter is unchanged. IMPRESSION: No postprocedure pneumothorax.
[2021-12-18] MEDS ORDERED: ASPIRIN EC 81 MG TAB PO SCH (14:00)
[2021-12-18 16:03] LABS: Body Fluid Source PLEURAL
[2021-12-18 16:04] LABS: Appearance TURBID (CLEAR); Color of fluid Orange (COLORLESS)
[2021-12-18] MEDS ORDERED: INSULIN GLARGINE 100 UNIT/ML SQ SCH (17:00)
[2021-12-18 17:11] LABS: Body Fluid WBC 105 /mm^3
[2021-12-18 18:45] VITALS: O2SAT 98
[2021-12-18 19:39] VITALS: BP 114/58; TEMP 97.8
--- NOTE | 2021-12-18 20:57 | P.DS ---
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 AFTER HD SHE GOT NASUEAOUS ANDHAD LOW GRADE FEVER. I ASKED IMPORT DISPATCHER TO DO CT SCAN THAT REVEALED LARGE EFFUSION ON L SIDE AGAIN. Hospital Course: MS LEIGH HAS HISTORY OF CKD ON HD. SHE COMES WITH LOW GRADE FEVER AND NAUSEA. I ASKED HER TO COME TO ER. SHE HAD LARGE PLEURAL EFFUSION THAT IS DRAINED AND 1.5 LT OF FLUID WAS TAKEN OUT. SHE HAD ONE DAY OF HD TODAY. SHE IS STABLE ON ORAL ANTIBIOTICS FOR POSSIBEL PNEUMONIA. I DON'T SEE ANY OTHER SOURCE OF FEVER. SHE HAS PANCYTOPENIA POSSIBLE FROM [facility]. SHE WILL GO TO [facility] ON OUTPATIENT BASIS. UNFORTUNATELY DR. SEGAL IS ALONE HERE AND IS BUSY WITH ONCOLOGY PATIENTS. SHE MAY HAVE TO GO TO [facility] IN THIS CASE. SHE IS STABLE FOR DISCHARGE WITH ORAL MEDS. Vital Signs/Physical Exam: Temp Pulse Resp BP Pulse Ox 97.8 F 84 19 114/58 L 100 12/18/21 19:38 12/18/21 19:38 12/18/21 19:38 12/18/21 19:38 12/18/21 19:38 Laboratory Data at Discharge: WBC Cancelled 12/18/21 11:05 Hgb Cancelled 12/18/21 11:05 Hct Cancelled 12/18/21 11:05 Plt Count Cancelled 12/18/21 11:05 PT 13.2 SECONDS (9.5-12.5) H 12/17/21 10:20 INR 1.20 12/17/21 10:20 APTT 29.0 SECONDS (24.3-36.9) 12/17/21 10:20 Sodium 135 mmol/L (136-145) L 12/18/21 05:41 Potassium 3.8 mmol/L (3.5-5.1) 12/18/21 05:41 BUN 60 mg/dL (7-18) H 12/18/21 05:41 Creatinine 3.60 mg/dL (0.55-1.3) H 12/18/21 05:41 Glucose 216 mg/dL (74-106) H 12/18/21 05:41 Magnesium 2.0 mg/dL (1.8-2.4) 12/16/21 17:52 Cholesterol 84 mg/dL (<200) 12/17/21 20:28 Home Medications: Pravastatin Sodium 10 mg PO BEDTIME 06/19/17 carvediloL [Coreg*] 6.25 mg PO BID 06/19/17 Cholecalciferol (Vitamin D3) [Vitamin D3] 5,000 unit PO DAILY #30 10/21/20 Aspirin [[place]] 81 mg PO DAILY 08/14/21 Cetirizine HCl 1 tab PO DAILY 12/17/21 Cyanocobalamin (Vitamin B-12) [Vitamin B12] 1 tab PO DAILY 12/17/21 Ezetimibe 1 tab PO DAILY 12/17/21 Fluticasone Propionate [Flonase Allergy Relief] 1 appl SHANNON BID 12/17/21 Insulin Aspart [Novolog Flexpen] 7 units SQ SEECOM 12/17/21 Insulin Detemir [Levemir Flextouch] 15 units SQ DAILY AT SUPPER 12/17/21 Melatonin 1 tab PO BEDTIME 12/17/21 Pantoprazole [Protonix Tab*] 1 tab PO SEECOM 12/17/21 Simethicone [Gas-X] 1 tab PO DAILY PRN 12/17/21 Vit A/Vit C/Vit E/Zinc/Copper [Preservision Areds Softgel] 2 cap PO DAILY 12/17/21 levoFLOXacin [Levaquin*] 250 mg PO DAILY #5 tab 12/18/21 New Medications: levoFLOXacin [Levaquin*] 250 mg PO DAILY #5 tab Followup: Nick Roberts MD [ACTIVE - CAN ADMIT] - Paolo Montgomery MD [Primary Care Provider] -
[2021-12-18] MEDS ORDERED: ATORVASTATIN 10 MG TAB PO SCH (21:00)
[2021-12-19] MEDS ORDERED: CYANOCOBALAMIN 1,000 MCG TAB PO SCH (09:00)
[2021-12-22 18:48] LABS: LD, PLEURAL FLUID 91 U/L; TOTAL PROTEIN, PLEURAL FLUID <3.0 g/dL
== END 2021-12-18 19:50 | disposition home health service (06) | DRG 871 ==
LOC: ER 17:23 → ERHOLD 19:19 → 2ND 21:03
PROVIDERS: ADMIT Internal Medicine; ATTEND Internal Medicine
PROC: 5A1D70Z Performance of Urinary Filtration, Intermittent, Less than 6 Hours Per Day (ICD-10-PCS; principal; 2021-12-18)
PROC: 30233R1 Transfusion of Nonautologous Platelets into Peripheral Vein, Percutaneous Approach (ICD-10-PCS; 2021-12-18)
PROC: 0W9B3ZZ Drainage of Left Pleural Cavity, Percutaneous Approach (ICD-10-PCS; 2021-12-18)
DX: A41.9 Sepsis, unspecified organism (principal); J15.9 Unspecified bacterial pneumonia; N18.6 End stage renal disease; J96.90 Respiratory failure, unspecified, unspecified whether with hypoxia or hypercapnia; I50.32 Chronic diastolic (congestive) heart failure; I13.2 Hypertensive heart and chronic kidney disease with heart failure and with stage 5 chronic kidney disease, or end stage renal disease; D61.818 Other pancytopenia; E87.1 Hypo-osmolality and hyponatremia; N25.81 Secondary hyperparathyroidism of renal origin; E11.22 Type 2 diabetes mellitus with diabetic chronic kidney disease; D63.8 Anemia in other chronic diseases classified elsewhere; E78.5 Hyperlipidemia, unspecified; E87.6 Hypokalemia; K74.60 Unspecified cirrhosis of liver; D69.59 Other secondary thrombocytopenia; D46.9 Myelodysplastic syndrome, unspecified; Z79.4 Long term (current) use of insulin; Z88.1 Allergy status to other antibiotic agents; Z99.2 Dependence on renal dialysis; Z88.8 Allergy status to other drugs, medicaments and biological substances; Z91.09 Other allergy status, other than to drugs and biological substances; Z79.82 Long term (current) use of aspirin; Z86.16 Personal history of COVID-19; Z79.84 Long term (current) use of oral hypoglycemic drugs; Z79.899 Other long term (current) drug therapy; Z86.73 Personal history of transient ischemic attack (TIA), and cerebral infarction without residual deficits; Z90.710 Acquired absence of both cervix and uterus; Z95.828 Presence of other vascular implants and grafts; Z20.822 Contact with and (suspected) exposure to COVID-19
CPT/HCPCS: 32555; 36415; 71045; 71250; 78582; 80048; 82465; 82945; 82947; 83615; 83735; 83880; 84157; 84484; 85025; 85379; 85610; 85730; 86850; 86900; 86901; 87015; 87040; 87070; 87102; 87116; 87205; 87206; 87804; 88108; 88305; 89050; 90935; 93005; 94760; 99285; A9540; A9558; J1644; J7050; P9073; U0003

== ENCOUNTER 2021-12-23 10:56 | Inpatient (IN) | payer OTHER ==
--- OUTSIDE RECORDS SUMMARY | 2021-12-23 11:00 | XMS REPORT | Continuity of Care Document ---
:1935 Author Organization [facility] t Address [address] [place] [address] Care Team Providers Name Role Phone Antoinette Romero Anavella Attending Clinician Unava ilable Carisa Alejandra V Attending Clinician Unavailable IFEOMA_BAHC_Rajesh_Monster Attending Clinician Unavailable FELY SARMIENTO Attending Clinician Unavailable Eleuterio Romero Anav Admitting Clinician Unavailable Paolo Montgomery V Admitting Clinician Unavailable Carisa Alejandra V Admitting Clinician Unavailable IFEOMA_BAHC_Todd_Monster Admitting Clinician Unavailable PETROS HARRIS Admitting Clinician Unavailable Payers Payer Name Policy Type Policy Number Effective Date Expiration Date S nate FORMERLY [facility] [id number] AET AET [id number] MEDICARE [place]: [id number] 1998 [employer] 00:00:00 Problems Condition Condition Condition Status Onset Resolution Last Treating Co mments Source Name Details Category Date Date Treatment Clinician Date Acute on Acute on Finding Active 2017-2017-06-22 Memoria chronic chronic 3- 19:36:50 l congestive congestive 00:00: He rmann heart heart 00 failure failure Active 06/19/2017 [facility] [place] [facility] on Acute on Problem 2020-10-21 Memoria chronic chronic 19:18:00 l congestive congestive He rmann heart heart failure failure Problem 10/21/[address] [facility] [place] Elevated Elevated Problem 2020-10-21 Memoria procalcito procalcito 19:18:00 l sally sally [place] Problem 10/21/[address] [facility] [place] Acute on Acute on Problem 2020-10-21 Memoria chronic chronic 19:18:00 l renal renal [place] insufficie insufficie ncy ncy Problem 10/21/[address] [facility] [place] Pneumonia Pneumonia Problem 2020-10-21 Memoria Problem 19:18:00 l 10/21/[address] [facility] [place] Acute on Acute on Condition 2019-06-18 Memoria chronic chronic 17:37:00 l heart heart [place] failure failure Condition 06/18/[address] [facility] [place] Stage 3 Stage 3 Problem 2020-10-21 M emoria chronic chronic 19:18:00 l kidney kidney [place] disease disease Problem 10/21/[address] [facility] [place] Pancytopen Pancytope Problem 2020-10-21 Memoria ia landry 19:18:00 l Problem [place] 10/21/[address] [facility] [place] Elevated Elevated Problem 2020-10-21 Memoria troponin troponin 19:18:00 l level level [place] Problem 10/21/[address] 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 [place] Type 2 Type 2 Condition 2020-10-21 Me moria diabetes diabetes 19:18:00 l mellitus mellitus Yuniel n Condition 10/21/[address] [facility] [place] Elevated Elevated Condition 2020-10-21 Memoria troponin I troponin I 19:18:00 l level level [place] Condition 10/21/[address] [facility] [place] Acquired Acquired Condition 2020-10-21 Memoria pancytopen pancytopen 19:18:00 l ia ia [place] Condition 10/21/[address] [place] Infection Infection Condition 2020-10-21 Memoria [...] Quantity Comments Source Social History 2020-10-21 2020-10-21 [facility] lupillo 19:20:00 19:20:00 Medications Ordered Filled Start [...] a min 7-04 l (Vitamin 04:47: [place] B-12) 30 (Vitamin B12) 2,500 MCG Tablet Ferrous [...] (Amaryl) 4 3-02 l MG Tablet 06:00: [place] 08 Furosemide 2018-0 Yes Memoria (Lasix*) 40 3-02 l MG Tab 06:00: [place] Multivitami 2018-0 Yes Memori a n (Multiple 3-02 l Vitamins) 06:00: [place] Tablet 08 Omeprazole 2018-0 Yes Memoria (Prilosec) 3-02 l 40 MG 06:00: [place] Capsule. 08 Pravastatin 2018-0 Yes Memori a Sodium 3-02 l 06:00: [place] 08 Ezetimibe 2018-0 Yes Memoria (Zetia*) 10 3-02 l MG Tab 06:00: [place] Aspirin 2018-0 Yes Memoria 3-02 l 06:00: [...] DAILY Memor ia n 3-02 l 00:00: [place] 00 Omeprazole 2018-0 Yes DAILY Memori a 3-02 l 00:00: [place] 00 Pravastatin 2018-0 Yes AT BEDTIME Memoria Sodium 3-02 l 00:00: [place] 00 Ezetimibe 2018-0 Yes DAILY Memoria 3-02 l 00:00: [place] 00 Vital Signs Vital Name Observation Time Observation Value Comments Source Temperature Oral (F) 2020-10-21 17:00:00 98.4 F [facility] [place] Heart Rate 2020-10-21 17:00:00 [facility] [place] Respitory Rate 2020-10-21 17:00:00 Memori al [place] Systolic (mm Hg) 2020-10-21 17:00:00 Thompson rial [place] Diastolic (mm Hg) 2020-10-21 17:00:00 Mem orial [place] Height 2020-10-21 10:00:00 [facility] [place] Weight 2020-10-21 10:00:00 [facility] [place] Heart Rate 2019-06-18 14:14:00 [facility] [place] Systolic (mm Hg) 2019-06-18 14:14:00 Thompson rial [place] Diastolic (mm Hg) 2019-06-18 14:14:00 Mem orial [place] Temperature Oral (F) 2019-06-18 13:49:00 98.2 F [facility] [place] Respitory Rate 2019-06-18 13:49:00 Memori al [place] Height 2019-06-17 14:51:00 [facility] [place] Weight 2019-06-17 14:51:00 [facility] [place] Heart Rate 2017-06-22 08:41:00 [facility] [place] Systolic (mm Hg) 2017-06-22 08:41:00 Thompson rial [place] Diastolic (mm Hg) 2017-06-22 08:41:00 Mem orial [place] Temperature Oral (F) 2017-06-22 07:45:00 97.6 F [facility] [place] Respitory Rate 2017-06-22 07:45:00 Memori al [place] Weight 2017-06-22 05:00:00 [facility] [place] Height 2017-06-19 12:23:00 [facility] [place] Procedures Procedure Date / Time Performed Performing Clinician Shari zaragoza [id number] 2021-10-21 00:00:00 E[facility] Chest Single View 2020-10-19 20:48:00 [facility] Anaerobic Blood Culture 2020-10-19 00:00:00 Thompsondaniel crespo [place] Aerobic Blood Culture 2020-10-19 00:00:00 Marta Soto Coronavirus COVID-19 PCR 2020-10-19 00:00:00 Mem orial [place] Count 2020-10-01 00:00:00 [facility] burciaga Chest Pa And Lat (2 2019-06-17 [facility] Influenza Type B Antigen 2019-06-16 00:00:00 [facility] orial [place] Screen Influenza Type A Antigen 2019-06-16 00:00:00 [facility] orifabrizio [place] Screen [place] Count 2019-06-16 00:00:00 [facility] Her burciaga [id number] 2017-06-18 00:00:00 [facility] Her burciaga [place] Count 2017-06-18 00:00:00 [facility] Her burciaga Plan of Care Planned Activity Planned Date Details Comments Source Future Scheduled Test Instructions Creatinine [facility] [place] Congestive Heart Failure [code = Instructions Creatinine Congestive Heart Failure] Future Scheduled Test Instructions [facility] [code = Instructions Creatinine Congestive Heart Failure] Encounters Start End Encounter Admission Attending Care Care Encounter Source Date/Time Date/Time Type Type Clinicians Facility Department ID 2021-10-17 2021-10-29 Inpatient 3 [facility] ENCPL CVA [id number] ENCPL 17:30:00 18:40:00 marck TomasElsa Curry 2021-10-29 2021-10-29 [id number] [facility] 12:05:00 12:05:00 Aarti Nichols [facility] 2021-09-19 2021-09-19 Outpatient GC_[facility]_Tod PRIV PRIV [id number] [facility] 09:56:00 09:56:00 d_J [id number] Medica l 2021-09-16 2021-09-16 Outpatient GC_[facility]_Tod PRIV PRIV [id number] [facility] 04:43:00 04:43:00 dTasha [id number] Medica l 2021-09-13 2021-09-13 Outpatient GC_[facility]_Tod PRIV PRIV [id number] [facility] 11:14:00 11:14:00 dTasha [id number] Medica l 2021-09-11 2021-09-11 Outpatient [facility] PRIV PRIV [id number] [facility] 05:23:00 05:23:00 d_J [id number] Medica l 2021-09-02 2021-09-10 Inpatient Mayra SARMIENTO [facility]ACE[facility] [id number] BL 14:52:00 19:20:00 FELY 2021-08-21 2021-09-02 Inpatient 3 [facility] ENCPL CVA [id number] ENCPL 18:20:00 10:58:00 hez, 0504 Anavella 2020-10-19 2020-10-[address] [id number] Memoria 23:24:00 19:17:00 [facility] [place] INT[facility] C[facility] UN[facility] 2020-10-01 2020-10-[address] [id number] Memoria 18:23:00 18:23:00 [facility] [place] LABORATORY NON-PATIENT 2019-06-17 2019-06-[address] [id number] Memoria 02:48:00 17:37:00 [facility] [place] MED/SURG FLOOR 2019-03-22 2019-03-[address] [id number] Memoria 18:59:00 18:59:00 [facility] [place] LABORATORY NON-PATIENT 2017-06-20 2017-06-[address] [id number] Memoria 16:10:00 13:36:00 [facility] [place] Ila nn 2017-04-10 2017-04-[address] [id number] Memoria 10:18:00 16:46:00 Emergency [facility] [...] code = MDIFF) AUTO DIFFERENT IAL. RBC [id number] 15:06:00 Test Item Value Reference Range Interpretation Comments PLATELET ESTIMATE DECREASED THOUSAND ADEQUATE PLAT ELET COUNT (test code = REVIEWED AND PLTEST) VERIFIED.PLT ES T [84-105] PLATELET MORPHOLOGY NORMAL (test code = PLTMORPH) CBC W/AUTO [id number] 15:04:00 Test Item Value Reference Range Interpretation [...] code NO DIFF/SCN CRITERIA = MDIFF) RBC [id number] 15:04:00 Test Item Value Reference Range Interpretation Comments ANISOCYTOSIS (test NORMAL NONE code = ANISO) PLATELET ESTIMATE DECREASED ADEQUATE PLT EST CO UNT (test code = PLTEST) THOUSAND 36,000- 45,000 PLATELET MORPHOLOGY NORMAL (test code = PLTMORPH) BASIC METABOLIC [id number] 13:19:00 Test Item Value Reference Range Interpretation [...] CA) 8.6 MG/DL 8.5-10.1 N Absolute lymphocyte [id number] 10:01:00 Test Item Value Reference Range Interpretation Comments Absolute lymphocyte count (test code = 0.4 0.7-4.9 Absolute lymphocyte count) [facility]annAlbumin [Mass/volume] in Serum or Plasma by Bromocresol purple (BCP) dye binding [id number] 10:01:00 Test Item Value Reference Range Interpretation [...] int erpret this result as normal/abnormal . [facility] CollinsannBlkeenan erythrocytes count (number/volume)2020-10-21 10:01:00 Test Item Value Reference Range Interpretation Comments Blood erythrocytes count 3.38 3.86-4.86 (number/volume) (test code = Blood erythrocytes count (number/volume)) [facility] CollinsannBlood hematocrit (volume fraction)2020-10-21 10:01:00 Test Item Value Reference Range Interpretation Comments Blood hematocrit (volume fraction) 30.8 36.0-45.0 (test code = Blood hematocrit (volume fraction)) [facility] CollinsannBlood platelet mean [id number] 10:01:00 Test Item Value Reference Range Interpretation Comments Blood platelet mean volume (test code = 8.8 7.6-11.3 Blood platelet mean volume) [facility] HermannC reactive protein [Mass/volume] in Serum or [id number] 10:01:00 Test Item Value Reference Range Interpretation Comments C reactive protein [Mass/volume] in 16.00 Serum or Plasma (test code = C reactive protein [Mass/volume] in Serum or Plasma) [facility] HermannCalcium [Mass/volume] in Serum or [id number] 10:01:00 Test Item Value Reference Range Interpretation Comments Calcium [Mass/volume] in Serum or 7.7 8.5-10.1 Plasma (test code = Calcium [Mass/volume] in Serum or Plasma) [facility] CollinsannCarbon dioxide, total [Moles/volume] in Serum or Plasma 2020-10-21 10:01:00 Test Item Value Reference Range Interpretation Comments Carbon dioxide, total [Moles/volume] in 30 21-32 Serum or Plasma (test code = Carbon dioxide, total [Moles/volume] in Serum or Plasma) [facility]annChemistry [id number] 10:01:00 Test Item Value Reference Range Interpretation Comments Chemistry procedure (test code = 91.1 80-100 Chemistry procedure) [facility] HermannChloride [Moles/volume] in Serum or [id number] 10:01:00 Test Item Value Reference Range Interpretation Comments Chloride [Moles/volume] in Serum or 104 98-107 Plasma (test code = Chloride [Moles/volume] in Serum or Plasma) [facility]annCreatinine [Mass/volume] in Serum or [id number] 10:01:00 Test Item Value Reference Range Interpretation Comments Creatinine [Mass/volume] in Serum or 2.11 0.55-1.3 Plasma (test code = Creatinine [Mass/volume] in Serum or Plasma) [facility] HermannFerritin [Mass/volume] in Serum or [id number] 10:01:00 Test Item Value Reference Range Interpretation Comments Ferritin [Mass/volume] in Serum or 82.0 8-388 Plasma (test code = Ferritin [Mass/volume] in Serum or Plasma) [facility]annGlucose [Mass/volume] in Serum or [id number] 10:01:00 Test Item Value Reference Range Interpretation Comments Glucose [Mass/volume] in Serum or 236 74-106 Plasma (test code = Glucose [Mass/volume] in Serum or Plasma) [facility] HermannLymphocyte [id number] 10:01:00 Test Item Value Reference Range Interpretation Comments Lymphocyte percent (test code = 3.30 4.3-10.9 Lymphocyte percent) [facility]annPhosphate [Mass/volume] in Serum or [id number] 10:01:00 Test Item Value Reference Range Interpretation Comments Phosphate [Mass/volume] in Serum or 3.0 2.5-4.9 Plasma (test code = Phosphate [Mass/volume] in Serum or Plasma) [facility]annPotassium [Moles/volume] in Serum or [id number] 10:01:00 Test Item Value Reference Range Interpretation [...] [facility] HermannUrea nitrogen [Mass/volume] in Serum or [id number] 10:01:00 Test Item Value Reference Range Interpretation Comments Urea nitrogen [Mass/volume] in Serum or 69 7-18 Plasma (test code = Urea nitrogen [Mass/volume] in Serum or Plasma) [facility]annTotal cholesterol/cholesterol in HDL (percentile)2020-10-20 09:51:00 Test Item Value Reference Range Interpretation Comments Total cholesterol/cholesterol in HDL 4.25 1 (percentile) (test code = Total cholesterol/cholesterol in HDL (percentile)) [facility] HermannTriglyceride [Mass/volume] in Serum or [id number] 09:51:00 Test Item Value Reference Range Interpretation Comments Triglyceride [Mass/volume] in Serum or 91 Plasma (test code = Triglyceride [Mass/volume] in Serum or Plasma) [facility] HermannBlood anisocytosis [id number] 09:51:00 Test Item Value Reference Range Interpretation Comments Blood anisocytosis detection (test code 1+ = Blood anisocytosis detection) [facility]annBlood morphology interpretation [id number] 09:51:00 Test Item Value Reference Range Interpretation Comments Blood morphology interpretation Noted narrative (test code = Blood morphology interpretation narrative) [facility]annCholesterol in HDL [Mass/volume] in Serum or [id number] 09:51:00 Test Item Value Reference Range Interpretation Comments Cholesterol in HDL [Mass/volume] in 28 40-60 Serum or Plasma (test code = Cholesterol in HDL [Mass/volume] in Serum or Plasma) [facility] HermannCholesterol [Mass/volume] in Serum or [id number] 09:51:00 Test Item Value Reference Range Interpretation Comments Cholesterol [Mass/volume] in Serum or 119 Plasma (test code = Cholesterol [Mass/volume] in Serum or Plasma) [facility] HermannLymphocyte [id number] 09:51:00 Test Item Value Reference Range Interpretation Comments Lymphocyte percent (test code = 21 15-42 Lymphocyte percent) [facility] HermannMagnesium [Mass/volume] in Serum or [id number] 09:51:00 Test Item Value Reference Range Interpretation Comments Magnesium [Mass/volume] in Serum or 1.9 1.8-2.4 Plasma (test code = Magnesium [Mass/volume] in Serum or Plasma) [facility] HermannPlatelet [id number] 09:51:00 Test Item Value Reference Range Interpretation [...] [facility] CollinsannTroponin I.cardiac [Mass/volume] in Serum or [id number] 05:11:00 Test Item Value Reference Range Interpretation Comments Troponin I.cardiac 0.08 See_Comment [Automat ed message] The [Mass/volume] in Serum syste m which generated or Plasma (test code = this result transmitted Troponin I.cardiac reference range: <=0.045. [Mass/volume] in Serum The r eference range was or Plasma) not used to int erpret this result as normal/abnormal . [facility] [id number]-7 (COVID-19) RNA [Presence] in Respiratory specimen by OSIEL with probe [id number] 21:20:00 Test Item Value Reference Range Interpretation [...] in Serum or Plasma by With P-5'-) [facility] CollinsannAlkaline phosphatase [Enzymatic activity/volume] in Serum or [id number] 21:09:00 Test Item Value Reference Range Interpretation Comments Alkaline phosphatase [Enzymatic 71 45-117 activity/volume] in Serum or Plasma (test code = Alkaline phosphatase [Enzymatic activity/volume] in Serum or Plasma) [facility] HermannAspartate aminotransferase [Enzymatic activity/volume] in Serum or Plasma by With [id number] 21:09:00 Test Item Value Reference Range Interpretation Comments Aspartate aminotransferase [Enzymatic 36 15-37 activity/volume] in Serum or Plasma by With P-5 (test code = Aspartate aminotransferase [Enzymatic activity/volume] in Serum or Plasma by With P-5) [facility] HermannBilirubin.direct [Mass/volume] in Serum or [id number] 21:09:00 Test Item Value Reference Range Interpretation Comments Bilirubin.direct 0.3 See_Comment [Automated message] The [Mass/volume] in Serum syste m which generated or Plasma (test code = this result transmitted Bilirubin.direct reference r lynda: <=0.2. [Mass/volume] in Serum The r eference range was or Plasma) not used to int erpret this result as aubree l/abnormal. [facility] HermannBilirubin.total [Mass/volume] in Serum or [id number] 21:09:00 Test Item Value Reference Range Interpretation Comments Bilirubin.total [Mass/volume] in Serum 0.7 0.2-1.0 or Plasma (test code = Bilirubin.total [Mass/volume] in Serum or Plasma) [facility] HermannINR in Blood by Coagulation [id number] 21:09:00 Test Item Value Reference Range Interpretation Comments INR in Blood by Coagulation assay 1.28 1 (test code = INR in Blood by Coagulation assay) [facility] HermannNatriuretic peptide.B prohormone N-Terminal [Mass/volume] in Serum or [id number] 21:09:00 Test Item Value Reference Range Interpretation Comments Natriuretic peptide.B prohormone 2354 N-Terminal [Mass/volume] in Serum or Plasma (test code = Natriuretic peptide.B prohormone N-Terminal [Mass/volume] in Serum or Plasma) [facility] HermannPeripheral blood smear examination by light [id number] 21:09:00 Test Item Value Reference Range Interpretation Comments Peripheral blood smear examination by Ok light microscopy (test code = Peripheral blood smear examination by light microscopy) [facility] HermannProtein [Mass/volume] in Serum or [id number] 21:09:00 Test Item Value Reference Range Interpretation Comments Protein [Mass/volume] in Serum or 6.6 6.4-8.2 Plasma (test code = Protein [Mass/volume] in Serum or Plasma) [facility] HermannTroponin I.cardiac [Mass/volume] in Serum or [id number] 21:09:00 Test Item Value Reference Range Interpretation [...] Plasma by Bromocresol purple (BCP) dye binding [id number] 17:30:00 Test Item Value Reference Range Interpretation [...] microscopy) [facility] HermannCalcium [Mass/volume] in Serum or [id number] 17:30:00 Test Item Value Reference Range Interpretation Comments Calcium [Mass/volume] in Serum or 8.2 8.5-10.1 Plasma (test code = Calcium [Mass/volume] in Serum or Plasma) [facility] HermannCarbon dioxide, total [Moles/volume] in Serum or Plasma 2020-10-01 17:30:00 Test Item Value Reference Range Interpretation Comments Carbon dioxide, total [Moles/volume] in 32 21-32 Serum or Plasma (test code = Carbon dioxide, total [Moles/volume] in Serum or Plasma) [facility] HermannChloride [Moles/volume] in Serum or [id number] 17:30:00 Test Item Value Reference Range Interpretation Comments Chloride [Moles/volume] in Serum or 107 98-107 Plasma (test code = Chloride [Moles/volume] in Serum or Plasma) [facility] HermannCreatinine [Mass/volume] in Serum or [id number] 17:30:00 Test Item Value Reference Range Interpretation Comments Creatinine [Mass/volume] in Serum or 1.51 0.55-1.3 Plasma (test code = Creatinine [Mass/volume] in Serum or Plasma) [facility] HermannGlucose [Mass/volume] in Serum or [id number] 17:30:00 Test Item Value Reference Range Interpretation Comments Glucose [Mass/volume] in Serum or 133 74-106 Plasma (test code = Glucose [Mass/volume] in Serum or Plasma) [facility] HermannLymphocyte [id number] 17:30:00 Test Item Value Reference Range Interpretation Comments Lymphocyte percent (test BETWEEN 10,000 and code = Lymphocyte 100,000 CFU/ML percent) [facility] HermannPhosphate [Mass/volume] in Serum or [id number] 17:30:00 Test Item Value Reference Range Interpretation Comments Phosphate [Mass/volume] in Serum or 3.0 2.5-4.9 Plasma (test code = Phosphate [Mass/volume] in Serum or Plasma) [facility] HermannPotassium [Moles/volume] in Serum or [id number] 17:30:00 Test Item Value Reference Range Interpretation Comments Potassium [Moles/volume] in Serum or 3.6 3.5-5.1 Plasma (test code = Potassium [Moles/volume] in Serum or Plasma) [facility] HermannProtein [Mass/volume] in [id number] 17:30:00 Test Item Value Reference Range Interpretation Comments Protein [Mass/volume] in Urine (test 20 code = Protein [Mass/volume] in Urine) [facility] HermannSerum or plasma sodium measurement (moles/volume)2020-10-01 17:30:00 Test Item Value Reference Range Interpretation Comments Serum or plasma sodium measurement 144 136-145 (moles/volume) (test code = Serum or plasma sodium measurement (moles/volume)) [facility] HermannUrate [Mass/volume] in Serum or [id number] 17:30:00 Test Item Value Reference Range Interpretation Comments Urate [Mass/volume] in Serum or Plasma 5.8 2.6-6.0 (test code = Urate [Mass/volume] in Serum or Plasma) [facility] HermannUrea nitrogen [Mass/volume] in Serum or [id number] 17:30:00 Test Item Value Reference Range Interpretation Comments Urea nitrogen [Mass/volume] in Serum or 36 7-18 Plasma (test code = Urea nitrogen [Mass/volume] in Serum or Plasma) [facility] HermannUrinalysis with [id number] 17:30:00 Test Item Value Reference Range Interpretation Comments Urinalysis with microscopy (test Negative code = Urinalysis with microscopy) [facility] HermannUrine appearance [id number] 17:30:00 Test Item Value Reference Range Interpretation Comments Urine appearance determination (test Clear code = Urine appearance determination) [facility] bilirubin [id number] 17:30:00 Test Item Value Reference Range Interpretation Comments Urine bilirubin detection (test code Negative = Urine bilirubin detection) [facility] blood [id number] 17:30:00 Test Item Value Reference Range Interpretation Comments Urine blood detection (test code = Negative Urine blood detection) [facility]annU[facility] [id number] 17:30:00 Test Item Value Reference Range Interpretation Comments Urine color (test code = Urine color) Yellow [facility] glucose [id number] 17:30:00 Test Item Value Reference Range Interpretation Comments Urine glucose detection (test code = Negative Urine glucose detection) [facility]annU[facility] [id number] 17:30:00 Test Item Value Reference Range Interpretation Comments Urine pH (test code = Urine pH) 5.5 1 [place] [facility] erythrocyte count by microscopy (number/high power field)2020-10-01 17:30:00 Test Item Value Reference Range Interpretation Comments Urine sediment erythrocyte None seen /HPF count by microscopy (number/high power field) (test code = Urine sediment erythrocyte count by microscopy (number/high power field)) [facility] [id number] 17:30:00 Test Item Value Reference Range Interpretation Comments Urine specific gravity measurement 1.015 1 (test code = Urine specific gravity measurement) [facility] urobilinogen [id number] 17:30:00 Test Item Value Reference Range Interpretation Comments Urine urobilinogen detection (test code 0.2 = Urine urobilinogen detection) [facility] [id number] 17:30:00 Test Item Value Reference Range Interpretation Comments Urine culture (test code = Urine MIXED ZURDO. culture) [facility] HermannAbsolute lymphocyte [id number] 11:13:00 Test Item Value Reference Range Interpretation Comments Absolute lymphocyte count (test code = 0.7 0.7-4.9 Absolute lymphocyte count) [facility] HermannBasophil %2019-06-18 11:13:00 Test Item Value Reference Range Interpretation Comments Basophil % (test code = 0.6 See_Comment [Au tomated message] The Basophil %) system which ge nerated this result tra nsmitted reference range : <=1.3. The reference r lynda was not used to int erpret this result as normal/abnormal . [facility] CollinsannBlood erythrocytes count (number/volume)2019-06-18 11:13:00 Test Item Value Reference Range Interpretation Comments Blood erythrocytes count 3.31 3.86-4.86 (number/volume) (test code = Blood erythrocytes count (number/volume)) [facility] CollinsannBlood hematocrit (volume fraction)2019-06-18 11:13:00 Test Item Value Reference Range Interpretation Comments Blood hematocrit (volume fraction) 29.3 36.0-45.0 (test code = Blood hematocrit (volume fraction)) [facility] CollinsannBlood platelet mean [id number] 11:13:00 Test Item Value Reference Range Interpretation Comments Blood platelet mean volume (test code = 9.4 7.6-11.3 Blood platelet mean volume) [facility] HermannCalcium [Mass/volume] in Serum or [id number] 11:13:00 Test Item Value Reference Range Interpretation Comments Calcium [Mass/volume] in Serum or 7.8 8.5-10.1 Plasma (test code = Calcium [Mass/volume] in Serum or Plasma) [facility] CollinsannCarbon dioxide, total [Moles/volume] in Serum or Plasma 2019-06-18 11:13:00 Test Item Value Reference Range Interpretation Comments Carbon dioxide, total [Moles/volume] in 33 21-32 Serum or Plasma (test code = Carbon dioxide, total [Moles/volume] in Serum or Plasma) [facility]annChemistry [id number] 11:13:00 Test Item Value Reference Range Interpretation Comments Chemistry procedure (test code = 88.6 80-100 Chemistry procedure) [facility]annChloride [Moles/volume] in Serum or [id number] 11:13:00 Test Item Value Reference Range Interpretation Comments Chloride [Moles/volume] in Serum or 103 98-107 Plasma (test code = Chloride [Moles/volume] in Serum or Plasma) [facility]annCreatinine [Mass/volume] in Serum or [id number] 11:13:00 Test Item Value Reference Range Interpretation Comments Creatinine [Mass/volume] in Serum or 2.21 0.55-1.3 Plasma (test code = Creatinine [Mass/volume] in Serum or Plasma) [facility]annGlucose [Mass/volume] in Serum or [id number] 11:13:00 Test Item Value Reference Range Interpretation Comments Glucose [Mass/volume] in Serum or 140 74-106 Plasma (test code = Glucose [Mass/volume] in Serum or Plasma) [facility]annMagnesium [Mass/volume] in Serum or [id number] 11:13:00 Test Item Value Reference Range Interpretation Comments Magnesium [Mass/volume] in Serum or 1.8 1.8-2.4 Plasma (test code = Magnesium [Mass/volume] in Serum or Plasma) [facility]annPhosphate [Mass/volume] in Serum or [id number] 11:13:00 Test Item Value Reference Range Interpretation Comments Phosphate [Mass/volume] in Serum or 2.1 2.5-4.9 Plasma (test code = Phosphate [Mass/volume] in Serum or Plasma) [facility]annPotassium [Moles/volume] in Serum or [id number] 11:13:00 Test Item Value Reference Range Interpretation Comments Potassium [Moles/volume] in Serum or 3.8 3.5-5.1 Plasma (test code = Potassium [Moles/volume] in Serum or Plasma) [facility] plasma sodium measurement (moles/volume)2019-06-18 11:13:00 Test Item Value Reference Range Interpretation Comments Serum or plasma sodium measurement 141 136-145 (moles/volume) (test code = Serum or plasma sodium measurement (moles/volume)) [facility]annUrea nitrogen [Mass/volume] in Serum or [id number] 11:13:00 Test Item Value Reference Range Interpretation Comments Urea nitrogen [Mass/volume] in Serum or 50 7-18 Plasma (test code = Urea nitrogen [Mass/volume] in Serum or Plasma) [facility]annUrine dipstick testing at [id number]-zq-[id number] 11:13:00 Test Item Value Reference Range Interpretation Comments Urine dipstick testing at edmdj-wu-owwq 3.2 4.3-10.9 (test code = Urine dipstick testing at fjyyh-nf-kgkb) [facility]annAlanine aminotransferase [Enzymatic activity/volume] in Serum or Plasma by With P-5'-2019-06-17 11:27:00 Test Item Value Reference Range Interpretation Comments Alanine aminotransferase [Enzymatic 16 12-78 activity/volume] in Serum or Plasma by With P-5'- (test code = Alanine aminotransferase [Enzymatic activity/volume] in Serum or Plasma by With P-5'-) [facility]annAlbumin [Mass/volume] in Serum or Plasma by Bromocresol purple (BCP) dye binding [id number] 11:27:00 Test Item Value Reference Range Interpretation Comments Albumin [Mass/volume] in Serum or 2.5 3.4-5.0 Plasma by Bromocresol purple (BCP) dye binding meth (test code = Albumin [Mass/volume] in Serum or Plasma by Bromocresol purple (BCP) dye binding meth) [facility]annAlkaline phosphatase [Enzymatic activity/volume] in Serum or [id number] 11:27:00 Test Item Value Reference Range Interpretation Comments Alkaline phosphatase [Enzymatic 72 45-117 activity/volume] in Serum or Plasma (test code = Alkaline phosphatase [Enzymatic activity/volume] in Serum or Plasma) [facility]annAspartate aminotransferase [Enzymatic activity/volume] in Serum or Plasma by With [id number] 11:27:00 Test Item Value Reference Range Interpretation Comments Aspartate aminotransferase [Enzymatic 23 15-37 activity/volume] in Serum or Plasma by With P-5 (test code = Aspartate aminotransferase [Enzymatic activity/volume] in Serum or Plasma by With P-5) [facility]annBilirubin.total [Mass/volume] in Serum or [id number] 11:27:00 Test Item Value Reference Range Interpretation Comments Bilirubin.total [Mass/volume] in Serum 1.0 0.2-1.0 or Plasma (test code = Bilirubin.total [Mass/volume] in Serum or Plasma) [facility] HermannBlood morphology interpretation [id number] 11:27:00 Test Item Value Reference Range Interpretation Comments Blood morphology interpretation Not seen narrative (test code = Blood morphology interpretation narrative) [facility]annNatriuretic peptide.B prohormone N-Terminal [Mass/volume] in Serum or [id number] 11:27:00 Test Item Value Reference Range Interpretation Comments Natriuretic peptide.B prohormone 493 N-Terminal [Mass/volume] in Serum or Plasma (test code = Natriuretic peptide.B prohormone N-Terminal [Mass/volume] in Serum or Plasma) [facility]annProtein [Mass/volume] in Serum or [id number] 11:27:00 Test Item Value Reference Range Interpretation Comments Protein [Mass/volume] in Serum or 6.7 6.4-8.2 Plasma (test code = Protein [Mass/volume] in Serum or Plasma) [facility] HermannTroponin I.cardiac [Mass/volume] in Serum or Usrdpr8450-18-14 11:27:00 Test Item Value Reference Range Interpretation Comments Troponin I.cardiac < 0.02 See_Comment [Automat ed message] The [Mass/volume] in Serum syste m which generated or Plasma (test code = this result transmitted Troponin I.cardiac reference range: <=0.045. [Mass/volume] in Serum The r eference range was or Plasma) not used to int erpret this result as normal/abnormal . [facility]annUrinalysis with [id number] 02:23:00 Test Item Value Reference Range Interpretation Comments Urinalysis with microscopy (test Negative code = Urinalysis with microscopy) [facility]annUrine blood [id number] 02:23:00 Test Item Value Reference Range Interpretation Comments Urine blood detection (test code = Negative Urine blood detection) [facility] [id number] 02:23:00 Test Item Value Reference Range Interpretation Comments Urine glucose detection (test code = Negative Urine glucose detection) [facility] [id number] 02:23:00 Test Item Value Reference Range Interpretation Comments Urine pH (test code = Urine pH) 5.0 1 [facility]annUrine specific gravity [id number] 02:23:00 Test Item Value Reference Range Interpretation Comments Urine specific gravity measurement 1.015 1 (test code = Urine specific gravity measurement) [facility]annUrinalysis with reflex to [id number] 02:14:00 Test Item Value Reference Range Interpretation [...] field)) [facility]annBilirubin.direct [Mass/volume] in Serum or [id number] 00:14:00 Test Item Value Reference Range Interpretation Comments Bilirubin.direct 0.3 See_Comment [Automated message] The [Mass/volume] in Serum syste m which generated or Plasma (test code = this result transmitted Bilirubin.direct reference r lynda: <=0.2. [Mass/volume] in Serum The r eference range was or Plasma) not used to int erpret this result as aubree l/abnormal. [facility]annINR in Blood by Coagulation [id number] 00:14:00 Test Item Value Reference Range Interpretation Comments INR in Blood by Coagulation assay 1.30 1 (test code = INR in Blood by Coagulation assay) [facility]annLactate [Moles/volume] in Serum or [id number] 00:14:00 Test Item Value Reference Range Interpretation Comments Lactate [Moles/volume] in Serum or 1.1 0.4-2.0 Plasma (test code = Lactate [Moles/volume] in Serum or Plasma) [facility]annTroponin I.cardiac [Mass/volume] in Serum or [id number] 00:14:00 Test Item Value Reference Range Interpretation [...] Plasma by Bromocresol purple (BCP) dye binding [id number] 17:00:00 Test Item Value Reference Range Interpretation [...] fraction)) [facility]annCalcium [Mass/volume] in Serum or [id number] 17:00:00 Test Item Value Reference Range Interpretation [...] Plasma) [facility]annChloride [Moles/volume] in Serum or [id number] 17:00:00 Test Item Value Reference Range Interpretation Comments Chloride [Moles/volume] in Serum or 108 98-107 Plasma (test code = Chloride [Moles/volume] in Serum or Plasma) [facility]annCreatinine [Mass/volume] in Serum or [id number] 17:00:00 Test Item Value Reference Range Interpretation Comments Creatinine [Mass/volume] in Serum or 1.83 0.55-1.3 Plasma (test code = Creatinine [Mass/volume] in Serum or Plasma) [facility]annCreatinine [Mass/volume] in [id number] 17:00:00 Test Item Value Reference Range Interpretation Comments Creatinine [Mass/volume] in Urine (test 50.0 20-320 code = Creatinine [Mass/volume] in Urine) [facility]annGlucose [Mass/volume] in Serum or [id number] 17:00:00 Test Item Value Reference Range Interpretation Comments Glucose [Mass/volume] in Serum or 132 74-106 Plasma (test code = Glucose [Mass/volume] in Serum or Plasma) [facility]annParathyrin.intact [Mass/volume] in Serum or [id number] 17:00:00 Test Item Value Reference Range Interpretation Comments Parathyrin.intact [Mass/volume] in 59.2 18.4-80.1 Serum or Plasma (test code = Parathyrin.intact [Mass/volume] in Serum or Plasma) [facility]annPhosphate [Mass/volume] in Serum or [id number] 17:00:00 Test Item Value Reference Range Interpretation Comments Phosphate [Mass/volume] in Serum or 3.3 2.5-4.9 Plasma (test code = Phosphate [Mass/volume] in Serum or Plasma) [facility]annPotassium [Moles/volume] in Serum or [id number] 17:00:00 Test Item Value Reference Range Interpretation Comments Potassium [Moles/volume] in Serum or 3.5 3.5-5.1 Plasma (test code = Potassium [Moles/volume] in Serum or Plasma) [facility]annProtein [Mass/volume] in [id number] 17:00:00 Test Item Value Reference Range Interpretation Comments Protein [Mass/volume] in Urine (test 6 code = Protein [Mass/volume] in Urine) [facility]annSerum or plasma sodium measurement (moles/volume)2019-03-22 17:00:00 Test Item Value Reference Range Interpretation Comments Serum or plasma sodium measurement 145 136-145 (moles/volume) (test code = Serum or plasma sodium measurement (moles/volume)) [facility]annUrate [Mass/volume] in Serum or [id number] 17:00:00 Test Item Value Reference Range Interpretation Comments Urate [Mass/volume] in Serum or Plasma 10.4 2.6-6.0 (test code = Urate [Mass/volume] in Serum or Plasma) [facility]annUrea nitrogen [Mass/volume] in Serum or [id number] 17:00:00 Test Item Value Reference Range Interpretation Comments Urea nitrogen [Mass/volume] in Serum or 54 7-18 Plasma (test code = Urea nitrogen [Mass/volume] in Serum or Plasma) [facility] at qyhfl-ow-fuax9305-12-03 17:00:00 Test Item Value Reference Range Interpretation Comments Urine dipstick testing at inhnl-jt-obmm 10.5 12.0-15.0 (test code = Urine dipstick testing at qlpjv-fd-gszk) [facility]2018-03-05 11:19:00 Test Item Value Reference Range Interpretation Comments Bedside Glucose (test code = Bedside 271 65-120 Glucose) [facility]2018-03-04 05:00:00 Test Item Value Reference Range Interpretation Comments Thyroid Stimulating Hormone (TSH) (test 1.28 0.34-5.60 code = Thyroid Stimulating Hormone (TSH)) [facility]2018-03-04 05:00:00 Test Item Value Reference Range Interpretation Comments Sodium Level (test code = Sodium Level) 139 135-145 [facility]2018-03-04 05:00:00 Test Item Value Reference Range Interpretation Comments Potassium Level (test code = Potassium 3.8 3.6-5.0 Level) [facility]2018-03-04 05:00:00 Test Item Value Reference Range Interpretation Comments Glucose Level (test code = Glucose 116 65-120 Level) [facility]2018-03-04 05:00:00 Test Item Value Reference Range Interpretation Comments Estimat Glomerular 29 See_Comment [Automat ed message] The Filtration Rate (test system which generated code = Estimat this result t ransmitted Glomerular Filtration refere nce range: >=90. Rate) The reference r lynda was not used to int erpret this result as normal/abnormal . [facility]2018-03-04 05:00:00 Test Item Value Reference Range Interpretation Comments Creatinine (test code = Creatinine) 1.69 0.44-1.00 [facility]2018-03-04 05:00:00 Test Item Value Reference Range Interpretation Comments Chloride Level (test code = Chloride 102 101-111 Level) [facility]2018-03-04 05:00:00 Test Item Value Reference Range Interpretation Comments Carbon Dioxide Level (test code = 32 21-31 Carbon Dioxide Level) [facility]2018-03-04 05:00:00 Test Item Value Reference Range Interpretation Comments Calcium Level (test code = Calcium 8.4 8.5-10.5 Level) [facility]2018-03-04 05:00:00 Test Item Value Reference Range Interpretation Comments Blood Urea Nitrogen (test code = Blood 33 6-20 Urea Nitrogen) [facility]2018-03-04 05:00:00 Test Item Value Reference Range Interpretation Comments White Blood Count (test code = White 2.2 4.3-10.9 Blood Count) [facility]2018-03-04 05:00:00 Test Item Value Reference Range Interpretation Comments Red Cell Distribution Width (test code 14.5 12.1-15.2 = Red Cell Distribution Width) [facility]2018-03-04 05:00:00 Test Item Value Reference Range Interpretation Comments Red Blood Count (test code = Red Blood 3.18 3.86-4.86 Count) [facility]2018-03-04 05:00:00 Test Item Value Reference Range Interpretation Comments Platelet Count (test code = Platelet 95 152-406 Count) [facility]2018-03-04 05:00:00 Test Item Value Reference Range Interpretation Comments Neutrophils % (test code = Neutrophils 48.8 41.7-73.7 %) [facility]2018-03-04 05:00:00 Test Item Value Reference Range Interpretation Comments Monocytes % (test code = Monocytes %) 10.2 3.3-12.3 [facility]2018-03-04 05:00:00 Test Item Value Reference Range Interpretation Comments Mean Platelet Volume (test code = Mean 8.3 7.6-11.3 Platelet Volume) [facility]2018-03-04 05:00:00 Test Item Value Reference Range Interpretation Comments Mean Corpuscular Volume (test code = 82.8 80-100 Mean Corpuscular Volume) [facility]2018-03-04 05:00:00 Test Item Value Reference Range Interpretation Comments Mean Corpuscular Hemoglobin Concent 32.8 32.0-36.0 (test code = Mean Corpuscular Hemoglobin Concent) [facility]2018-03-04 05:00:00 Test Item Value Reference Range Interpretation Comments Mean Corpuscular Hemoglobin (test 27.1 pg 27.0-35.0 code = Mean Corpuscular Hemoglobin) [facility]2018-03-04 05:00:00 Test Item Value Reference Range Interpretation Comments Lymphocytes % (test code = Lymphocytes 35.1 15.3-44.8 %) [facility]2018-03-04 05:00:00 Test Item Value Reference Range Interpretation Comments Hemoglobin (test code = Hemoglobin) 8.6 12.0-15.0 [facility]2018-03-04 05:00:00 Test Item Value Reference Range Interpretation Comments Hematocrit (test code = Hematocrit) 26.3 36.0-45.0 [facility]2018-03-04 05:00:00 Test Item Value Reference Range Interpretation Comments Eosinophils % (test code 5.0 See_Comment [A utomated message] The = Eosinophils %) system [facility] h generated this result tra nsmitted reference range : <=4.4. The reference r lynda was not used to int erpret this result as normal/abnormal . [facility]2018-03-04 05:00:00 Test Item Value Reference Range Interpretation Comments Basophils % (test code 0.9 See_Comment [Aut omated message] The = Basophils %) system which generated this result tra nsmitted reference range : <=1.3. The reference r lynda was not used to int erpret this result as normal/abnormal . [facility]2018-03-04 05:00:00 Test Item Value Reference Range Interpretation Comments Absolute Neutrophil (test code = 1.1 1.8-8.0 Absolute Neutrophil) [facility]2018-03-04 05:00:00 Test Item Value Reference Range Interpretation Comments Absolute Monocytes (CBC) (test code = 0.2 0.1-1.3 Absolute Monocytes (CBC)) [facility]2018-03-04 05:00:00 Test Item Value Reference Range Interpretation Comments Absolute Lymphocytes (CBC) (test code = 0.8 0.7-4.9 Absolute Lymphocytes (CBC)) [facility]2018-03-04 05:00:00 Test Item Value Reference Range Interpretation Comments Absolute Eosinophils 0.1 See_Comment [Autom ated message] The (CBC) (test code = system wh ich generated Absolute Eosinophils this re sult transmitted (CBC)) reference range : <=0.5. The reference r lynda was not used to int erpret this result as normal/abnormal . [facility]2018-03-04 05:00:00 Test Item Value Reference Range Interpretation Comments Absolute Basophils 0.0 See_Comment [Automat ed message] The (CBC) (test code = system wh ich generated Absolute Basophils this resu lt transmitted (CBC)) reference range : <=0.5. The reference r lynda was not used to int erpret this result as normal/abnormal . [facility]2018-03-04 03:35:00 Test Item Value Reference Range Interpretation Comments Urine Random Total Protein (test code = 13 Urine Random Total Protein) [facility]2018-03-04 03:35:00 Test Item Value Reference Range Interpretation Comments Urine Protein/Creatinine Ratio (test 0.09 1 code = Urine Protein/Creatinine Ratio) [facility]2018-03-04 03:35:00 Test Item Value Reference Range Interpretation Comments Urine Creatinine (test code = Urine 143.6 Creatinine) [facility]2018-03-02 04:23:00 Test Item Value Reference Range Interpretation Comments Blood Morphology Blood Morphology Comment (test code = Comment Blood Morphology Comment) [facility]2018-03-02 04:23:00 Test Item Value Reference Range Interpretation Comments B-Type Natriuretic Peptide (test code = 35 B-Type Natriuretic Peptide) [facility]2018-03-01 22:25:00 Test Item Value Reference Range Interpretation Comments Urine pH (test code = Urine pH) 7.0 1 [facility] [id number] 22:25:00 Test Item Value Reference Range Interpretation Comments Urine WBC (test code = Urine WBC) no gt [facility] [id number] 22:25:00 Test Item Value Reference Range Interpretation Comments Urine Urobilinogen (test code = Urine 1.0 Urobilinogen) [facility] [id number] 22:25:00 Test Item Value Reference Range Interpretation Comments Urine Total Protein (test Urine Total Protein code = Urine Total Protein) [facility] [id number] 22:25:00 Test Item Value Reference Range Interpretation Comments Urine Squamous Epithelial Cells (test no gt code = Urine Squamous Epithelial Cells) [facility]2018-03-01 22:25:00 Test Item Value Reference Range Interpretation Comments Urine Specific Basile (test code = 1.010 1 Urine Specific Basile) [facility] [id number] 22:25:00 Test Item Value Reference Range Interpretation Comments Urine RBC (test code = Urine RBC) Urine RBC [facility] Rvyvpgb3868-03-02 22:25:00 Test Item Value Reference Range Interpretation Comments Urine Nitrite (test code = Urine Nitrite Urine Nitrite) [facility]2018-03-01 22:25:00 Test Item Value Reference Range Interpretation Comments Urine Leukocyte Urine Leukocyte Esterase (test code = Esterase Urine Leukocyte Esterase) [facility]2018-03-01 22:25:00 Test Item Value Reference Range Interpretation Comments Urine Ketones (test code = Urine Ketones Urine Ketones) [facility]2018-03-01 22:25:00 Test Item Value Reference Range Interpretation Comments Urine Glucose (test code = Urine Glucose Urine Glucose) [facility]2018-03-01 22:25:00 Test Item Value Reference Range Interpretation Comments Urine Culture Reflexed Urine Culture Reflexed (test code = Urine Culture Reflexed) [facility] [id number] 22:25:00 Test Item Value Reference Range Interpretation Comments Urine Color (test code = Urine Urine Color Color) [facility]2018-03-01 22:25:00 Test Item Value Reference Range Interpretation Comments Urine Blood (test code = Urine Urine Blood Blood) [facility] [id number] 22:25:00 Test Item Value Reference Range Interpretation Comments Urine Bilirubin (test code = Urine Bilirubin Urine Bilirubin) [facility]2018-03-01 22:25:00 Test Item Value Reference Range Interpretation Comments Urine Bacteria (test code = Urine no gt Bacteria) [facility]2018-03-01 22:25:00 Test Item Value Reference Range Interpretation Comments Urine Appearance (test code Urine Appearance = Urine Appearance) [facility]2018-03-01 15:27:00 Test Item Value Reference Range Interpretation Comments Prothrombin Time (test code = 14.6 9.5-12.5 Prothrombin Time) [facility]2018-03-01 15:27:00 Test Item Value Reference Range Interpretation Comments INR International Normalized Ratio 1.23 1 (test code = INR International Normalized Ratio) [facility]2018-03-01 15:27:00 Test Item Value Reference Range Interpretation Comments Activated Partial Thromboplast Time 27.0 24.3-36.9 (test code = Activated Partial Thromboplast Time) [facility]2018-03-01 15:27:00 Test Item Value Reference Range Interpretation Comments Magnesium Level (test code = Magnesium 1.6 1.8-2.5 Level) [facility]2018-03-01 15:27:00 Test Item Value Reference Range Interpretation Comments Creatine Kinase (test code = Creatine 31 22-269 Kinase) [facility]2018-03-01 15:27:00 Test Item Value Reference Range Interpretation Comments Rapid Troponin I (test code = Rapid no gt Troponin I) [facility]2018-03-01 15:27:00 Test Item Value Reference Range Interpretation Comments Creatine Kinase MB (test code = 0.3 0.3-4.0 Creatine Kinase MB) [facility]2017-12-22 12:40:00 Test Item Value Reference Range Interpretation Comments Urine Amorphous Urine Amorphous Sediment (test code = Sediment Urine Amorphous Sediment) [facility]2017-12-22 12:08:00 Test Item Value Reference Range Interpretation Comments Lactic Acid Level (test code = Lactic 10.2 4.5-19.8 Acid Level) [facility]2017-12-22 12:08:00 Test Item Value Reference Range Interpretation Comments Procalcitonin (test code = 0.13 Procalcitonin) [facility]2017-12-22 12:08:00 Test Item Value Reference Range Interpretation Comments Sedimentation Rate, 78 See_Comment [Automa tonny message] Westergren (test code = The system which Sedimentation Rate, generate d this result Westergren) transmitted ref erence range: <=30. Th e reference range was not used to interpr et this result as normal/abnormal . [facility]2017-12-22 12:08:00 Test Item Value Reference Range Interpretation Comments Total Bilirubin (test code = Total 1.2 0.3-1.2 Bilirubin) [facility]2017-12-22 12:08:00 Test Item Value Reference Range Interpretation Comments Serum Total Protein (test code = Serum 6.2 6.0-8.3 Total Protein) [facility]2017-12-22 12:08:00 Test Item Value Reference Range Interpretation Comments Globulin (test code = Globulin) 3.3 2.3-3.5 [facility]2017-12-22 12:08:00 Test Item Value Reference Range Interpretation Comments Direct Bilirubin (test 0.2 See_Comment [Aut omated message] The code = Direct system which g enerated Bilirubin) this result tra nsmitted reference range : <=0.2. The reference r lynda was not used to int erpret this result as normal/abnormal . [facility]2017-12-22 12:08:00 Test Item Value Reference Range Interpretation Comments Aspartate Amino Transf (AST/SGOT) (test 53 10-42 code = Aspartate Amino Transf (AST/SGOT)) [facility]2017-12-22 12:08:00 Test Item Value Reference Range Interpretation Comments Alkaline Phosphatase (test code = 85 42-121 Alkaline Phosphatase) [facility]2017-12-22 12:08:00 Test Item Value Reference Range Interpretation Comments Albumin/Globulin Ratio (test code = 0.9 1 1.1-1.8 Albumin/Globulin Ratio) [facility]2017-12-22 12:08:00 Test Item Value Reference Range Interpretation Comments Albumin (test code = Albumin) 2.9 3.2-5.5 [facility]2017-12-22 12:08:00 Test Item Value Reference Range Interpretation Comments Alanine Aminotransferase (ALT/SGPT) 29 10-60 (test code = Alanine Aminotransferase (ALT/SGPT)) [id number] 12:08:00 Test Item Value Reference Range Interpretation Comments Lipase (test code = Lipase) 17 - [facility]
[2021-12-23] MEDS ORDERED: METOPROLOL TARTRATE 5 MG/5 ML INJ IV ONE ×2 (11:40)
[2021-12-23 11:44] LABS: Absolute Lymphocytes (CBC) 1.1 K/uL (0.7-4.9); Hematocrit 34.1 % (36.0-45.0); Lymphocytes % 12.8 % (15.3-44.8); MCV 91.8 fL (80-100); RBC Red Blood Cell Count 3.72 M/uL (3.86-4.86)
[2021-12-23] MEDS ORDERED: MIDAZOLAM HCL 2 MG/2 ML INJ ONE ×3 (12:03→13:12)
[2021-12-23] MEDS ORDERED: FENTANYL CITR 100 MCG/2 ML ONE ×3 (12:04→13:12)
[2021-12-23 12:08] LABS: Potassium 3.2 mmol/L (3.5-5.1)
[2021-12-23 12:09] LABS: Troponin High Sensitivity 88.5 pg/mL (<58.9)
[2021-12-23] MEDS ORDERED: NA CHLORIDE 0.9% 250 ML ONE (12:20)
--- NOTE | 2021-12-23 12:27 | RAD REPORT ---
EXAM DESCRIPTION: Anabel Single View12/23/2021 11:58 am CLINICAL HISTORY: Atrial fibrillation COMPARISON: November 2021 FINDINGS: Large left pleural effusion with basilar atelectasis The remainder of the lungs appear clear of acute infiltrate. The heart size is difficult to evaluate secondary to the adjacent pleural effusion IMPRESSION: Large left pleural effusion
[2021-12-23] MEDS ORDERED: AMIODARONE HCL 150 MG/3 ML INJ IV ONE (12:37)
[2021-12-23] MEDS ORDERED: NA CHLORIDE 0.9% 100 ML ONE (12:47)
[2021-12-23] MEDS ORDERED: AMIODARONE HCL 900 MG in Dextrose 5%-Water 482 ML IV SCH (13:00)
--- NOTE | 2021-12-23 13:26 | EDPHYS ---
Physician Documentation [facility] Name: Loni Cross Age: 86 yrs Sex: Female : 1935 Arrival Date: 12/23/2021 Time: 11:02 Bed 6 Private MD: ED Physician Bharathi Mcadams HPI: 12/23 11:25 This 86 yrs old Female presents to ER via EMS with complaints of Arrhythmia - Increased kdr Heart Rate. 11:25 The patient had been taken to dialysis today. During her initial start up, she was kdr noted to be tachycardic with a rate in the 140s to 150s. Since it did not resolve immediately, EMS was called and the patient was brought to the ED. The dialysis center had only pulled off approximately point to liters of fluid prior to the patient being discharged to the emergency department. Patient denies any significant or worsening shortness of breath, chest pain or other issues. She appears to have otherwise been in her normal state of health. She currently has no focal needs or issues. Onset: The symptoms/episode began/occurred suddenly, just prior to arrival. Severity of symptoms: At their worst the symptoms were mild in the emergency department the symptoms are unchanged. The patient has experienced similar episodes in the past, multiple times, chronically. The patient had a recent admission for similar problems. Historical: - Allergies: 11:21 Streptomycin; tp1 11:21 [id number] Reductase Inhibitors; tp1 11:21 caffeine; tp1 11:21 blood thinners except ASA; tp1 11:21 Alteplase; tp1 11:21 hydrocodone; tp1 11:21 Iodine; tp1 - Home Meds: 11:21 aspirin 81 mg Oral chew 1 tab once daily [Active]; Claritin-D 24 Hour 10-240 mg Oral tp1 Tb24 1 tab once daily [Active]; Coreg Oral [Active]; Potassium Chloride Oral [Active]; Augmentin Oral [Active]; pantoprazole oral [Active]; pravastatin oral [Active]; Zetia Oral [Active]; Insulin Glargine Sub-Q [Active]; - PMHx: 11:21 CHF; CVA; Diabetes - NIDDM; Dialysis; Hyperlipidemia; Hypertension; kidney problems; tp1 Anemia; Cellulitis; hyperparathyroidism; malnutition; hernia; - Immunization history:: Client reports receiving the 2nd dose of the Covid vaccine. - Social history:: Smoking status: Patient denies any tobacco usage or history of. ROS: 11:25 Constitutional: Negative for fever, chills, and weight loss, Eyes: Negative for injury, kdr pain, redness, and discharge, ENT: Negative for injury, pain, and discharge, Neck: Negative for injury, pain, and swelling, Respiratory: Negative for shortness of breath, cough, wheezing, and pleuritic chest pain, Abdomen/GI: Negative for abdominal pain, nausea, vomiting, diarrhea, and constipation, Back: Negative for injury and pain, : Negative for injury, bleeding, discharge, and swelling, MS/Extremity: Negative for injury and deformity, Skin: Negative for injury, rash, and discoloration, Neuro: Negative for headache, weakness, numbness, tingling, and seizure activity. Psych: Negative for depression, anxiety, suicide ideation, homicidal ideation, and hallucinations, Allergy/Immunology: Negative for hives, rash, and allergies, Endocrine: Negative for neck swelling, polydipsia, polyuria, polyphagia, and marked weight changes, Hematologic/Lymphatic: Negative for swollen nodes, abnormal bleeding, and unusual bruising. 11:25 Cardiovascular: Positive for palpitations, Negative for chest pain, edema, orthopnea, paroxysmal nocturnal dyspnea. Exam: 11:25 Constitutional: This is a well developed, well nourished patient who is awake, alert, kdr and in no acute distress. Head/Face: Normocephalic, atraumatic. Eyes: Pupils equal round and reactive to light, extra-ocular motions intact. Lids and lashes normal. Conjunctiva and sclera are non-icteric and not injected. Cornea within normal limits. Periorbital areas with no swelling, redness, or edema. Neck: Trachea midline, no thyromegaly or masses palpated, and no cervical lymphadenopathy. Supple, full range of motion without nuchal rigidity, or vertebral point tenderness. No Meningismus. Chest/axilla: Normal chest wall appearance and motion. Nontender with no deformity. No lesions are appreciated. Respiratory: Lungs have equal breath sounds bilaterally, clear to auscultation and percussion. No rales, rhonchi or wheezes noted. No increased work of breathing, no retractions or nasal flaring. Abdomen/GI: Soft, non-tender, with normal bowel sounds. No distension or tympany. No guarding or rebound. No evidence of tenderness throughout. Back: No spinal tenderness. No costovertebral tenderness. Full range of motion. Skin: Warm, dry with normal turgor. Normal color with no rashes, no lesions, and no evidence of cellulitis. 11:25 Cardiovascular: Rate: tachycardic, actual rate is 140 bpm, Rhythm: irregularly irregular, Pulses: no pulse deficits are appreciated, Edema: is not appreciated. 17:00 ECG was reviewed by the Attending Physician. kdr Vital Signs: 10:55 BP 128 / 77; Pulse 140; Resp 12; Temp 97.6; Pulse Ox 100% ; Weight 52.62 kg; Height 5 tp1 ft. 2 in. (157.48 cm); 11:30 BP 104 / 53; Pulse 148; tp1 12:00 BP 120 / 62; Pulse 139; Resp 24; Pulse Ox 99% on R/A; tp1 12:38 BP 86 / 48; Pulse 138; Resp 17; Pulse Ox 99% on 2 lpm NC; tp1 12:50 BP 96 / 51; Pulse 114; Resp 23; Pulse Ox 100% on 2 lpm NC; tp1 13:00 BP 99 / 59; Pulse 125; Resp 23; Pulse Ox 100% on 2 lpm NC; tp1 13:15 BP 103 / 67; Pulse 122; Resp 17; Pulse Ox 100% on 2 lpm NC; tp1 13:25 BP 98 / 57; Pulse 128; Resp 17; Pulse Ox 100% on 2 lpm NC; tp1 13:30 BP 99 / 52; Pulse 76; Resp 17; Pulse Ox 100% on 2 lpm NC; tp1 14:00 BP 101 / 44; Pulse 72; Resp 20; Pulse Ox 100% on 2 lpm NC; tp1 14:30 BP 100 / 48; Pulse 72; Resp 20; Pulse Ox 100% on 2 lpm NC; tp1 15:00 BP 104 / 47; Pulse 71; Resp 20; Pulse Ox 100% on 2 lpm NC; tp1 15:30 BP 101 / 47; Pulse 74; Resp 20; Pulse Ox 100% on 2 lpm NC; tp1 16:00 BP 117 / 47; Pulse 77; Resp 20; Pulse Ox 100% on 2 lpm NC; tp1 17:00 BP 105 / 40; Pulse 76; Resp 21; Pulse Ox 100% on 2 lpm NC; tp1 10:55 Body Mass Index 21.22 (52.62 kg, 157.48 cm) tp1 MDM: 11:25 Data reviewed: vital signs, nurses notes, lab test result(s), radiologic studies. kdr Counseling: I had a detailed discussion with the patient and/or guardian regarding: the historical points, exam findings, and any diagnostic results supporting the discharge/admit diagnosis, lab results, radiology results, the need for outpatient follow up. 13:24 Patient medically screened. kdr 13:26 ED course: I consulted Dr. Bravo on the patient's initial presentation. He suggested kdr defibrillation and if unsuccessful to follow with an amiodarone drip. Subsequently we attempted to cardiovert the patient and after 2 shocks, there was no improvement. At that time we initiated amiodarone load and drip. Patient tolerated fairly well. She had a fairly wide swings in her rate from 40s and 50s to 130s to 150s. Her systolic blood pressure maintained 90-100 most of the time. Occasionally it was somewhat lower but would then rebound. She is to be giving a small to moderate fluid bolus of 250 cc. I again consulted with Dr. Bravo to determine if any further action would be recommended at this time and he indicated that we should continue the amiodarone drip and that he would see the patient shortly.. 12/23 11:16 Order name: Basic Metabolic Panel [facility] 12/23 11:16 Order name: CBC with Diff [facility] 12/23 11:16 Order name: NT PRO-BNP [facility] 12/23 11:16 Order name: Troponin HS [facility] 12/23 12:47 Order name: SARS RAPID [facility]3 12/23 13:56 Order name: Basic Metabolic Panel [facility] 12/23 11:16 Order name: XRAY Chest (1 view) [facility] 12/23 13:56 Order name: Basic Metabolic Panel [facility] 12/23 13:56 Order name: CBC with Automated Diff [facility] 12/23 13:56 Order name: CBC with Automated Diff [facility] 12/23 11:16 Order name: EKG; Complete Time: 11:17 [facility] 12/23 11:16 Order name: Cardiac monitoring; Complete Time: 11:28 [facility] 12/23 11:16 Order name: EKG - Nurse/Tech; Complete Time: 11:28 kdr 12/23 11:16 Order name: IV Saline Lock; Complete Time: kdr 12/23 11:16 Order name: Labs collected and sent; Complete Time: kdr 12/23 11:16 Order name: O2 Per Protocol; Complete Time: kdr 12/23 11:16 Order name: O2 Sat Monitoring; Complete Time: kdr 12/23 13:56 Order name: CONS Physician Consult [facility] 12/23 13:56 Order name: EKG Electrocardiogram [facility] 12/23 13:56 Order name: EKG Electrocardiogram [facility] 12/23 13:56 Order name: EKG Electrocardiogram [facility] 12/23 13:56 Order name: EKG Electrocardiogram [facility] EC:00 Rate is 75 beats/min. Rhythm is regular, Sinus Rhythm with PACs. QRS Edmonson is Normal. MD kdr interval is normal. QRS interval is normal. QT interval is normal. Clinical impression: NSR w/ Non-specific ST/T Changes and Sinus arrythmia. Administered Medications: 19:22 Discontinued: amiodarone 900 mg, D5W 500 ml IVPB at 1 mg/min continuous; for 6 hrs, thor then change to 0.5 mg/min 12:00 Drug: fentaNYL (PF) 100 mcg Route: IVP; Site: left forearm; tp1 16:07 Follow up: Response: No adverse reaction tp1 12:02 Drug: NS 0.9% 250 ml Route: IV; Rate: bolus; Site: left forearm; tp1 13:00 Follow up: IV Status: Completed infusion; IV Intake: 125ml tp1 12:07 Drug: Versed (midazolam) 2 mg Route: IVP; Site: left forearm; tp1 16:07 Follow up: Response: No adverse reaction tp1 12:41 Drug: amiodarone 150 mg Route: IVP; Site: left forearm; tp1 16:03 Follow up: Response: No change in condition tp1 13:00 Drug: amiodarone 900 mg, D5W 500 ml Route: IVPB; Rate: 1 mg/min; Site: left forearm; tp1 13:20 Not Given (Physician Discretion): Lovenox (enoxaparin) 1 mg/kg Sub-Q once tp1 16:01 Not Given (Physician Discretion): Lopressor (metoprolol) 5 mg IVP every 5 minutes; Hold tp1 for SBP < 100 or HR < 60. x3 19:31 Drug: amiodarone 400 mg Route: PO; aa9 Disposition Summary: 12/23/21 13:26 Hospitalization Ordered Hospitalization Status: Inpatient Admission kdr Provider: Paolo Montgomery kdr Condition: Serious(12/23/21 13:26) kdr Problem: new(12/23/21 13:26) kdr Symptoms: have improved(12/23/21 13:26) kdr Bed/Room Type: Standard kdr Location: Intensive Care Unit(12/23/21 19:34) tw5 Room Assignment: 5-(12/23/21 19:34) tw5 Diagnosis - Persistent atrial fibrillation - Rapid ventricular response(12/23/21 13:26) kdr Forms: - Medication Reconciliation Form kdr - SBAR form kdr Signatures: Dispatcher [employer] EDMS Bharathi Mcadams MD MD cha Rittger, Kevin, MD MD kdr Fabiola Elena RN RN jl7 Wood, Tiffany tw5 Chrissy Gomez RN RN tp1 Batsheva Sam RN RN aa9 Corrections: (The following items were deleted from the chart) 11:28 11:21 Home Meds: allopurinol 100 mg Oral tab once daily; tp1 tp1 11:28 11:21 Home Meds: carvedilol 6.25 mg Oral tab 2 times per day; tp1 tp1 11:28 11:21 Home Meds: cetirizine 10 mg Oral tab 1 tab once daily; tp1 tp1 11:28 11:21 Home Meds: furosemide 40 mg Oral tab 1 tab once daily; tp1 tp1 11:28 11:21 Home Meds: glimepiride 4 mg Oral tab twice a day; tp1 tp1 13:25 13:24 Home kdr kdr 13:25 13:24 new kdr kdr 13:25 13:24 have improved kdr kdr 13:25 13:24 Stable kdr kdr 13:25 13:24 Persistent atrial fibrillation kdr kdr 13:25 13:24 Unspecified atrial fibrillation kdr kdr 16:19 13:26 Intensive Care Unit kdr jl7 16:19 13:26 kdr jl7 19:34 16:19 [facility] ER HOLD jl7 tw5 19:34 16:19 ERHOLD- jl7 tw5
--- NOTE | 2021-12-23 13:26 | ER ---
Nurse's Notes [facility] Name: Loni Cross Age: 86 yrs Sex: Female : 1935 Arrival Date: 12/23/2021 Time: 11:02 Bed 6 Private MD: Diagnosis: Persistent atrial fibrillation-Rapid ventricular response Presentation: 12/23 10:55 Chief complaint: EMS states: toned out to dialysis center for tachycardia and tp1 hypotension. Reported 0.2 L removed. Stated PT was released a few days ago from hospital with pneumonia with amoxicillin. reported irregular HR, HR 140-150, BP 90/60, T 97.6. 10:55 Coronavirus screen: Vaccine status: Patient reports receiving the 2nd dose of the covid tp1 vaccine. Ebola Screen: Patient negative for fever greater than or equal to 101.5 degrees Fahrenheit, and additional compatible Ebola Virus Disease symptoms Patient denies exposure to infectious person. Patient denies travel to an Ebola-affected area in the 21 days before illness onset. Initial Sepsis Screen: Does the patient meet any 2 criteria? HR > 90 bpm. Does the patient have a suspected source of infection? No. Patient's initial sepsis screen is negative. Risk Assessment: Do you want to hurt yourself or someone else? Patient reports no desire to harm self or others. Onset of symptoms was December 23, 2021. 10:55 Method Of Arrival: EMS: [facility] tp1 10:55 Acuity: TRINI 2 tp1 Triage Assessment: 10:55 General: Appears in no apparent distress. comfortable, Behavior is calm, cooperative. tp1 Pain: Denies pain. EENT: No deficits noted. Neuro: Gomes Agitation-Sedation Scale (RASS): 0 - Alert and Calm Level of Consciousness is awake, alert, obeys commands, Oriented to person, place, time, situation. Cardiovascular: Denies chest pain, nausea, vomiting, Patient's skin is warm and dry. dialysis port \T\ right subclavian dressing dry and intact. Respiratory: Airway is patent Respiratory effort is even, unlabored, Denies shortness of breath. GI: Abdomen is round non-distended, Abd is soft and non tender X 4 quads. : No signs and/or symptoms were reported regarding the genitourinary system. Derm: Skin is pink, warm \T\ dry. Musculoskeletal: Circulation, motion, and sensation intact. Historical: - Allergies: 11:21 Streptomycin; tp1 11:21 Gqqizay-Lje-Vlq Reductase Inhibitors; tp1 11:21 caffeine; tp1 11:21 blood thinners except ASA; tp1 11:21 Alteplase; tp1 11:21 hydrocodone; tp1 11:21 Iodine; tp1 - Home Meds: 11:21 aspirin 81 mg Oral chew 1 tab once daily [Active]; Claritin-D 24 Hour 10-240 mg Oral tp1 Tb24 1 tab once daily [Active]; Coreg Oral [Active]; Potassium Chloride Oral [Active]; Augmentin Oral [Active]; pantoprazole oral [Active]; pravastatin oral [Active]; Zetia Oral [Active]; Insulin Glargine Sub-Q [Active]; - PMHx: 11:21 CHF; CVA; Diabetes - NIDDM; Dialysis; Hyperlipidemia; Hypertension; kidney problems; tp1 Anemia; Cellulitis; hyperparathyroidism; malnutition; hernia; - Immunization history:: Client reports receiving the 2nd dose of the Covid vaccine. - Social history:: Smoking status: Patient denies any tobacco usage or history of. Screenin:49 Abuse screen: Denies threats or abuse. Denies injuries from another. Nutritional tp1 screening: No deficits noted. Tuberculosis screening: No symptoms or risk factors identified. Fall Risk No fall in past 12 months (0 pts). No secondary diagnosis (0 pts). IV access (20 points). Ambulatory Aid- None/Bed Rest/Nurse Assist (0 pts). Gait- Normal/Bed Rest/Wheelchair (0 pts) Mental Status- Oriented to own ability (0 pts). Total Jovel Fall Scale indicates No Risk (0-24 pts). Assessment: 10:55 General: See triage notes. tp1 11:30 Reassessment: BP 104/53, Lopressor held, provider notifies. tp1 12:00 Reassessment: received VO from Dr. Stein for NS 250mL bolus IV. tp1 12:02 Reassessment: defibrillator pads applied. tp1 12:14 Reassessment: Shock delivered, 200 joules. tp1 12:19 Reassessment: shock delivered, 200 Joules. tp1 12:44 Reassessment: Patient appears in no apparent distress at this time. No changes from tp1 previously documented assessment. resting with eyes closed. 13:47 Reassessment: Patient appears in no apparent distress at this time. No changes from tp1 previously documented assessment. Patient is alert, oriented x 3, equal unlabored respirations, skin warm/dry/pink. denies chest pain or SOB. 15:47 Reassessment: Patient appears in no apparent distress at this time. No changes from tp1 previously documented assessment. resting in bed with eyes closed. respirations even and unlabored. Vital Signs: 10:55 BP 128 / 77; Pulse 140; Resp 12; Temp 97.6; Pulse Ox 100% ; Weight 52.62 kg; Height 5 tp1 ft. 2 in. (157.48 cm); 11:30 BP 104 / 53; Pulse 148; tp1 12:00 BP 120 / 62; Pulse 139; Resp 24; Pulse Ox 99% on R/A; tp1 12:38 BP 86 / 48; Pulse 138; Resp 17; Pulse Ox 99% on 2 lpm NC; tp1 12:50 BP 96 / 51; Pulse 114; Resp 23; Pulse Ox 100% on 2 lpm NC; tp1 13:00 BP 99 / 59; Pulse 125; Resp 23; Pulse Ox 100% on 2 lpm NC; tp1 13:15 BP 103 / 67; Pulse 122; Resp 17; Pulse Ox 100% on 2 lpm NC; tp1 13:25 BP 98 / 57; Pulse 128; Resp 17; Pulse Ox 100% on 2 lpm NC; tp1 13:30 BP 99 / 52; Pulse 76; Resp 17; Pulse Ox 100% on 2 lpm NC; tp1 14:00 BP 101 / 44; Pulse 72; Resp 20; Pulse Ox 100% on 2 lpm NC; tp1 14:30 BP 100 / 48; Pulse 72; Resp 20; Pulse Ox 100% on 2 lpm NC; tp1 15:00 BP 104 / 47; Pulse 71; Resp 20; Pulse Ox 100% on 2 lpm NC; tp1 15:30 BP 101 / 47; Pulse 74; Resp 20; Pulse Ox 100% on 2 lpm NC; tp1 16:00 BP 117 / 47; Pulse 77; Resp 20; Pulse Ox 100% on 2 lpm NC; tp1 17:00 BP 105 / 40; Pulse 76; Resp 21; Pulse Ox 100% on 2 lpm NC; tp1 10:55 Body Mass Index 21.22 (52.62 kg, 157.48 cm) tp1 ED Course: 10:55 Arm band placed on. tp1 11:00 Patient has correct armband on for positive identification. Placed in gown. Bed in low tp1 position. Call light in reach. Side rails up X2. 11:02 Patient arrived in ED. eb 11:05 Jayme Stein MD is Attending Physician. kdr 11:07 EKG done, by ED staff. tp1 11:10 Inserted saline lock: 20 gauge in left forearm, using aseptic technique. Blood tp1 collected. 11:16 Chrissy Gomez RN is Primary Nurse. tp1 11:21 Triage completed. tp1 11:59 XRAY Chest (1 view) In Process Unspecified. EDMS 12:08 granddaughter Jailyn Bingham called wanting an update/ to please call her at [phone].dh3 12:21 EKG done, by ED staff. tp1 12:55 EKG done, by ED staff. tp1 13:25 Paolo Montgomery MD is Hospitalizing Provider. kdr 13:31 EKG done, by ED staff. tp1 17:11 No provider procedures requiring assistance completed. tp1 19:22 role handed off by Bruna Thomason RN mw2 19:22 Primary Nurse role handed off by Chrissy Gomez RN mw2 19:22 Attending Physician role handed off by Jayme Stein MD thor 19:22 Bharathi Mcadams MD is Attending Physician. thor 19:47 Han Gutiérrez RN is Primary Nurse. as6 Administered Medications: 19:22 Discontinued: amiodarone 900 mg, D5W 500 ml IVPB at 1 mg/min continuous; for 6 hrs, thor then change to 0.5 mg/min 12:00 Drug: fentaNYL (PF) 100 mcg Route: IVP; Site: left forearm; tp1 16:07 Follow up: Response: No adverse reaction tp1 12:02 Drug: NS 0.9% 250 ml Route: IV; Rate: bolus; Site: left forearm; tp1 13:00 Follow up: IV Status: Completed infusion; IV Intake: 125ml tp1 12:07 Drug: Versed (midazolam) 2 mg Route: IVP; Site: left forearm; tp1 16:07 Follow up: Response: No adverse reaction tp1 12:41 Drug: amiodarone 150 mg Route: IVP; Site: left forearm; tp1 16:03 Follow up: Response: No change in condition tp1 13:00 Drug: amiodarone 900 mg, D5W 500 ml Route: IVPB; Rate: 1 mg/min; Site: left forearm; tp1 13:20 Not Given (Physician Discretion): Lovenox (enoxaparin) 1 mg/kg Sub-Q once tp1 16:01 Not Given (Physician Discretion): Lopressor (metoprolol) 5 mg IVP every 5 minutes; Hold tp1 for SBP < 100 or HR < 60. x3 19:31 Drug: amiodarone 400 mg Route: PO; aa9 Medication: 17:11 VIS not applicable for this client. tp1 Intake: 13:00 IV: 125ml; Total: 125ml. tp1 Outcome: 13:24 Discharge ordered by MD. kdr 13:26 Decision to Hospitalize by Provider. kdr 20:39 Patient left the ED. vc1 Signatures: Dispatcher [employer] EDMS Bharathi Mcadams MD MD cha Rittger, Kevin, MD MD kdr Herrera, Deanna 3 Elver Mckeon 2 Zoraida Pollock Ashby, RN RN as6 Chrissy Gomez RN RN tp1 Qnig Arizmendi RN RN vc1 Batsheva Sam RN RN aa9 Corrections: (The following items were deleted from the chart) 11 11:21 Home Meds: allopurinol 100 mg Oral tab once daily; tp1 tp1 11:28 11:21 Home Meds: carvedilol 6.25 mg Oral tab 2 times per day; tp1 tp1 :28 11:21 Home Meds: cetirizine 10 mg Oral tab 1 tab once daily; tp1 tp1 11:28 11:21 Home Meds: furosemide 40 mg Oral tab 1 tab once daily; tp1 tp1 11:28 11:21 Home Meds: glimepiride 4 mg Oral tab twice a day; tp1 tp1 11:47 10:55 Cardiovascular: Denies chest pain, nausea, vomiting, Patient's skin is warm and tp1 dry. tp1 13:26 12:44 Reassessment: Patient appears in no apparent distress at this time. No changes tp1 from previously documented assessment. resting with eyes closed. tp1 13:59 12:38 BP 86 / 48; Pulse 138bpm; Resp 17bpm; Pulse Ox 99% RA; tp1 tp1 13:59 13:00 BP 99 / 59; Pulse 125bpm; Resp 23bpm; Pulse Ox 100% RA; tp1 tp1 16:07 13:57 BP 101 / 44; Pulse 72bpm; Resp 20bpm; Pulse Ox 100% 2 lpm Nasal Cannula; tp1 tp1
[2021-12-23 13:33] LABS: SARS-CoV-2 Antigen Rapid Res Negative (Negative)
[2021-12-23] MEDS ORDERED: AMIODARONE HCL 450 MG in D5W 241 ML IV SCH (14:00)
--- NOTE | 2021-12-23 18:38 | P.HP ---
Certification for Inpatient Patient admitted to: Inpatient With expected LOS: >2 Midnights Practitioner: I am a practitioner with admitting privileges, knowledge of patient current condition, hospital course, and medical plan of care. Services: Services provided to patient in accordance with Admission requirements found in Title 42 Section 412.3 of the Code of Federal Regulations Patient History Date of Service: 12/23/21 Reason for admission: RAPID A FIB History of Present Illness: MS. LEIGH HAS CKD 5 ON HD. SHE DURING DIALYSIS WAS NOTED TO HAVE RAPID A FIB AND BROUGHT TO ER. SHE WAS GIVEN AMIODARONE IV AND IT CONTROLLED HR DOWN TO NORMAL. SHE HAS MILD LOW K. SHE ALSO HAS RECURRENT EFFUSION THAT IS NOT SYMPTOMATIC NOW. Allergies blood thinner Allergy (Mild, Uncoded 06/16/19 21:12) swelling blood thinners Allergy (Uncoded 06/16/19 21:12) Unknown Iropkad-Lob-Avc Redu Allergy (Uncoded 06/16/19 21:12) Unknown Home Medications: Pravastatin Sodium 10 mg PO BEDTIME 06/19/17 carvediloL [Coreg*] 6.25 mg PO BID 06/19/17 Cholecalciferol (Vitamin D3) [Vitamin D3] 5,000 unit PO DAILY #30 10/21/20 Aspirin [Vazalore] 81 mg PO DAILY 08/14/21 Cetirizine HCl 1 tab PO DAILY 12/17/21 Cyanocobalamin (Vitamin B-12) [Vitamin B12] 1 tab PO DAILY 12/17/21 Ezetimibe 1 tab PO DAILY 12/17/21 Fluticasone Propionate [Flonase Allergy Relief] 1 appl SHANNON BID 12/17/21 Insulin Aspart [Novolog Flexpen] 7 units SQ SEECOM 12/17/21 Insulin Detemir [Levemir Flextouch] 15 units SQ DAILY AT SUPPER 12/17/21 Melatonin 1 tab PO BEDTIME 12/17/21 Pantoprazole [Protonix Tab*] 1 tab PO SEECOM 12/17/21 Simethicone [Gas-X] 1 tab PO DAILY PRN 12/17/21 Vit A/Vit C/Vit E/Zinc/Copper [Preservision Areds Softgel] 2 cap PO DAILY 11/20 levoFLOXacin [Levaquin*] 250 mg PO DAILY #5 tab 12/18/21 - Past Medical/Surgical History Diabetic: Yes -: DM -: HTN -: Hyperlipidemia -: CVA 2014 -: Gastric Ulcer -: Chronic renal failure -: Diastolic heart failure -: COVID infection October 2020 -: dilaysis MWF -: Full Hysterectomy -: R upper chest dialysis cath - Family History Mother -: Diabetes - Social History Alcohol use: No CD- Drugs: No Caffeine use: No Review of Systems 10-point ROS is otherwise unremarkable General: Weakness Physical Examination - Vital Signs Temperature: 97.9 F Blood Pressure: 117/47 Pulse: 76 Respirations: 26 Pulse Ox (%): 100 - Physical Exam General: Oriented x3, Mild distress HEENT: Atraumatic, PERRLA, Mucous membr. moist/pink, EOMI, Sclerae nonicteric Neck: Supple, 2+ carotid pulse no bruit, No LAD, Without JVD or thyroid abnormality Respiratory: Clear to auscultation bilaterally, Normal air movement Cardiovascular: Regular rate/rhythm, Normal S1 S2 Gastrointestinal: Normal bowel sounds, No tenderness Musculoskeletal: No tenderness Integumentary: No rashes Neurological: Normal gait, Normal speech, Normal strength at 5/5 x4 extr, Normal tone, Normal affect Lymphatics: No axilla or inguinal lymphadenopathy - Studies Laboratory Data (last 24 hrs) 12/23/21 11:15: WBC 8.40 D, Hgb 11.0 L D, Hct 34.1 L D, Plt Count 100 L D 12/23/21 11:15: Sodium 136, Potassium 3.2 L, BUN 24 H D, Creatinine 1.91 H D, Glucose 183 H Assessment and Plan - Problems (Diagnosis) (1) Rapid atrial fibrillation Current Visit: Yes Status: Acute Plan: SHE HAS RAPID A FIB AND HAS NOW BEEN CONTROLLED. CONSULTED MAY NEED LOW DOSE ELIQUIS FOR NOW. DR. Lara CALLED. AMIODARONE 400 BID FOR A WEEK FOLLOWED BY 200 MG DAILY. ELIQUIS BID. (2) Hypokalemia Current Visit: Yes Status: Acute Plan: REPLACE K. (3) Pleural effusion Current Visit: No Status: Chronic Plan: RECURRENT A FIB. CYTOLOGY AND CULTURES NEG. TRANSUDATE SHE MAY NEED PLEURODESIS POSSIBLE. CALLED IN DR. BAKER AGAIN. - Advance Directives Does patient have a Living Will: Yes Does patient have a Durable POA for Healthcare: Yes
[2021-12-23] MEDS ORDERED: KCL 20 MEQ/100 mL IVPB 100 ML IV SCH (19:20)
[2021-12-23] MEDS ORDERED: AMIODARONE HCL 200 MG TAB ONE (19:37)
[2021-12-23] MEDS ORDERED: AMIODARONE HCL 200 MG TAB PO SCH (21:00)
[2021-12-23] MEDS ORDERED: APIXABAN 2.5 MG TABLET PO SCH (21:00)
[2021-12-23] MEDS: POTASSIUM CL SA 10 MEQ TAB PO SCH (22:37)
--- NOTE | 2021-12-24 01:07 | CON ---
Date of Consultation: 12/23/2021 Chief Complaint: End-stage renal disease, on hemodialysis. History Of Present Illness: Patient has history of end-stage renal disease, on dialysis. During aliya lysis, she was noted to have rapid atrial fibrillation/tachycardia. She denied chest pain, palpitati on. Patient was brought to emergency room. She was started on IV amiodarone drip and it controlled her heart rate. Patient was found to have borderline hypokalemia. She has history of recurrent pleu ral effusion, and she is symptomatic with some shortness of breath and generalized weakness, although she denies chest pain. Review of Systems: Constitutional: Denies fever, chills. Eyes: Denies vision changes. Ears, Nose, Mouth, and Throat: Denies sore throat, earache. Respiratory: She has some dyspnea on exertion. Currently, she is bedbound. GI: She denies nausea or vomiting. : Denies dysuria, hematuria. Musculoskeletal: Denies muscle aches or joint swelling. All other systems reviewed and all are negative. Past Medical History: End-stage renal disease, diabetes mellitus, hypertension, hyperlipidemia, CVA, gastric ulcer, diastolic congestive heart failure, COVID infection in October 2020, hysterectomy, upper chest dialysis catheter with IJ location. Family History: Mother, diabetes. Social History: Denies tobacco, alcohol, or illicit drugs. Physical Examination: General: Patient is awake, alert. Follows commands. Vital Signs: Blood pressure 117/50, heart rate is 76, respiratory rate 21, temperature 97.1, SpO2 10 0%. Eyes: Anicteric sclerae. EOMI. Ears, Nose, Mouth, and Throat: Oral mucosa moist. No pallor. Neck: Supple. No bruits. Lungs: Few rhonchi. Heart: S1, S2. Abdomen: Soft, benign. Extremities: No edema. No clubbing. No cyanosis. Laboratory Data: WBC 8.4, hemoglobin 11, hematocrit 34.1, platelet count 100,000. BUN 24, creatinin e 1.91, potassium 3.2, sodium 136, glucose 183. Impression And Plan: 1.Patient has rapid atrial fibrillation. She was started on amiodarone drip. Heart rate is control led. Continue to monitor. 2.Hypokalemia. Replacement was ordered. 3.Pleural effusion. Patient has recurrent pleural effusion. She may need pleurodesis. 4.Anemia of chronic kidney disease. Continue ELROY as needed. Monitor hemoglobin level. 5.End-stage renal disease. Monitor electrolytes and azotemia. The patient may need 24-hour urine t o evaluate the renal function. 6.Elevated troponin. Continue to monitor. Patient was seen by audio/visual manager. 7.Elevated BNP. The patient is on dialysis. She received dialysis today with ultrafiltration. Chrissie hidalgo fluid balance. JASMINE/MODSailaja Voice ID: [id number] Report ID: [id number]
[2021-12-24 05:05] LABS: Absolute Lymphocytes (CBC) 0.5 K/uL (0.7-4.9); Hematocrit 27.7 % (36.0-45.0); Lymphocytes % 12.1 % (15.3-44.8); MPV 7.5 fL (7.6-11.3); RBC Red Blood Cell Count 3.04 M/uL (3.86-4.86)
[2021-12-24 05:18] LABS: Potassium 3.3 mmol/L (3.5-5.1)
[2021-12-24] MEDS: ASPIRIN EC 81 MG TAB PO SCH (07:44)
[2021-12-24] MEDS: AMIODARONE HCL 200 MG TAB PO SCH ×2 (07:44→19:04)
[2021-12-24] MEDS: POTASSIUM CL SA 10 MEQ TAB PO SCH ×2 (07:44→20:39)
[2021-12-24] MEDS: ACETAMINOPHEN 500 MG TAB PO PRN (08:17)
[2021-12-24] MEDS ORDERED: POTASSIUM CL SA 10 MEQ TAB PO ONE (08:22)
[2021-12-24] MEDS ORDERED: DIGOXIN 0.25 MG/ML AMP IV ONE ×2 (08:30→18:00)
[2021-12-24] MEDS ORDERED: APIXABAN 2.5 MG TABLET PO SCH (09:00)
[2021-12-24] MEDS ORDERED: ENOXAPARIN 30 MG/0.3 ML SQ SCH (09:00)
[2021-12-24] MEDS ORDERED: NA CHLORIDE 0.9% 250 ML IV SCH (11:00)
--- NOTE | 2021-12-24 12:21 | P.CNS ---
Date of Consult: 12/24/21 Reason for Consult: Pleural effusion rapid Raquel fib Chief Complaint: RAPID A FIB History of Present Illness: Patient is 86 years of age was just recently discharged with a pleural effusion s/p thoracentesis admitted again with rapid Suri. fib with significant pleural effusion on the left side Allergies blood thinner Allergy (Mild, Uncoded 06/16/19 21:12) swelling blood thinners Allergy (Uncoded 06/16/19 21:12) Unknown Dohjesy-Cpa-Wnl Redu Allergy (Uncoded 06/16/19 21:12) Unknown Home Medications: Pravastatin Sodium 10 mg PO BEDTIME 06/19/17 carvediloL [Coreg*] 6.25 mg PO BID 06/19/17 Cholecalciferol (Vitamin D3) [Vitamin D3] 5,000 unit PO DAILY #30 10/21/20 Aspirin [Vazalore] 81 mg PO DAILY 08/14/21 Cetirizine HCl 1 tab PO DAILY 12/17/21 Cyanocobalamin (Vitamin B-12) [Vitamin B12] 1 tab PO DAILY 12/17/21 Ezetimibe 1 tab PO DAILY 12/17/21 Fluticasone Propionate [Flonase Allergy Relief] 1 appl SHANNON BID 12/17/21 Insulin Aspart [Novolog Flexpen] 7 units SQ SEECOM 12/17/21 Insulin Detemir [Levemir Flextouch] 15 units SQ DAILY AT SUPPER 12/17/21 Melatonin 1 tab PO BEDTIME 12/17/21 Pantoprazole [Protonix Tab*] 1 tab PO SEECOM 12/17/21 Simethicone [Gas-X] 1 tab PO DAILY PRN 12/17/21 Vit A/Vit C/Vit E/Zinc/Copper [Preservision Areds Softgel] 2 cap PO DAILY 12/17/21 levoFLOXacin [Levaquin*] 250 mg PO DAILY #5 tab 12/18/21 - Past Medical/Surgical History Diabetic: Yes -: DM -: HTN -: Hyperlipidemia -: CVA 2014 -: Gastric Ulcer -: Chronic renal failure -: Diastolic heart failure -: COVID infection October 2020 -: dilaysis MWF -: Full Hysterectomy -: R upper chest dialysis cath - Family History Mother Medical History: Diabetes - Social History Alcohol use: No CD- Drugs: No Caffeine use: No Place of Residence: Home Review of Systems General: Weakness Respiratory: Cough, Shortness of Breath Physical Examination Temp Pulse Resp BP Pulse Ox 97.0 F 120 H 19 110/53 L 100 12/24/21 08:00 12/24/21 11:00 12/24/21 11:00 12/24/21 11:00 12/24/21 08:00 General: Alert, In no apparent distress Respiratory: Clear to auscultation bilaterally, Diminished Cardiovascular: No edema (Managed on the left side), Regular rate/rhythm, Irregular heart rate/rhythm - Problems (1) Pleural effusion Current Visit: No Status: Chronic Plan: Patient is 86 years of age was just recently discharged from the hospital s/p thoracentesis. Yet again with pleural effusion affecting three quarters of her chest the prior thoracentesis showed a transudate lymphocytic predominant effusion no malignant cells identified commend a Pleurx catheter stable for the procedure tomorrow change management analyst to Lovenox
--- NOTE | 2021-12-24 12:43 | PN ---
Date of Progress Note: 12/24/2021 Subjective: The patient was admitted with AFib happened by the end of dialysis. The patient denied any shortness of breath, but is still requiring oxygen. The patient had another episode of AFib today without any dialysis or any intervene. Even though the patient was on oral amiodarone. The patient had also left pleural effusion that has been recurrent. Physical Examination: Vital Signs: When I saw the patient; blood pressure 109/50, pulse of 110. Chest: Decreased entry on the left base. Heart: S1, S2. Tachycardic, irregular. Abdomen: Soft, nontender. Extremities: No edema. Neuro: Alert. No focality. Laboratory Data: WBC 4, H and H 9.1/27.7. Sodium 137, potassium 3.3, bicarb 28, BUN 37, creatinine 2.6, calcium 8. Troponin 88.5. BNP 6960. Current Medications: The patient on include; 1. Aspirin. 2. Lovenox. 3. Amiodarone 400 b.i.d. 4. Digoxin. 5. Tylenol. 6. KCl. Assessment And Plan: 1. End-stage renal disease. The patient looked to me euvolemic. No hyperkalemia. No acidosis. I do not see the need to do dialysis today, specifically with the incident of atrial fibrillation and unstable hemodynamically and the patient had full dialysis yesterday of 4 hours. I am going to go ahead and arrange for the dialysis tomorrow to back up to her schedule as Thursday, Thursday, Thursday. 2. Hypertension, controlled, optimal. Off blood pressure medications. We will follow up with Cardiology. 3. Atrial fibrillation with rapid ventricular response as by Cardiology. Plan possible for amiodarone loading IV. We will follow up. 4. Pleural effusion, recurrent. The patient may need pleurodesis. We will follow up as outpatient. 5. Coronary artery disease with congestive heart failure as by Cardiology. Looked to me the patient on the dry side right now. I am going to give the patient a single IV fluid of 250 and we will follow up. time spend exam the patient face to face . reviewing the data lab and radiology , placing order , discussing the case with the patient and staff including nurse and hospitalist 35 min MARCIO Voice ID: [id number] Report ID: [id number] MTDD
--- NOTE | 2021-12-24 12:45 | P.PN ---
Subjective Date of Service: 12/24/21 Chief Complaint: RAPID A FIB Subjective: Worsening THIS AM AT 6:59 SHE CONVERTED BACK TO A FIB. DR. LEGGETT IS AWARE. HE WILL CONTINUE ORAL MEDS. DR. BAKER ALSO CALLED. HE IS PLANNING FOR PERMANENT CATHETER FOR EFFUSION THAT RETURNS OFTEN. SHE HAS NO SS FROM RAPID A FIB. Review of Systems 10-point ROS is otherwise unremarkable General: Weakness Physical Examination - Vital Signs Temperature: 97.0 F Blood Pressure: 110/53 Pulse: 120 Respirations: 19 Pulse Ox (%): 100 - Physical Exam General: Oriented x3, Mild distress HEENT: Atraumatic, PERRLA, EOMI Neck: Supple, JVD not distended Respiratory: Clear to auscultation bilaterally, Normal air movement Cardiovascular: Regular rate/rhythm, Normal S1 S2 Gastrointestinal: Normal bowel sounds, No tenderness Musculoskeletal: No tenderness Integumentary: No rashes Neurological: Normal speech, Normal tone, Normal affect Lymphatics: No axilla or inguinal lymphadenopathy - Studies Medications List Reviewed: Yes Assessment And Plan - Current Problems (Diagnosis) (1) Rapid atrial fibrillation Current Visit: Yes Status: Acute Plan: WILL HOLD ELIQUIS UNTIL PLEURAL CATHETER DR MADSEN WILL DO THIS. DR. LEGGETT WILL CONTINUE ORAL MEDS. A FIB RECURRED HERE. (2) Hypokalemia Current Visit: Yes Status: Acute Plan: REPLACE K. (3) Pleural effusion Current Visit: No Status: Chronic Plan: RECURRENT A FIB. CYTOLOGY AND CULTURES NEG. TRANSUDATE SHE MAY NEED PLEURODESIS POSSIBLE. CALLED IN DR. BAKER AGAIN. PLEUROVAC FOR NOW.
[2021-12-24] MEDS ORDERED: AMIODARONE HCL 900 MG in Dextrose 5%-Water 482 ML IV SCH (13:00)
[2021-12-24 14:09] LABS: Protime INR 1.4
--- NOTE | 2021-12-24 14:30 | EKG ---
Test Date: 2021-12-24 Test Time: 07:44:18 Automobile Or Truck Rental Dispatcher: MEG MEASUREMENT RESULTS: Intervals: Rate: 118 ID: QRSD: [id number] QT: 354 QTc: 496 [place]: P: ID: QRS: 0 T: -28 INTERPRETIVE STATEMENTS: Atrial flutter with variable AV block Low voltage QRS Nonspecific ST and T wave abnormality Abnormal ECG Compared to ECG 12/23/2021 13:31:28 ST (T wave) deviation now present Sinus rhythm no longer present Atrial premature complex(es) no longer present Myocardial infarct finding no longer present Electronically Signed On 12-24-21 14:28:59 CDT by Joel Clarke
--- NOTE | 2021-12-24 14:33 | EKG ---
Test Date: 2021-12-23 Test Time: 11:02:36 Players Assistant: TP MEASUREMENT RESULTS: Intervals: Rate: 139 NM: QRSD: 86 QT: 298 QTc: 453 [place]: P: 24 NM: QRS: 2 T: 43 INTERPRETIVE STATEMENTS: Atrial flutter with variable AV block Nonspecific ST and T wave abnormality Abnormal ECG Compared to ECG 12/16/2021 18:08:36 ST (T wave) deviation now present Sinus tachycardia no longer present Atrial abnormality no longer present Myocardial infarct finding no longer present Electronically Signed On 12-24-21 14:30:35 CDT by Joel Clarke
--- NOTE | 2021-12-24 14:33 | EKG ---
Test Date: 2021-12-23 Test Time: 13:31:28 Recreation Adviser: PAT MEASUREMENT RESULTS: Intervals: Rate: 75 [place]: 196 QRSD: 84 QT: 412 QTc: 460 [place]: P: 41 [place]: 196 QRS: 5 T: 36 INTERPRETIVE STATEMENTS: Sinus rhythm with premature atrial complexes Low voltage QRS Cannot rule out Anterior infarct, age undetermined Abnormal ECG Compared to ECG 12/23/2021 12:55:47 Atrial premature complex(es) now present Atrial fibrillation no longer present Myocardial infarct finding still present Electronically Signed On 12-24-21 14:30:25 CDT by Joel Clarke
--- NOTE | 2021-12-24 14:33 | EKG ---
Test Date: 2021-12-23 Test Time: 12:21:48 Tank Erector: PAT MEASUREMENT RESULTS: Intervals: Rate: 136 TX: QRSD: 78 QT: 262 QTc: 394 Peterson: P: 249 TX: QRS: -4 T: 53 INTERPRETIVE STATEMENTS: Atrial flutter with 2:1 AV conduction Low voltage QRS Nonspecific T wave abnormality Abnormal ECG Compared to ECG 12/23/2021 11:02:36 Low QRS voltage now present T-wave abnormality now present ST (T wave) deviation no longer present Electronically Signed On 12-24-21 14:30:32 CDT by Joel Clarke
--- NOTE | 2021-12-24 14:33 | EKG ---
Test Date: 2021-12-23 Test Time: 12:55:47 Locator Specialist: PAT MEASUREMENT RESULTS: Intervals: Rate: 124 NM: QRSD: 92 QT: 358 QTc: 514 Crouse: P: NM: QRS: -5 T: 46 INTERPRETIVE STATEMENTS: Atrial fibrillation with rapid ventricular response Low voltage QRS Cannot rule out Anterior infarct, age undetermined Abnormal ECG Compared to ECG 12/23/2021 12:21:48 Myocardial infarct finding now present Atrial flutter no longer present T-wave abnormality no longer present Electronically Signed On 12-24-21 14:30:30 CDT by Joel Clarke
--- NOTE | 2021-12-24 15:38 | RAD REPORT ---
EXAM DESCRIPTION: RAD - Chest Lateral Decubitus - 12/24/2021 3:25 pm CLINICAL HISTORY: Pleural Effusions COMPARISON: Chest Single View dated 12/23/2021; Thoracentesis w/ US Guide dated 12/18/2021; Thorax Wo C on dated 12/16/2021 FINDINGS: Decubitus radiograph re- demonstrating a layering left pleural effusion that is moderate i n size. IMPRESSION: Moderate layering left pleural effusion.
[2021-12-25] MEDS: ACETAMINOPHEN 500 MG TAB PO PRN (00:32)
--- NOTE | 2021-12-25 04:16 | CON ---
Date of Consultation: 12/24/2021 Reason For Consultation: New onset rapid atrial fibrillation. History Of Present Illness: Ms. Cross is 86 years old. She has a history of congestive heart failur e, CVA, diabetes. She is on hemodialysis. She had hypertension, cholesterol, history of anemia, kathy lulitis, hyperparathyroidism, malnutrition, as well as hernia. She came in with new onset atrial fib rillation at a rate of 140-150, received 2 shocks of 200 joules in the emergency room and did not con vert. I suggested amiodarone and she went to sinus rhythm after IV amiodarone. Not long after her I V amiodarone was stopped and she was switched to p.o. amiodarone, she went back into atrial fibrillat ion without much symptoms at this time. Past Medical History: As stated above. Allergies: SHE IS ALLERGIC TO IODINE, HYDROCODONE, TPA, CAFFEINE, STATIN, AND STREPTOMYCIN. Medications: At home include aspirin, Claritin, potassium, Coreg, pantoprazole, pravastatin, and ins ulin. Review of Systems: Negative. Social History: Negative. Family History: Noncontributory. Physical Examination: Vital Signs: When I did see Ms. Cross in the morning, she had gone back into atrial fibrillation on p.o. amiodarone. Heart rate was 120-130. Her vital signs were otherwise stable. She was afebrile. HEENT: Exam is negative. Neck: Supple without any bruit, lymphadenopathy, JVD, or thyromegaly. Chest: Revealed decreased breath sounds bilaterally. Cardiac: Exam revealed atrial fibrillation. Abdomen: Benign. Extremities: No clubbing, cyanosis, or edema. Diagnostic Data: Showed a troponin of 88. BNP of 6960. Creatinine is 2.62. Chest x-ray showed mod erate left pleural effusion. EKG showed atrial fibrillation. Impression And Plan: 1.New onset atrial fibrillation. 2.History of congestive heart failure. As she has not had an echo for quite some time, I will repea t another echo on her. 3.History of cerebrovascular accident. 4.History of diabetes. 5.History of dialysis. 6.History of hypertension. I think for now, I will continue the p.o. amiodarone. I would give her an additional dose of digoxin IV and we may repeat that in 6 hours. If the amiodarone p.o. does not work, we will consider a card ioversion on amiodarone. See what the echo shows. She may need her the pleural effusion addressed d own the road and this was discussed with Dr. Montgomery. We will continue to follow her. She definitely needs to be on low-dose anticoagulant as well. BHASKAR/MARIANA Voice ID: [id number] Report ID: [id number]
--- NOTE | 2021-12-25 07:11 | ECHO ---
HEIGHT: 5 ft 2 in WEIGHT: 116 lb 0 oz DATE OF STUDY: 12/24/[address]: Paolo Montgomery MD 2-DIMENSIONAL: YES M.MODE: YES DOPPLER: YES COLOR FLOW: YES TDS: NO PORTABLE: YES DEFINITY: NO BUBBLE STUDY: NO DIAGNOSIS: ATRIAL FIBRILLATION WITH RAPID VENTRICULAR RESPONSE CARDIAC HISTORY: CATHERIZATION: SURGERY: PROSTHETIC VALVE: PACEMAKER: MEASUREMENTS (cm) DIASTOLIC (NORMALS) SYSTOLIC (NORMALS) IVSd 0.8 (0.6-1.2) LA Diam 3.8 (1.9-4.0) LVEF 72% LVIDd 3.3 (3.5-5.7) LVIDs 2.0 (2.0-3.5) %FS 40% LVPWd 0.8 (0.6-1.2) Ao Diam 3.1 (2.0-3.7) 2 DIMENSIONAL ASSESSMENT: RIGHT ATRIUM: NORMAL LEFT ATRIUM: NORMAL RIGHT VENTRICLE: NORMAL LEFT VENTRICLE: NORMAL TRICUSPID VALVE: NORMAL MITRAL VALVE: MITRAL ANNULAR CALCIFICATION PULMONIC VALVE: NORMAL AORTIC VALVE: NORMAL PERICARDIAL EFFUSION: MODERATE AORTIC ROOT: NORMAL LEFT VENTRICULAR WALL MOTION: NORMAL DOPPLER/COLOR FLOW: NORMAL COMMENTS: NORMAL LEFT VENTRICULAR EJECTION FRACTION 60-65% WITH NORMAL WALL MOTION. MODERATE TO LARGE PERICARDIAL EFFUSION. LARGE PLEURAL EFFUSION. TECHNOLOGIST: Cari WOODWARD
[2021-12-25] MEDS ORDERED: LIDOCAINE 1% 20 ML MDV ONE (07:50)
[2021-12-25] MEDS: ASPIRIN EC 81 MG TAB PO SCH (08:21)
[2021-12-25] MEDS: POTASSIUM CL SA 10 MEQ TAB PO SCH ×2 (08:21→20:19)
[2021-12-25] MEDS: AMIODARONE HCL 200 MG TAB PO SCH ×2 (08:22→20:19)
[2021-12-25] MEDS: APIXABAN 2.5 MG TABLET PO SCH ×2 (08:50→20:19)
[2021-12-25] MEDS ORDERED: ENOXAPARIN 30 MG/0.3 ML SQ SCH (09:00)
--- NOTE | 2021-12-25 09:00 | RAD REPORT ---
EXAM DESCRIPTION: RAD - Chest Single View - 12/25/2021 8:49 am CLINICAL HISTORY: Status Post Thorocentesis COMPARISON: Chest Single View dated 12/23/2021; Chest Single View dated 12/18/2021; Chest Single View d ated 12/16/2021; Chest Single View dated 08/19/2021; Chest Lateral Decubitus dated 12/24/2021 FINDINGS: Lines: Right IJ approach dialysis catheter with tip overlying the right atrium. Lungs: Decrease in size of the left-sided effusion with mild improved aeration of the left lung. Pleural: Small moderate volume of residual pleural fluid. New small moderate pneumothorax. A left-si ded chest tube is been placed. Cardiac: Cardiomegaly. Mediastinum: Within normal limits. Bones: No acute fractures. Other: None IMPRESSION: Interval placement of a left-sided chest tube which terminates near the mediastinum at t he level of the aortic arch. A small to moderate pneumothorax is present and there is a small to mode rate volume of residual pleural fluid.
[2021-12-25] MEDS ORDERED: EPOETIN ALFA 10,000 UNIT/ML VIAL IV SCH (11:00)
--- NOTE | 2021-12-25 12:06 | P.PN ---
Subjective Date of Service: 12/25/21 Chief Complaint: Pleural effusion Subjective: Improving (Patient is improving s/p Pleurx catheter no new complaints) Review of Systems General: Weakness Respiratory: Shortness of Breath Physical Examination - Vital Signs Temperature: 97.1 F Blood Pressure: 126/56 Pulse: 105 Respirations: 21 Pulse Ox (%): 100 - Physical Exam General: Alert, In no apparent distress, Oriented x3 Respiratory: Diminished (Diminished on the left side) Cardiovascular: No edema - Studies Medications List Reviewed: Yes Assessment And Plan - Current Problems (Diagnosis) (1) Pleural effusion Current Visit: No Status: Chronic Plan: Patient has a Pleurx catheter now shortness of breath is improved chemistries and cytologies have been sent again patient has A. fib lori Blackmon patient is on amiodarone rate seem to be controlled plan to discharge home patient is on dialysis
[2021-12-25] MEDS ORDERED: HYDROMORPHONE HCL 1 MG/ML INJ IV ONE (12:30)
[2021-12-25] MEDS: METOPROLOL TAR 25 MG TAB PO SCH ×2 (12:51→17:38)
--- NOTE | 2021-12-25 12:52 | PN ---
Date of Progress Note: 12/25/2021 Subjective: The patient was admitted with AFib, RVR after dialysis. The patient is currently in A f lutter. The patient has pleural effusion. Chest tube was inserted today, drained 1300. The patient was placed on oral amiodarone. Physical Examination: Vital Signs: Blood pressure 122/66, pulse irregular of 108. Chest: Decreased entry on the left base with chest tube inserted. No crackles. Heart: S1, S2. Irregular. Abdomen: Soft, nontender. Extremities: No edema. Neurologic: Alert. No focality. Laboratory Data: WBC 4, H and H 9.1/27.7, platelet of 83. Sodium 137, potassium 3.3, bicarb 28, BUN 37, creatinine 2.6, calcium of 8. BNP 60,960. Chest x-ray after chest tube today; no infiltration. Echocardiogram, ejection fraction of 72. Current Medications: The patient on include; 1.Aspirin. 2.Eliquis 2.5 b.i.d. 3.Amiodarone 400 b.i.d. 4.Digoxin. 5.KCl. Assessment And Plan: 1.End-stage renal disease. We will dialyze the patient today. The patient is going to be dialyzed on high potassium bath and we will follow up the patient. We are not going to challenge the patient. The patient looked to me euvolemic. 2.Hypertension, controlled, optimal with the presence of atrial flutter, normal ejection fraction. I am going to go ahead and start the patient on beta-blockers if okay with Cardiology. 3.Anemia of chronic kidney disease. We will resume the Retacrit for the patient. 4.Secondary hyperparathyroidism, stable. We will follow up phosphorus. 5.Atrial fibrillation/atrial flutter as by Cardiology. Agree with current dose of Eliquis. Add bet a-verito if okay with Cardiology. 6.Hypokalemia. The patient is going to be dialyzed on high potassium bath. 7.Over volume, congestive heart failure. We will try to establish better volume control for the pat ient. Currently, the patient looked to me started has been normal volume. We are not going to chall enge the patient on the dialysis. 8.Hyponatremia, dilutional. Will be corrected with dialysis. 9.Pleural effusion, status post chest tube. We will follow up with Pulmonary. MA/MODL Voice ID: [id number] Report ID: [id number]
[2021-12-25 13:12] LABS: Body Fluid WBC 1946 /mm^3
[2021-12-25 13:32] LABS: Appearance TURBID (CLEAR); Body Fluid Source PLEURAL; Color of fluid Orange (COLORLESS)
--- NOTE | 2021-12-25 15:28 | PN ---
Date of Progress Note: 12/25/2021 Subjective: She was seen by bedside. She continues to be in atrial fibrillation, rate is variable. She apparently was cardioverted initially and then went back into atrial flutter. Rate has been bor derline around 100 or slightly above. She was seen by bedside. Does not have any chest pain, shortn ess of breath, or palpitations. Review of Systems: No chest pain, shortness of breath, orthopnea, cough, nausea, vomiting, diarrhea. All other systems reviewed and they were negative. Physical Examination: Vital Signs: Reviewed. Temperature is 97.1, heart rate is 105, breathing at 21, blood pressure 126/ 56, saturating 100%. General: Pleasant elderly female, no apparent distress. Head and Neck: Pupils are equal, reactive to light. Intact eye movements. No JVD. No cervical lym phadenopathy. Neck is supple. Thyroid is not enlarged. Lungs: Clear to auscultation bilaterally. No rhonchi, wheezing, or crackles. No accessory muscle u se. Heart: Irregularly irregular. No extra sounds. Abdomen: Soft, nontender. Bowel sounds positive. No organomegaly. No masses or hernia. No rigidi ty or rebound. Extremities: No clubbing or cyanosis. Intact pulses. Skin: No rash. Neurologic: Alert, awake. No acute focal deficits appreciated. Investigations: Her BUN is 37, creatinine is 2.62. Initial troponin was 88. Hemoglobin 9.1, white blood cell count 4000. Assessment And Recommendations: 1.Atrial fibrillation/atrial flutter with rapid ventricular response. Decrease amiodarone to 200 mg twice a day for now. She is already loaded with IV amiodarone and also recommend to add metoprolol 25 mg twice a day by mouth and to adjust further as the blood pressure tolerates and for heart rate t o be less than 100 and agree with Eliquis 2.5 mg twice a day. 2.Troponin leak, likely due to demand. Repeat the troponin test to assure stability. 3.Acute renal failure. The patient is being followed and managed by Nephrology. /MARIANA Voice ID: [id number] Report ID: [id number]
[2021-12-25] MEDS ORDERED: AMIODARONE HCL 200 MG TAB PO ONE (16:28)
--- NOTE | 2021-12-25 21:31 | P.PN ---
Subjective Date of Service: 12/25/21 Chief Complaint: Pleural effusion Subjective: No new changes THIS AM AT 6:59 SHE CONVERTED BACK TO A FIB. DR. LEGGETT IS AWARE. HE WILL CONTINUE ORAL MEDS. DR. BAKER ALSO CALLED. HE IS PLANNING FOR PERMANENT CATHETER FOR EFFUSION THAT RETURNS OFTEN. SHE HAS NO SS FROM RAPID A FIB. GOT CATH FOR PLEURAL CAVITY TODAY. HAS PAIN FROM THE PROCEDURE. Review of Systems 10-point ROS is otherwise unremarkable General: Weakness Physical Examination - Vital Signs Temperature: 97.8 F Blood Pressure: 113/42 Pulse: 59 Respirations: 15 Pulse Ox (%): 100 - Physical Exam General: Alert, Oriented x3, Moderate distress HEENT: Atraumatic, PERRLA, EOMI Neck: Supple, JVD not distended Respiratory: Clear to auscultation bilaterally, Normal air movement Cardiovascular: Regular rate/rhythm, Normal S1 S2 Gastrointestinal: Normal bowel sounds, No tenderness Musculoskeletal: No tenderness Integumentary: No rashes Neurological: Normal speech, Normal tone, Normal affect Lymphatics: No axilla or inguinal lymphadenopathy - Studies Medications List Reviewed: Yes Assessment And Plan - Current Problems (Diagnosis) (1) Rapid atrial fibrillation Current Visit: Yes Status: Acute Plan: WILL HOLD ELIQUIS UNTIL PLEURAL CATHETER DR MADSEN WILL DO THIS. DR. LEGGETT WILL CONTINUE ORAL MEDS. A FIB RECURRED HERE. SHE CONVERTED BACK TO NSR THIS PM START ELIQUIS IN AM. SHE HAD PROCEDURE TODAY. (2) Hypokalemia Current Visit: Yes Status: Acute Plan: REPLACE K. RECHECK IN AM. HD DONE TODAY. (3) Pleural effusion Current Visit: No Status: Chronic Plan: RECURRENT A FIB. CYTOLOGY AND CULTURES NEG. TRANSUDATE SHE MAY NEED PLEURODESIS POSSIBLE. CALLED IN DR. BAKER AGAIN. PLEUROVAC FOR NOW. CYTOLOGY HAS BEEN NEGATIVE TWICE WITH RECURRENT EFFUSION SHE NOW HAS PLEURAL CATHETER. (4) CKD stage 5 secondary to hypertension Current Visit: Yes Status: Chronic Plan: ONHD. CHECK C7 IN AM.
[2021-12-26] MEDS: ACETAMINOPHEN 500 MG TAB PO PRN ×2 (00:05→16:17)
[2021-12-26 05:03] LABS: Absolute Lymphocytes (CBC) 0.7 K/uL (0.7-4.9); Hematocrit 28.9 % (36.0-45.0); Lymphocytes % 11.2 % (15.3-44.8); MPV 6.9 fL (7.6-11.3); RBC Red Blood Cell Count 3.18 M/uL (3.86-4.86)
[2021-12-26 05:19] LABS: Albumin 1.8 g/dL (3.4-5.0); Phosphorus 3.3 mg/dL (2.5-4.9)
[2021-12-26 05:20] LABS: Potassium 5.6 mmol/L (3.5-5.1)
[2021-12-26] MEDS: METOPROLOL TAR 25 MG TAB PO SCH ×2 (06:30→17:06)
--- NOTE | 2021-12-26 07:29 | RAD REPORT ---
EXAM DESCRIPTION: RAD - Chest Single View - 12/26/2021 5:23 am CLINICAL HISTORY: LEFT Chest tube placement - effusion COMPARISON: Chest Single View dated 12/25/2021; Chest Single View dated 12/23/2021; Chest Single View da tonny 12/18/2021; Chest Single View dated 12/16/2021 FINDINGS: Lines: Right IJ approach dialysis catheter with tip overlying the SVC. Lungs: No evidence of edema or pneumonia. Pleural: Very mild residual left pleural fluid. Left-sided chest tube in similar positioning. Pneumot horax has resolved. Cardiac: The heart size is within normal limits. Mediastinum: Within normal limits. Bones: No acute fractures. Other: None IMPRESSION: Decrease in size of the left-sided pneumothorax with left-sided chest tube in similar po sitioning. The left effusion has decreased in size as well. No acute process otherwise identified.
[2021-12-26] MEDS: POTASSIUM CL SA 10 MEQ TAB PO SCH ×2 (09:00→20:44)
[2021-12-26] MEDS: ASPIRIN EC 81 MG TAB PO SCH (09:44)
[2021-12-26] MEDS: APIXABAN 2.5 MG TABLET PO SCH ×2 (09:44→20:44)
[2021-12-26] MEDS: AMIODARONE HCL 200 MG TAB PO SCH ×2 (09:45→20:42)
[2021-12-26] MEDS ORDERED: D50W 25 GM/50 ML SYRINGE IV ONE (09:59)
[2021-12-26] MEDS ORDERED: ALBUTEROL 2.5 MG/3 ML NEB SOL NEB ONE (10:00)
[2021-12-26] MEDS ORDERED: GLUCAGON 1 MG/VIAL IM PRN ×2 (10:00→14:09)
[2021-12-26] MEDS ORDERED: D50W 25 GM/50 ML SYRINGE IV PRN (10:00)
[2021-12-26] MEDS ORDERED: DEXTROSE 10%-WATER 125 ML IV PRN (10:03)
[2021-12-26] MEDS ORDERED: INSULIN -REGULAR HUMAN 50 UNIT/0.5 ML ML IV ONE (10:05)
[2021-12-26] MEDS ORDERED: DEXTROSE 10%-WATER 250 ML IV ONE (10:15)
--- NOTE | 2021-12-26 10:46 | P.OP ---
Preoperative diagnosis: LEFT recurrent pleural effusion Postoperative diagnosis: LEFT recurrent pleural effusion Primary procedure: Placement of LEFT Pleur-X Thoracic catheter Anesthesia: 1% lidocaine Estimated blood loss: <1cc Specimen: pleural fluid Findings: straw colored fluid Complications: None Drain(s): Other (PleurX catheter) Transferred to: ICU Condition: Serious
--- NOTE | 2021-12-26 13:25 | PN ---
Date of Progress Note: 12/26/2021 Subjective: The patient was admitted with pleural effusion, AFib with RVR. The patient had maintain ed on amiodarone. Yesterday, we added beta-verito. Physical Examination: Vital Signs: When I saw the patient; blood pressure 124/38, pulse of 59, afebrile. Chest: Decreased entry left base. Chest tube. Heart: S1, S2. Regular. Systolic murmur. Abdomen: Soft, nontender. Extremity: No edema. Neurologic: Alert. No focality. Laboratory Data: WBC 6.1, H and H 9.5/28.9. Sodium 137, potassium 5.6, bicarb 27, BUN 38, creatinin e 2.8, GFR of 16, calcium 8.1, phosphorus 3.3, albumin 1.8. Corrected calcium is 9.7. Current Medications: The patient on include; 1.Aspirin. 2.Albuterol. 3.Eliquis. 4.Epogen. 5.Amiodarone 200 b.i.d. 6.Metoprolol 25 b.i.d. 7.Tramadol. Assessment And Plan: 1.End-stage renal disease. I am going to continue the patient on dialysis. The patient will be edith eduled for dialysis tomorrow. The patient cleared from the Renal standpoint for discharge planning t o continue the dialysis as outpatient. The patient has interest in home hemodialysis. We will start the process. We will follow up with social sciences department chair. 2.Anemia of chronic kidney disease. Continue ELROY. 3.Hypertension, controlled, optimal. Continue current treatment. 4.Pleural effusion, recurrent, status post chest tube. We will follow up with Surgery. 5.Secondary hyperparathyroidism, stable. 6.Atrial fibrillation and atrial flutter as by Cardiology. The patient was started on beta-verito. Continue amiodarone. We will follow up. ARMANDO/MARIANA Voice ID: [id number] Report ID: [id number]
[2021-12-26] MEDS: TRAMADOL HCL 50 MG TAB PO PRN (13:50)
[2021-12-26] MEDS ORDERED: INSULIN GLARGINE 100 UNIT/ML SQ ONE (14:00)
[2021-12-26] MEDS ORDERED: DEXTROSE 10%-WATER 500 ML IV BAG IV PRN (14:16)
[2021-12-26] MEDS: INSULIN -REGULAR HUMAN 50 UNIT/0.5 ML ML SQ SCH ×2 (17:05→20:44)
--- NOTE | 2021-12-26 20:50 | P.PN ---
Subjective Date of Service: 12/26/21 Chief Complaint: Pleural effusion Subjective: Improving THIS AM AT 6:59 SHE CONVERTED BACK TO A FIB. DR. LEGGETT IS AWARE. HE WILL CONTINUE ORAL MEDS. DR. BAKER ALSO CALLED. HE IS PLANNING FOR PERMANENT CATHETER FOR EFFUSION THAT RETURNS OFTEN. SHE HAS NO SS FROM RAPID A FIB. GOT CATH FOR PLEURAL CAVITY TODAY. HAS PAIN FROM THE PROCEDURE. SHE IS STABLE ,STILL WEAK. SHE HAD PLERUOVAC YESTERDAY AND IS IN PAIN. NO DYSPNEA. Review of Systems 10-point ROS is otherwise unremarkable Physical Examination - Vital Signs Temperature: 97.2 F Blood Pressure: 95/33 Pulse: 54 Respirations: 16 Pulse Ox (%): 100 - Physical Exam General: Oriented x3, Mild distress HEENT: Atraumatic, PERRLA, EOMI Neck: Supple, JVD not distended Respiratory: Clear to auscultation bilaterally, Normal air movement Cardiovascular: Regular rate/rhythm Gastrointestinal: Normal bowel sounds, No tenderness Musculoskeletal: No tenderness Integumentary: No rashes Neurological: Normal speech, Normal tone, Normal affect Lymphatics: No axilla or inguinal lymphadenopathy - Studies Medications List Reviewed: Yes Assessment And Plan - Current Problems (Diagnosis) (1) Rapid atrial fibrillation Current Visit: Yes Status: Acute Plan: WILL HOLD ELIQUIS UNTIL PLEURAL CATHETER DR MADSEN WILL DO THIS. DR. LEGGETT WILL CONTINUE ORAL MEDS. A FIB RECURRED HERE. SHE CONVERTED BACK TO NSR THIS PM START ELIQUIS IN AM. SHE HAD PROCEDURE TODAY. BACK TO SINUS NOW. STABLE. ELIQUIS FOR A FEW MONTHS. (2) Hypokalemia Current Visit: Yes Status: Acute Plan: REPLACE K. RECHECK IN AM. HD DONE TODAY. (3) Pleural effusion Current Visit: No Status: Chronic Plan: RECURRENT A FIB. CYTOLOGY AND CULTURES NEG. TRANSUDATE SHE MAY NEED PLEURODESIS POSSIBLE. CALLED IN DR. BAKER AGAIN. PLEUROVAC FOR NOW. CYTOLOGY HAS BEEN NEGATIVE TWICE WITH RECURRENT EFFUSION SHE NOW HAS PLEURAL CATHETER. (4) CKD stage 5 secondary to hypertension Current Visit: Yes Status: Chronic Plan: ONHD. CHECK C7 IN AM. (5) Hyperkalemia Current Visit: Yes Status: Acute Plan: ORAL K HAS BEEN STOPPED NOW. STABLE. REDO LAB DAILY. (6) Debilitated Current Visit: Yes Status: Acute Plan: WEAK USUALLY WC OR WALKER BOUND. REFER TO REHAB.
--- NOTE | 2021-12-26 21:12 | PN ---
Date of Progress Note: 12/26/2021 Subjective: Seen by bedside. She converted to sinus rhythm and her heart rate in the mid 70s. Cami g better. Review of Systems: No chest pain, shortness of breath, orthopnea, or cough. No nausea, vomiting, or diarrhea. All othe r systems reviewed are negative. Physical Examination: Vital Signs: Reviewed. Head and Neck: Pupils are equal, reactive to light. Intact eye movements. No JVD. No cervical lym phadenopathy. Neck supple. Thyroid is not enlarged. Lungs: Clear to auscultation bilaterally. No rhonchi, rales, or crackles. Heart: Regular rate and rhythm. No extra sounds. Abdomen: Soft, nontender. Bowel sounds positive. No organomegaly. Bowel sounds active. Extremities: No edema, clubbing, or cyanosis. Intact pulses. Skin: No rash. Neurologic: Alert, awake, oriented x3. No acute focal deficits appreciated. Investigations: Labs were reviewed. Assessment And Recommendation: 1.Atrial fibrillation, converted to sinus rhythm. Continue amiodarone at 200 mg twice a day and at discharge to be sent on 200 mg daily and continue metoprolol 25 mg twice a day as well as Eliquis 2.5 twice a day. This patient will be a good candidate for appendage closure or to plan on it as an out patient. 2.Troponin leak. Repeat troponin was negative. This is a demand ischemia. No further workup is re commended at this point. 3.Acute renal failure, creatinine has been stable and being monitored by Nephrology. /MODL Voice ID: [id number] Report ID: [id number]
[2021-12-26 21:34] LABS: Potassium 5.4 mmol/L (3.5-5.1)
[2021-12-26] MEDS: MELATONIN 3 MG TABLET PO SCH (21:45)
[2021-12-26] MEDS: ATORVASTATIN 10 MG TAB PO SCH (21:46)
[2021-12-26] MEDS: INSULIN GLARGINE 100 UNIT/ML SQ SCH (21:47)
[2021-12-26] MEDS: FLUTICASONE 50MCG NASAL SPRAY NAS SCH (21:48)
--- NOTE | 2021-12-26 21:58 | OP ---
Date of Procedure: 12/25/2021 Surgeon: Dominick Gibson MD, Preoperative Diagnosis: Left recurrent pleural effusion. Postoperative Diagnosis: Left recurrent pleural effusion. Procedure Performed: Placement of a left PleurX tunneled thoracic catheter. Anesthesia: 1% lidocaine utilized. Estimated Blood Loss: Less than 1 cc. Specimen: Pleural fluid, which was straw colored. Findings: Straw-colored pleural fluid returned. Complications: None. Drains: With a PleurX catheter. Disposition: The patient remained in the ICU in serious condition throughout the procedure. Procedure In Detail: After informed consent was obtained, the patient was prepped and draped in the usual sterile fashion. After adequate anesthesia was achieved on the left chest wall at approximatel y the 5th-6th intercostal space, I anesthetized the entire tract and overlying the rib for the planne d placement of the PleurX catheter. At this point, I anesthetized the entire tract inferior to the i nsertion site. I made a small wilton incision at the insertion site and going over the rib, I cannulat ed the thoracic cavity with the introducer sheath. At this point, the needle was removed and I advan tony the wire into the thoracic space. I then brought the catheter through a separate stab incision i nferiorly that was previously anesthetized and after passing the tunneling device, I sequentially dil ated up the insertion site and placed the catheter into the chest wall and secured it. At this point , I then evacuated almost 500 cc of straw-colored fluid immediately. After the introducer sheath was removed, the area was cleansed in its entirety and a suture was used to close the insertion site, wh ich included a 2-0 silk suture and a sterile dressing was placed over top. The system was hooked up to a Pneumovax system. The patient tolerated procedure well without any evidence of complication and remained in the ICU in serious condition throughout the procedure. All counts were correct at the e nd of the case. TK/MODL Voice ID: [id number] Report ID: [id number]
[2021-12-27 05:27] LABS: Absolute Lymphocytes (CBC) 0.9 K/uL (0.7-4.9); Lymphocytes % 11.7 % (15.3-44.8); MCV 92.4 fL (80-100); MPV 6.9 fL (7.6-11.3); RBC Red Blood Cell Count 3.25 M/uL (3.86-4.86)
[2021-12-27 05:40] LABS: Albumin 1.8 g/dL (3.4-5.0); Phosphorus 3.8 mg/dL (2.5-4.9); Potassium 5.4 mmol/L (3.5-5.1)
[2021-12-27] MEDS: METOPROLOL TAR 25 MG TAB PO SCH (05:50)
[2021-12-27] MEDS ORDERED: PANTOPRAZOLE 40MG TABLET PO SCH (06:30)
[2021-12-27 06:46] VITALS: BMI 26.9
[2021-12-27] MEDS: INSULIN -REGULAR HUMAN 50 UNIT/0.5 ML ML SQ SCH ×4 (07:30→21:00)
--- NOTE | 2021-12-27 08:17 | RAD REPORT ---
EXAM DESCRIPTION: RAD - Chest Single View - 12/27/2021 5:35 am CLINICAL HISTORY: LEFT Chest tube placement - effusion Chest pain. COMPARISON: Chest Single View dated 12/26/2021; Chest Single View dated 12/25/2021; Chest Single View da tonny 12/23/2021; Chest Single View dated 12/18/2021; Chest Lateral Decubitus dated 12/24/2021 FINDINGS: Portable technique limits examination quality. Small bore left-sided chest tube remains in place. No measurable pneumothorax is seen. Small pleural effusions likely present. Heart is moderately enlarged.Right-sided venous catheter is unchanged in po sition. IMPRESSION: No measurable pneumothorax seen on the left.
[2021-12-27] MEDS: AMIODARONE HCL 200 MG TAB PO SCH (08:26)
[2021-12-27] MEDS: FLUTICASONE 50MCG NASAL SPRAY NAS SCH ×2 (08:27→22:05)
[2021-12-27] MEDS: APIXABAN 2.5 MG TABLET PO SCH ×2 (08:27→22:05)
[2021-12-27] MEDS: POTASSIUM CL SA 10 MEQ TAB PO SCH (08:27)
[2021-12-27] MEDS: ASPIRIN EC 81 MG TAB PO SCH (08:27)
[2021-12-27] MEDS ORDERED: EZETIMIBE 10 MG TAB PO SCH (09:00)
[2021-12-27] MEDS ORDERED: ALBUMIN HUMAN 25% 100 ML IV SCH (09:00)
[2021-12-27] MEDS: INSULIN LISPRO 100 UNIT/1 ML SQ SCH ×2 (12:00→17:25)
--- NOTE | 2021-12-27 15:00 | P.PN ---
Subjective Date of Service: 12/27/21 Chief Complaint: Pleural effusion Subjective: No new changes, Other (Received HD today.) Physical Examination - Vital Signs Temperature: 97.3 F Blood Pressure: 116/35 Pulse: 52 Respirations: 16 Pulse Ox (%): 100 - Physical Exam General: Other (Chronically ill appearing) HEENT: Atraumatic, Normocephalic Neck: Supple Respiratory: Other (Symmetric chest expansion) Cardiovascular: No rubs, No murmurs Gastrointestinal: Soft and benign, No rebound Musculoskeletal: No clubbing Integumentary: No warmth Neurological: Normal tone Urinary: Other (No bladder distention) External genitalia: Deferred Rectal: Deferred - Studies Medications List Reviewed: Yes Assessment And Plan - Plan 1. End-stage renal disease. Received HD today. Cont HD qMWF. 2. Anemia of chronic kidney disease. Continue ELROY. 3. Hypertension, controlled, optimal. Continue current treatment. 4. L Pleural effusion. S/p L pleurX catheter placement on 12/26/2021 5. Secondary hyperparathyroidism, stable. 6. Atrial fibrillation and atrial flutter. Per Cardiology.
[2021-12-27] MEDS ORDERED: METOPROLOL TAR 25 MG TAB PO SCH (18:00)
[2021-12-27] MEDS: TRAMADOL HCL 50 MG TAB PO PRN (20:06)
[2021-12-27 21:10] VITALS: O2SAT 100
[2021-12-27 21:38] LABS: LD, PLEURAL FLUID 344 U/L; TOTAL PROTEIN, PLEURAL FLUID <3.0 g/dL
[2021-12-27] MEDS: MELATONIN 3 MG TABLET PO SCH (22:05)
[2021-12-27] MEDS: INSULIN GLARGINE 100 UNIT/ML SQ SCH (22:06)
[2021-12-27] MEDS: ATORVASTATIN 10 MG TAB PO SCH (22:06)
--- NOTE | 2021-12-27 23:22 | PN ---
Date of Progress Note: 12/27/2021 Subjective: The patient was seen by bedside, stable, still in sinus rhythm, heart rate went down to the low 50s, but no dizziness or syncope. The patient is resting well. Review of Systems: No chest pain, shortness of breath, orthopnea, cough. No nausea, vomiting, or diarrhea. All other s ystems reviewed are negative. Physical Examination: Vital Signs: Reviewed. Head and Neck: Pupils are equal, reactive to light. Intact eye movements. No JVD. No cervical lym phadenopathy. Neck: Supple. Thyroid is not enlarged. Lungs: Clear to auscultation bilaterally. No rhonchi, rales, or crackles. No accessory muscle use. HEART: Regular rate and rhythm. No extra sounds. Abdomen: Soft, nontender. Bowel sounds positive. No organomegaly. No masses or hernia. No rigidi ty or rebound Extremities: No clubbing, cyanosis. Neurologic: Alert, awake, no acute focal deficits appreciated. Investigations: Labs were reviewed. Assessment And Recommendations: 1.Atrial fibrillation. She is in sinus rhythm now. Decrease amiodarone to 100 mg daily and the met oprolol to 12.5 mg twice a day as she is going into the yosvany side. 2.Elevated troponin due to demand ischemia. No further workup is needed here. /MARIANA Voice ID: [id number] Report ID: [id number]
[2021-12-28 08:07] VITALS: BP 116/35; TEMP 97.3
[2021-12-28] MEDS ORDERED: AMIODARONE HCL 200 MG TAB PO SCH (09:00)
--- NOTE | 2021-12-28 10:29 | P.DS ---
Admission Date: 12/23/21 Discharge Date: 12/28/21 Disposition: TRANSFER TO INPATIENT REHAB Reason for Admission: Pleural effusion - Problems (1) Rapid atrial fibrillation Status: Acute (2) Hypokalemia Status: Acute (3) Pleural effusion Status: Chronic (4) CKD stage 5 secondary to hypertension Status: Chronic (5) Hyperkalemia Status: Acute (6) Debilitated Status: Acute Brief History of Present Illness: MS. LEIGH HAS CKD 5 ON HD. SHE DURING DIALYSIS WAS NOTED TO HAVE RAPID A FIB AND BROUGHT TO ER. SHE WAS GIVEN AMIODARONE IV AND IT CONTROLLED HR DOWN TO NORMAL. SHE HAS MILD LOW K. SHE ALSO HAS RECURRENT EFFUSION THAT IS NOT SYMPTOMATIC NOW. Hospital Course: KAYLAN HAD RECURRENT EFFUSION AND HAD PLEUROVAC FOR IT. SHE ALSO HAS RAPID A FIB THAT IS NEW. IT TOOK FOUR DAYS TO CONTROL THAT. LATER SHE HAD BRADYCARDIA SO WE REDUCED MEDS. SHE IS NOW SENT TO [facility] FOR REHAB. IDEALLY SHE SHOULD BE IN [facility] BUT SHE REFUSES TO DO SO. Vital Signs/Physical Exam: Temp Pulse Resp BP Pulse Ox 97.3 F 52 16 116/35 L 100 12/28/21 08:07 12/28/21 08:07 12/28/21 08:07 12/28/21 08:07 12/28/21 08:07 Laboratory Data at Discharge: WBC Cancelled 12/28/21 05:00 Hgb Cancelled 12/28/21 05:00 Hct Cancelled 12/28/21 05:00 Plt Count Cancelled 12/28/21 05:00 PT 15.5 SECONDS (9.5-12.5) H 12/24/21 13:46 INR 1.40 12/24/21 13:46 Sodium Cancelled 12/28/21 05:00 Potassium Cancelled 12/28/21 05:00 BUN Cancelled 12/28/21 05:00 Creatinine Cancelled 12/28/21 05:00 Glucose Cancelled 12/28/21 05:00 Phosphorus Cancelled 12/28/21 05:00 Cholesterol Cancelled 12/25/21 09:48 Home Medications: Pravastatin Sodium 10 mg PO BEDTIME 06/19/17 Cholecalciferol (Vitamin D3) [Vitamin D3] 5,000 unit PO DAILY #30 10/21/20 Aspirin [[place]] 81 mg PO DAILY 08/14/21 Cetirizine HCl 1 tab PO DAILY 12/17/21 Cyanocobalamin (Vitamin B-12) [Vitamin B12] 1 tab PO DAILY 12/17/21 Ezetimibe 1 tab PO DAILY 12/17/21 Fluticasone Propionate [Flonase Allergy Relief] 1 appl SHANNON BID 12/17/21 Insulin Aspart [Novolog Flexpen] 7 units SQ SEECOM 12/17/21 Insulin Detemir [Levemir Flextouch] 15 units SQ DAILY AT SUPPER 12/17/21 Melatonin 1 tab PO BEDTIME 12/17/21 Pantoprazole [Protonix Tab*] 1 tab PO SEECOM 12/17/21 Simethicone [Gas-X] 1 tab PO DAILY PRN 12/17/21 Vit A/Vit C/Vit E/Zinc/Copper [Preservision Areds Softgel] 2 cap PO DAILY 12/17/21 Followup: Paolo Montgomery MD [ACTIVE - CAN ADMIT] - (Call to schedule appointment)
[2021-12-31] MEDS ORDERED: AMIODARONE HCL 200 MG TAB PO SCH (09:00)
== END 2021-12-28 00:30 | DRG 309 ==
LOC: ER 10:56 → ERHOLD 13:54 → 3RD-ICU 19:46 → 4TH 12-27 11:32
PROVIDERS: ADMIT Internal Medicine; ATTEND Internal Medicine
PROC: 0JH63XZ Insertion of Tunneled Vascular Access Device into Chest Subcutaneous Tissue and Fascia, Percutaneous Approach (ICD-10-PCS; 2021-12-25)
PROC: 02HV33Z Insertion of Infusion Device into Superior Vena Cava, Percutaneous Approach (ICD-10-PCS; 2021-12-25)
PROC: 5A1D70Z Performance of Urinary Filtration, Intermittent, Less than 6 Hours Per Day (ICD-10-PCS; principal; 2021-12-27)
PROC: 0W9B30Z Drainage of Left Pleural Cavity with Drainage Device, Percutaneous Approach (ICD-10-PCS; 2021-12-27)
DX: I48.19 Other persistent atrial fibrillation (principal); I50.32 Chronic diastolic (congestive) heart failure; I13.2 Hypertensive heart and chronic kidney disease with heart failure and with stage 5 chronic kidney disease, or end stage renal disease; N17.9 Acute kidney failure, unspecified; J90 Pleural effusion, not elsewhere classified; I24.8 Other forms of acute ischemic heart disease; N25.81 Secondary hyperparathyroidism of renal origin; N18.5 Chronic kidney disease, stage 5; E11.22 Type 2 diabetes mellitus with diabetic chronic kidney disease; D63.1 Anemia in chronic kidney disease; E87.5 Hyperkalemia; I48.92 Unspecified atrial flutter; E87.6 Hypokalemia; I25.10 Atherosclerotic heart disease of native coronary artery without angina pectoris; E78.5 Hyperlipidemia, unspecified; R53.81 Other malaise; Z99.2 Dependence on renal dialysis; Z88.5 Allergy status to narcotic agent; Z88.8 Allergy status to other drugs, medicaments and biological substances; Z79.4 Long term (current) use of insulin; Z88.1 Allergy status to other antibiotic agents; Z79.01 Long term (current) use of anticoagulants; Z86.16 Personal history of COVID-19; Z79.82 Long term (current) use of aspirin; Z86.73 Personal history of transient ischemic attack (TIA), and cerebral infarction without residual deficits; Z90.710 Acquired absence of both cervix and uterus; Z91.018 Allergy to other foods; Z79.899 Other long term (current) drug therapy; Z20.822 Contact with and (suspected) exposure to COVID-19
CPT/HCPCS: 36415; 71045; 71046; 80048; 80069; 82945; 82947; 83615; 83880; 84157; 84484; 85025; 85610; 87015; 87070; 87102; 87116; 87206; 87811; 88108; 88305; 89050; 90935; 93005; 93306; 94640; 96365; 96375; 97116; 97161; 97530; 99285; J0282; J1160; J1170; J1644; J1650; J1815; J2250; J3010; J3480; J7030; J7050; J7060; P9047

== ENCOUNTER 2022-01-13 12:33 | Observation (INO) | payer OTHER ==
--- OUTSIDE RECORDS SUMMARY | 2022-01-13 12:39 | XMS REPORT | Continuity of Care Document ---
:1935 Author Organization [facility] t Address [address] [place] [address] Care Team Providers Name Role Phone Antoinette [...] Number Effective Date Expiration Date S nate [facility] [id number] AET AET [id number] MEDICARE B-[place]: [id number] 1998 Aditive 00:00:00 Problems Condition Condition Condition Status Onset [...] Memoria chronic chronic 19:18:00 l renal renal [place] insufficie insufficie ncy ncy Problem 10/21/[address] [facility] Pneumonia Pneumonia Problem 2020-10-21 Memoria Problem 19:18:00 l 10/21/[address] 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 [...] moria chronic chronic 19:18:00 l kidney kidney [place] disease disease Problem 10/21/[address] [facility] Pancytopen Pancytope Problem 2020-10-21 Memoria ia landry 19:18:00 l Problem Doroteo 10/21/[address] [facility] Elevated Elevated Problem 2020-10-21 Memoria troponin troponin 19:18:00 l level level [place] Problem 10/21/[address] [facility] [...] I troponin I 19:18:00 l level level [place] Condition 10/21/[address] [facility] Acquired Acquired Condition 2020-10-21 Memoria pancytopen pancytopen 19:18:00 l ia ia [place] Condition 10/21/[address] [facility] [facility] [...] Quantity Comments Source Social History 2020-10-21 2020-10-21 [facility] lupillo 19:20:00 19:20:00 Medications Ordered [...] (Amaryl) 4 3-02 l MG Tablet 06:00: [place] 08 Furosemide 2018-0 Yes Memoria (Lasix*) 40 3-02 l MG Tab 06:00: [place] Multivitami 2018-0 Yes Memori a n (Multiple 3-02 l Vitamins) 06:00: [place] Tablet 08 Omeprazole 2018-0 Yes Memoria (Prilosec) 3-02 l 40 MG 06:00: [place] Capsule. 08 Pravastatin 2018-0 Yes Memori a Sodium 3-02 l 06:00: [place] 08 Ezetimibe 2018-0 Yes Memoria (Zetia*) 10 3-02 l MG Tab 06:00: [place] 08 Aspirin 2018-0 Yes Memoria 3-02 l [...] DAILY Memor ia n 3-02 l 00:00: [place] 00 Omeprazole 2018-0 Yes DAILY Memori a 3-02 l 00:00: [place] 00 Pravastatin 2018-0 Yes AT BEDTIME Memoria Sodium 3-02 l 00:00: [place] 00 Ezetimibe 2018-0 Yes DAILY Memoria 3-02 l 00:00: [place] 00 Vital Signs Vital Name Observation Time Observation Value Comments Source Temperature Oral (F) 2020-10-21 17:00:00 98.4 F [facility] Heart Rate 2020-10-21 17:00:00 [facility] [place] Respitory Rate 2020-10-21 17:00:00 Memori al [place] Systolic (mm Hg) 2020-10-21 17:00:00 Thompson rial [place] Diastolic (mm Hg) 2020-10-21 17:00:00 Mem orial [place] Height 2020-10-21 10:00:00 [facility] [place] Weight 2020-10-21 10:00:00 [facility] [place] Heart Rate 2019-06-18 14:14:00 [facility] [place] Systolic (mm Hg) 2019-06-18 14:14:00 Thompson rial [place] Diastolic (mm Hg) 2019-06-18 14:14:00 Mem orial [place] Temperature Oral (F) 2019-06-18 13:49:00 98.2 F [facility] [place] Respitory Rate 2019-06-18 13:49:00 Memori al [place] Height 2019-06-17 14:51:00 [facility] [place] Weight 2019-06-17 14:51:00 [facility] [place] Heart Rate 2017-06-22 08:41:00 [facility] [place] Systolic (mm Hg) 2017-06-22 08:41:00 Thompson rial [place] Diastolic (mm Hg) 2017-06-22 08:41:00 Mem orial [place] Temperature Oral (F) 2017-06-22 07:45:00 97.6 F [facility] [place] Respitory Rate 2017-06-22 07:45:00 Mem[facility] al [place] Weight 2017-06-22 05:00:00 [facility] [place] Height 2017-06-19 12:23:00 [facility] [place] Procedures Procedure Date / Time Performing Clinician Source Performed [id number] 2021-10-21 00:00:00 [facility] Chest Single View 2020-10-19 20:48:00 [facility] Radha ermann Anaerobic Blood 2020-10-19 00:00:00 [facility] Her burciaga Culture Aerobic Blood Culture 2020-10-19 00:00:00 Marta Soto Coronavirus COVID-19 2020-10-19 00:00:00 Zach Sadler PCR [place] Count 2020-10-01 00:00:00 [facility] burciaga Chest Pa And Lat (2 2019-06-17 00:[facility] Influenza Type B 2019-06-16 00:00:00 [facility] Obi rmann Antigen Screen Influenza Type A 2019-06-16 00:00:00 [facility] Obi rmann Antigen Screen [place] Count 2019-06-16 00:00:00 [facility] Her burciaga [id number] 2017-06-18 00:00:00 [facility] Her burciaga [place] Count 2017-06-18 00:00:00 [facility] Her burciaga Plan of Care Planned Activity Planned Date Details Comments Source Future Scheduled Test Instructions [facility] [code = Instructions Creatinine Congestive Heart Failure] Future Scheduled Test Instructions Creatinine [facility] Congestive Heart Failure [code = Instructions Creatinine Congestive Heart Failure] Encounters Start End Encounter Admission Attending Care Care Encounter Source Date/Time Date/Time Type Type Clinicians Facility Department ID 2021-12-27 Outpatient 3 [facility] ENCPL REF [id number] [facility] 14:58:59 marck 0909 [facility] [place] 2021-12-28 2022-01-11 Inpatient 3 [facility] ENCPL CRD [id number] [facility] 01:22:00 11:11:00 marck 0910 [facility] [place] 2021-10-17 2021-10-29 Inpatient 3 [facility] ENCPL CVA [id number] [facility] 17:30:00 18:40:00 marck, 0630 [facility] [place] 2021-10-29 2021-10-29 [facility] [id number] [facility] 12:05:00 12:05:00 Aart[facility] 2021-09-19 2021-09-19 Outpatient _BAHC_Tod PRIV PRIV [id number] [facility] 09:56:00 09:56:00 d_J [id number] Medica l 2021-09-16 2021-09-16 Outpatient GC_BAHC_Tod PRIV PRIV [id number] [facility] 04:43:00 04:43:00 d_J [id number] Medica l 2021-09-13 2021-09-13 Outpatient GC_BAHC_Tod PRIV PRIV [id number] [facility] 11:14:00 11:14:00 d_J [id number] Medica l 2021-09-11 2021-09-11 Outpatient GC_BAHC_Tod PRIV PRIV [id number] [facility] 05:23:00 05:23:00 d_J [id number] Medica l 2021-09-02 2021-09-10 Inpatient E STACEY SARMIENTO MED 7500 [facility] 14:52:00 19:20:00 FELY 2021-08-21 2021-09-02 Inpatient 3 [facility] ENCPL CVA [id number] [facility] 18:20:00 10:58:00 marck, 0504 [facility] 2020-10-19 2020-10-[address] [facility] [id number] [facility] 23:24:00 19:17:00 [facility] 2020-10-01 2020-10-[address] [facility] [id number] [facility] 18:23:00 18:23:00 [facility] [place] LABORATORY NON-PATIENT 2019-06-17 2019-06-[address] [facility] [address] [id number] [facility] 02:48:00 17:37:00 [facility] [place] MED/SURG FLOOR 2019-03-22 2019-03-[address] [facility] [address] [id number] [facility] 18:59:00 18:59:00 [facility] [place] LABORATORY NON-PATIENT 2017-06-20 2017-06-[address] [id number] [facility] 16:10:00 13:36:00 [facility] [place] [place] nn 2017-04-10 2017-04-10 Departed Bright Mcgowan [id number] [facility] 10:18:00 16:46:00 Emergency [facility] [place] nn Results Test Description Test Time Test [...] code = MDIFF) AUTO DIFFERENT IAL. RBC [id number] 15:06:00 Test Item Value Reference Range Interpretation Comments PLATELET ESTIMATE DECREASED THOUSAND ADEQUATE PLAT ELET COUNT (test code = REVIEWED AND PLTEST) VERIFIED.PLT ES T [84-105] PLATELET MORPHOLOGY NORMAL (test code = PLTMORPH) CBC W/AUTO [id number] 15:04:00 Test Item Value Reference Range Interpretation [...] code NO DIFF/SCN CRITERIA = MDIFF) RBC [id number] 15:04:00 Test Item Value Reference Range Interpretation Comments ANISOCYTOSIS (test NORMAL NONE code = ANISO) PLATELET ESTIMATE DECREASED ADEQUATE PLT EST CO UNT (test code = PLTEST) THOUSAND 36,000- 45,000 PLATELET MORPHOLOGY NORMAL (test code = PLTMORPH) BASIC METABOLIC [id number] 13:19:00 Test Item Value Reference Range Interpretation [...] CA) 8.6 MG/DL 8.5-10.1 N Absolute lymphocyte [id number] 10:01:00 Test Item Value Reference Range Interpretation Comments Absolute lymphocyte count (test code = 0.4 0.7-4.9 Absolute lymphocyte count) [facility] HermannAlbumin [Mass/volume] in Serum or Plasma by Bromocresol purple (BCP) dye binding [id number] 10:01:00 Test Item Value Reference Range Interpretation [...] int erpret this result as normal/abnormal . [facility] HermannBlood erythrocytes count (number/volume)2020-10-21 10:01:00 Test Item Value Reference Range Interpretation Comments Blood erythrocytes count 3.38 3.86-4.86 (number/volume) (test code = Blood erythrocytes count (number/volume)) [facility] HermannBlood hematocrit (volume fraction)2020-10-21 10:01:00 Test Item Value Reference Range Interpretation Comments Blood hematocrit (volume fraction) 30.8 36.0-45.0 (test code = Blood hematocrit (volume fraction)) [facility]ann[facility] platelet mean [id number] 10:01:00 Test Item Value Reference Range Interpretation Comments Blood platelet mean volume (test code = 8.8 7.6-11.3 Blood platelet mean volume) [facility] HermannC reactive protein [Mass/volume] in Serum or [id number] 10:01:00 Test Item Value Reference Range Interpretation Comments C reactive protein [Mass/volume] in 16.00 Serum or Plasma (test code = C reactive protein [Mass/volume] in Serum or Plasma) [facility]annCalcium [Mass/volume] in Serum or [id number] 10:01:00 Test Item Value Reference Range Interpretation [...] [Moles/volume] in Serum or Plasma) [facility]annChemistry [id number] 10:01:00 Test Item Value Reference Range Interpretation Comments Chemistry procedure (test code = 91.1 80-100 Chemistry procedure) [facility]annChloride [Moles/volume] in Serum or [id number] 10:01:00 Test Item Value Reference Range Interpretation Comments Chloride [Moles/volume] in Serum or 104 98-107 Plasma (test code = Chloride [Moles/volume] in Serum or Plasma) [facility]annCreatinine [Mass/volume] in Serum or [id number] 10:01:00 Test Item Value Reference Range Interpretation Comments Creatinine [Mass/volume] in Serum or 2.11 0.55-1.3 Plasma (test code = Creatinine [Mass/volume] in Serum or Plasma) [facility] HermannFerritin [Mass/volume] in Serum or [id number] 10:01:00 Test Item Value Reference Range Interpretation Comments Ferritin [Mass/volume] in Serum or 82.0 8-388 Plasma (test code = Ferritin [Mass/volume] in Serum or Plasma) [facility]annGlucose [Mass/volume] in Serum or [id number] 10:01:00 Test Item Value Reference Range Interpretation Comments Glucose [Mass/volume] in Serum or 236 74-106 Plasma (test code = Glucose [Mass/volume] in Serum or Plasma) [facility] HermannLymphocyte [id number] 10:01:00 Test Item Value Reference Range Interpretation Comments Lymphocyte percent (test code = 3.30 4.3-10.9 Lymphocyte percent) [facility]annPhosphate [Mass/volume] in Serum or [id number] 10:01:00 Test Item Value Reference Range Interpretation Comments Phosphate [Mass/volume] in Serum or 3.0 2.5-4.9 Plasma (test code = Phosphate [Mass/volume] in Serum or Plasma) [facility]annPotassium [Moles/volume] in Serum or [id number] 10:01:00 Test Item Value Reference Range Interpretation [...] [facility] HermannUrea nitrogen [Mass/volume] in Serum or [id number] 10:01:00 Test Item Value Reference Range Interpretation Comments Urea nitrogen [Mass/volume] in Serum or 69 7-18 Plasma (test code = Urea nitrogen [Mass/volume] in Serum or Plasma) [facility]annTotal cholesterol/cholesterol in HDL (percentile)2020-10-20 09:51:00 Test Item Value Reference Range Interpretation Comments Total cholesterol/cholesterol in HDL 4.25 1 (percentile) (test code = Total cholesterol/cholesterol in HDL (percentile)) [facility]annTriglyceride [Mass/volume] in Serum or [id number] 09:51:00 Test Item Value Reference Range Interpretation Comments Triglyceride [Mass/volume] in Serum or 91 Plasma (test code = Triglyceride [Mass/volume] in Serum or Plasma) [facility]annBlood anisocytosis [id number] 09:51:00 Test Item Value Reference Range Interpretation Comments Blood anisocytosis detection (test code 1+ = Blood anisocytosis detection) [facility]annBlood morphology interpretation [id number] 09:51:00 Test Item Value Reference Range Interpretation Comments Blood morphology interpretation Noted narrative (test code = Blood morphology interpretation narrative) [facility] HermannCholesterol in HDL [Mass/volume] in Serum or [id number] 09:51:00 Test Item Value Reference Range Interpretation Comments Cholesterol in HDL [Mass/volume] in 28 40-60 Serum or Plasma (test code = Cholesterol in HDL [Mass/volume] in Serum or Plasma) [facility] HermannCholesterol [Mass/volume] in Serum or [id number] 09:51:00 Test Item Value Reference Range Interpretation Comments Cholesterol [Mass/volume] in Serum or 119 Plasma (test code = Cholesterol [Mass/volume] in Serum or Plasma) [facility] [id number] 09:51:00 Test Item Value Reference Range Interpretation Comments Lymphocyte percent (test code = 21 15-42 Lymphocyte percent) [facility]annMagnesium [Mass/volume] in Serum or [id number] 09:51:00 Test Item Value Reference Range Interpretation Comments Magnesium [Mass/volume] in Serum or 1.9 1.8-2.4 Plasma (test code = Magnesium [Mass/volume] in Serum or Plasma) [facility] HermannPlatelet [id number] 09:51:00 Test Item Value Reference Range Interpretation Comments Platelet estimate (test code = Platelet Decr estimate) [facility] or plasma cholesterol in LDL measurement by calculation (mass/volume)2020-10-20 09:51:00 Test Item Value Reference Range Interpretation Comments Serum or plasma cholesterol in LDL 73 1 measurement by calculation (mass/volume) (test code = Serum or plasma cholesterol in LDL measurement by calculation (mass/volume)) [facility]annTroponin I.cardiac [Mass/volume] in Serum or [id number] 05:11:00 Test Item Value Reference Range Interpretation Comments Troponin I.cardiac 0.08 See_Comment [Automat ed message] The [Mass/volume] in Serum syste m which generated or Plasma (test code = this result transmitted Troponin I.cardiac reference range: <=0.045. [Mass/volume] in Serum The r eference range was or Plasma) not used to int erpret this result as normal/abnormal . [facility] HospitalOcjypgfTDSU-DlX-4 (COVID-19) RNA [Presence] in Respiratory specimen by OSIEL with probe [id number] 21:20:00 Test Item Value Reference Range Interpretation Comments SARS-CoV-2 (COVID-19) RNA [Presence] Positive in Respiratory specimen by OSIEL with probe detect (test code = SARS-CoV-2 (COVID-19) RNA [Presence] in Respiratory specimen by OSIEL with probe detect) [facility]annAlanine aminotransferase [Enzymatic activity/volume] in Serum or Plasma by With P-5'-2020-10-19 21:09:00 Test Item Value Reference Range Interpretation Comments Alanine aminotransferase [Enzymatic 22 12-78 activity/volume] in Serum or Plasma by With P-5'- (test code = Alanine aminotransferase [Enzymatic activity/volume] in Serum or Plasma by With P-5'-) [facility]annAlkaline phosphatase [Enzymatic activity/volume] in Serum or [id number] 21:09:00 Test Item Value Reference Range Interpretation Comments Alkaline phosphatase [Enzymatic 71 45-117 activity/volume] in Serum or Plasma (test code = Alkaline phosphatase [Enzymatic activity/volume] in Serum or Plasma) [facility] HermannAspartate aminotransferase [Enzymatic activity/volume] in Serum or Plasma by With [id number] 21:09:00 Test Item Value Reference Range Interpretation Comments Aspartate aminotransferase [Enzymatic 36 15-37 activity/volume] in Serum or Plasma by With P-5 (test code = Aspartate aminotransferase [Enzymatic activity/volume] in Serum or Plasma by With P-5) [facility]annBilirubin.direct [Mass/volume] in Serum or [id number] 21:09:00 Test Item Value Reference Range Interpretation Comments Bilirubin.direct 0.3 See_Comment [Automated message] The [Mass/volume] in Serum syste m which generated or Plasma (test code = this result transmitted Bilirubin.direct reference r lynda: <=0.2. [Mass/volume] in Serum The r eference range was or Plasma) not used to int erpret this result as aubree l/abnormal. [facility]annBilirubin.total [Mass/volume] in Serum or [id number] 21:09:00 Test Item Value Reference Range Interpretation Comments Bilirubin.total [Mass/volume] in Serum 0.7 0.2-1.0 or Plasma (test code = Bilirubin.total [Mass/volume] in Serum or Plasma) [facility] HermannINR in Blood by Coagulation [id number] 21:09:00 Test Item Value Reference Range Interpretation Comments INR in Blood by Coagulation assay 1.28 1 (test code = INR in Blood by Coagulation assay) [facility]annNatriuretic peptide.B prohormone N-Terminal [Mass/volume] in Serum or [id number] 21:09:00 Test Item Value Reference Range Interpretation Comments Natriuretic peptide.B prohormone 2354 N-Terminal [Mass/volume] in Serum or Plasma (test code = Natriuretic peptide.B prohormone N-Terminal [Mass/volume] in Serum or Plasma) [facility]annPeripheral blood smear examination by light [id number] 21:09:00 Test Item Value Reference Range Interpretation Comments Peripheral blood smear examination by Ok light microscopy (test code = Peripheral blood smear examination by light microscopy) [facility]annProtein [Mass/volume] in Serum or [id number] 21:09:00 Test Item Value Reference Range Interpretation Comments Protein [Mass/volume] in Serum or 6.6 6.4-8.2 Plasma (test code = Protein [Mass/volume] in Serum or Plasma) [facility]annTroponin I.cardiac [Mass/volume] in Serum or [id number] 21:09:00 Test Item Value Reference Range Interpretation [...] Plasma by Bromocresol purple (BCP) dye binding [id number] 17:30:00 Test Item Value Reference Range Interpretation [...] microscopy) [facility]annCalcium [Mass/volume] in Serum or [id number] 17:30:00 Test Item Value Reference Range Interpretation [...] Plasma) [facility]annChloride [Moles/volume] in Serum or [id number] 17:30:00 Test Item Value Reference Range Interpretation Comments Chloride [Moles/volume] in Serum or 107 98-107 Plasma (test code = Chloride [Moles/volume] in Serum or Plasma) [facility]annCreatinine [Mass/volume] in Serum or [id number] 17:30:00 Test Item Value Reference Range Interpretation Comments Creatinine [Mass/volume] in Serum or 1.51 0.55-1.3 Plasma (test code = Creatinine [Mass/volume] in Serum or Plasma) [facility]annGlucose [Mass/volume] in Serum or [id number] 17:30:00 Test Item Value Reference Range Interpretation Comments Glucose [Mass/volume] in Serum or 133 74-106 Plasma (test code = Glucose [Mass/volume] in Serum or Plasma) [facility] HermannLymphocyte [id number] 17:30:00 Test Item Value Reference Range Interpretation Comments Lymphocyte percent (test BETWEEN 10,000 and code = Lymphocyte 100,000 CFU/ML percent) [facility]annPhosphate [Mass/volume] in Serum or [id number] 17:30:00 Test Item Value Reference Range Interpretation Comments Phosphate [Mass/volume] in Serum or 3.0 2.5-4.9 Plasma (test code = Phosphate [Mass/volume] in Serum or Plasma) [facility]annPotassium [Moles/volume] in Serum or [id number] 17:30:00 Test Item Value Reference Range Interpretation Comments Potassium [Moles/volume] in Serum or 3.6 3.5-5.1 Plasma (test code = Potassium [Moles/volume] in Serum or Plasma) [facility]annProtein [Mass/volume] in [id number] 17:30:00 Test Item Value Reference Range Interpretation Comments Protein [Mass/volume] in Urine (test 20 code = Protein [Mass/volume] in Urine) [facility] HermannSerum or plasma sodium measurement (moles/volume)2020-10-01 17:30:00 Test Item Value Reference Range Interpretation Comments Serum or plasma sodium measurement 144 136-145 (moles/volume) (test code = Serum or plasma sodium measurement (moles/volume)) [facility] HermannUrate [Mass/volume] in Serum or [id number] 17:30:00 Test Item Value Reference Range Interpretation Comments Urate [Mass/volume] in Serum or Plasma 5.8 2.6-6.0 (test code = Urate [Mass/volume] in Serum or Plasma) [facility] HermannUrea nitrogen [Mass/volume] in Serum or [id number] 17:30:00 Test Item Value Reference Range Interpretation Comments Urea nitrogen [Mass/volume] in Serum or 36 7-18 Plasma (test code = Urea nitrogen [Mass/volume] in Serum or Plasma) [facility] HermannUrinalysis with [id number] 17:30:00 Test Item Value Reference Range Interpretation Comments Urinalysis with microscopy (test Negative code = Urinalysis with microscopy) [facility] HermannUrine appearance [id number] 17:30:00 Test Item Value Reference Range Interpretation Comments Urine appearance determination (test Clear code = Urine appearance determination) [facility] HermannUrine bilirubin [id number] 17:30:00 Test Item Value Reference Range Interpretation Comments Urine bilirubin detection (test code Negative = Urine bilirubin detection) [facility] blood [id number] 17:30:00 Test Item Value Reference Range Interpretation Comments Urine blood detection (test code = Negative Urine blood detection) [facility] HermannUrine [id number] 17:30:00 Test Item Value Reference Range Interpretation Comments Urine color (test code = Urine color) Yellow [facility]annU[facility] glucose [id number] 17:30:00 Test Item Value Reference Range Interpretation Comments Urine glucose detection (test code = Negative Urine glucose detection) [facility] HospitalannUrine [id number] 17:30:00 Test Item Value Reference Range Interpretation Comments Urine pH (test code = Urine pH) 5.5 1 [facility] HospitalannUrine sediment erythrocyte count by microscopy (number/high power field)2020-10-01 17:30:00 Test Item Value Reference Range Interpretation Comments Urine sediment erythrocyte None seen /HPF count by microscopy (number/high power field) (test code = Urine sediment erythrocyte count by microscopy (number/high power field)) [facility]annUrine specific gravity [id number] 17:30:00 Test Item Value Reference Range Interpretation Comments Urine specific gravity measurement 1.015 1 (test code = Urine specific gravity measurement) [facility] HermannUrine urobilinogen [id number] 17:30:00 Test Item Value Reference Range Interpretation Comments Urine urobilinogen detection (test code 0.2 = Urine urobilinogen detection) [facility] HermannUrine [id number] 17:30:00 Test Item Value Reference Range Interpretation Comments Urine culture (test code = Urine MIXED ZURDO. culture) [facility] HermannAbsolute lymphocyte [id number] 11:13:00 Test Item Value Reference Range Interpretation Comments Absolute lymphocyte count (test code = 0.7 0.7-4.9 Absolute lymphocyte count) [facility] HermannBasophil %2019-06-18 11:13:00 Test Item Value Reference Range Interpretation Comments Basophil % (test code = 0.6 See_Comment [Au tomated message] The Basophil %) system which ge nerated this result tra nsmitted reference range : <=1.3. The reference r lynda was not used to int erpret this result as normal/abnormal . [facility]annBlood erythrocytes count (number/volume)2019-06-18 11:13:00 Test Item Value Reference Range Interpretation Comments Blood erythrocytes count 3.31 3.86-4.86 (number/volume) (test code = Blood erythrocytes count (number/volume)) [facility]annBlood hematocrit (volume fraction)2019-06-18 11:13:00 Test Item Value Reference Range Interpretation Comments Blood hematocrit (volume fraction) 29.3 36.0-45.0 (test code = Blood hematocrit (volume fraction)) [facility]annBlood platelet mean [id number] 11:13:00 Test Item Value Reference Range Interpretation Comments Blood platelet mean volume (test code = 9.4 7.6-11.3 Blood platelet mean volume) [facility] HermannCalcium [Mass/volume] in Serum or [id number] 11:13:00 Test Item Value Reference Range Interpretation [...] [Moles/volume] in Serum or Plasma) [facility] [id number] 11:13:00 Test Item Value Reference Range Interpretation Comments Chemistry procedure (test code = 88.6 80-100 Chemistry procedure) [facility]Chloride [Moles/volume] in Serum or [id number] 11:13:00 Test Item Value Reference Range Interpretation Comments Chloride [Moles/volume] in Serum or 103 98-107 Plasma (test code = Chloride [Moles/volume] in Serum or Plasma) [facility]Creatinine [Mass/volume] in Serum or [id number] 11:13:00 Test Item Value Reference Range Interpretation Comments Creatinine [Mass/volume] in Serum or 2.21 0.55-1.3 Plasma (test code = Creatinine [Mass/volume] in Serum or Plasma) [facility]Glucose [Mass/volume] in Serum or [id number] 11:13:00 Test Item Value Reference Range Interpretation Comments Glucose [Mass/volume] in Serum or 140 74-106 Plasma (test code = Glucose [Mass/volume] in Serum or Plasma) [facility]annMagnesium [Mass/volume] in Serum or [id number] 11:13:00 Test Item Value Reference Range Interpretation Comments Magnesium [Mass/volume] in Serum or 1.8 1.8-2.4 Plasma (test code = Magnesium [Mass/volume] in Serum or Plasma) [facility]Phosphate [Mass/volume] in Serum or [id number] 11:13:00 Test Item Value Reference Range Interpretation Comments Phosphate [Mass/volume] in Serum or 2.1 2.5-4.9 Plasma (test code = Phosphate [Mass/volume] in Serum or Plasma) [facility]Potassium [Moles/volume] in Serum or [id number] 11:13:00 Test Item Value Reference Range Interpretation Comments Potassium [Moles/volume] in Serum or 3.8 3.5-5.1 Plasma (test code = Potassium [Moles/volume] in Serum or Plasma) [facility] or plasma sodium measurement (moles/volume)2019-06-18 11:13:00 Test Item Value Reference Range Interpretation Comments Serum or plasma sodium measurement 141 136-145 (moles/volume) (test code = Serum or plasma sodium measurement (moles/volume)) [facility]annUrea nitrogen [Mass/volume] in Serum or [id number] 11:13:00 Test Item Value Reference Range Interpretation Comments Urea nitrogen [Mass/volume] in Serum or 50 7-18 Plasma (test code = Urea nitrogen [Mass/volume] in Serum or Plasma) [facility]annUrine dipstick testing at [id number]-bo-[id number] 11:13:00 Test Item Value Reference Range Interpretation Comments Urine dipstick testing at dcfyw-eg-xnnp 3.2 4.3-10.9 (test code = Urine dipstick testing at mplqx-ye-dedo) [facility]annAlanine aminotransferase [Enzymatic activity/volume] in Serum or Plasma by With P-5'-2019-06-17 11:27:00 Test Item Value Reference Range Interpretation Comments Alanine aminotransferase [Enzymatic 16 12-78 activity/volume] in Serum or Plasma by With P-5'- (test code = Alanine aminotransferase [Enzymatic activity/volume] in Serum or Plasma by With P-5'-) [facility]annAlbumin [Mass/volume] in Serum or Plasma by Bromocresol purple (BCP) dye binding [id number] 11:27:00 Test Item Value Reference Range Interpretation Comments Albumin [Mass/volume] in Serum or 2.5 3.4-5.0 Plasma by Bromocresol purple (BCP) dye binding meth (test code = Albumin [Mass/volume] in Serum or Plasma by Bromocresol purple (BCP) dye binding meth) [facility]annAlkaline phosphatase [Enzymatic activity/volume] in Serum or [id number] 11:27:00 Test Item Value Reference Range Interpretation Comments Alkaline phosphatase [Enzymatic 72 45-117 activity/volume] in Serum or Plasma (test code = Alkaline phosphatase [Enzymatic activity/volume] in Serum or Plasma) [facility] HermannAspartate aminotransferase [Enzymatic activity/volume] in Serum or Plasma by With [id number] 11:27:00 Test Item Value Reference Range Interpretation Comments Aspartate aminotransferase [Enzymatic 23 15-37 activity/volume] in Serum or Plasma by With P-5 (test code = Aspartate aminotransferase [Enzymatic activity/volume] in Serum or Plasma by With P-5) [facility]annBilirubin.total [Mass/volume] in Serum or [id number] 11:27:00 Test Item Value Reference Range Interpretation Comments Bilirubin.total [Mass/volume] in Serum 1.0 0.2-1.0 or Plasma (test code = Bilirubin.total [Mass/volume] in Serum or Plasma) [facility] morphology interpretation [id number] 11:27:00 Test Item Value Reference Range Interpretation Comments Blood morphology interpretation Not seen narrative (test code = Blood morphology interpretation narrative) [facility] HermannNatriuretic peptide.B prohormone N-Terminal [Mass/volume] in Serum or [id number] 11:27:00 Test Item Value Reference Range Interpretation Comments Natriuretic peptide.B prohormone 493 N-Terminal [Mass/volume] in Serum or Plasma (test code = Natriuretic peptide.B prohormone N-Terminal [Mass/volume] in Serum or Plasma) [facility]Protein [Mass/volume] in Serum or [id number] 11:27:00 Test Item Value Reference Range Interpretation Comments Protein [Mass/volume] in Serum or 6.7 6.4-8.2 Plasma (test code = Protein [Mass/volume] in Serum or Plasma) [facility] HermannTroponin I.cardiac [Mass/volume] in Serum or [id number] 11:27:00 Test Item Value Reference Range Interpretation Comments Troponin I.cardiac < 0.02 See_Comment [Automat ed message] The [Mass/volume] in Serum syste m which generated or Plasma (test code = this result transmitted Troponin I.cardiac reference range: <=0.045. [Mass/volume] in Serum The r eference range was or Plasma) not used to int erpret this result as normal/abnormal . [facility]annUrinalysis with [id number] 02:23:00 Test Item Value Reference Range Interpretation Comments Urinalysis with microscopy (test Negative code = Urinalysis with microscopy) [facility]annUrine blood [id number] 02:23:00 Test Item Value Reference Range Interpretation Comments Urine blood detection (test code = Negative Urine blood detection) [facility]ann[facility] glucose [id number] 02:23:00 Test Item Value Reference Range Interpretation Comments Urine glucose detection (test code = Negative Urine glucose detection) [facility] [id number] 02:23:00 Test Item Value Reference Range Interpretation Comments Urine pH (test code = Urine pH) 5.0 1 [facility]annU[facility] specific gravity [id number] 02:23:00 Test Item Value Reference Range Interpretation Comments Urine specific gravity measurement 1.015 1 (test code = Urine specific gravity measurement) [facility]annUrinalysis with reflex to [id number] 02:14:00 Test Item Value Reference Range Interpretation [...] field)) [facility]annBilirubin.direct [Mass/volume] in Serum or [id number] 00:14:00 Test Item Value Reference Range Interpretation Comments Bilirubin.direct 0.3 See_Comment [Automated message] The [Mass/volume] in Serum syste m which generated or Plasma (test code = this result transmitted Bilirubin.direct reference r lynda: <=0.2. [Mass/volume] in Serum The r eference range was or Plasma) not used to int erpret this result as aubree l/abnormal. [facility]annINR in Blood by Coagulation [id number] 00:14:00 Test Item Value Reference Range Interpretation Comments INR in Blood by Coagulation assay 1.30 1 (test code = INR in Blood by Coagulation assay) [facility]annLactate [Moles/volume] in Serum or [id number] 00:14:00 Test Item Value Reference Range Interpretation Comments Lactate [Moles/volume] in Serum or 1.1 0.4-2.0 Plasma (test code = Lactate [Moles/volume] in Serum or Plasma) [facility] CollinsannTroponin I.cardiac [Mass/volume] in Serum or [id number] 00:14:00 Test Item Value Reference Range Interpretation Comments Troponin I.cardiac < 0.02 See_Comment [Automat ed message] The [Mass/volume] in Serum syste m which generated or Plasma (test code = this result transmitted Troponin I.cardiac reference range: <=0.045. [Mass/volume] in Serum The r eference range was or Plasma) not used to int erpret this result as normal/abnormal . [facility] HermannAlbumin [Mass/volume] in Serum or Plasma by Bromocresol purple (BCP) dye binding [id number] 17:00:00 Test Item Value Reference Range Interpretation Comments Albumin [Mass/volume] in Serum or 2.9 3.4-5.0 Plasma by Bromocresol purple (BCP) dye binding meth (test code = Albumin [Mass/volume] in Serum or Plasma by Bromocresol purple (BCP) dye binding meth) [facility] HermannBlood hematocrit (volume fraction)2019-03-22 17:00:00 Test Item Value Reference Range Interpretation Comments Blood hematocrit (volume fraction) 31.2 36.0-45.0 (test code = Blood hematocrit (volume fraction)) [facility] HermannCalcium [Mass/volume] in Serum or [id number] 17:00:00 Test Item Value Reference Range Interpretation Comments Calcium [Mass/volume] in Serum or 8.6 8.5-10.1 Plasma (test code = Calcium [Mass/volume] in Serum or Plasma) [facility], [facility] [Moles/volume] in Serum or Plasma 2019-03-22 17:00:00 Test Item Value Reference Range Interpretation Comments Carbon dioxide, total [Moles/volume] in 31 21-32 Serum or Plasma (test code = Carbon dioxide, total [Moles/volume] in Serum or Plasma) [facility] HermannChloride [Moles/volume] in Serum or [id number] 17:00:00 Test Item Value Reference Range Interpretation Comments Chloride [Moles/volume] in Serum or 108 98-107 Plasma (test code = Chloride [Moles/volume] in Serum or Plasma) [facility]annCreatinine [Mass/volume] in Serum or [id number] 17:00:00 Test Item Value Reference Range Interpretation Comments Creatinine [Mass/volume] in Serum or 1.83 0.55-1.3 Plasma (test code = Creatinine [Mass/volume] in Serum or Plasma) [facility]annCreatinine [Mass/volume] in [id number] 17:00:00 Test Item Value Reference Range Interpretation Comments Creatinine [Mass/volume] in Urine (test 50.0 20-320 code = Creatinine [Mass/volume] in Urine) [facility]annGlucose [Mass/volume] in Serum or [id number] 17:00:00 Test Item Value Reference Range Interpretation Comments Glucose [Mass/volume] in Serum or 132 74-106 Plasma (test code = Glucose [Mass/volume] in Serum or Plasma) [facility]annParathyrin.intact [Mass/volume] in Serum or [id number] 17:00:00 Test Item Value Reference Range Interpretation Comments Parathyrin.intact [Mass/volume] in 59.2 18.4-80.1 Serum or Plasma (test code = Parathyrin.intact [Mass/volume] in Serum or Plasma) [facility]annPhosphate [Mass/volume] in Serum or [id number] 17:00:00 Test Item Value Reference Range Interpretation Comments Phosphate [Mass/volume] in Serum or 3.3 2.5-4.9 Plasma (test code = Phosphate [Mass/volume] in Serum or Plasma) [facility]annPotassium [Moles/volume] in Serum or [id number] 17:00:00 Test Item Value Reference Range Interpretation Comments Potassium [Moles/volume] in Serum or 3.5 3.5-5.1 Plasma (test code = Potassium [Moles/volume] in Serum or Plasma) [facility]annProtein [Mass/volume] in [id number] 17:00:00 Test Item Value Reference Range Interpretation Comments Protein [Mass/volume] in Urine (test 6 code = Protein [Mass/volume] in Urine) [facility]annSerum or plasma sodium measurement (moles/volume)2019-03-22 17:00:00 Test Item Value Reference Range Interpretation Comments Serum or plasma sodium measurement 145 136-145 (moles/volume) (test code = Serum or plasma sodium measurement (moles/volume)) [facility] HermannUrate [Mass/volume] in Serum or [id number] 17:00:00 Test Item Value Reference Range Interpretation Comments Urate [Mass/volume] in Serum or Plasma 10.4 2.6-6.0 (test code = Urate [Mass/volume] in Serum or Plasma) [facility] [Mass/volume] in Serum or [id number] 17:00:00 Test Item Value Reference Range Interpretation Comments Urea nitrogen [Mass/volume] in Serum or 54 7-18 Plasma (test code = Urea nitrogen [Mass/volume] in Serum or Plasma) [facility] at hvuru-nm-cibl5458-12-03 17:00:00 Test Item Value Reference Range Interpretation Comments Urine dipstick testing at nzwcz-fu-yhfj 10.5 12.0-15.0 (test code = Urine dipstick testing at nrpkl-ez-rsuw) [facility] [id number] 11:19:00 Test Item Value Reference Range Interpretation Comments Bedside Glucose (test code = Bedside 271 65-120 Glucose) [facility] [id number] 05:00:00 Test Item Value Reference Range Interpretation Comments Thyroid Stimulating Hormone (TSH) (test 1.28 0.34-5.60 code = Thyroid Stimulating Hormone (TSH)) [facility]2018-03-04 05:00:00 Test Item Value Reference Range Interpretation Comments Sodium Level (test code = Sodium Level) 139 135-145 [id number] 05:00:00 Test Item Value Reference Range Interpretation Comments Potassium Level (test code = Potassium 3.8 3.6-5.0 Level) [facility]2018-03-04 05:00:00 Test Item Value Reference Range Interpretation Comments Glucose Level (test code = Glucose 116 65-120 Level) [facility]2018-03-04 05:00:00 Test Item Value Reference Range Interpretation Comments Estimat Glomerular 29 See_Comment [Automat ed message] The Filtration Rate (test system which generated code = Estimat this result t ransmitted Glomerular Filtration refere nce range: >=90. Rate) The reference r lynda was not used to int erpret this result as normal/abnormal . [facility]2018-03-04 05:00:00 Test Item Value Reference Range Interpretation Comments Creatinine (test code = Creatinine) 1.69 0.44-1.00 [facility]2018-03-04 05:00:00 Test Item Value Reference Range Interpretation Comments Chloride Level (test code = Chloride 102 101-111 Level) [facility]2018-03-04 05:00:00 Test Item Value Reference Range Interpretation Comments Carbon Dioxide Level (test code = 32 21-31 Carbon Dioxide Level) [facility]2018-03-04 05:00:00 Test Item Value Reference Range Interpretation Comments Calcium Level (test code = Calcium 8.4 8.5-10.5 Level) [facility]2018-03-04 05:00:00 Test Item Value Reference Range Interpretation Comments Blood Urea Nitrogen (test code = Blood 33 6-20 Urea Nitrogen) [facility]2018-03-04 05:00:00 Test Item Value Reference Range Interpretation Comments White Blood Count (test code = White 2.2 4.3-10.9 Blood Count) [facility]2018-03-04 05:00:00 Test Item Value Reference Range Interpretation Comments Red Cell Distribution Width (test code 14.5 12.1-15.2 = Red Cell Distribution Width) [facility]2018-03-04 05:00:00 Test Item Value Reference Range Interpretation Comments Red Blood Count (test code = Red Blood 3.18 3.86-4.86 Count) [facility]2018-03-04 05:00:00 Test Item Value Reference Range Interpretation Comments Platelet Count (test code = Platelet 95 152-406 Count) [facility]2018-03-04 05:00:00 Test Item Value Reference Range Interpretation Comments Neutrophils % (test code = Neutrophils 48.8 41.7-73.7 %) [facility]2018-03-04 05:00:00 Test Item Value Reference Range Interpretation Comments Monocytes % (test code = Monocytes %) 10.2 3.3-12.3 [facility]2018-03-04 05:00:00 Test Item Value Reference Range Interpretation Comments Mean Platelet Volume (test code = Mean 8.3 7.6-11.3 Platelet Volume) [facility]2018-03-04 05:00:00 Test Item Value Reference Range Interpretation Comments Mean Corpuscular Volume (test code = 82.8 80-100 Mean Corpuscular Volume) [facility]2018-03-04 05:00:00 Test Item Value Reference Range Interpretation Comments Mean Corpuscular Hemoglobin Concent 32.8 32.0-36.0 (test code = Mean Corpuscular Hemoglobin Concent) [facility]2018-03-04 05:00:00 Test Item Value Reference Range Interpretation Comments Mean Corpuscular Hemoglobin (test 27.1 pg 27.0-35.0 code = Mean Corpuscular Hemoglobin) [facility]2018-03-04 05:00:00 Test Item Value Reference Range Interpretation Comments Lymphocytes % (test code = Lymphocytes 35.1 15.3-44.8 %) [facility]2018-03-04 05:00:00 Test Item Value Reference Range Interpretation Comments Hemoglobin (test code = Hemoglobin) 8.6 12.0-15.0 [facility]2018-03-04 05:00:00 Test Item Value Reference Range Interpretation Comments Hematocrit (test code = Hematocrit) 26.3 36.0-45.0 [facility]2018-03-04 05:00:00 Test Item Value Reference Range Interpretation Comments Eosinophils % (test code 5.0 See_Comment [A utomated message] The = Eosinophils %) system [facility] generated this result tra nsmitted reference range : <=4.4. The reference r lynda was not used to int erpret this result as normal/abnormal . [facility]2018-03-04 05:00:00 Test Item Value Reference Range Interpretation Comments Basophils % (test code 0.9 See_Comment [Aut omated message] The = Basophils %) system which generated this result tra nsmitted reference range : <=1.3. The reference r lynda was not used to int erpret this result as normal/abnormal . [facility]2018-03-04 05:00:00 Test Item Value Reference Range Interpretation Comments Absolute Neutrophil (test code = 1.1 1.8-8.0 Absolute Neutrophil) [facility]2018-03-04 05:00:00 Test Item Value Reference Range Interpretation Comments Absolute Monocytes (CBC) (test code = 0.2 0.1-1.3 Absolute Monocytes (CBC)) [facility]2018-03-04 05:00:00 Test Item Value Reference Range Interpretation Comments Absolute Lymphocytes (CBC) (test code = 0.8 0.7-4.9 Absolute Lymphocytes (CBC)) [facility]2018-03-04 05:00:00 Test Item Value Reference Range Interpretation Comments Absolute Eosinophils 0.1 See_Comment [Autom ated message] The (CBC) (test code = system isango! ich generated Absolute Eosinophils this re sult transmitted (CBC)) reference range : <=0.5. The reference r lynda was not used to int erpret this result as normal/abnormal . [facility]2018-03-04 05:00:00 Test Item Value Reference Range Interpretation Comments Absolute Basophils 0.0 See_Comment [Automat ed message] The (CBC) (test code = system isango! ich generated Absolute Basophils this resu lt transmitted (CBC)) reference range : <=0.5. The reference r lynda was not used to int erpret this result as normal/abnormal . [facility]2018-03-04 03:35:00 Test Item Value Reference Range Interpretation Comments Urine Random Total Protein (test code = 13 Urine Random Total Protein) [facility]2018-03-04 03:35:00 Test Item Value Reference Range Interpretation Comments Urine Protein/Creatinine Ratio (test 0.09 1 code = Urine Protein/Creatinine Ratio) [facility]2018-03-04 03:35:00 Test Item Value Reference Range Interpretation Comments Urine Creatinine (test code = Urine 143.6 [address]inine) [facility]2018-03-02 04:23:00 Test Item Value Reference Range Interpretation Comments Blood Morphology Blood Morphology Comment (test code = Comment Blood Morphology Comment) [facility]2018-03-02 04:23:00 Test Item Value Reference Range Interpretation Comments B-Type Natriuretic Peptide (test code = 35 B-Type Natriuretic Peptide) [facility] [id number] 22:25:00 Test Item Value Reference Range Interpretation Comments Urine pH (test code = Urine pH) 7.0 1 [facility] [id number] 22:25:00 Test Item Value Reference Range Interpretation Comments Urine WBC (test code = Urine WBC) no gt [facility]2018-03-01 22:25:00 Test Item Value Reference Range Interpretation Comments Urine Urobilinogen (test code = Urine 1.0 [address]) [facility]2018-03-01 22:25:00 Test Item Value Reference Range Interpretation Comments Urine Total Protein (test Urine Total Protein code = Urine Total Protein) [facility]2018-03-01 22:25:00 Test Item Value Reference Range Interpretation Comments Urine Squamous Epithelial Cells (test no gt code = Urine Squamous Epithelial Cells) [facility]2018-03-01 22:25:00 Test Item Value Reference Range Interpretation Comments Urine Specific [place] (test code = 1.010 1 Urine Specific [place]) [facility]2018-03-01 22:25:00 Test Item Value Reference Range Interpretation Comments Urine RBC (test code = Urine RBC) Urine RBC [facility]2018-03-01 22:25:00 Test Item Value Reference Range Interpretation Comments Urine Nitrite (test code = Urine Nitrite Urine Nitrite) [facility]2018-03-01 22:25:00 Test Item Value Reference Range Interpretation Comments Urine Leukocyte Urine Leukocyte Esterase (test code = Esterase Urine Leukocyte Esterase) [facility]2018-03-01 22:25:00 Test Item Value Reference Range Interpretation Comments Urine Ketones (test code = Urine Ketones Urine Ketones) [facility]2018-03-01 22:25:00 Test Item Value Reference Range Interpretation Comments Urine Glucose (test code = Urine Glucose Urine Glucose) [facility]2018-03-01 22:25:00 Test Item Value Reference Range Interpretation Comments Urine Culture Reflexed Urine Culture Reflexed (test code = Urine Culture Reflexed) [facility]2018-03-01 22:25:00 Test Item Value Reference Range Interpretation Comments Urine Color (test code = Urine Urine Color Color) [facility]2018-03-01 22:25:00 Test Item Value Reference Range Interpretation Comments Urine Blood (test code = Urine Urine Blood Blood) [facility]2018-03-01 22:25:00 Test Item Value Reference Range Interpretation Comments Urine Bilirubin (test code = Urine Bilirubin Urine Bilirubin) [facility]2018-03-01 22:25:00 Test Item Value Reference Range Interpretation Comments Urine Bacteria (test code = Urine no gt Bacteria) [facility]2018-03-01 22:25:00 Test Item Value Reference Range Interpretation Comments Urine Appearance (test code Urine Appearance = Urine Appearance) [facility]2018-03-01 15:27:00 Test Item Value Reference Range Interpretation Comments Prothrombin Time (test code = 14.6 9.5-12.5 Prothrombin Time) [facility]2018-03-01 15:27:00 Test Item Value Reference Range Interpretation Comments INR International Normalized Ratio 1.23 1 (test code = INR International Normalized Ratio) [facility]2018-03-01 15:27:00 Test Item Value Reference Range Interpretation Comments Activated Partial Thromboplast Time 27.0 24.3-36.9 (test code = Activated Partial Thromboplast Time) [facility]2018-03-01 15:27:00 Test Item Value Reference Range Interpretation Comments Magnesium Level (test code = Magnesium 1.6 1.8-2.5 Level) [facility]2018-03-01 15:27:00 Test Item Value Reference Range Interpretation Comments Creatine Kinase (test code = Creatine 31 22-[address]) [facility]2018-03-01 15:27:00 Test Item Value Reference Range Interpretation Comments Rapid Troponin I (test code = Rapid no gt Troponin I) [facility]2018-03-01 15:27:00 Test Item Value Reference Range Interpretation Comments Creatine Kinase MB (test code = 0.3 0.3-4.0 Creatine Kinase MB) [facility]2017-12-22 12:40:00 Test Item Value Reference Range Interpretation Comments Urine Amorphous Urine Amorphous Sediment (test code = Sediment Urine Amorphous Sediment) [facility]2017-12-22 12:08:00 Test Item Value Reference Range Interpretation Comments Lactic Acid Level (test code = Lactic 10.2 4.5-19.8 Acid Level) [facility]2017-12-22 12:08:00 Test Item Value Reference Range Interpretation Comments Procalcitonin (test code = 0.13 Procalcitonin) [facility]2017-12-22 12:08:00 Test Item Value Reference Range Interpretation Comments Sedimentation Rate, 78 See_Comment [Automa tonny message] Westergren (test code = The system which Sedimentation Rate, generate d this result Westergren) transmitted ref erence range: <=30. Th e reference range was not used to interpr et this result as normal/abnormal . [facility]2017-12-22 12:08:00 Test Item Value Reference Range Interpretation Comments Total Bilirubin (test code = Total 1.2 0.3-1.2 Bilirubin) [facility]2017-12-22 12:08:00 Test Item Value Reference Range Interpretation Comments Serum Total Protein (test code = Serum 6.2 6.0-8.3 Total Protein) [facility]2017-12-22 12:08:00 Test Item Value Reference Range Interpretation Comments Globulin (test code = Globulin) 3.3 2.3-3.5 [facility]2017-12-22 12:08:00 Test Item Value Reference Range Interpretation Comments Direct Bilirubin (test 0.2 See_Comment [Aut omated message] The code = Direct system which g enerated Bilirubin) this result tra nsmitted reference range : <=0.2. The reference r lynda was not used to int erpret this result as normal/abnormal . [facility]2017-12-22 12:08:00 Test Item Value Reference Range Interpretation Comments Aspartate Amino Transf (AST/SGOT) (test 53 10-42 code = Aspartate Amino Transf (AST/SGOT)) [facility]2017-12-22 12:08:00 Test Item Value Reference Range Interpretation Comments Alkaline Phosphatase (test code = 85 42-121 Alkaline Phosphatase) [facility]2017-12-22 12:08:00 Test Item Value Reference Range Interpretation Comments Albumin/Globulin Ratio (test code = 0.9 1 1.1-1.8 Albumin/Globulin Ratio) [facility] [id number] 12:08:00 Test Item Value Reference Range Interpretation Comments Albumin (test code = Albumin) 2.9 3.2-5.5 [facility]2017-12-22 12:08:00 Test Item Value Reference Range Interpretation Comments Alanine Aminotransferase (ALT/SGPT) 29 10-60 (test code = Alanine Aminotransferase (ALT/SGPT)) [facility] [id number] 12:08:00 Test Item Value Reference Range Interpretation Comments Lipase (test code = Lipase) 17 22-51 [facility]
[2022-01-13] MEDS ORDERED: NA CHLORIDE 0.9% 1,000 ML ONE (12:50)
[2022-01-13 13:15] LABS: Absolute Lymphocytes (CBC) 0.6 K/uL (0.7-4.9); Hematocrit 32.6 % (36.0-45.0); Lymphocytes % 10.2 % (15.3-44.8); MCV 94.1 fL (80-100); RBC Red Blood Cell Count 3.47 M/uL (3.86-4.86)
[2022-01-13 13:19] LABS: Protime INR 1.51
--- NOTE | 2022-01-13 13:34 | RAD REPORT ---
EXAM DESCRIPTION: Anabel Single View01/13/2022 1:06 pm CLINICAL HISTORY: Hypotension COMPARISON: December 27, 2021 FINDINGS: Moderate to large left pleural effusion. Left basilar atelectasis. Right lung appears clear. Heart is enlarged. Central venous catheter in place IMPRESSION: Moderate to large left pleural effusion is suspected
[2022-01-13 13:35] LABS: Albumin 2.1 g/dL (3.4-5.0); Bilirubin Direct 0.4 mg/dL (0-0.2); Bilirubin Total 0.8 mg/dL (0.2-1.0); Magnesium 1.8 mg/dL (1.8-2.4); Potassium 3.6 mmol/L (3.5-5.1); Protein, Total 6.2 g/dL (6.4-8.2); Troponin High Sensitivity 19.9 pg/mL (<58.9)
[2022-01-13] MEDS ORDERED: NOREPINEPHRINE BITARTRATE/D5W 4 MG/250 ML BAG IV ONE (15:21)
[2022-01-13 15:34] LABS: SARS-CoV-2 Antigen Rapid Res Negative (Negative)
[2022-01-13] MEDS ORDERED: AMIODARONE HCL 150 MG/3 ML INJ IV ONE (16:19)
[2022-01-13] MEDS ORDERED: D5W 100 ML IV ONE (16:19)
--- NOTE | 2022-01-13 16:20 | EDPHYS ---
Physician Documentation [facility] Name: Loni Cross Age: 86 yrs Sex: Female : 1935 Arrival Date: 01/13/2022 Time: 12:36 Bed 2 Private MD: ED Physician Otto Mulligan HPI: 01/13 19:28 This 86 yrs old Female presents to ER via EMS with complaints of Blood Pressure Problem ms3 - Low. 19:28 86-year-old female with past medical history of hyperlipidemia, kidney problems, ms3 diabetes, CVA, hypertension presents via EMS for hypotension that began during her last 10 minutes of dialysis. EMS states patient typically has 5 kg removed and today only 1 kg was removed. 10 minutes prior to finishing dialysis patient began complaining of weakness. Dialysis administer 1 L of normal saline prior to EMSs arrival. EMS administered 10 mcg push of epinephrine. EMS notes patient's blood glucose level was 136. Patient is without complaint in the emergency department. Patient denies nausea, vomiting, fevers, chills. Historical: - Allergies: 12:39 Alteplase; tw2 12:39 blood thinners except ASA; tw2 12:39 caffeine; tw2 12:39 HYDROCODONE; tw2 12:39 Iodine; tw2 12:39 [id number] Reductase Inhibitors; tw2 12:39 Streptomycin; tw2 - Home Meds: 13:37 Insulin Glargine Sub-Q [Active]; Zetia 10 mg oral tab 1 tab once daily [Active]; tw2 pravastatin 10 mg oral tab 1 tab once daily [Active]; Coreg 3.125 mg oral tab 1 tab [Active]; pantoprazole 10 mg Oral 1 tab [Active]; Claritin-D 24 Hour 10-240 mg Oral Tb24 1 tab once daily [Active]; potassium chloride 10 mEq oral TbER 1 tab once daily [Active]; aspirin 81 mg Oral chew 1 tab once daily [Active]; 14:42 amiodarone 200 mg Oral tab [Active]; midodrine oral [Active]; tw2 14:43 Eliquis oral [Active]; tw2 - PMHx: 12:39 Hyperlipidemia; kidney problems; Diabetes - NIDDM; CVA; Hypertension; Dialysis; Hernia; tw2 CHF; Cellulitis; Anemia; hyperparathyroidism; malnutition; - PSHx: 12:39 Dialysis catheter to right upper chest; hysterectomy; tw2 - Immunization history:: Adult Immunizations. - Social history:: Smoking status: . ROS: 19:28 Neck: Negative for injury, pain, and swelling, Cardiovascular: Negative for chest pain, ms3 and palpitations. Respiratory: Negative for shortness of breath, cough, wheezing, and pleuritic chest pain, Abdomen/GI: Negative for abdominal pain, nausea, vomiting, diarrhea, and constipation, Back: Negative for injury and pain, MS/Extremity: Negative for injury and deformity, Skin: Negative for injury, rash, and discoloration, Neuro: Negative for headache, weakness, numbness, tingling. Psych: Negative for depression, anxiety, suicide ideation, homicidal ideation, and hallucinations. 19:28 Constitutional: Positive for Generalized weakness. 19:28 All other systems are negative. Exam: 16:00 ECG was reviewed by the Attending Physician. ms3 19:28 Constitutional: This is a well developed, well nourished patient who is awake, alert, ms3 and in no acute distress. Eyes: Pupils equal round and reactive to light, extra-ocular motions intact. Lids and lashes normal. Conjunctiva and sclera are non-icteric and not injected. Periorbital areas with no swelling, redness, or edema. Neck: Trachea midline, no cervical lymphadenopathy. Supple, full range of motion without nuchal rigidity, or vertebral point tenderness. No Meningismus. Chest/axilla: Normal chest wall appearance and motion. Nontender with no deformity. Right subclavian dialysis catheter. Cardiovascular: Regular rate and rhythm with a normal S1 and S2. No gallops, murmurs, or rubs. Normal PMI, no JVD. No pulse deficits. Respiratory: Lungs have equal breath sounds bilaterally, clear to auscultation and percussion. No rales, rhonchi or wheezes noted. No increased work of breathing, no retractions or nasal flaring. Abdomen/GI: Soft, non-tender, with normal bowel sounds. No distension or tympany. No guarding or rebound. No evidence of tenderness throughout. Skin: Warm, dry with normal turgor. Normal color with no rashes, no lesions, and no evidence of cellulitis. MS/ Extremity: Pulses equal, no cyanosis. Neurovascular intact. Full, normal range of motion. Psych: Awake, alert, with orientation to person, place and time. Behavior, mood, and affect are within normal limits. Vital Signs: 12:34 BP 72 / 47; Pulse 120; Resp 22; Temp 97.7(TE); Pulse Ox 100% on R/A; Weight 70 kg (R); tw2 12:45 BP 76 / 48; Pulse 122; Resp 22; Pulse Ox 100% on R/A; tw2 13:00 BP 102 / 49; Pulse 124; Resp 22; Pulse Ox 100% on R/A; tw2 13:10 BP 111 / 41; Pulse 118; Resp 22; Pulse Ox 100% on R/A; tw2 13:15 BP 122 / 48; Pulse 114; Resp 21; Pulse Ox 100% ; tw2 13:20 BP 135 / 95; Pulse 116; Resp 19; Pulse Ox 100% on R/A; tw2 13:25 BP 100 / 45; Pulse 114; Resp 19; Pulse Ox 100% on R/A; tw2 13:30 BP 98 / 53; Pulse 106; Resp 19; Pulse Ox 100% on R/A; tw2 13:35 BP 99 / 59; Pulse 114; Resp 21; Pulse Ox 100% on R/A; tw2 13:56 BP 87 / 55; Pulse 113; Resp 22; Pulse Ox 100% on R/A; ph 13:56 BP 109 / 93; Pulse 113; Resp 18; Pulse Ox 100% on R/A; ph 14:21 BP 109 / 67; Pulse 113; Resp 16; Pulse Ox 99% on R/A; ph 14:25 BP 97 / 60; Pulse 116; Resp 22; Pulse Ox 100% on R/A; tw2 14:30 BP 122 / 83; Pulse 113; Resp 22; Pulse Ox 99% on R/A; tw2 14:35 BP 96 / 48; tw2 14:45 BP 99 / 53; Pulse 113; Resp 22; Pulse Ox 100% on R/A; tw2 14:50 BP 100 / 49; Pulse 115; Resp 22; Pulse Ox 100% on R/A; tw2 14:55 BP 85 / 33; Pulse 117; Resp 17; Pulse Ox 100% on R/A; tw2 15:00 BP 102 / 43; tw2 15:05 BP 74 / 48; Pulse 117; Resp 22; Pulse Ox 100% on R/A; tw2 15:10 BP 77 / 55; Pulse 121; tw2 15:15 BP 85 / 64; Pulse 123; Resp 24; Pulse Ox 100% on R/A; tw2 15:17 Pulse 127; tw2 15:20 BP 103 / 54; Pulse 113; Resp 24; Pulse Ox 100% on R/A; tw2 15:30 BP 119 / 51; Pulse 129; Resp 30; tw2 15:50 BP 99 / 46; Pulse 117; Resp 27; Pulse Ox 100% on R/A; tw2 15:55 BP 102 / 49; Pulse 117; Resp 28; Pulse Ox 100% on R/A; tw2 16:00 BP 92 / 54; Pulse 117; Resp 28; Pulse Ox 100% on R/A; tw2 16:05 BP 107 / 42; Pulse 81; tw2 16:30 BP 136 / 56; Pulse 79; tw2 16:35 BP 132 / 69; Pulse 75; Resp 22; Pulse Ox 100% on R/A; tw2 16:40 BP 146 / 99; Pulse 74; Resp 22; Pulse Ox 100% on R/A; tw2 16:45 BP 153 / 107; Pulse 74; tw2 16:50 BP 123 / 107; Pulse 75; tw2 16:55 BP 107 / 48; Pulse 75; Resp 22; Pulse Ox 100% on R/A; tw2 17:00 BP 117 / 51; Pulse 75; Resp 19; Pulse Ox 98% on R/A; tw2 17:05 BP 119 / 45; Pulse 75; tw2 17:10 BP 118 / 46; Pulse 77; tw2 17:15 BP 118 / 48; Pulse 75; Resp 19; Pulse Ox 100% on R/A; tw2 17:20 BP 113 / 47; Pulse 75; Resp 19; Pulse Ox 100% on R/A; tw2 12:34 provider notified tw2 13:30 provider notified tw2 13:35 provider notified tw2 14:35 provider aware tw2 14:55 provider notified tw2 15:10 provider aware and decision made for central line at this time tw2 15:30 provider performing central line at this time tw2 Procedures: 16:09 Central Line: the site was prepped with Chlorhexidine, a triple lumen catheter was ms3 inserted, in the left internal jugular vein, in 2 attempts. placement was verified, Unable to establish left IJ central venous access. 16:10 Central Line: the site was prepped with Chlorhexidine, a triple lumen catheter was ms3 inserted, in the right internal jugular vein, in 1 attempts. placement was verified, by blood return, the site was dressed with Tegaderm, the patient tolerated the procedure, well. MDM: 12:36 Patient medically screened. ms3 16:13 ED course: Patient seen in the ED by Dr Clarke. Recommends Levophed and Amiodarone ms3 bolus with ggt. . 16:50 ED course: Discussed case with Dr Montgomery and he accepts patient.. ms3 17:40 ED course: R IJ courses into the subclavian. Discussed with Dr Montgomery. Levophed paused ms3 at this time. Will d/c line if patient maintains pressure now that she is in NSR.. 17:40 Data interpreted: customer service consultant: rate is 72 beats/min, rhythm is normal sinus rhythm, ms3 regular, with no ectopy, Interpretation: normal rate, normal rhythm. Counseling: I had a detailed discussion with the patient and/or guardian regarding: the historical points, exam findings, and any diagnostic results supporting the discharge/admit diagnosis, lab results, radiology results, the need for further work-up and treatment in the hospital. 17:56 ED course: Discussed with Dr Montgomery and order placed for PICC line.. ms3 19:26 ED course: Called by ICU and patient unable to receive PICC line due to being a ms3 dialysis patient. Discussed this with Dr Montgomery and he suggests running levophed through antecubital PIV.. 19:28 Data reviewed: vital signs, nurses notes, lab test result(s), EKG, radiologic studies, ms3 and as a result, I will admit patient. 01/13 12:37 Order name: Basic Metabolic Panel; Complete Time: 13:40 ms3 01/13 12:37 Order name: CBC with Diff; Complete Time: 13:40 ms3 01/13 12:37 Order name: LFT's; Complete Time: 13:40 ms3 01/13 12:37 Order name: Magnesium; Complete Time: 13:40 ms3 01/13 12:37 Order name: NT PRO-BNP; Complete Time: 13:40 ms3 01/13 12:37 Order name: PT-INR; Complete Time: 13:40 3 01/13 12:37 Order name: Troponin HS; Complete Time: 13:40 ms3 01/13 12:37 Order name: Blood Culture Adult (2) 3 01/13 12:37 Order name: Urine Microscopic Only ms3 01/13 13:41 Order name: SARS RAPID; Complete Time: 16:12 ms3 01/13 16:59 Order name: Basic Metabolic Panel EDMS 01/13 16:59 Order name: Basic Metabolic Panel EDMS 01/13 16:59 Order name: CBC with Automated Diff EDMS 01/13 16:59 Order name: CBC with Automated Diff EDMS 01/13 12:37 Order name: XRAY Chest (1 view); Complete Time: 13:40 3 01/13 12:37 Order name: EKG; Complete Time: 12:38 01/13 12:37 Order name: Cardiac monitoring; Complete Time: 13:07 01/13 12:37 Order name: EKG - Nurse/Tech; Complete Time: 13:07 01/13 12:37 Order name: IV Saline Lock; Complete Time: 13:07 3 01/13 12:37 Order name: Labs collected and sent; Complete Time: 13:07 01/13 12:37 Order name: O2 Per Protocol; Complete Time: 13:08 01/13 12:37 Order name: O2 Sat Monitoring; Complete Time: 13:08 3 01/13 16:21 Order name: CXR XRAY 3 01/13 16:56 Order name: CONS Physician Consult MS 01/13 16:59 Order name: NPO EDMS 01/13 16:51 Order name: EKG - Nurse/Tech; Complete Time: 16:51 tw2 EC:00 Rate is 114 beats/min. Rhythm is irregularly irregular. QRS [place] is Normal. QRS ms3 interval is normal. Clinical impression: Atrial fibrillation with RVR. Interpreted by me. Reviewed by me. 16:36 Rate is 75 beats/min. Rhythm is regular. QRS [place] is Normal. ID interval is prolonged. ms3 QRS interval is normal. Clinical impression: NSR with 1st Degree Block. Interpreted by me. Reviewed by me. Administered Medications: 16:42 Discontinued: amiodarone 150 mg 100 ml IVPB once over 10 mins; (mix in D5W) tw2 13:05 Drug: NS 0.9% 1000 ml Route: IV; Rate: 1 bolus; Site: left antecubital; tw2 13:40 Follow up: Response: No adverse reaction; IV Status: Completed infusion; IV Intake: tw2 1000ml 16:18 Drug: Levophed (norepinephrine) 0.1 mcg/kg/min Route: IV; Rate: calculated rate; Site: tw2 right jugular; 16:48 Follow up: Rate change 0.05 mcg/min; d/t pts map tw2 17:29 Follow up: Rate change 0.1 mcg/kg/min; d/t pts map at or below 65 tw2 18:37 Follow up: IV Status: Infusion continued upon admission tw2 16:34 Drug: amiodarone 150 mg Volume: 100 ml; Route: IVPB; Infused Over: 10 mins; Site: right tw2 jugular; 16:42 Follow up: IV Status: Order to discontinue infusion tw2 16:43 Not Given (Physician Discretion; cancelled per dr. nuñez): amiodarone 900 mg, D5W 500 tw2 ml IVPB at 1 mg/min continuous; for 6 hrs, then change to 0.5 mg/min Disposition Summary: 01/13/22 16:20 Hospitalization Ordered Hospitalization Status: Inpatient Admission ms3 Provider: Paolo Montgomery ms3 Location: Intensive Care Unit ms3 Condition: Stable ms3 Problem: new ms3 Symptoms: are unchanged ms3 Bed/Room Type: Standard ms3 Room Assignment: 5-(01/13/22 17:11) bd Diagnosis - Hypotension, unspecified ms3 - Chronic atrial fibrillation ms3 - Atrial fibrillation with rapid ventriclar rate ms3 Forms: - Medication Reconciliation Form ms3 - SBAR form ms3 Critical care time excluding procedures: 17:41 Critical care time: Bedside Care: 50 minutes, Consultation: 10 minutes, Family ms3 Intervention: 10 minutes. Total time: 70 minutes Signatures: Dispatcher [employer] Sena Wells Tara RN RN tw2 Otto Mulligan DO DO ms3 Corrections: (The following items were deleted from the chart) 17:11 16:20 ms3 bd
--- NOTE | 2022-01-13 16:20 | ER ---
Nurse's Notes [facility] Name: Loni Cross Age: 86 yrs Sex: Female : 1935 Arrival Date: 01/13/2022 Time: 12:36 Bed 2 Private MD: Diagnosis: Hypotension, unspecified;Chronic atrial fibrillation;Atrial fibrillation with rapid ventriclar rate Presentation: 01/13 12:33 Acuity: TRINI 2 tw2 12:33 Chief complaint: EMS states: pt was at [facility] dialysis. they called us for hypotension. tw2 the target was 5Kg but they reported pulling off 1Kg but that was 10 minutes prior to completion. this is pts 1st time to have dialysis in 3 weeks because she was in a rehab hospital. initial BP was 56/34, now its 70/40. we gave 10 mcg EPI iv. davita gave 1L NS prior to our arrival. 18g RIGHT ac. afib on monitor, hx of afib. 13:27 Coronavirus screen: At this time, the client does not indicate any symptoms associated tw2 with coronavirus-19. Ebola Screen: Patient denies travel to an Ebola-affected area in the 21 days before illness onset. Initial Sepsis Screen: Does the patient meet any 2 criteria? Mean Arterial Pressure (MAP) < 65. HR > 90 bpm. Does the patient have a suspected source of infection? No. Patient's initial sepsis screen is negative. Risk Assessment: Do you want to hurt yourself or someone else? Patient reports no desire to harm self or others. Onset of symptoms was January 13, 2022. 13:27 Method Of Arrival: EMS: [facility] tw2 Triage Assessment: 12:33 General: Appears in no apparent distress. Behavior is calm, cooperative, appropriate tw2 for age. Pain: Denies pain. Neuro: Level of Consciousness is awake, alert, obeys commands, Oriented to person, place, situation. Cardiovascular: Patient's skin is warm and dry. Rhythm is atrial fibrillation. Respiratory: Airway is patent Respiratory effort is even, unlabored, Respiratory pattern is regular, symmetrical. GI: No signs and/or symptoms were reported involving the gastrointestinal system. Abdomen is round. Musculoskeletal: Range of motion: intact in all extremities. Historical: - Allergies: 12:39 Alteplase; tw2 12:39 blood thinners except ASA; tw2 12:39 caffeine; tw2 12:39 HYDROCODONE; tw2 12:39 Iodine; tw2 12:39 Bkktuiu-Kxy-Dgu Reductase Inhibitors; tw2 12:39 Streptomycin; tw2 - Home Meds: 13:37 Insulin Glargine Sub-Q [Active]; Zetia 10 mg oral tab 1 tab once daily [Active]; tw2 pravastatin 10 mg oral tab 1 tab once daily [Active]; Coreg 3.125 mg oral tab 1 tab [Active]; pantoprazole 10 mg Oral 1 tab [Active]; Claritin-D 24 Hour 10-240 mg Oral Tb24 1 tab once daily [Active]; potassium chloride 10 mEq oral TbER 1 tab once daily [Active]; aspirin 81 mg Oral chew 1 tab once daily [Active]; 14:42 amiodarone 200 mg Oral tab [Active]; midodrine oral [Active]; tw2 14:43 Eliquis oral [Active]; tw2 - PMHx: 12:39 Hyperlipidemia; kidney problems; Diabetes - NIDDM; CVA; Hypertension; Dialysis; Hernia; tw2 CHF; Cellulitis; Anemia; hyperparathyroidism; malnutition; - PSHx: 12:39 Dialysis catheter to right upper chest; hysterectomy; tw2 - Immunization history:: Adult Immunizations. - Social history:: Smoking status: . Screenin:28 Abuse screen: Denies threats or abuse. Nutritional screening: No deficits noted. tw2 Tuberculosis screening: No symptoms or risk factors identified. Fall Risk Secondary diagnosis (15 points) impaired mobility. Assessment: 12:33 Reassessment: see triage assessment. tw2 12:34 Reassessment: Olamide Zelaya - Grand daughter PH#[phone]. tw2 13:25 Reassessment: Patient appears in no apparent distress at this time. No changes from tw2 previously documented assessment. Patient and/or family updated on plan of care and expected duration. Pain level reassessed. 14:30 Reassessment: Patient appears in no apparent distress at this time. No changes from tw2 previously documented assessment. Patient and/or family updated on plan of care and expected duration. Pain level reassessed. 15:01 Reassessment: Patient appears in no apparent distress at this time. No changes from tw2 previously documented assessment. Patient and/or family updated on plan of care and expected duration. Pain level reassessed. 16:00 Reassessment: Patient appears in no apparent distress at this time. No changes from tw2 previously documented assessment. Patient and/or family updated on plan of care and expected duration. Pain level reassessed. 17:01 Reassessment: Patient appears in no apparent distress at this time. No changes from tw2 previously documented assessment. Patient and/or family updated on plan of care and expected duration. Pain level reassessed. 17:40 Reassessment: Levophed infusion paused by Dr. Mulligan. iw 17:50 Reassessment: Levophed infusion resumed for BP 89/[address] Mulligan. iw Vital Signs: 12:34 BP 72 / 47; Pulse 120; Resp 22; Temp 97.7(TE); Pulse Ox 100% on R/A; Weight 70 kg (R); tw2 12:45 BP 76 / 48; Pulse 122; Resp 22; Pulse Ox 100% on R/A; tw2 13:00 BP 102 / 49; Pulse 124; Resp 22; Pulse Ox 100% on R/A; tw2 13:10 BP 111 / 41; Pulse 118; Resp 22; Pulse Ox 100% on R/A; tw2 13:15 BP 122 / 48; Pulse 114; Resp 21; Pulse Ox 100% ; tw2 13:20 BP 135 / 95; Pulse 116; Resp 19; Pulse Ox 100% on R/A; tw2 13:25 BP 100 / 45; Pulse 114; Resp 19; Pulse Ox 100% on R/A; tw2 13:30 BP 98 / 53; Pulse 106; Resp 19; Pulse Ox 100% on R/A; tw2 13:35 BP 99 / 59; Pulse 114; Resp 21; Pulse Ox 100% on R/A; tw2 13:56 BP 87 / 55; Pulse 113; Resp 22; Pulse Ox 100% on R/A; ph 13:56 BP 109 / 93; Pulse 113; Resp 18; Pulse Ox 100% on R/A; ph 14:21 BP 109 / 67; Pulse 113; Resp 16; Pulse Ox 99% on R/A; ph 14:25 BP 97 / 60; Pulse 116; Resp 22; Pulse Ox 100% on R/A; tw2 14:30 BP 122 / 83; Pulse 113; Resp 22; Pulse Ox 99% on R/A; tw2 14:35 BP 96 / 48; tw2 14:45 BP 99 / 53; Pulse 113; Resp 22; Pulse Ox 100% on R/A; tw2 14:50 BP 100 / 49; Pulse 115; Resp 22; Pulse Ox 100% on R/A; tw2 14:55 BP 85 / 33; Pulse 117; Resp 17; Pulse Ox 100% on R/A; tw2 15:00 BP 102 / 43; tw2 15:05 BP 74 / 48; Pulse 117; Resp 22; Pulse Ox 100% on R/A; tw2 15:10 BP 77 / 55; Pulse 121; tw2 15:15 BP 85 / 64; Pulse 123; Resp 24; Pulse Ox 100% on R/A; tw2 15:17 Pulse 127; tw2 15:20 BP 103 / 54; Pulse 113; Resp 24; Pulse Ox 100% on R/A; tw2 15:30 BP 119 / 51; Pulse 129; Resp 30; tw2 15:50 BP 99 / 46; Pulse 117; Resp 27; Pulse Ox 100% on R/A; tw2 15:55 BP 102 / 49; Pulse 117; Resp 28; Pulse Ox 100% on R/A; tw2 16:00 BP 92 / 54; Pulse 117; Resp 28; Pulse Ox 100% on R/A; tw2 16:05 BP 107 / 42; Pulse 81; tw2 16:30 BP 136 / 56; Pulse 79; tw2 16:35 BP 132 / 69; Pulse 75; Resp 22; Pulse Ox 100% on R/A; tw2 16:40 BP 146 / 99; Pulse 74; Resp 22; Pulse Ox 100% on R/A; tw2 16:45 BP 153 / 107; Pulse 74; tw2 16:50 BP 123 / 107; Pulse 75; tw2 16:55 BP 107 / 48; Pulse 75; Resp 22; Pulse Ox 100% on R/A; tw2 17:00 BP 117 / 51; Pulse 75; Resp 19; Pulse Ox 98% on R/A; tw2 17:05 BP 119 / 45; Pulse 75; tw2 17:10 BP 118 / 46; Pulse 77; tw2 17:15 BP 118 / 48; Pulse 75; Resp 19; Pulse Ox 100% on R/A; tw2 17:20 BP 113 / 47; Pulse 75; Resp 19; Pulse Ox 100% on R/A; tw2 12:34 provider notified tw2 13:30 provider notified tw2 13:35 provider notified tw2 14:35 provider aware tw2 14:55 provider notified tw2 15:10 provider aware and decision made for central line at this time tw2 15:30 provider performing central line at this time tw2 ED Course: 12:33 Arm band placed on. tw2 12:33 Bed in low position. Call light in reach. Adult w/ patient. buckle frame shaper on. Pulse tw2 ox on. NIBP on. Warm blanket given. 12:36 Patient arrived in ED. ms3 12:36 Otto Mulligan DO is Attending Physician. ms3 12:39 Milly Rodriguez RN is Primary Nurse. tw2 13:08 XRAY Chest (1 view) In Process Unspecified. EDMS 13:08 Inserted saline lock: 18 gauge in left antecubital area, using aseptic technique. Blood jd3 collected. 13:20 Triage completed. tw2 14:49 SARS RAPID Sent. em6 16:15 Assisted provider with central line placement. Set up central line tray. Triple lumen jd3 line placed in right internal jugular. Line placed by Otto Mulligan DO Placement verified by blood return, Dressed with Tape, Tegaderm, Patient tolerated well. 16:19 Paolo Montgomery MD is Hospitalizing Provider. ms3 17:01 CXR XRAY In Process Unspecified. EDMS 17:26 Awaiting: unsuccessful attempt to call report at this time. ICU nurse will call me back.tw2 18:00 Report given to ROBINSON Damon. tw2 18:37 Patient admitted, IV remains in place. tw2 Administered Medications: 16:42 Discontinued: amiodarone 150 mg 100 ml IVPB once over 10 mins; (mix in D5W) tw2 13:05 Drug: NS 0.9% 1000 ml Route: IV; Rate: 1 bolus; Site: left antecubital; tw2 13:40 Follow up: Response: No adverse reaction; IV Status: Completed infusion; IV Intake: tw2 1000ml 16:18 Drug: Levophed (norepinephrine) 0.1 mcg/kg/min Route: IV; Rate: calculated rate; Site: tw2 right jugular; 16:48 Follow up: Rate change 0.05 mcg/min; d/t pts map tw2 17:29 Follow up: Rate change 0.1 mcg/kg/min; d/t pts map at or below 65 tw2 18:37 Follow up: IV Status: Infusion continued upon admission tw2 16:34 Drug: amiodarone 150 mg Volume: 100 ml; Route: IVPB; Infused Over: 10 mins; Site: right tw2 jugular; 16:42 Follow up: IV Status: Order to discontinue infusion tw2 16:43 Not Given (Physician Discretion; cancelled per dr. nuñez): amiodarone 900 mg, D5W 500 tw2 ml IVPB at 1 mg/min continuous; for 6 hrs, then change to 0.5 mg/min Medication: 13:28 VIS not applicable for this client. tw2 Intake: 13:40 IV: 1000ml; Total: 1000ml. tw2 Outcome: 16:20 Decision to Hospitalize by Provider. ms3 18:37 Admitted to ICU accompanied by nurse, via stretcher, room 5, on monitor, with chart, tw2 Report called to BridgerRN 18:37 critical 18:37 Instructed on the need for admit. 18:38 Patient left the ED. tw2 Signatures: Dispatcher [employer] EDMS Yanet Orlando, ROBINSON BOWERS iw Zahraa Covarrubias, RN Milly Kincaid ph RN ROBINSON tw2 Parveen Canas RN RN jd3 Otto Mulligan DO DO ms3 Yani Saldaña, RN RN em6 Corrections: (The following items were deleted from the chart) 13:25 13:15 BP 111 / 41; Pulse 118bpm; Resp 22bpm; Pulse Ox 100% RA; tw2 tw2 13:27 12:33 Chief complaint: EMS [facility] us for tw2 hypotension. the target was 5Kg but they reported pulling off 1Kg but that was 10 minutes prior dougie completion. this is pts 1st time to have dialysis in 3 weeks because she was in a rehab hospital. initial BP was 56/34, now its 70/40. we gave 10 mcg EPI iv. davita gave 1L NS prior to our arrival. 18g RIGHT ac. afib on monitor, hx of afib tw2 13:47 13:35 BP 99 / 59; Pulse 114bpm; Resp 21bpm; Pulse Ox 100% RA; tw2 16:14 15:55 BP 99 / 46; Pulse 117bpm; Resp 27bpm; Pulse Ox 100% RA; tw
[2022-01-13] MEDS ORDERED: ACETAMINOPHEN 500 MG TAB PO PRN (16:54)
[2022-01-13] MEDS ORDERED: ONDANSETRON 4 MG (ODT) TAB PO PRN (16:54)
--- NOTE | 2022-01-13 17:25 | RAD REPORT ---
EXAM DESCRIPTION: RAD - Chest Single View - 01/13/2022 4:59 pm CLINICAL HISTORY: Line placement, hypotensive at dialysis COMPARISON: AP chest 01/13/2022 TECHNIQUE: AP portable chest image was obtained 01/13/2022 4:59 pm . FINDINGS: Available history indicates that a right neck jugular vascular access procedure was perfor med since the earlier examination. Right jugular central line is seen extending inferiorly along the right jugular vein in the neck. The line then courses laterally towards the right axilla indicating the line is in the right subclavian vein with the tip at the subclavian vein axillary vein junction. Right-sided double-lumen dialysis catheter is in place and unchanged. Left-sided pleural fluid and pr ominent lung parenchymal opacification have not changed from the earlier study. Heart size is unchang ed. No pneumothorax. No acute bony abnormality seen. No acute aortic findings suspected. IMPRESSION: Right neck IJ line courses laterally indicating positioning within the right subclavian vein. Tip is at the subclavian -axillary vein junction. No pneumothorax.
[2022-01-13] MEDS ORDERED: NOREPINEPHRINE 4 MG in D5W 250 ML IV SCH (18:00)
--- NOTE | 2022-01-13 18:19 | P.SSS ---
Patient History Date of Service: 01/13/22 Reason for admission: PALPITATIONS History of Present Illness: KAYLAN IS A LADY WITH MANY MEDICAL ISSUES INCLUDES RENAL FAILURE ON HEMODIALYSIS. SHE HAD RAPID A FIB LAST ADMISSION AND WAS GIVEN AMIODARONE. SHE COMES BACK TO ER SENT BY RENAL DOCTOR LIYA FOR HYPOTENSION AND WAS FOUND TO HAVE RAPID A FIB AGAIN. DR. MIGNON SMITH WORKED ON HER. SHE HAD AMIODARONE IV UNDER ADVISE OF DR. DUENAS. LEVOPHED WAS TAPERED BUT WAS NOT ABLE TO BE TOTALLY OFF. SHE WILL BE IN ICU OVERNIGHT. SHE MAY OR MAY NOT ABLE TO GO HOME IN AM. Allergies blood thinner Allergy (Mild, Uncoded 06/16/19 21:12) swelling blood thinners Allergy (Uncoded 06/16/19 21:12) Unknown [id number]-Zrw-[id number] Redu Allergy (Uncoded 06/16/19 21:12) Unknown Home Medications: Pravastatin Sodium 10 mg PO BEDTIME 06/19/17 Cholecalciferol (Vitamin D3) [Vitamin D3] 5,000 unit PO DAILY #30 10/21/20 Aspirin [Vazalore] 81 mg PO DAILY 08/14/21 Cetirizine HCl 1 tab PO DAILY 12/17/21 Cyanocobalamin (Vitamin B-12) [Vitamin B12] 1 tab PO DAILY 12/17/21 Ezetimibe 1 tab PO DAILY 12/17/21 Fluticasone Propionate [Flonase Allergy Relief] 1 appl SHANNON BID 12/17/21 Insulin Aspart [Novolog Flexpen] 7 units SQ SEECOM 12/17/21 Insulin Detemir [Levemir Flextouch] 15 units SQ DAILY AT SUPPER 12/17/21 Melatonin 1 tab PO BEDTIME 12/17/21 Pantoprazole [Protonix Tab*] 1 tab PO SEECOM 12/17/21 Simethicone [Gas-X] 1 tab PO DAILY PRN 12/17/21 Vit A/Vit C/Vit E/Zinc/Copper [Preservision Areds Softgel] 2 cap PO DAILY 12/17/21 - Past Medical/Surgical History Diabetic: Yes -: DM -: HTN -: Hyperlipidemia -: CVA 2014 -: Gastric Ulcer -: Chronic renal failure -: Diastolic heart failure -: COVID infection October 2020 -: dilaysis MWF -: Full Hysterectomy -: R upper chest dialysis cath - Family History Mother -: Diabetes - Social History Alcohol use: No CD- Drugs: No Caffeine use: No Physical Examination - Physical Exam General: Alert, Mild distress HEENT: Atraumatic, PERRLA, Mucous membr. moist/pink, EOMI, Sclerae nonicteric Neck: Supple, 2+ carotid pulse no bruit, No LAD, Without JVD or thyroid abnormality Respiratory: Clear to auscultation bilaterally, Normal air movement Cardiovascular: Regular rate/rhythm, Normal S1 S2 Gastrointestinal: Normal bowel sounds, No tenderness Musculoskeletal: No tenderness Integumentary: No rashes Neurological: Normal gait, Normal speech, Normal strength at 5/5 x4 extr, Normal tone, Normal affect Lymphatics: No axilla or inguinal lymphadenopathy - Studies Laboratory Data (last 24 hrs) 01/13/22 13:03: PT 16.7 H, INR 1.51 01/13/22 13:03: WBC 5.80, Hgb 10.5 L, Hct 32.6 L, Plt Count 113 L 01/13/22 13:03: Sodium 137, Potassium 3.6, BUN 24 H, Creatinine 2.93 H, Glucose 127 H, Magnesium 1.8, Total Bilirubin 0.8, AST 34, ALT 30, Alkaline Phosphatase 136 H - Diagnosis (Problem(s)) (1) Rapid atrial fibrillation Current Visit: No Status: Acute Plan: AMIODARONE ORAL. STABLE NOW PROGNOSIS POOR SHE IS VERY FRAIL AND HAS MANY ISSUES RELATED TO DIALYSIS AND SO HYPOTENSION. (2) CKD stage 5 secondary to hypertension Current Visit: No Status: Chronic Plan: CONTINUE HD. CONSULT DR. NICKERSON. (3) Pleural effusion Current Visit: No Status: Chronic Plan: SHE HAS PLEUROVAC CATH AND WILL CALL IN DR. ALFREDO TO . - Disposition Disposition: ROUTINE DISCHARGE
--- NOTE | 2022-01-13 23:45 | CON ---
Date of Consultation: 01/13/2022 Reason For Consultation: Atrial fibrillation with rapid ventricular response. History Of Present Illness: This is an 86-year-old female with history of end-stage renal disease, o n hemodialysis; also history of chronic atrial fibrillation; history of CVA; diabetes; hypertension; dyslipidemia; hypothyroidism. She was sent from dialysis because blood pressure was very low. They took about 1 kg of fluids today and patient arrived on a very low blood pressure. Then, she was in a trial fibrillation with rapid ventricular response as per the ER report. When I evaluated her, she h ad a heart rate of 107 appeared to be sinus and blood pressure has improved, she apparently converted to sinus rhythm on her own and blood pressure has started to improve. Past Medical History: As outlined above in the HPI. Medications: Refer reconciliation sheet for detailed list. Allergies: IODINE, HYDROCODONE, CAFFEINE, STATIN, AZITHROMYCIN. Social History: Does not smoke or drink. Does not use any drugs. Family History: No premature coronary artery disease or cancer. Review of Systems: All systems reviewed are negative except as mentioned in HPI. Physical Examination: Vital Signs: Reviewed. Head and Neck: Pupils are equal, reactive to light. Intact eye movements. No JVD. No cervical lym phadenopathy. Neck: Supple. Thyroid is not enlarged. Lungs: Clear to auscultation bilaterally. No rhonchi, rales, or crackles. No accessory muscle use. Heart: Regular rate and rhythm. No extra sounds. Abdomen: Soft, nontender. Bowel sounds positive. No organomegaly. No masses or hernia. No rigidi ty or rebound. Extremities: No clubbing, cyanosis. Intact pulses. Skin: No rashes. Neurologic: Alert, awake. No acute focal deficits appreciated. Investigations: BUN 24, creatinine is 2.93, and NT-proBNP is 2357. Hemoglobin 10.5. Assessment And Plan: 1.Atrial fibrillation. At this point, she is in sinus rhythm. Continue beta verito if the blood p ressure allows. If blood pressure continues to be low, then we can start IV amiodarone for heart rat e control. I will monitor the patient with you. 2.Hypotension, likely due to severe dehydration happened after dialysis. However, an infectious esperanza ology is to be ruled out. Her white blood cell count is normal and no fever. Discuss further with p rimary care physician. SR/MODL Voice ID: [id number] Report ID: [id number]
[2022-01-13 23:58] VITALS: BMI 26.4
--- NOTE | 2022-01-14 03:27 | CON ---
Date of Consultation: 01/13/2022 Chief Complaint: Hypotension, tachycardia, end-stage renal disease. Patient has history of chronic atrial fibrillation. History Of Present Illness: She presented to the hospital because of borderline hypotension. She de veloped hypotension after dialysis and she was transferred from dialysis to emergency room. She had atrial fibrillation with rapid ventricular response. Blood pressure on arrival to the hospital was 5 6/34 and after she received epinephrine and IV fluids, blood pressure has improved. The patient is t ransferred to ICU. The patient received IV fluids for volume resuscitation. Patient was consulted b y automatic screwmaker for atrial fibrillation and Cardiology recommended amiodarone drip. Patient has histo ry of end-stage renal disease, previous admission for atrial fibrillation, chronic hypotension, anemi a, CKD, renal osteodystrophy, congestive heart failure with diastolic dysfunction. The patient is le thargic, she cannot provide review of systems. She has multiple medical problems including history o f diabetes mellitus, history of pneumonia. Past Medical History: Diabetes mellitus; hypertension; hyperlipidemia; CVA in 2014; gastric ulcer; e nd-stage renal disease; diastolic congestive heart failure; atrial fibrillation; COVID infection in J 2020; end-stage renal disease, dialysis Thursday, Thursday, Thursday; hysterectomy; right upper ches t dialysis catheter. Family History: Mother diabetes. Social History: Denies tobacco, alcohol, or illicit drugs. Physical Examination: General: Patient is very lethargic. Eyes: Anicteric sclerae. EOMI. Ears, Nose, Mouth, and Throat: Oral mucosa moist. No pallor. Neck: Supple. Lungs: Clear to auscultation bilaterally. Heart: S1, S2. Abdomen: Soft. Extremities: No edema, no clubbing, no cyanosis. Skin: Warm and dry. Neurological: No tremor. Cranial nerves intact. Imaging: Chest x-ray showed right neck IJ line in lateral position within the right subclavian vein. Laboratory Data: Hemoglobin 10.5, WBC 5.8, platelet count 113,000. Chemistry shows sodium 137, pota ssium 3.6, chloride 103, CO2 of 24, BUN is 24, glucose 127, creatinine 2.93, total bilirubin 0.8, AP 136, calcium 7.9, magnesium 1.8. Albumin level is pending. Impression: 1.Hypotension. 2.Atrial fibrillation with rapid ventricular response. 3.Diabetes mellitus. 4.End-stage renal disease, on hemodialysis. Patient is transferred to the ER from dialysis center b ecause of hypotension and tachycardia. Patient received IV fluids. Continue pressors as needed. Re commend to check blood culture and start antibiotics. 5.History of chronic atrial fibrillation. Continue amiodarone drip as recommended by Cardiology. M onitor troponin. 6.Diabetes mellitus. Continue insulin. 7.Renal osteodystrophy. Monitor phosphorus level and adjust binders as needed. 8.Hypovolemia. Continue IV fluids. Monitor fluid balance. EB/MODL Voice ID: [id number] Report ID: [id number]
[2022-01-14 04:55] LABS: Absolute Lymphocytes (CBC) 0.7 K/uL (0.7-4.9); Hematocrit 26.6 % (36.0-45.0); MCV 93.9 fL (80-100); MPV 7.5 fL (7.6-11.3); RBC Red Blood Cell Count 2.83 M/uL (3.86-4.86)
[2022-01-14 05:00] LABS: Potassium 4.3 mmol/L (3.5-5.1)
[2022-01-14 10:33] VITALS: TEMP 97.1
[2022-01-14 10:56] VITALS: O2SAT 99
--- NOTE | 2022-01-14 12:25 | P.PN ---
Subjective Date of Service: 01/14/22 Chief Complaint: L sided effusion Subjective: Improving (PT AW rapidA fib. Doing well. No SOB> PleuRx catheter littel drainage) Review of Systems Unremarkable Physical Examination - Vital Signs Temperature: 97.1 F Blood Pressure: 147/43 Pulse: 91 Respirations: 21 Pulse Ox (%): 99 - Physical Exam General: Alert, Oriented x3 Respiratory: Clear to auscultation bilaterally, Diminished (Diminished at the left base) Cardiovascular: No edema, Regular rate/rhythm, Irregular heart rate/rhythm - Studies Laboratory Data (last 24 hrs) 01/13/22 13:03: PT 16.7 H, INR 1.51 01/13/22 13:03: WBC 5.80, Hgb 10.5 L, Hct 32.6 L, Plt Count 113 L 01/13/22 13:03: Sodium 137, Potassium 3.6, BUN 24 H, Creatinine 2.93 H, Glucose 127 H, Magnesium 1.8, Total Bilirubin 0.8, AST 34, ALT 30, Alkaline Phosphatase 136 H Assessment And Plan - Current Problems (Diagnosis) (1) Pleural effusion Current Visit: No Status: Chronic Plan: Patient is 86 years of age admitted with rapid atrial fibrillation she is currently doing well patient [facility] her dressing needed to be changed however very limited drainage from the Pleurx catheter chest x-ray reviewed/ Pt has CRF on dialysis. NE of malignancy on pleural fluid/ Exufative with predom of lymphocytes. poss malignancy
[2022-01-14 13:25] VITALS: BP 93/77
--- NOTE | 2022-01-14 14:43 | PN ---
Date of Progress Note: 01/14/2022 Subjective: The patient was admitted with AFib and RVR with hypotension. The patient after hydratio n recovered, did not require any pressor. Physical Examination: Vital Signs: Blood pressure 93/77, pulse of 81. The patient had full dialysis yesterday, only 10 mi nutes left before the termination of the dialysis. The patient feeling well currently. Chest: Clear to auscultation. Heart: S1, S2. Regular. Abdomen: Ascites. Extremity: Trace edema. Neurologic: Alert. No focality. Laboratory Data: H and H 8.7/26.6. Sodium 137, potassium 4.3, bicarb 24, BUN 35, creatinine 3, calc ium of 8. Current Medications: The patient on include Tylenol and Zofran. Assessment And Plan: 1.End-stage renal disease. We will continue the patient on dialysis Thursday, Thursday, Thursday. The patient is going to be due for dialysis tomorrow. We will dialyze on low blood flow. We are not go ing to challenge the patient as I do not see any sign of over volume and we will follow up. I had breezy ballesteros discussion with the patient. The patient's preference is to do home hemodialysis. We will consul t director of social media marketing for placement. We will refer to [place]. 2.Hypertension with incident of low blood pressure. Keep holding all blood pressure medications. 3.Congestive heart failure, currently normal volume. We will follow up with dialysis tomorrow. 4.Atrial fibrillation with rapid ventricular response as by Cardiology. 5.Cardiogenic shock, recovered, resolved. We will follow up with Cardiology. MARCIO Voice ID: [id number] Report ID: [id number]
--- NOTE | 2022-01-14 21:13 | PN ---
Date of Progress Note: 01/14/2022 Subjective: Seen by bedside, doing clinically well. Heart is in sinus and rate is controlled. Review of Systems: No chest pain, shortness of breath, orthopnea, cough. No nausea, vomiting, diarrhea. All other syst ems reviewed are negative. Physical Examination: Vital Signs: Reviewed. Head and Neck: Pupils are reactive to light. Intact eye movements. No JVD. No cervical lymphadeno ally. Neck: Supple. Thyroid is not enlarged. Lungs: Clear to auscultation bilaterally. No rhonchi, rales, or crackles. No accessory muscle use. Heart: Regular rate and rhythm. No extra sounds. Abdomen: Soft, nontender. Bowel sounds positive. No organomegaly. No masses or hernia. No rigidi ty or rebound. Extremities: No edema, clubbing, cyanosis. Intact pulses. Skin: No rashes. Neurologic: Alert, awake. No acute focal deficits appreciated. Investigations: BUN 35, creatinine 3.62. Hemoglobin is 8.7. Assessment And Recommendation: 1.Atrial fibrillation with rapid ventricular response. She converted to sinus rhythm after a bolus of amiodarone. To put her on amiodarone 200 mg daily and this patient will need an anticoagulant lik e Eliquis 2.5 mg twice a day due to advanced kidney failure and she will be a perfect candidate for l eft atrial appendage closure, which can be performed as an outpatient. 2.Hypotension due to dehydration and volume depletion. This has resolved. SR/MODL Voice ID: [id number] Report ID: [id number]
--- NOTE | 2022-01-15 13:11 | EKG ---
Test Date: 2022-01-13 Test Time: 12:43:53 Securities Consultant: JAVI MEASUREMENT RESULTS: Intervals: Rate: 114 LA: QRSD: 86 QT: 344 QTc: 474 [place]: P: LA: QRS: 48 T: 39 INTERPRETIVE STATEMENTS: Atrial fibrillation with rapid ventricular response Low voltage QRS Nonspecific ST abnormality Abnormal ECG Compared to ECG 12/24/2021 07:44:18 Atrial flutter no longer present ST (T wave) deviation still present Electronically Signed On 01-15-22 13:06:47 CDT by Joel Clarke
--- NOTE | 2022-01-15 13:11 | EKG ---
Test Date: 2022-01-13 Test Time: 16:36:16 Ply Cutter: JAVI MEASUREMENT RESULTS: Intervals: Rate: 75 MS: 230 QRSD: 80 QT: 378 QTc: 422 [place]: P: 73 MS: 230 QRS: 49 T: 69 INTERPRETIVE STATEMENTS: Sinus rhythm with 1st degree AV block Low voltage QRS Cannot rule out Anterior infarct, age undetermined Abnormal ECG Compared to ECG 12/24/2021 07:44:18 First degree AV block now present Myocardial infarct finding now present Atrial flutter no longer present ST (T wave) deviation no longer present Electronically Signed On 01-15-22 13:06:25 CDT by Joel Clarke
== END 2022-01-14 17:00 | disposition home health service (06) ==
LOC: ER 12:33 → INTOOBSV 16:52 → ERHOLD 16:52 → 3RD-ICU 18:05
PROVIDERS: ADMIT Internal Medicine; ATTEND Internal Medicine
DX: I48.20 Chronic atrial fibrillation, unspecified (principal); I50.30 Unspecified diastolic (congestive) heart failure; N17.9 Acute kidney failure, unspecified; I13.2 Hypertensive heart and chronic kidney disease with heart failure and with stage 5 chronic kidney disease, or end stage renal disease; E11.22 Type 2 diabetes mellitus with diabetic chronic kidney disease; N18.5 Chronic kidney disease, stage 5; J90 Pleural effusion, not elsewhere classified; E03.9 Hypothyroidism, unspecified; E78.5 Hyperlipidemia, unspecified; Z91.09 Other allergy status, other than to drugs and biological substances; Z88.6 Allergy status to analgesic agent; Z88.3 Allergy status to other anti-infective agents; Z99.2 Dependence on renal dialysis; Z86.73 Personal history of transient ischemic attack (TIA), and cerebral infarction without residual deficits; Z86.16 Personal history of COVID-19; Z20.822 Contact with and (suspected) exposure to COVID-19
CPT/HCPCS: 96365; 96361; 93005 ×2; 87040 ×2; 85025 ×2; 80048 ×2; 36415; 83735; 85610; 80076; 84484; 83880; 71045 ×2; 96375; 99285; 96366; 87811; J0282; J7030; G0378 ×3; J7060

== ENCOUNTER 2022-01-16 22:35 | Observation (INO) | payer OTHER ==
--- OUTSIDE RECORDS SUMMARY | 2022-01-16 22:40 | XMS REPORT | Continuity of Care Document ---
:1935 Author Organization [facility] t Address [address] [place] [address] Care Team Providers Name Role Phone Antoinette [...] Number Effective Date Expiration Date S nate 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 Pancytopen Pancytope Problem 2020-10-21 Memoria ia landry 19:18:00 l Problem [place] 10/21/[address] [facility] Elevated Elevated Problem 2020-10-21 Mem[facility] troponin troponin 19:18:00 l level level [place] Problem 10/21/[address] [facility] [...] I troponin I 19:18:00 l level level [place] Condition 10/21/[address] [place] Acquired Acquired Condition 2020-10-21 Memoria pancytopen pancytopen 19:18:00 l ia ia [place] Condition 10/21/[address] [facility] [place] [...] Quantity Comments Source Social History 2020-10-21 2020-10-21 [facility] lupillo 19:20:00 19:20:00 Medications Ordered Filled [...] (Lasix*) 40 3-02 l MG Tab 06:00: [place] Multivitami 2018-0 Yes Memori a n (Multiple 3-02 l Vitamins) 06:00: [place] Tablet 08 Omeprazole 2018-0 Yes [facility] (Prilosec) 3-02 l 40 MG 06:00: [place] Capsule. 08 Pravastatin 2018-0 Yes Memori a Sodium 3-02 l 06:00: [place] 08 Ezetimibe 2018-0 Yes Mem[facility] (Zetia*) 10 3-02 l MG Tab 06:00: [place] 08 Aspirin 2018-0 Yes Memoria 3-02 l [...] DAILY Memor ia n 3-02 l 00:00: [place] 00 Omeprazole 2018-0 Yes DAILY Memori a 3-02 l 00:00: [place] 00 Pravastatin 2018-0 Yes AT BEDTIME [facility] Sodium 3-02 l 00:00: [place] 00 Ezetimibe 2018-0 Yes DAILY [facility] 3-02 l 00:00: [place] 00 Vital Signs Vital Name Observation Time Observation Value Comments Source Temperature Oral (F) 2020-10-21 17:00:00 98.4 F [facility] [place] Heart Rate 2020-10-21 17:00:00 [facility] [place] Respitory Rate 2020-10-21 17:00:00 Mem[facility] al [place] Systolic (mm Hg) 2020-10-21 17:00:00 Thompson rial [place] Diastolic (mm Hg) 2020-10-21 17:00:00 Mem o[facility] [place] Height 2020-10-21 10:00:00 [facility] [place] Weight 2020-10-21 10:00:00 [facility] [place] Heart Rate 2019-06-18 14:14:00 [facility] [place] Systolic (mm Hg) 2019-06-18 14:14:00 Thompson rial [place] Diastolic (mm Hg) 2019-06-18 14:14:00 Mem orial [place] Temperature Oral (F) 2019-06-18 13:49:00 98.2 F [facility] [place] Respitory Rate 2019-06-18 13:49:00 [facility] al [place] Height 2019-06-17 14:51:00 [facility] [place] Weight 2019-06-17 14:51:00 [facility] [place] Heart Rate 2017-06-22 08:41:00 [facility] [place] Systolic (mm Hg) 2017-06-22 08:41:00 Thompson rial [place] Diastolic (mm Hg) 2017-06-22 08:41:00 Mem o[facility] [place] Temperature Oral (F) 2017-06-22 07:45:00 97.6 F [facility] [place] Respitory Rate 2017-06-22 07:45:00 [facility] [place] Weight 2017-06-22 05:00:00 [facility] [place] Height 2017-06-19 12:23:00 [facility] [place] Procedures Procedure Date / Time Performing Clinician Source Performed [id number] 2021-12-30 00:00:00 [facility] [id number] 2021-10-21 00:00:00 [facility] Chest Single View 2020-10-19 20:48:00 [facility] Radha ermann Anaerobic Blood 2020-10-19 00:00:00 [facility] Her burciaga Culture Aerobic Blood Culture 2020-10-19 00:00:00 Marta Soto Coronavirus COVID-19 2020-10-19 00:00:00 Zach Guadalupeann PCR [place] Count 2020-10-01 00:00:00 [facility] burciaga Chest Pa And Lat (2 2019-06-17 00:[facility] Influenza Type B 2019-06-16 00:00:00 [facility] Obi rmann Antigen Screen Influenza Type A 2019-06-16 00:00:00 [facility] Obi rmann Antigen Screen [place] Count 2019-06-16 00:00:00 [facility] Her burciaga [id number] 2017-06-18 00:00:00 [facility] Her burciaga [place] Count 2017-06-18 00:00:00 Marylin burciaga Plan of Care Planned Activity Planned Date Details Comments Source Future Scheduled Test Instructions Creatinine [facility] [place] Congestive Heart Failure [code = Instructions Creatinine Congestive Heart Failure] Future Scheduled Test Instructions [facility] [code = Instructions Creatinine Congestive Heart Failure] Encounters Start End Encounter Admission Attending Care Care Encounter Source Date/Time Date/Time Type Type Clinicians Facility Department ID 2021-12-[address] [place] [address] ENCPL REF [id number] [facility] 14:58:59 marck 0909 [facility] [place] 2021-12-28 2022-01-11 Inpatient 3 [facility] ENCPL CRD [id number] [facility] 01:22:00 11:11:00 marck 0910 [facility] [place] 2021-10-17 2021-10-29 Inpatient 3 [facility] ENCPL CVA [id number] [facility] 17:30:00 18:40:00 marck, 0630 [facility] [place] 2021-10-29 2021-10-29 Outpatient Critical access hospital LABO [id number] [facility] 12:05:00 12:05:[address] [facility] 2021-09-19 2021-09-19 Outpatient GC_[facility]_Tod PRIV PRIV [id number] [facility] 09:56:00 09:56:00 d_J [id number] Medica l 2021-09-16 2021-09-16 Outpatient GC_BAHC_Tod PRIV PRIV [id number] [facility] 04:43:00 04:43:00 d_J [id number] Medica l 2021-09-13 2021-09-13 Outpatient GC_BAHC_Tod PRIV PRIV [id number] [facility] 11:14:00 11:14:00 d_J [id number] Medica l 2021-09-11 2021-09-11 Outpatient GC_BAHC_Tod PRIV PRIV [id number] [facility] 05:23:00 05:23:00 d_J [id number] Medica l 2021-09-02 2021-09-10 Inpatient E TORSTEN, [facility] MED [address] [place], [place] [address]BL 14:52:00 19:20:00 FELY 2021-08-21 2021-09-02 Inpatient 3 [facility] ENCPL CVA [id number] [facility] 18:20:00 10:58:00 hez, 0504 [facility] itation [place] 2020-10-19 2020-10-[address] [facility] [id number] [facility] 23:24:00 19:17:00 [facility] [place] INT[facility] C[facility] UN[facility] 2020-10-01 2020-10-[address] [facility] [id number] [facility] 18:23:00 18:23:00 [facility] [place] LABORATORY NON-PATIENT 2019-06-17 2019-06-[address] [facility] [address] [id number] [facility] 02:48:00 17:37:00 [facility] [place] MED/SURG FLOOR 2019-03-22 2019-03-[address] [facility] [address] [id number] [facility] 18:59:00 18:59:00 [facility] [place] LABORATORY NON-PATIENT 2017-06-20 2017-06-[address] [facility] [id number] [facility] 16:10:00 13:36:00 Inpatient [facility] Gaston Thorpe nn 2017-04-10 2017-04-10 Departed Bright Mcgowan [id number] [facility] 10:18:00 16:46:00 Emergency [facility] [...] code = MDIFF) AUTO DIFFERENT IAL. RBC [id number] 15:06:00 Test Item Value Reference Range Interpretation Comments PLATELET ESTIMATE DECREASED THOUSAND ADEQUATE PLAT ELET COUNT (test code = REVIEWED AND PLTEST) VERIFIED.PLT ES T [84-105] PLATELET MORPHOLOGY NORMAL (test code = PLTMORPH) CBC W/AUTO [id number] 15:04:00 Test Item Value Reference Range Interpretation [...] code NO DIFF/SCN CRITERIA = MDIFF) RBC [id number] 15:04:00 Test Item Value Reference Range Interpretation Comments ANISOCYTOSIS (test NORMAL NONE code = ANISO) PLATELET ESTIMATE DECREASED ADEQUATE PLT EST CO UNT (test code = PLTEST) THOUSAND 36,000- 45,000 PLATELET MORPHOLOGY NORMAL (test code = PLTMORPH) BASIC METABOLIC [id number] 13:19:00 Test Item Value Reference Range Interpretation [...] CA) 8.6 MG/DL 8.5-10.1 N Absolute lymphocyte [id number] 10:01:00 Test Item Value Reference Range Interpretation Comments Absolute lymphocyte count (test code = 0.4 0.7-4.9 Absolute lymphocyte count) [facility] [Mass/volume] in Serum or Plasma by Bromocresol purple (BCP) dye binding [id number] 10:01:00 Test Item Value Reference Range Interpretation [...] as normal/abnormal . [facility]ann[facility] erythrocytes count (number/volume)2020-10-21 10:01:00 Test Item Value Reference Range Interpretation Comments Blood erythrocytes count 3.38 3.86-4.86 (number/volume) (test code = Blood erythrocytes count (number/volume)) [facility]ann[facility] hematocrit (volume fraction)2020-10-21 10:01:00 Test Item Value Reference Range Interpretation Comments Blood hematocrit (volume fraction) 30.8 36.0-45.0 (test code = Blood hematocrit (volume fraction)) [facility] platelet mean [id number] 10:01:00 Test Item Value Reference Range Interpretation Comments Blood platelet mean volume (test code = 8.8 7.6-11.3 Blood platelet mean volume) [facility] HermannC reactive protein [Mass/volume] in Serum or [id number] 10:01:00 Test Item Value Reference Range Interpretation Comments C reactive protein [Mass/volume] in 16.00 Serum or Plasma (test code = C reactive protein [Mass/volume] in Serum or Plasma) [facility]annCalcium [Mass/volume] in Serum or [id number] 10:01:00 Test Item Value Reference Range Interpretation [...] [Moles/volume] in Serum or Plasma) [facility]annChemistry [id number] 10:01:00 Test Item Value Reference Range Interpretation Comments Chemistry procedure (test code = 91.1 80-100 Chemistry procedure) [facility]annChloride [Moles/volume] in Serum or [id number] 10:01:00 Test Item Value Reference Range Interpretation Comments Chloride [Moles/volume] in Serum or 104 98-107 Plasma (test code = Chloride [Moles/volume] in Serum or Plasma) [facility]annCreatinine [Mass/volume] in Serum or [id number] 10:01:00 Test Item Value Reference Range Interpretation Comments Creatinine [Mass/volume] in Serum or 2.11 0.55-1.3 Plasma (test code = Creatinine [Mass/volume] in Serum or Plasma) [facility]annFerritin [Mass/volume] in Serum or [id number] 10:01:00 Test Item Value Reference Range Interpretation Comments Ferritin [Mass/volume] in Serum or 82.0 8-388 Plasma (test code = Ferritin [Mass/volume] in Serum or Plasma) [facility]annGlucose [Mass/volume] in Serum or [id number] 10:01:00 Test Item Value Reference Range Interpretation Comments Glucose [Mass/volume] in Serum or 236 74-106 Plasma (test code = Glucose [Mass/volume] in Serum or Plasma) [facility]annLymphocyte [id number] 10:01:00 Test Item Value Reference Range Interpretation Comments Lymphocyte percent (test code = 3.30 4.3-10.9 Lymphocyte percent) [facility]annPhosphate [Mass/volume] in Serum or [id number] 10:01:00 Test Item Value Reference Range Interpretation Comments Phosphate [Mass/volume] in Serum or 3.0 2.5-4.9 Plasma (test code = Phosphate [Mass/volume] in Serum or Plasma) [facility]annPotassium [Moles/volume] in Serum or [id number] 10:01:00 Test Item Value Reference Range Interpretation [...] [facility] HermannUrea nitrogen [Mass/volume] in Serum or [id number] 10:01:00 Test Item Value Reference Range Interpretation Comments Urea nitrogen [Mass/volume] in Serum or 69 7-18 Plasma (test code = Urea nitrogen [Mass/volume] in Serum or Plasma) [facility]annTotal cholesterol/cholesterol in HDL (percentile)2020-10-20 09:51:00 Test Item Value Reference Range Interpretation Comments Total cholesterol/cholesterol in HDL 4.25 1 (percentile) (test code = Total cholesterol/cholesterol in HDL (percentile)) [facility]annTriglyceride [Mass/volume] in Serum or [id number] 09:51:00 Test Item Value Reference Range Interpretation Comments Triglyceride [Mass/volume] in Serum or 91 Plasma (test code = Triglyceride [Mass/volume] in Serum or Plasma) [facility]annBlood anisocytosis [id number] 09:51:00 Test Item Value Reference Range Interpretation Comments Blood anisocytosis detection (test code 1+ = Blood anisocytosis detection) [facility]annBlood morphology interpretation [id number] 09:51:00 Test Item Value Reference Range Interpretation Comments Blood morphology interpretation Noted narrative (test code = Blood morphology interpretation narrative) [facility]annCholesterol in HDL [Mass/volume] in Serum or [id number] 09:51:00 Test Item Value Reference Range Interpretation Comments Cholesterol in HDL [Mass/volume] in 28 40-60 Serum or Plasma (test code = Cholesterol in HDL [Mass/volume] in Serum or Plasma) [facility]annCholesterol [Mass/volume] in Serum or [id number] 09:51:00 Test Item Value Reference Range Interpretation Comments Cholesterol [Mass/volume] in Serum or 119 Plasma (test code = Cholesterol [Mass/volume] in Serum or Plasma) [facility] HermannLymphocyte [id number] 09:51:00 Test Item Value Reference Range Interpretation Comments Lymphocyte percent (test code = 21 15-42 Lymphocyte percent) [facility]annMagnesium [Mass/volume] in Serum or [id number] 09:51:00 Test Item Value Reference Range Interpretation Comments Magnesium [Mass/volume] in Serum or 1.9 1.8-2.4 Plasma (test code = Magnesium [Mass/volume] in Serum or Plasma) [facility] HermannPlatelet [id number] 09:51:00 Test Item Value Reference Range Interpretation Comments Platelet estimate (test code = Platelet Decr estimate) [facility] or plasma cholesterol in LDL measurement by calculation (mass/volume)2020-10-20 09:51:00 Test Item Value Reference Range Interpretation Comments Serum or plasma cholesterol in LDL 73 1 measurement by calculation (mass/volume) (test code = Serum or plasma cholesterol in LDL measurement by calculation (mass/volume)) [facility]roponin I.cardiac [Mass/volume] in Serum or [id number] 05:11:00 Test Item Value Reference Range Interpretation Comments Troponin I.cardiac 0.08 See_Comment [Automat ed message] The [Mass/volume] in Serum syste m which generated or Plasma (test code = this result transmitted Troponin I.cardiac reference range: <=0.045. [Mass/volume] in Serum The r eference range was or Plasma) not used to int erpret this result as normal/abnormal . [facility] AustinPqnbfihNAPY-PiG-9 (COVID-19) RNA [Presence] in Respiratory specimen by OSIEL with probe [id number] 21:20:00 Test Item Value Reference Range Interpretation [...] HermannAlkaline phosphatase [Enzymatic activity/volume] in Serum or [id number] 21:09:00 Test Item Value Reference Range Interpretation Comments Alkaline phosphatase [Enzymatic 71 45-117 activity/volume] in Serum or Plasma (test code = Alkaline phosphatase [Enzymatic activity/volume] in Serum or Plasma) [facility]annAspartate aminotransferase [Enzymatic activity/volume] in Serum or Plasma by With [id number] 21:09:00 Test Item Value Reference Range Interpretation Comments Aspartate aminotransferase [Enzymatic 36 15-37 activity/volume] in Serum or Plasma by With P-5 (test code = Aspartate aminotransferase [Enzymatic activity/volume] in Serum or Plasma by With P-5) [facility]annBilirubin.direct [Mass/volume] in Serum or [id number] 21:09:00 Test Item Value Reference Range Interpretation Comments Bilirubin.direct 0.3 See_Comment [Automated message] The [Mass/volume] in Serum syste m which generated or Plasma (test code = this result transmitted Bilirubin.direct reference r lynda: <=0.2. [Mass/volume] in Serum The r eference range was or Plasma) not used to int erpret this result as aubree l/abnormal. [facility]annBilirubin.total [Mass/volume] in Serum or [id number] 21:09:00 Test Item Value Reference Range Interpretation Comments Bilirubin.total [Mass/volume] in Serum 0.7 0.2-1.0 or Plasma (test code = Bilirubin.total [Mass/volume] in Serum or Plasma) [facility]annINR in Blood by Coagulation [id number] 21:09:00 Test Item Value Reference Range Interpretation Comments INR in Blood by Coagulation assay 1.28 1 (test code = INR in Blood by Coagulation assay) [facility] HermannNatriuretic peptide.B prohormone N-Terminal [Mass/volume] in Serum or [id number] 21:09:00 Test Item Value Reference Range Interpretation Comments Natriuretic peptide.B prohormone 2354 N-Terminal [Mass/volume] in Serum or Plasma (test code = Natriuretic peptide.B prohormone N-Terminal [Mass/volume] in Serum or Plasma) [facility] HermannPeripheral blood smear examination by light [id number] 21:09:00 Test Item Value Reference Range Interpretation Comments Peripheral blood smear examination by Ok light microscopy (test code = Peripheral blood smear examination by light microscopy) [facility]annProtein [Mass/volume] in Serum or [id number] 21:09:00 Test Item Value Reference Range Interpretation Comments Protein [Mass/volume] in Serum or 6.6 6.4-8.2 Plasma (test code = Protein [Mass/volume] in Serum or Plasma) [facility] HermannTroponin I.cardiac [Mass/volume] in Serum or [id number] 21:09:00 Test Item Value Reference Range Interpretation Comments Troponin I.cardiac 0.13 See_Comment [Automat ed message] The [Mass/volume] in Serum syste m which generated or Plasma (test code = this result transmitted Troponin I.cardiac reference range: <=0.045. [Mass/volume] in Serum The r eference range was or Plasma) not used to int erpret this result as normal/abnormal . [facility] HermannAlbumin [Mass/volume] in Serum or Plasma by Bromocresol purple (BCP) dye binding [id number] 17:30:00 Test Item Value Reference Range Interpretation Comments Albumin [Mass/volume] in Serum or 2.8 3.4-5.0 Plasma by Bromocresol purple (BCP) dye binding meth (test code = Albumin [Mass/volume] in Serum or Plasma by Bromocresol purple (BCP) dye binding meth) [facility] HermannBacteria detection in urine sediment by light microscopy 2020-10-01 17:30:00 Test Item Value Reference Range Interpretation Comments Bacteria detection in urine sediment <20 /HPF by light microscopy (test code = Bacteria detection in urine sediment by light microscopy) [facility] HermannCalcium [Mass/volume] in Serum or [id number] 17:30:00 Test Item Value Reference Range Interpretation [...] Plasma) [facility]annChloride [Moles/volume] in Serum or [id number] 17:30:00 Test Item Value Reference Range Interpretation Comments Chloride [Moles/volume] in Serum or 107 98-107 Plasma (test code = Chloride [Moles/volume] in Serum or Plasma) [facility]annCreatinine [Mass/volume] in Serum or [id number] 17:30:00 Test Item Value Reference Range Interpretation Comments Creatinine [Mass/volume] in Serum or 1.51 0.55-1.3 Plasma (test code = Creatinine [Mass/volume] in Serum or Plasma) [facility]annGlucose [Mass/volume] in Serum or [id number] 17:30:00 Test Item Value Reference Range Interpretation Comments Glucose [Mass/volume] in Serum or 133 74-106 Plasma (test code = Glucose [Mass/volume] in Serum or Plasma) [facility]annLymphocyte [id number] 17:30:00 Test Item Value Reference Range Interpretation Comments Lymphocyte percent (test BETWEEN 10,000 and code = Lymphocyte 100,000 CFU/ML percent) [facility]annPhosphate [Mass/volume] in Serum or [id number] 17:30:00 Test Item Value Reference Range Interpretation Comments Phosphate [Mass/volume] in Serum or 3.0 2.5-4.9 Plasma (test code = Phosphate [Mass/volume] in Serum or Plasma) [facility]annPotassium [Moles/volume] in Serum or [id number] 17:30:00 Test Item Value Reference Range Interpretation Comments Potassium [Moles/volume] in Serum or 3.6 3.5-5.1 Plasma (test code = Potassium [Moles/volume] in Serum or Plasma) [facility]annProtein [Mass/volume] in [id number] 17:30:00 Test Item Value Reference Range Interpretation Comments Protein [Mass/volume] in Urine (test 20 code = Protein [Mass/volume] in Urine) [facility]annSerum or plasma sodium measurement (moles/volume)2020-10-01 17:30:00 Test Item Value Reference Range Interpretation Comments Serum or plasma sodium measurement 144 136-145 (moles/volume) (test code = Serum or plasma sodium measurement (moles/volume)) [facility] HermannUrate [Mass/volume] in Serum or [id number] 17:30:00 Test Item Value Reference Range Interpretation Comments Urate [Mass/volume] in Serum or Plasma 5.8 2.6-6.0 (test code = Urate [Mass/volume] in Serum or Plasma) [facility] HermannUrea nitrogen [Mass/volume] in Serum or [id number] 17:30:00 Test Item Value Reference Range Interpretation Comments Urea nitrogen [Mass/volume] in Serum or 36 7-18 Plasma (test code = Urea nitrogen [Mass/volume] in Serum or Plasma) [facility] HermannUrinalysis with [id number] 17:30:00 Test Item Value Reference Range Interpretation Comments Urinalysis with microscopy (test Negative code = Urinalysis with microscopy) [facility] appearance [id number] 17:30:00 Test Item Value Reference Range Interpretation Comments Urine appearance determination (test Clear code = Urine appearance determination) [facility]annUrine bilirubin [id number] 17:30:00 Test Item Value Reference Range Interpretation Comments Urine bilirubin detection (test code Negative = Urine bilirubin detection) [facility]annUrine blood [id number] 17:30:00 Test Item Value Reference Range Interpretation Comments Urine blood detection (test code = Negative Urine blood detection) [facility]annUrine [id number] 17:30:00 Test Item Value Reference Range Interpretation Comments Urine color (test code = Urine color) Yellow [facility]annUrine glucose [id number] 17:30:00 Test Item Value Reference Range Interpretation Comments Urine glucose detection (test code = Negative Urine glucose detection) [facility]annUrine [id number] 17:30:00 Test Item Value Reference Range Interpretation Comments Urine pH (test code = Urine pH) 5.5 1 [facility] HermannUrine sediment erythrocyte count by microscopy (number/high power field)2020-10-01 17:30:00 Test Item Value Reference Range Interpretation Comments Urine sediment erythrocyte None seen /HPF count by microscopy (number/high power field) (test code = Urine sediment erythrocyte count by microscopy (number/high power field)) [facility] HermannUrine specific gravity [id number] 17:30:00 Test Item Value Reference Range Interpretation Comments Urine specific gravity measurement 1.015 1 (test code = Urine specific gravity measurement) [facility] HermannUrine urobilinogen [id number] 17:30:00 Test Item Value Reference Range Interpretation Comments Urine urobilinogen detection (test code 0.2 = Urine urobilinogen detection) [facility] HermannUrine [id number] 17:30:00 Test Item Value Reference Range Interpretation Comments Urine culture (test code = Urine MIXED ZURDO. culture) [facility] HermannAbsolute lymphocyte [id number] 11:13:00 Test Item Value Reference Range Interpretation Comments Absolute lymphocyte count (test code = 0.7 0.7-4.9 Absolute lymphocyte count) [facility] HermannBasophil %2019-06-18 11:13:00 Test Item Value Reference Range Interpretation Comments Basophil % (test code = 0.6 See_Comment [Au tomated message] The Basophil %) system which ge nerated this result tra nsmitted reference range : <=1.3. The reference r lynda was not used to int erpret this result as normal/abnormal . [facility] erythrocytes count (number/volume)2019-06-18 11:13:00 Test Item Value Reference Range Interpretation Comments Blood erythrocytes count 3.31 3.86-4.86 (number/volume) (test code = Blood erythrocytes count (number/volume)) [facility] HermannBlood hematocrit (volume fraction)2019-06-18 11:13:00 Test Item Value Reference Range Interpretation Comments Blood hematocrit (volume fraction) 29.3 36.0-45.0 (test code = Blood hematocrit (volume fraction)) [facility] [facility] mean [id number] 11:13:00 Test Item Value Reference Range Interpretation Comments Blood platelet mean volume (test code = 9.4 7.6-11.3 Blood platelet mean volume) [facility]Calcium [Mass/volume] in Serum or [id number] 11:13:00 Test Item Value Reference Range Interpretation [...] [Moles/volume] in Serum or Plasma) [facility]Chemistry [id number] 11:13:00 Test Item Value Reference Range Interpretation Comments Chemistry procedure (test code = 88.6 80-100 Chemistry procedure) [facility]annChloride [Moles/volume] in Serum or [id number] 11:13:00 Test Item Value Reference Range Interpretation Comments Chloride [Moles/volume] in Serum or 103 98-107 Plasma (test code = Chloride [Moles/volume] in Serum or Plasma) [facility]annCreatinine [Mass/volume] in Serum or [id number] 11:13:00 Test Item Value Reference Range Interpretation Comments Creatinine [Mass/volume] in Serum or 2.21 0.55-1.3 Plasma (test code = Creatinine [Mass/volume] in Serum or Plasma) [facility]annGlucose [Mass/volume] in Serum or [id number] 11:13:00 Test Item Value Reference Range Interpretation Comments Glucose [Mass/volume] in Serum or 140 74-106 Plasma (test code = Glucose [Mass/volume] in Serum or Plasma) [facility]annMagnesium [Mass/volume] in Serum or [id number] 11:13:00 Test Item Value Reference Range Interpretation Comments Magnesium [Mass/volume] in Serum or 1.8 1.8-2.4 Plasma (test code = Magnesium [Mass/volume] in Serum or Plasma) [facility]annPhosphate [Mass/volume] in Serum or [id number] 11:13:00 Test Item Value Reference Range Interpretation Comments Phosphate [Mass/volume] in Serum or 2.1 2.5-4.9 Plasma (test code = Phosphate [Mass/volume] in Serum or Plasma) [facility]annPotassium [Moles/volume] in Serum or [id number] 11:13:00 Test Item Value Reference Range Interpretation [...] [facility]annUrea nitrogen [Mass/volume] in Serum or [id number] 11:13:00 Test Item Value Reference Range Interpretation Comments Urea nitrogen [Mass/volume] in Serum or 50 7-18 Plasma (test code = Urea nitrogen [Mass/volume] in Serum or Plasma) [facility]annUrine dipstick testing at [id number]-[id number] 11:13:00 Test Item Value Reference Range Interpretation Comments Urine dipstick testing at gdkdq-ct-hibs 3.2 4.3-10.9 (test code = Urine dipstick testing at smnxf-bc-yyza) [facility]annAlanine aminotransferase [Enzymatic activity/volume] in Serum or Plasma by With P-5'-2019-06-17 11:27:00 Test Item Value Reference Range Interpretation Comments Alanine aminotransferase [Enzymatic 16 12-78 activity/volume] in Serum or Plasma by With P-5'- (test code = Alanine aminotransferase [Enzymatic activity/volume] in Serum or Plasma by With P-5'-) [facility]annAlbumin [Mass/volume] in Serum or Plasma by Bromocresol purple (BCP) dye binding [id number] 11:27:00 Test Item Value Reference Range Interpretation Comments Albumin [Mass/volume] in Serum or 2.5 3.4-5.0 Plasma by Bromocresol purple (BCP) dye binding meth (test code = Albumin [Mass/volume] in Serum or Plasma by Bromocresol purple (BCP) dye binding meth) [facility]annAlkaline phosphatase [Enzymatic activity/volume] in Serum or [id number] 11:27:00 Test Item Value Reference Range Interpretation Comments Alkaline phosphatase [Enzymatic 72 45-117 activity/volume] in Serum or Plasma (test code = Alkaline phosphatase [Enzymatic activity/volume] in Serum or Plasma) [facility]annAspartate aminotransferase [Enzymatic activity/volume] in Serum or Plasma by With [id number] 11:27:00 Test Item Value Reference Range Interpretation Comments Aspartate aminotransferase [Enzymatic 23 15-37 activity/volume] in Serum or Plasma by With P-5 (test code = Aspartate aminotransferase [Enzymatic activity/volume] in Serum or Plasma by With P-5) [facility]annBilirubin.total [Mass/volume] in Serum or [id number] 11:27:00 Test Item Value Reference Range Interpretation Comments Bilirubin.total [Mass/volume] in Serum 1.0 0.2-1.0 or Plasma (test code = Bilirubin.total [Mass/volume] in Serum or Plasma) [facility]Blood morphology interpretation [id number] 11:27:00 Test Item Value Reference Range Interpretation Comments Blood morphology interpretation Not seen narrative (test code = Blood morphology interpretation narrative) [facility]annNatriuretic peptide.B prohormone N-Terminal [Mass/volume] in Serum or [id number] 11:27:00 Test Item Value Reference Range Interpretation Comments Natriuretic peptide.B prohormone 493 N-Terminal [Mass/volume] in Serum or Plasma (test code = Natriuretic peptide.B prohormone N-Terminal [Mass/volume] in Serum or Plasma) [facility]annProtein [Mass/volume] in Serum or [id number] 11:27:00 Test Item Value Reference Range Interpretation Comments Protein [Mass/volume] in Serum or 6.7 6.4-8.2 Plasma (test code = Protein [Mass/volume] in Serum or Plasma) [facility] HermannTroponin I.cardiac [Mass/volume] in Serum or [id number] 11:27:00 Test Item Value Reference Range Interpretation Comments Troponin I.cardiac < 0.02 See_Comment [Automat ed message] The [Mass/volume] in Serum syste m which generated or Plasma (test code = this result transmitted Troponin I.cardiac reference range: <=0.045. [Mass/volume] in Serum The r eference range was or Plasma) not used to int erpret this result as normal/abnormal . [facility]annUrinalysis with [id number] 02:23:00 Test Item Value Reference Range Interpretation Comments Urinalysis with microscopy (test Negative code = Urinalysis with microscopy) [facility]annUrine blood [id number] 02:23:00 Test Item Value Reference Range Interpretation Comments Urine blood detection (test code = Negative Urine blood detection) [facility]annUrine glucose [id number] 02:23:00 Test Item Value Reference Range Interpretation Comments Urine glucose detection (test code = Negative Urine glucose detection) [facility]annUrine [id number] 02:23:00 Test Item Value Reference Range Interpretation Comments Urine pH (test code = Urine pH) 5.0 1 [facility]annUrine specific gravity [id number] 02:23:00 Test Item Value Reference Range Interpretation Comments Urine specific gravity measurement 1.015 1 (test code = Urine specific gravity measurement) [facility]annUrinalysis with reflex to [id number] 02:14:00 Test Item Value Reference Range Interpretation [...] field)) [facility]annBilirubin.direct [Mass/volume] in Serum or [id number] 00:14:00 Test Item Value Reference Range Interpretation Comments Bilirubin.direct 0.3 See_Comment [Automated message] The [Mass/volume] in Serum syste m which generated or Plasma (test code = this result transmitted Bilirubin.direct reference r lynda: <=0.2. [Mass/volume] in Serum The r eference range was or Plasma) not used to int erpret this result as aubree l/abnormal. [facility]annINR in Blood by Coagulation [id number] 00:14:00 Test Item Value Reference Range Interpretation Comments INR in Blood by Coagulation assay 1.30 1 (test code = INR in Blood by Coagulation assay) [facility]annLactate [Moles/volume] in Serum or [id number] 00:14:00 Test Item Value Reference Range Interpretation Comments Lactate [Moles/volume] in Serum or 1.1 0.4-2.0 Plasma (test code = Lactate [Moles/volume] in Serum or Plasma) [facility] CollinsannTroponin I.cardiac [Mass/volume] in Serum or [id number] 00:14:00 Test Item Value Reference Range Interpretation Comments Troponin I.cardiac < 0.02 See_Comment [Automat ed message] The [Mass/volume] in Serum syste m which generated or Plasma (test code = this result transmitted Troponin I.cardiac reference range: <=0.045. [Mass/volume] in Serum The r eference range was or Plasma) not used to int erpret this result as normal/abnormal . [facility]annAlbumin [Mass/volume] in Serum or Plasma by Bromocresol purple (BCP) dye binding [id number] 17:00:00 Test Item Value Reference Range Interpretation Comments Albumin [Mass/volume] in Serum or 2.9 3.4-5.0 Plasma by Bromocresol purple (BCP) dye binding meth (test code = Albumin [Mass/volume] in Serum or Plasma by Bromocresol purple (BCP) dye binding meth) [facility]annBlood hematocrit (volume fraction)2019-03-22 17:00:00 Test Item Value Reference Range Interpretation Comments Blood hematocrit (volume fraction) 31.2 36.0-45.0 (test code = Blood hematocrit (volume fraction)) [facility]annCalcium [Mass/volume] in Serum or [id number] 17:00:00 Test Item Value Reference Range Interpretation Comments Calcium [Mass/volume] in Serum or 8.6 8.5-10.1 Plasma (test code = Calcium [Mass/volume] in Serum or Plasma) [facility] HermannCarbon dioxide, total [Moles/volume] in Serum or Plasma 2019-03-22 17:00:00 Test Item Value Reference Range Interpretation Comments Carbon dioxide, total [Moles/volume] in 31 21-32 Serum or Plasma (test code = Carbon dioxide, total [Moles/volume] in Serum or Plasma) [facility]annChloride [Moles/volume] in Serum or [id number] 17:00:00 Test Item Value Reference Range Interpretation Comments Chloride [Moles/volume] in Serum or 108 98-107 Plasma (test code = Chloride [Moles/volume] in Serum or Plasma) [facility]annCreatinine [Mass/volume] in Serum or [id number] 17:00:00 Test Item Value Reference Range Interpretation Comments Creatinine [Mass/volume] in Serum or 1.83 0.55-1.3 Plasma (test code = Creatinine [Mass/volume] in Serum or Plasma) [facility]annCreatinine [Mass/volume] in [id number] 17:00:00 Test Item Value Reference Range Interpretation Comments Creatinine [Mass/volume] in Urine (test 50.0 20-320 code = Creatinine [Mass/volume] in Urine) [facility]annGlucose [Mass/volume] in Serum or [id number] 17:00:00 Test Item Value Reference Range Interpretation Comments Glucose [Mass/volume] in Serum or 132 74-106 Plasma (test code = Glucose [Mass/volume] in Serum or Plasma) [facility]annParathyrin.intact [Mass/volume] in Serum or [id number] 17:00:00 Test Item Value Reference Range Interpretation Comments Parathyrin.intact [Mass/volume] in 59.2 18.4-80.1 Serum or Plasma (test code = Parathyrin.intact [Mass/volume] in Serum or Plasma) [facility]annPhosphate [Mass/volume] in Serum or [id number] 17:00:00 Test Item Value Reference Range Interpretation Comments Phosphate [Mass/volume] in Serum or 3.3 2.5-4.9 Plasma (test code = Phosphate [Mass/volume] in Serum or Plasma) [facility]annPotassium [Moles/volume] in Serum or [id number] 17:00:00 Test Item Value Reference Range Interpretation Comments Potassium [Moles/volume] in Serum or 3.5 3.5-5.1 Plasma (test code = Potassium [Moles/volume] in Serum or Plasma) [facility]annProtein [Mass/volume] in [id number] 17:00:00 Test Item Value Reference Range Interpretation Comments Protein [Mass/volume] in Urine (test 6 code = Protein [Mass/volume] in Urine) [facility]annSerum or plasma sodium measurement (moles/volume)2019-03-22 17:00:00 Test Item Value Reference Range Interpretation Comments Serum or plasma sodium measurement 145 136-145 (moles/volume) (test code = Serum or plasma sodium measurement (moles/volume)) [facility] HermannUrate [Mass/volume] in Serum or [id number] 17:00:00 Test Item Value Reference Range Interpretation Comments Urate [Mass/volume] in Serum or Plasma 10.4 2.6-6.0 (test code = Urate [Mass/volume] in Serum or Plasma) [facility]annUrea nitrogen [Mass/volume] in Serum or [id number] 17:00:00 Test Item Value Reference Range Interpretation Comments Urea nitrogen [Mass/volume] in Serum or 54 7-18 Plasma (test code = Urea nitrogen [Mass/volume] in Serum or Plasma) [facility] [id number]-ht-[id number] 17:00:00 Test Item Value Reference Range Interpretation Comments Urine dipstick testing at vuxpt-bq-uooj 10.5 12.0-15.0 (test code = Urine dipstick testing at vnqjk-qo-acad) [facility] [id number] 11:19:00 Test Item Value Reference Range Interpretation Comments Bedside Glucose (test code = Bedside 271 65-120 Glucose) [facility] [id number] 05:00:00 Test Item Value Reference Range Interpretation Comments Thyroid Stimulating Hormone (TSH) (test 1.28 0.34-5.60 code = Thyroid Stimulating Hormone (TSH)) [facility]2018-03-04 05:00:00 Test Item Value Reference Range Interpretation Comments Sodium Level (test code = Sodium Level) 139 135-145 [facility] [id number] 05:00:00 Test Item Value Reference Range Interpretation Comments Potassium Level (test code = Potassium 3.8 3.6-5.0 Level) [facility]2018-03-04 05:00:00 Test Item Value Reference Range Interpretation Comments Glucose Level (test code = Glucose 116 65-120 Level) [facility]2018-03-04 05:00:00 Test Item Value Reference Range Interpretation Comments Estimat Glomerular 29 See_Comment [Automat ed message] The Filtration Rate (test system which generated code = Estimat this result t ransmitted Glomerular Filtration refere nce range: >=90. Rate) The reference r lynda was not used to int erpret this result as normal/abnormal . [facility]2018-03-04 05:00:00 Test Item Value Reference Range Interpretation Comments Creatinine (test code = Creatinine) 1.69 0.44-1.00 [facility]2018-03-04 05:00:00 Test Item Value Reference Range Interpretation Comments Chloride Level (test code = Chloride 102 101-111 Level) [facility]2018-03-04 05:00:00 Test Item Value Reference Range Interpretation Comments Carbon Dioxide Level (test code = 32 21-31 Carbon Dioxide Level) [facility]2018-03-04 05:00:00 Test Item Value Reference Range Interpretation Comments Calcium Level (test code = Calcium 8.4 8.5-10.5 Level) [facility]2018-03-04 05:00:00 Test Item Value Reference Range Interpretation Comments Blood Urea Nitrogen (test code = Blood 33 6-20 Urea Nitrogen) [facility]2018-03-04 05:00:00 Test Item Value Reference Range Interpretation Comments White Blood Count (test code = White 2.2 4.3-10.9 Blood Count) [facility]2018-03-04 05:00:00 Test Item Value Reference Range Interpretation Comments Red Cell Distribution Width (test code 14.5 12.1-15.2 = Red Cell Distribution Width) [facility]2018-03-04 05:00:00 Test Item Value Reference Range Interpretation Comments Red Blood Count (test code = Red Blood 3.18 3.86-4.86 Count) [facility]2018-03-04 05:00:00 Test Item Value Reference Range Interpretation Comments Platelet Count (test code = Platelet 95 152-406 Count) [facility]2018-03-04 05:00:00 Test Item Value Reference Range Interpretation Comments Neutrophils % (test code = Neutrophils 48.8 41.7-73.7 %) [facility]2018-03-04 05:00:00 Test Item Value Reference Range Interpretation Comments Monocytes % (test code = Monocytes %) 10.2 3.3-12.3 [facility]2018-03-04 05:00:00 Test Item Value Reference Range Interpretation Comments Mean Platelet Volume (test code = Mean 8.3 7.6-11.3 Platelet Volume) [facility]2018-03-04 05:00:00 Test Item Value Reference Range Interpretation Comments Mean Corpuscular Volume (test code = 82.8 80-100 Mean Corpuscular Volume) [facility]2018-03-04 05:00:00 Test Item Value Reference Range Interpretation Comments Mean Corpuscular Hemoglobin Concent 32.8 32.0-36.0 (test code = Mean Corpuscular Hemoglobin Concent) [facility]2018-03-04 05:00:00 Test Item Value Reference Range Interpretation Comments Mean Corpuscular Hemoglobin (test 27.1 pg 27.0-35.0 code = Mean Corpuscular Hemoglobin) [facility]2018-03-04 05:00:00 Test Item Value Reference Range Interpretation Comments Lymphocytes % (test code = Lymphocytes 35.1 15.3-44.8 %) [facility]2018-03-04 05:00:00 Test Item Value Reference Range Interpretation Comments Hemoglobin (test code = Hemoglobin) 8.6 12.0-15.0 [facility]2018-03-04 05:00:00 Test Item Value Reference Range Interpretation Comments Hematocrit (test code = Hematocrit) 26.3 36.0-45.0 [facility]2018-03-04 05:00:00 Test Item Value Reference Range Interpretation Comments Eosinophils % (test code 5.0 See_Comment [A utomated message] The = Eosinophils %) system ic h generated this result tra nsmitted reference range : <=4.4. The reference r lynda was not used to int erpret this result as normal/abnormal . [facility]2018-03-04 05:00:00 Test Item Value Reference Range Interpretation Comments Basophils % (test code 0.9 See_Comment [Aut omated message] The = Basophils %) system which generated this result tra nsmitted reference range : <=1.3. The reference r lynda was not used to int erpret this result as normal/abnormal . [facility] [id number] 05:00:00 Test Item Value Reference Range Interpretation Comments Absolute Neutrophil (test code = 1.1 1.8-8.0 Absolute Neutrophil) [facility]2018-03-04 05:00:00 Test Item Value Reference Range Interpretation Comments Absolute Monocytes (CBC) (test code = 0.2 0.1-1.3 Absolute Monocytes (CBC)) [facility]2018-03-04 05:00:00 Test Item Value Reference Range Interpretation Comments Absolute Lymphocytes (CBC) (test code = 0.8 0.7-4.9 Absolute Lymphocytes (CBC)) [facility]2018-03-04 05:00:00 Test Item Value Reference Range Interpretation Comments Absolute Eosinophils 0.1 See_Comment [Autom ated message] The (CBC) (test code = system wh ich generated Absolute Eosinophils this re sult transmitted (CBC)) reference range : <=0.5. The reference r lynda was not used to int erpret this result as normal/abnormal . [facility]2018-03-04 05:00:00 Test Item Value Reference Range Interpretation Comments Absolute Basophils 0.0 See_Comment [Automat ed message] The (CBC) (test code = system wh ich generated Absolute Basophils this resu lt transmitted (CBC)) reference range : <=0.5. The reference r lynda was not used to int erpret this result as normal/abnormal . [facility]2018-03-04 03:35:00 Test Item Value Reference Range Interpretation Comments Urine Random Total Protein (test code = 13 Urine Random Total Protein) [facility]2018-03-04 03:35:00 Test Item Value Reference Range Interpretation Comments Urine Protein/Creatinine Ratio (test 0.09 1 code = Urine Protein/Creatinine Ratio) [facility]2018-03-04 03:35:00 Test Item Value Reference Range Interpretation Comments Urine Creatinine (test code = Urine 143.6 Creatinine) [facility]2018-03-02 04:23:00 Test Item Value Reference Range Interpretation Comments Blood Morphology Blood Morphology Comment (test code = Comment Blood Morphology Comment) [id number] 04:23:00 Test Item Value Reference Range Interpretation Comments B-Type Natriuretic Peptide (test code = 35 B-Type Natriuretic Peptide) [facility]2018-03-01 22:25:00 Test Item Value Reference Range Interpretation Comments Urine pH (test code = Urine pH) 7.0 1 [facility]2018-03-01 22:25:00 Test Item Value Reference Range Interpretation Comments Urine WBC (test code = Urine WBC) no gt [facility]2018-03-01 22:25:00 Test Item Value Reference Range Interpretation Comments Urine Urobilinogen (test code = Urine 1.0 Urobilinogen) [facility]2018-03-01 22:25:00 Test Item Value Reference Range Interpretation Comments Urine Total Protein (test Urine Total Protein code = Urine Total Protein) [facility]2018-03-01 22:25:00 Test Item Value Reference Range Interpretation Comments Urine Squamous Epithelial Cells (test no gt code = Urine Squamous Epithelial Cells) [facility]2018-03-01 22:25:00 Test Item Value Reference Range Interpretation Comments Urine Specific [place] (test code = 1.010 1 Urine Specific [place]) [facility]2018-03-01 22:25:00 Test Item Value Reference Range Interpretation Comments Urine RBC (test code = Urine RBC) Urine RBC [facility]2018-03-01 22:25:00 Test Item Value Reference Range Interpretation Comments Urine Nitrite (test code = Urine Nitrite Urine Nitrite) [facility]2018-03-01 22:25:00 Test Item Value Reference Range Interpretation Comments Urine Leukocyte Urine Leukocyte Esterase (test code = Esterase Urine Leukocyte Esterase) [facility]2018-03-01 22:25:00 Test Item Value Reference Range Interpretation Comments Urine Ketones (test code = Urine Ketones Urine Ketones) [facility]2018-03-01 22:25:00 Test Item Value Reference Range Interpretation Comments Urine Glucose (test code = Urine Glucose Urine Glucose) [facility]2018-03-01 22:25:00 Test Item Value Reference Range Interpretation Comments Urine Culture Reflexed Urine Culture Reflexed (test code = Urine Culture Reflexed) [facility]2018-03-01 22:25:00 Test Item Value Reference Range Interpretation Comments Urine Color (test code = Urine Urine Color Color) [facility]2018-03-01 22:25:00 Test Item Value Reference Range Interpretation Comments Urine Blood (test code = Urine Urine Blood Blood) [facility]2018-03-01 22:25:00 Test Item Value Reference Range Interpretation Comments Urine Bilirubin (test code = Urine Bilirubin Urine Bilirubin) [facility]2018-03-01 22:25:00 Test Item Value Reference Range Interpretation Comments Urine Bacteria (test code = Urine no gt Bacteria) [facility]2018-03-01 22:25:00 Test Item Value Reference Range Interpretation Comments Urine Appearance (test code Urine Appearance = Urine Appearance) [facility]2018-03-01 15:27:00 Test Item Value Reference Range Interpretation Comments Prothrombin Time (test code = 14.6 9.5-12.5 Prothrombin Time) [facility]2018-03-01 15:27:00 Test Item Value Reference Range Interpretation Comments INR International Normalized Ratio 1.23 1 (test code = INR International Normalized Ratio) [facility]2018-03-01 15:27:00 Test Item Value Reference Range Interpretation Comments Activated Partial Thromboplast Time 27.0 24.3-36.9 (test code = Activated Partial Thromboplast Time) [facility]2018-03-01 15:27:00 Test Item Value Reference Range Interpretation Comments Magnesium Level (test code = Magnesium 1.6 1.8-2.5 Level) [facility]2018-03-01 15:27:00 Test Item Value Reference Range Interpretation Comments Creatine Kinase (test code = Creatine 31 22-269 Kinase) [facility]2018-03-01 15:27:00 Test Item Value Reference Range Interpretation Comments Rapid Troponin I (test code = Rapid no gt Troponin I) [facility]2018-03-01 15:27:00 Test Item Value Reference Range Interpretation Comments Creatine Kinase MB (test code = 0.3 0.3-4.0 Creatine Kinase MB) [facility]2017-12-22 12:40:00 Test Item Value Reference Range Interpretation Comments Urine Amorphous Urine Amorphous Sediment (test code = Sediment Urine Amorphous Sediment) [facility]2017-12-22 12:08:00 Test Item Value Reference Range Interpretation Comments Lactic Acid Level (test code = Lactic 10.2 4.5-19.8 Acid Level) [facility]2017-12-22 12:08:00 Test Item Value Reference Range Interpretation Comments Procalcitonin (test code = 0.13 Procalcitonin) [facility]2017-12-22 12:08:00 Test Item Value Reference Range Interpretation Comments Sedimentation Rate, 78 See_Comment [Automa tonny message] Westergren (test code = The system which Sedimentation Rate, generate d this result Westergren) transmitted ref erence range: <=30. Th e reference range was not used to interpr et this result as normal/abnormal . [facility]2017-12-22 12:08:00 Test Item Value Reference Range Interpretation Comments Total Bilirubin (test code = Total 1.2 0.3-1.2 Bilirubin) [facility]2017-12-22 12:08:00 Test Item Value Reference Range Interpretation Comments Serum Total Protein (test code = Serum 6.2 6.0-8.3 Total Protein) [facility]2017-12-22 12:08:00 Test Item Value Reference Range Interpretation Comments Globulin (test code = Globulin) 3.3 2.3-3.5 [facility]2017-12-22 12:08:00 Test Item Value Reference Range Interpretation Comments Direct Bilirubin (test 0.2 See_Comment [Aut omated message] The code = Direct system which g enerated Bilirubin) this result tra nsmitted reference range : <=0.2. The reference r lynda was not used to int erpret this result as normal/abnormal . [facility]2017-12-22 12:08:00 Test Item Value Reference Range Interpretation Comments Aspartate Amino Transf (AST/SGOT) (test 53 10-42 code = Aspartate Amino Transf (AST/SGOT)) [facility]2017-12-22 12:08:00 Test Item Value Reference Range Interpretation Comments Alkaline Phosphatase (test code = 85 42-121 Alkaline Phosphatase) [facility]2017-12-22 12:08:00 Test Item Value Reference Range Interpretation Comments Albumin/Globulin Ratio (test code = 0.9 1 1.1-1.8 Albumin/Globulin Ratio) [facility]2017-12-22 12:08:00 Test Item Value Reference Range Interpretation Comments Albumin (test code = Albumin) 2.9 3.2-5.5 [facility]2017-12-22 12:08:00 Test Item Value Reference Range Interpretation Comments Alanine Aminotransferase (ALT/SGPT) 29 10-60 (test code = Alanine Aminotransferase (ALT/SGPT)) [facility]2017-12-22 12:08:00 Test Item Value Reference Range Interpretation Comments Lipase (test code = Lipase) 17 -51 [facility]
[2022-01-16] MEDS ORDERED: NA CHLORIDE 0.9% 500 ML ONE (23:21)
[2022-01-16] MEDS ORDERED: MAGNESIUM SULFATE 1 gm IVPB 1 GM/100 ML BAG IV ONE (23:21)
--- NOTE | 2022-01-17 00:11 | ER ---
Nurse's Notes [facility] Name: Loni Cross Age: 86 yrs Sex: Female : 1935 Arrival Date: 01/16/2022 Time: 22:38 Bed 13 Private MD: Diagnosis: Paroxysmal atrial fibrillation;End stage renal disease;Hypotension, unspecified Presentation: 01/16 22:40 Chief complaint: EMS states: "She is coming from home, she has a high heart rate. Afib tw5 with RVR.". 22:40 Method Of Arrival: EMS: [facility] tw5 23:11 Coronavirus screen: At this time, the client does not indicate any symptoms associated as6 with coronavirus-19. Ebola Screen: No symptoms or risks identified at this time. Initial Sepsis Screen: Does the patient meet any 2 criteria? No. Patient's initial sepsis screen is negative. Does the patient have a suspected source of infection? No. Patient's initial sepsis screen is negative. Risk Assessment: Do you want to hurt yourself or someone else? Patient reports no desire to harm self or others. Onset of symptoms was January 16, 2022. 23:11 Acuity: TRINI 2 as6 23:13 Care prior to arrival: Medication(s) given: Cardizem 25mg IV initiated. 22 GA, in the as6 left wrist. Historical: - Allergies: 23:11 Alteplase; as6 23:11 blood thinners except ASA; as6 23:11 caffeine; as6 23:11 HYDROCODONE; as6 23:11 Iodine; as6 23:11 Ratibvw-Xds-Kpk Reductase Inhibitors; as6 23:11 Streptomycin; as6 - Home Meds: 23:11 aspirin 81 mg Oral chew 1 tab once daily [Active]; amiodarone 200 mg Oral tab [Active]; as6 Eliquis 2.5 mg oral tab [Active]; midodrine 5 mg oral tab [Active]; - PMHx: 23:11 Anemia; kidney problems; Hypertension; hyperparathyroidism; Hyperlipidemia; Dialysis; as6 Diabetes - NIDDM; Hernia; CHF; Cellulitis; CVA; malnutition; - PSHx: 23:11 Dialysis catheter to right upper chest; hysterectomy; as6 - Immunization history:: Adult Immunizations up to date, Client reports receiving the 2nd dose of the Covid vaccine, pfizer. - Social history:: Smoking status: Patient denies any tobacco usage or history of. - Family history:: not pertinent. - Hospitalizations: : The patient was recently seen at [facility]. Screenin/30 00:14 Abuse screen: Denies threats or abuse. Denies injuries from another. Nutritional aa9 screening: No deficits noted. Tuberculosis screening: No symptoms or risk factors identified. Fall Risk None identified. Assessment: 01/16 23:49 General: Appears uncomfortable, ill, Behavior is cooperative, anxious, quiet. Pain: aa9 Denies pain. Neuro: Level of Consciousness is awake, alert, obeys commands, Oriented to person, place, time, situation. Cardiovascular: Edema is 1+ to left midcalf, left ankle, left foot, left toes, right midcalf, right ankle, right foot and right toes Dialysis shunt: in the anterior aspect of right upper chest. Respiratory: Airway is patent Respiratory effort is even, unlabored. 23:49 Derm: Skin is thin, with poor turgor. aa9 Vital Signs: 22:40 BP 92 / 45; Pulse 133; Resp 18; Temp 98.3; Pulse Ox 100% ; Weight 52.62 kg; Height 5 tw5 ft. 2 in. (157.48 cm); Pain 0/10; 22:45 BP 94 / 35; Pulse 53; Pulse Ox 96% on R/A; aa9 23:08 BP 94 / 35; Pulse 62; Resp 22 S; Temp 98.0(O); Pulse Ox 97% on R/A; Weight 74 kg (M); as6 Height 5 ft. 2 in. (157.48 cm) (R); Pain 0/10; 23:30 BP 99 / 46; Pulse 63; Resp 22 S; Pulse Ox 100% on R/A; aa9 01/17 00:30 BP 109 / 42; Pulse 66; Resp 22 S; Pulse Ox 100% on R/A; aa9 00:45 BP 108 / 44; Pulse 66; Resp 19 S; Pulse Ox 100% on R/A; aa9 01:00 BP 115 / 41; Pulse 67; Resp 19; Pulse Ox 100% on R/A; aa9 01:15 BP 112 / 41; Pulse 76; Resp 20 S; Pulse Ox 99% on R/A; aa9 01/16 23:08 Body Mass Index 29.84 (74.00 kg, 157.48 cm) as6 ED Course: 01/16 22:38 Patient arrived in ED. tw5 22:38 Reggie Canales MD is Attending Physician. rn 23:11 Triage completed. as6 23:11 Arm band placed on. EKG completed in triage. Results shown to MD. as6 23:14 Placed in gown. Bed in low position. Call light in reach. Side rails up X2. Adult w/ as6 patient. Client placed on continuous cardiac and pulse oximetry monitoring. NIBP monitoring applied. Warm blanket given. 23:19 Batsheva Sam, ROBINSON is Primary Nurse. aa9 23:23 XRAY Chest (1 view) In Process Unspecified. EDMS 23:42 Missed attempt(s): 20 gauge in left forearm. Bleeding controlled, band aid applied, aa9 catheter tip intact. 01/17 00:10 Paolo Montgomery MD is Hospitalizing Provider. rn 00:38 Inserted saline lock: 20 gauge in right antecubital area, using aseptic technique. as6 Blood collected. 05:30 No provider procedures requiring assistance completed. Patient admitted, IV remains in as6 place. Administered Medications: 00:38 Drug: NS 0.9% 500 ml Route: IV; Rate: bolus; Site: right antecubital; as6 05:30 Follow up: Response: No adverse reaction; IV Status: Completed infusion; IV Intake: as6 500ml 00:38 Drug: Magnesium Sulfate 1 grams Route: IVPB; Infused Over: 1 hrs; Site: right as6 antecubital; 04:34 Follow up: IV Status: Completed infusion; IV Intake: 100ml aa9 Medication: 05:30 VIS not applicable for this client. as6 Intake: 04:34 IV: 100ml; Total: 100ml. aa9 05:30 IV: 500ml; Total: 600ml. as6 Outcome: 00:10 Decision to Hospitalize by Provider. rn 05:30 Admitted to Tele as6 05:30 Condition: stable 05:30 Instructed on the need for admit. 05:53 Patient left the ED. aa9 Signatures: Dispatcher [employer] EDMS Reggie Canales MD MD rn Wood, Tiffany tw5 Han Gutiérrez RN RN as6 Batsheva Sam, RN RN aa9
--- NOTE | 2022-01-17 00:11 | EDPHYS ---
Physician Documentation [facility] Name: Loni Cross Age: 86 yrs Sex: Female : 1935 Arrival Date: 01/16/2022 Time: 22:38 Bed 13 Private MD: ED Physician Reggie Canales HPI: 01/16 23:16 This 86 yrs old Female presents to ER via EMS with complaints of Palpitations. rn 23:16 The patient presents with a history of irregular heart beat, heart racing. Context: The rn symptoms occur at rest. Onset: The symptoms/episode began/occurred just prior to arrival. Duration: The patient or guardian reports a single episode. Modifying factors: The symptoms are aggravated by nothing. The symptoms are alleviated by EMS administration of diltiazem. Associated signs and symptoms: Pertinent negatives: chest pain, fever, syncope. Severity of symptoms: At their worst the symptoms were moderate in the emergency department the symptoms have improved. The patient has experienced similar episodes in the past. The patient has been recently seen by a physician:. Historical: - Allergies: 23:11 Alteplase; as6 23:11 blood thinners except ASA; as6 23:11 caffeine; as6 23:11 HYDROCODONE; as6 23:11 Iodine; as6 23:11 Tltxdql-Vaz-Bgg Reductase Inhibitors; as6 23:11 Streptomycin; as6 - Home Meds: 23:11 aspirin 81 mg Oral chew 1 tab once daily [Active]; amiodarone 200 mg Oral tab [Active]; as6 Eliquis 2.5 mg oral tab [Active]; midodrine 5 mg oral tab [Active]; - PMHx: 23:11 Anemia; kidney problems; Hypertension; hyperparathyroidism; Hyperlipidemia; Dialysis; as6 Diabetes - NIDDM; Hernia; CHF; Cellulitis; CVA; malnutition; - PSHx: 23:11 Dialysis catheter to right upper chest; hysterectomy; as6 - Immunization history:: Adult Immunizations up to date, Client reports receiving the 2nd dose of the Covid vaccine, pfizer. - Social history:: Smoking status: Patient denies any tobacco usage or history of. - Family history:: not pertinent. - Hospitalizations: : The patient was recently seen at [facility]. ROS: 23:16 Constitutional: Negative for fever, chills, and weight loss, Eyes: Negative for injury, rn pain, redness, and discharge, Neck: Negative for injury, pain, and swelling, Cardiovascular: + palpitations Respiratory: + sob Abdomen/GI: Negative for abdominal pain, nausea, vomiting, diarrhea, and constipation, MS/Extremity: Negative for injury and deformity, Skin: Negative for injury, rash, and discoloration, Neuro: Negative for headache, weakness, numbness, tingling, and seizure. Exam: 23:16 Constitutional: This is a well developed, well nourished patient who is awake, alert, rn and in no acute distress. Head/Face: Normocephalic, atraumatic. Cardiovascular: Tachycardic, irregular Respiratory: Mild tachypnea, no retractions Abdomen/GI: soft, non-tender Skin: Warm, dry MS/ Extremity: Pulses equal, no cyanosis. Neuro: Awake and alert, GCS 15 23:46 ECG was reviewed by the Attending Physician. rn Vital Signs: 22:40 BP 92 / 45; Pulse 133; Resp 18; Temp 98.3; Pulse Ox 100% ; Weight 52.62 kg; Height 5 tw5 ft. 2 in. (157.48 cm); Pain 0/10; 22:45 BP 94 / 35; Pulse 53; Pulse Ox 96% on R/A; aa9 23:08 BP 94 / 35; Pulse 62; Resp 22 S; Temp 98.0(O); Pulse Ox 97% on R/A; Weight 74 kg (M); as6 Height 5 ft. 2 in. (157.48 cm) (R); Pain 0/10; 23:30 BP 99 / 46; Pulse 63; Resp 22 S; Pulse Ox 100% on R/A; aa9 01/17 00:30 BP 109 / 42; Pulse 66; Resp 22 S; Pulse Ox 100% on R/A; aa9 00:45 BP 108 / 44; Pulse 66; Resp 19 S; Pulse Ox 100% on R/A; aa9 01:00 BP 115 / 41; Pulse 67; Resp 19; Pulse Ox 100% on R/A; aa9 01:15 BP 112 / 41; Pulse 76; Resp 20 S; Pulse Ox 99% on R/A; aa9 01/16 23:08 Body Mass Index 29.84 (74.00 kg, 157.48 cm) as6 MDM: 01/16 22:38 Patient medically screened. rn 23:47 ED course: Pt has since converted back to sinus rhythm, given diltiazem by EMS, rn magnesium IV here. Denies sob now.. 01/17 00:08 Differential diagnosis: arrythmia, dehydration, stress disorder, afib with RVR, ESRD, rn electrolyte imbalance. Data reviewed: vital signs, nurses notes, EKG, radiologic studies, and as a result, I will admit patient. Counseling: I had a detailed discussion with the patient and/or guardian regarding: the historical points, exam findings, and any diagnostic results supporting the discharge/admit diagnosis, radiology results, the need for further work-up and treatment in the hospital. Response to treatment: the patient's symptoms have markedly improved after treatment, and as a result, I will admit patient. Admission orders: after a detailed discussion of the patient's condition and case, the admit orders are written by me. 00:08 ED course: Pt reports generalized weakness, BP still borderline, due for dialysis in rn AM. Will admit to Dr. Montgomery. . 01/16 22:42 Order name: Basic Metabolic Panel; Complete Time: 02:11 01/16 22:42 Order name: CBC with Diff; Complete Time: 00:49 rn 01/16 22:42 Order name: NT PRO-BNP; Complete Time: 02:01/16 22:42 Order name: Troponin HS; Complete Time: 02:01/16 22:42 Order name: XRAY Chest (1 view) rn 01/16 22:42 Order name: SARS RAPID; Complete Time: 02:01/16 22:42 Order name: EKG; Complete Time: 22:44 01/16 22:42 Order name: Cardiac monitoring; Complete Time: 23: rn 01/16 22:42 Order name: EKG - Nurse/Tech; Complete Time: 23: rn 01/16 22:42 Order name: IV Saline Lock; Complete Time: 23:01/16 22:42 Order name: Labs collected and sent; Complete Time: 00:38 rn 01/16 22:42 Order name: O2 Per Protocol; Complete Time: 23:01/16 22:42 Order name: O2 Sat Monitoring; Complete Time: 23: rn EC/29 23:46 Rate is 60 beats/min. Rhythm is regular. QRS [place] is Normal. UT interval is normal. QRS rn interval is normal. QT interval is normal. No Q waves. T waves are Normal. No ST changes noted. Clinical impression: NSR w/ Non-specific ST/T Changes. Interpreted by me. Reviewed by me. Administered Medications: 01/17 00:38 Drug: NS 0.9% 500 ml Route: IV; Rate: bolus; Site: right antecubital; as6 05:30 Follow up: Response: No adverse reaction; IV Status: Completed infusion; IV Intake: as6 500ml 00:38 Drug: Magnesium Sulfate 1 grams Route: IVPB; Infused Over: 1 hrs; Site: right as6 antecubital; 04:34 Follow up: IV Status: Completed infusion; IV Intake: 100ml aa9 Disposition Summary: 01/17/22 00:10 Hospitalization Ordered Hospitalization Status: Observation rn Provider: Paolo Montgomery rn Condition: Stable rn Problem: an acute exacerbation rn Symptoms: have improved rn Bed/Room Type: Standard rn Location: Telemetry/MedSurg (observation)(01/17/22 04:27) cg Room Assignment: [facility](01/17/22 04:27) cg Diagnosis - Paroxysmal atrial fibrillation rn - End stage renal disease rn - Hypotension, unspecified rn Forms: - Medication Reconciliation Form rn - SBAR form rn Signatures: Dispatcher [employer] Reggie Verde MD MD rn Garcia, Cindy, RN RN cg Slawson, Ashby, RN RN as6 Avalos, Aylin RN aa9 Corrections: (The following items were deleted from the chart) 02:19 00:10 Telemetry/MedSurg (observation) rn cg 02:19 00:10 rn cg 04: 02:19 [facility] ER HOLD cg cg 04: 02:19 ERHOLD- cg cg
[2022-01-17 00:45] LABS: Absolute Lymphocytes (CBC) 0.4 K/uL (0.7-4.9); Hematocrit 28.9 % (36.0-45.0); Lymphocytes % 5.8 % (15.3-44.8); MCV 92.2 fL (80-100); MPV 7.1 fL (7.6-11.3); RBC Red Blood Cell Count 3.13 M/uL (3.86-4.86)
[2022-01-17 02:09] LABS: SARS-CoV-2 Antigen Rapid Res Negative (Negative)
[2022-01-17 02:09] LABS: Potassium 4.3 mmol/L (3.5-5.1); Troponin High Sensitivity 33.6 pg/mL (<58.9)
[2022-01-17 03:00] VITALS: BMI 29.8
--- NOTE | 2022-01-17 05:28 | P.CNS ---
Date of Consult: 01/17/22 Reason for Consult: ESRD Requesting Physician: Paolo Montgomery V Chief Complaint: Palpitations History of Present Illness: 86F w/ PMHx of ESRD on HD qMWF, Htn, afib, anemia, & renal osteodystrophy, who was BIBA for palpitations, found to have rapid afib. Now on po amiodarone & HR controlled. She received HD today, was well tolerated. Allergies caffeine Adverse Reaction (Verified 01/17/22 06:43) Nausea/Vomiting blood thinner Allergy (Mild, Uncoded 06/16/19 21:12) swelling blood thinners Allergy (Uncoded 06/16/19 21:12) Unknown Xxmwsgg-Rkd-Odq Redu Allergy (Uncoded 06/16/19 21:12) Unknown Home Medications: Acetaminophen [Tylenol] 2 tab PO Q4HP PRN 01/17/22 Amiodarone HCl [Pacerone] 0.5 tab PO DAILY 01/17/22 Apixaban [Eliquis] 0.5 tab PO BID 01/17/22 Aspirin [Aspirin EC] 1 tab PO DAILY 01/17/22 Cetirizine HCl [Zyrtec] 1 tab PO DAILY 01/17/22 Cholecalciferol (Vitamin D3) [Vitamin D 5,000 IU Cap*] 1 tab PO DAILY 01/17/22 Ezetimibe [Zetia] 1 tab PO DAILY 01/17/22 Fluticasone [Flonase 50MCG Nasal [place]*] 1 spray IN BID 01/17/22 Insulin Aspart [Novolog Flexpen] 10 units SQ BID 01/17/22 Insulin Detemir [Levemir Flextouch] 10 units SQ DAILY 01/17/22 Insulin Detemir [Levemir Flextouch] 50 units SQ BEDTIME 01/17/22 Lactobacillus Acidophilus [Acidophilus Lactobacilli] 1 cap PO TID 01/17/22 Melatonin [Melatonin*] 3 tab PO BEDTIME 01/17/22 Midodrine HCl 4 tab PO TID 01/17/22 Pantoprazole Sodium [Protonix] 1 tab PO DAILY 01/17/22 Pravastatin Sodium 1 tab PO BEDTIME 01/17/22 Sennosides 1 tab PO DAILY 01/17/22 Simethicone 2.25 tab PO TID 01/17/22 Ubidecarenone [Co Q-10] 2 cap PO DAILY 01/17/22 Zinc Sulfate [Zinc Sulfate*] 1 tab PO DAILY 01/17/22 - Past Medical/Surgical History Diabetic: Yes -: DM -: HTN -: Hyperlipidemia -: CVA 2014 -: Gastric Ulcer -: Chronic renal failure -: Diastolic heart failure -: COVID infection October 2020 -: dilaysis MWF -: Full Hysterectomy -: R upper chest dialysis cath - Family History Mother Medical History: Diabetes - Social History Alcohol use: No CD- Drugs: No Caffeine use: No Review of Systems General: Weakness Eyes: Unremarkable ENT: Unremarkable Respiratory: Unremarkable Cardiovascular: Palpitations Gastrointestinal: Unremarkable Genitourinary: Unremarkable Musculoskeletal: Unremarkable Integumentary: Unremarkable Neurological: Unremarkable Lymphatics: Unremarkable Physical Examination Temp Pulse Resp BP Pulse Ox 98.7 F 69 20 114/41 L 94 01/17/22 02:41 01/17/22 02:41 01/17/22 02:41 01/17/22 02:41 01/17/22 02:41 General: In no apparent distress HEENT: Atraumatic, Normocephalic Neck: Supple, JVD not distended Respiratory: Diminished Cardiovascular: No rubs, No murmurs Gastrointestinal: Soft and benign, No rebound Musculoskeletal: No clubbing Integumentary: No warmth Neurological: Normal speech, Normal tone Lymphatics: No axilla or inguinal lymphadenopathy Urinary: Other (No bladder distention) External genitalia: Deferred Rectal: Deferred Laboratory Data (last 24 hrs) 01/17/22 01:30: Sodium 137, Potassium 4.3, BUN 58 H, Creatinine 4.86 H, Glucose 145 H 01/17/22 00:36: WBC 6.80, Hgb 9.4 L, Hct 28.9 L, Plt Count 137 L Conclusions/Impression: 1. End-stage renal disease. Received HD today. Cont HD qMWF. 2. Anemia of chronic kidney disease. H/H below goal. Continue ELROY. 3. Hypertension, controlled, optimal. Continue current med regimen. 4. L Pleural effusion. S/p L pleurX catheter placement on 12/26/2021 5. Secondary hyperparathyroidism, stable. Monitor Ca & Phos. 6. Atrial fibrillation w/ RVR. HR now controlled. Per other services. May resume low dose eliquis bid.
[2022-01-17] MEDS ORDERED: INFLUENZA VACCINE (for 6+ mo) 0.5 ML DOSE IMVAC ONE (08:00)
[2022-01-17] MEDS ORDERED: PNEUMOCOCCAL VACCINE 0.5 ML IMVAC ONE (12:13)
--- NOTE | 2022-01-17 13:23 | P.HP ---
Certification for Inpatient Patient admitted to: Observation Practitioner: I am a practitioner with admitting privileges, knowledge of patient current condition, hospital course, and medical plan of care. Services: Services provided to patient in accordance with Admission requirements found in Title 42 Section 412.3 of the Code of Federal Regulations Patient History Date of Service: 01/17/22 Reason for admission: a fib History of Present Illness: KAYLAN COMES FOR RAPID A FIB AGAIN. SHE CONVERTED WITH CARDIZEM IV. SHE IS STABLE. SHE HAS NO CHEST PAIN. Allergies caffeine Adverse Reaction (Verified 01/17/22 06:43) Nausea/Vomiting blood thinner Allergy (Mild, Uncoded 06/16/19 21:12) swelling blood thinners Allergy (Uncoded 06/16/19 21:12) Unknown Qrtqrda-Gqs-Mqc Redu Allergy (Uncoded 06/16/19 21:12) Unknown Home medications list reviewed: Yes Home Medications: Acetaminophen [Tylenol] 2 tab PO Q4HP PRN 01/17/22 Amiodarone HCl [Pacerone] 0.5 tab PO DAILY 01/17/22 Apixaban [Eliquis] 0.5 tab PO BID 01/17/22 Aspirin [Aspirin EC] 1 tab PO DAILY 01/17/22 Cetirizine HCl [Zyrtec] 1 tab PO DAILY 01/17/22 Cholecalciferol (Vitamin D3) [Vitamin D 5,000 IU Cap*] 1 tab PO DAILY 01/17/22 Ezetimibe [Zetia] 1 tab PO DAILY 01/17/22 Fluticasone [Flonase 50MCG Nasal [place]*] 1 spray IN BID 01/17/22 Insulin Aspart [Novolog Flexpen] 10 units SQ BID 01/17/22 Insulin Detemir [Levemir Flextouch] 10 units SQ DAILY 01/17/22 Insulin Detemir [Levemir Flextouch] 50 units SQ BEDTIME 01/17/22 Lactobacillus Acidophilus [Acidophilus Lactobacilli] 1 cap PO TID 01/17/22 Melatonin [Melatonin*] 3 tab PO BEDTIME 01/17/22 Midodrine HCl 4 tab PO TID 01/17/22 Pantoprazole Sodium [Protonix] 1 tab PO DAILY 01/17/22 Pravastatin Sodium 1 tab PO BEDTIME 01/17/22 Sennosides 1 tab PO DAILY 01/17/22 Simethicone 2.25 tab PO TID 01/17/22 Ubidecarenone [Co Q-10] 2 cap PO DAILY 01/17/22 Zinc Sulfate [Zinc Sulfate*] 1 tab PO DAILY 01/17/22 - Past Medical/Surgical History Has patient received pneumonia vaccine in the past: Yes Diabetic: Yes -: DM -: HTN -: Hyperlipidemia -: CVA 2014 -: Gastric Ulcer -: Chronic renal failure -: Diastolic heart failure -: COVID infection October 2020 -: dilaysis MWF -: Full Hysterectomy -: R upper chest dialysis cath - Family History Mother -: Diabetes - Social History Smoking Status: Never smoker Alcohol use: No CD- Drugs: No Caffeine use: No Review of Systems 10-point ROS is otherwise unremarkable Physical Examination - Vital Signs Temperature: 97.9 F Blood Pressure: 120/47 Pulse: 72 Respirations: 18 Pulse Ox (%): 98 - Physical Exam General: Alert, In no apparent distress HEENT: Atraumatic, PERRLA, Mucous membr. moist/pink, EOMI, Sclerae nonicteric Neck: Supple, 2+ carotid pulse no bruit, No LAD, Without JVD or thyroid abnormality Respiratory: Clear to auscultation bilaterally, Normal air movement Cardiovascular: Regular rate/rhythm, Normal S1 S2 Gastrointestinal: Normal bowel sounds, No tenderness Musculoskeletal: No tenderness Integumentary: No rashes Neurological: Normal gait, Normal speech, Normal strength at 5/5 x4 extr, Normal tone, Normal affect Lymphatics: No axilla or inguinal lymphadenopathy - Studies Laboratory Data (last 24 hrs) 01/17/22 01:30: Sodium 137, Potassium 4.3, BUN 58 H, Creatinine 4.86 H, Glucose 145 H 01/17/22 00:36: WBC 6.80, Hgb 9.4 L, Hct 28.9 L, Plt Count 137 L Assessment and Plan - Problems (Diagnosis) (1) 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 (2) Rapid atrial fibrillation Current Visit: No Status: Resolved Plan: I TALKED TO DR. LEGGETT RAISE DOSE AMIODARONE 200 MG PO BID. STABLE FOR NOW. - Advance Directives Does patient have a Living Will: No Does patient have a Durable POA for Healthcare: No
--- NOTE | 2022-01-17 17:51 | RAD REPORT ---
EXAM DESCRIPTION: RAD - Chest Single View - 01/16/2022 11:21 pm CLINICAL HISTORY: 86 years, Female, PALPITATIONS COMPARISON: 08/13/2021 FINDINGS: Single view of the chest was obtained portable. Prior films were compared. There has been interval placement of a right IJ tunnel dialysis catheter in good position. There is no evidence for pneumothorax. The heart is enlarged. The thoracic aorta demonstrate minimal intimal calcification. Fi ndings suggest placement of a left chest tube/Pleurx catheter. Findings suggest most likely residual small left pleural effusion. Minimal compressive atelectatic changes. The right lung is clear. The rest of the soft tissue and bony structures demonstrate to be unremarkable. IMPRESSION: Right IJ tunnel dialysis catheter in good position. Cardiomegaly. Findings just most likely left Pleurx catheter with small residual left pleural effusion. Electronically signed by: Jorge A Villegas MD 01/16/2022 11:37 PM CDT Due to temporary technical issues with the PACS/Fluency reporting system, reports are being signed by the in house radiologists without review as a courtesy to insure prompt reporting. The interpreting radiologist is fully responsible for the content of the report.
[2022-01-17] MEDS: AMIODARONE HCL 200 MG TAB PO SCH ×3 (18:05→21:20)
[2022-01-17] MEDS ORDERED: INSULIN GLARGINE 100 UNIT/ML SQ SCH (21:00)
[2022-01-17] MEDS ORDERED: HOME MED 1 EA UNK (Pravastatin Sodium [Pravastatin Sodium] 10 MG Tablet) PO SCH (21:00)
[2022-01-17] MEDS ORDERED: HOME MED 1 EA UNK (Insulin Detemir [Levemir Flextouch] 100 UNIT/ML Insuln.Pen) SQ SCH (21:00)
[2022-01-17] MEDS ORDERED: ATORVASTATIN 10 MG TAB PO SCH (21:00)
[2022-01-17] MEDS: APIXABAN 2.5 MG TABLET PO SCH (21:20)
[2022-01-17] MEDS ORDERED: ACETAMINOPHEN 500 MG TAB PO PRN (21:28)
[2022-01-17] MEDS ORDERED: TRAZODONE 50 MG TABLET PO PRN (21:28)
[2022-01-18 06:18] LABS: Absolute Lymphocytes (CBC) 0.5 K/uL (0.7-4.9); Hematocrit 27.9 % (36.0-45.0); Lymphocytes % 10.6 % (15.3-44.8); MCV 93.1 fL (80-100); MPV 7.2 fL (7.6-11.3); RBC Red Blood Cell Count 2.99 M/uL (3.86-4.86)
[2022-01-18 06:39] LABS: Potassium 3.6 mmol/L (3.5-5.1)
[2022-01-18] MEDS: AMIODARONE HCL 200 MG TAB PO SCH (08:28)
[2022-01-18] MEDS: APIXABAN 2.5 MG TABLET PO SCH (08:28)
[2022-01-18] MEDS ORDERED: HOME MED 1 EA UNK (Insulin Detemir [Levemir Flextouch] 100 UNIT/ML Insuln.Pen) SQ SCH (09:00)
[2022-01-18] MEDS ORDERED: VITAMIN D 5,000 UNIT CAP PO SCH (09:00)
[2022-01-18] MEDS ORDERED: INSULIN GLARGINE 100 UNIT/ML SQ SCH (09:00)
[2022-01-18] MEDS ORDERED: EZETIMIBE 10 MG TAB PO SCH (09:00)
[2022-01-18] MEDS ORDERED: ASPIRIN EC 81 MG TAB PO SCH (09:00)
[2022-01-18 09:11] VITALS: O2SAT 100
[2022-01-18] MEDS ORDERED: EPOETIN ALFA 10,000 UNIT/ML VIAL IV SCH (09:30)
--- NOTE | 2022-01-18 10:04 | PN ---
Date of Progress Note: 01/18/2022 Subjective: The patient was admitted with AFib and RVR, over volume. The patient was dialyzed yesterday, managed to remove 2 L, tolerated well. The patient feeling better. Heart rate has been controlled. Physical Examination: General: When I saw the patient; the patient lying in bed, comfortable. Vital Signs: Blood pressure 133/59, pulse of 86, afebrile. Chest: Faint rales on the left base. Heart: S1, S2. Systolic murmur. Abdomen: Soft, nontender. Extremity: No edema. Neurologic: Alert. No focal edema. Laboratory Data: H and H 8.9/27.9. Sodium 138, potassium 3.6, bicarb 28, BUN 37, creatinine 3.4, calcium 7.9. BNP 4400. Current Medications: The patient on include; 1. Eliquis. 2. Amiodarone. 3. Zetia. 4. Trazodone. 5. Insulin. Assessment And Plan: 1. End-stage renal disease, over volume, status post dialysis yesterday, tolerated well. We will continue to monitor the patient. We will backup the patient on her schedule Thursday, Thursday, Thursday. The patient already set for home hemodialysis. We will follow up. 2. Hypertension, controlled, optimal. We will utilize blood pressure for more ultrafiltration. I am going to start the patient on low dose of carvedilol for better rate control and we will follow up the patient. 3. Anemia of chronic kidney disease. Resume ELROY. 4. Atrial fibrillation with rapid ventriculare response as by Cardiology and Primary. 5. Congestive heart failure with exacerbation, over volume. The patient challenged back to baseline. We will follow up. 6. Alkalosis. Will be corrected with dialysis. time spend exam the patient face to face, reviewing data including lab and radiology , placing order , discussing the case with patient and Nursing staff and Hospitalist > 35 min MARCIO Voice ID: [id number] Report ID: [id number]
[2022-01-18] MEDS ORDERED: INFLUENZA VACCINE (for 6+ mo) 0.5 ML DOSE IMVAC ONE ×2 (12:00→12:36)
[2022-01-18] MEDS ORDERED: PNEUMOCOCCAL VACCINE 0.5 ML IMVAC ONE (12:36)
[2022-01-18 14:25] VITALS: BP 146/79; TEMP 98.2
[2022-01-18] MEDS ORDERED: carvediloL 3.125 MG TAB PO SCH (18:00)
--- NOTE | 2022-01-18 21:16 | P.DS ---
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 SHE CONVERTED WITH CARDIZEM IV. SHE IS STABLE. SHE HAS NO CHEST PAIN. Hospital Course: MS LEIGH IS FRAIL ELDERLY LADY WHO HAS DM, CKD AND IS ON HEMODIALYSIS. SHE COMES THIS TIME AGAIN WITH RAPID A FIB. DOES WELL WITH CARDIZEM, WAS GIVEN HIGHER DOSE OF AMIODARONE 200 MG PO BID AND AFTER 36 HOUR OF BEING STABLE WAS DISCHARGED WITH BID AMIODARONE. SHE IS STABLE. SHE WILL LIVE WITH GRAND DAUGHTER FOR CARE SHE NEEDS. SHE WAS ABLE TO AMBULATE BEOFRE DISCHARGE PER NURSE. Vital Signs/Physical Exam: Temp Pulse Resp BP Pulse Ox 98.2 F 78 16 146/79 H 98 01/18/22 12:00 01/18/22 12:00 01/18/22 12:00 01/18/22 12:00 01/18/22 12:00 Laboratory Data at Discharge: WBC 4.90 K/uL (4.3-10.9) 01/18/22 05:31 Hgb 8.9 g/dL (12.0-15.0) L 01/18/22 05:31 Hct 27.9 % (36.0-45.0) L 01/18/22 05:31 Plt Count 108 K/uL (152-406) L 01/18/22 05:31 Sodium 138 mmol/L (136-145) 01/18/22 05:31 Potassium 3.6 mmol/L (3.5-5.1) 01/18/22 05:31 BUN 37 mg/dL (7-18) H 01/18/22 05:31 Creatinine 3.41 mg/dL (0.55-1.3) H 01/18/22 05:31 Glucose 169 mg/dL (74-106) H 01/18/22 05:31 Home Medications: Acetaminophen [Tylenol] 2 tab PO Q4HP PRN 01/17/22 Amiodarone HCl [Pacerone] 0.5 tab PO DAILY 01/17/22 Apixaban [Eliquis] 0.5 tab PO BID 01/17/22 Aspirin [Aspirin EC] 1 tab PO DAILY 01/17/22 Cetirizine HCl [Zyrtec] 1 tab PO DAILY 01/17/22 Cholecalciferol (Vitamin D3) [Vitamin D 5,000 IU Cap*] 1 tab PO DAILY 01/17/22 Ezetimibe [Zetia] 1 tab PO DAILY 01/17/22 Fluticasone [Flonase 50MCG Nasal Angie*] 1 spray IN BID 01/17/22 Insulin Aspart [Novolog Flexpen] 10 units SQ BID 01/17/22 Insulin Detemir [Levemir Flextouch] 10 units SQ DAILY 01/17/22 Insulin Detemir [Levemir Flextouch] 50 units SQ BEDTIME 01/17/22 Lactobacillus Acidophilus [Acidophilus Lactobacilli] 1 cap PO TID 01/17/22 Melatonin [Melatonin*] 3 tab PO BEDTIME 01/17/22 Midodrine HCl 4 tab PO TID 01/17/22 Pantoprazole Sodium [Protonix] 1 tab PO DAILY 01/17/22 Pravastatin Sodium 1 tab PO BEDTIME 01/17/22 Sennosides 1 tab PO DAILY 01/17/22 Simethicone 2.25 tab PO TID 01/17/22 Ubidecarenone [Co Q-10] 2 cap PO DAILY 01/17/22 Zinc Sulfate [Zinc Sulfate*] 1 tab PO DAILY 01/17/22 Amiodarone HCl [Pacerone] 400 mg PO BID 7 Days #14 tab 01/18/22 New Medications: Amiodarone HCl [Pacerone] 400 mg PO BID 7 Days #14 tab Followup: Benjamin Bravo MD [ACTIVE - CAN ADMIT] - 01/23/22 1:00 pm Paolo Montgomery MD [ACTIVE - CAN ADMIT] - (Follow up in one week, call to schedule appointment.)
--- NOTE | 2022-01-19 07:48 | EKG ---
Test Date: 2022-01-16 Test Time: 22:53:49 Dispatcher Ship Pilot: MEASUREMENT RESULTS: Intervals: Rate: 60 VT: 206 QRSD: 76 QT: 398 QTc: 398 [place]: P: 20 VT: 206 QRS: 15 T: 30 INTERPRETIVE STATEMENTS: Normal sinus rhythm Low voltage QRS Cannot rule out Anterior infarct, age undetermined Abnormal ECG Compared to ECG 01/13/2022 16:36:16 First degree AV block no longer present Myocardial infarct finding still present Electronically Signed On 01-19-22 07:44:38 CDT by Benjamin Bravo
--- NOTE | 2022-01-19 10:25 | CON ---
Date of Consultation: 01/18/2022 Reason For Consultation: Recurrent atrial fibrillation. History Of Present Illness: Ms. Cross is 84. Has a history of end-stage renal disease, on hemodialy sis, diabetes, congestive heart failure, hypertension, CVA, cellulitis, dyslipidemia, anemia, and hyp erparathyroidism. Has had atrial fibrillation. She was recently discharged on amiodarone 200 mg marjan ly. Comes back with rapid atrial fibrillation. She is in sinus rhythm after I saw her. She receive d amiodarone 400 mg p.o. after she was admitted. Other than the palpitations, she did not really hav e any symptoms. Denied any syncope, fever or chills. Allergies: SHE IS ALLERGIC TO CAFFEINE, BLOOD THINNERS, STATINS, AND IODINE. Medications: At home include aspirin, amiodarone, midodrine, and Eliquis. Review of Systems: Negative. Social History: Negative. Family History: Negative. Physical Examination: General: When I saw her, she was pleasant, sinus rhythm 82, no acute distress. HEENT: Negative. Neck: Supple with no bruit. Chest: Clear. Cardiac: Revealed regular rhythm and rate without any murmurs, gallops, or rubs. Abdomen: Benign. Extremities: Revealed no clubbing, cyanosis, or edema. Diagnostic Data: Showed a creatinine of 3.41, hemoglobin 8.9. Her BNP was 4430. Impression And Plan: 1.Atrial fibrillation. I will put her on 400 mg 1 p.o. b.i.d. for a week, then switch her to 200 mg b.i.d. after that. If she continues to have atrial fibrillation, we will consider cardioversion. M rs. Cross says that she is allergic to blood thinners, but I think she is tolerating Eliquis and we w ill continue that. If she has any issues with bleeding down the road, we will consider a Watchman. From my standpoint, she is in sinus rhythm, asymptomatic, she can go home, and I will see her in the office in a week. 2.End-stage renal disease. At one point, she had pericardial effusion and thoracentesis, probably s econdary to renal disease. This is stable at this point. We will probably do an echocardiogram on h er down the road. 3.Diabetes. 4.Congestive heart failure, chronic, diastolic, stable. 5.Hypertension, stable. 6.Dyslipidemia, stable. 7.Anemia. 8.History of cellulitis. 9.History of cerebrovascular accident. 10.History of hyperparathyroidism. Again, I would continue her present regimen. Continue amiodaron e 400 b.i.d. for a week. I will see her after that. Case was discussed with Dr. Montgomery. She can go home today. BHASKAR/MARIANA Voice ID: [id number] Report ID: [id number]
[2022-01-25] MEDS ORDERED: AMIODARONE HCL 200 MG TAB PO SCH ×2 (09:00)
== END 2022-01-18 14:43 | disposition home health service (06) ==
LOC: ER 22:35 → ERHOLD 01-17 02:13 → 4TH 01-17 04:47
PROVIDERS: ADMIT Internal Medicine; ATTEND Internal Medicine
DX: I48.11 Longstanding persistent atrial fibrillation (principal); E11.22 Type 2 diabetes mellitus with diabetic chronic kidney disease; I13.2 Hypertensive heart and chronic kidney disease with heart failure and with stage 5 chronic kidney disease, or end stage renal disease; N18.5 Chronic kidney disease, stage 5; I50.9 Heart failure, unspecified; Z99.2 Dependence on renal dialysis; Z91.09 Other allergy status, other than to drugs and biological substances; Z88.8 Allergy status to other drugs, medicaments and biological substances; Z20.822 Contact with and (suspected) exposure to COVID-19; D64.9 Anemia, unspecified; Z86.73 Personal history of transient ischemic attack (TIA), and cerebral infarction without residual deficits; E21.3 Hyperparathyroidism, unspecified; Z88.6 Allergy status to analgesic agent; J90 Pleural effusion, not elsewhere classified
CPT/HCPCS: 96365; 96361; 93005; 85025 ×2; 80048 ×2; 36415 ×2; 82947 ×3; 84484; 83880; 71045; 90935; 90471 ×2; 90732; 99285; 96366; 87811; Q2035; J3475; J1644 ×2; J7040; G0378 ×3